=== PATIENT | female | born 1970 | race Caucasian/White ===

== ENCOUNTER → 2017-04-07 | Outpatient (CLI) | payer OTHER ==
--- NOTE | 2017-04-08 11:08 | ECHOF ---
Referral Reason:[id number] primary pulmonary htn MEASUREMENTS -------- HEIGHT: 160.0 cm WEIGHT: 43.5 kg BP: 110/60 RVIDd: 2.5 cm (< 3.3) IVSd: 0.9 cm (0.6 - 1.1) LVIDd: 3.9 cm (3.9 - 5.3) LVPWd: 0.8 cm (0.6 - 1.1) IVSs: 1.3 cm LVIDs: 2.5 cm LVPWs: 1.2 cm LA Diam: 2.7 cm (2.7 - 3.8) LAESV Index (A-L): 27.56 ml/m Ao Diam: 2.5 cm (2.0 - 3.7) AV Cusp: 2.0 cm (1.5 - 2.6) MV EXCURSION: 12.169 mm (> 18.000) MV EF SLOPE: 71 mm/s (70 - 150) EPSS: 0.0 cm MV E Tristin: 1.05 m/s MV DecT: 205 ms MV A Tristin: 0.72 m/s MV E/A Ratio: 1.45 AR PHT: 1095 ms RAP: 5.00 mmHg RVSP: 23.35 mmHg FINDINGS -------- Sinus rhythm. This was a technically good study. The left ventricular size is normal. Left ventricular wall thickness is normal. Overall left ventricular systolic function is normal with, an EF between 60 - 65 %. The right ventricle is normal in size. Normal LA size by volume 22+/-6 ml/m2. The right atrium is normal in size. There is mild aortic valve sclerosis. There is mild aortic regurgitation. There is trace to mild mitral regurgitation. Mild tricuspid regurgitation present. Right ventricular systolic pressure is normal at < 35 mmHg. Trace/mild (physiologic) pulmonic regurgitation. The aortic root size is normal. Normal inferior vena cava with normal inspiratory collapse consistent with estimated right atrial pressure of 5 mmHg. There is no pericardial effusion. CONCLUSIONS -------- 1. Sinus rhythm. 2. There is mild aortic regurgitation. 3. There is trace to mild mitral regurgitation. 4. Mild tricuspid regurgitation present. 5. Right ventricular systolic pressure is normal at < 35 mmHg. 6. Trace/mild (physiologic) pulmonic regurgitation. 7. The aortic root size is normal. 8. Normal inferior vena cava with normal inspiratory collapse consistent with estimated right atrial pressure of 5 mmHg. 9. There is no pericardial effusion. 10. This was a technically good study. 11. The left ventricular size is normal. 12. Left ventricular wall thickness is normal. 13. Overall left ventricular systolic function is normal with, an EF between 60 - 65 %. 14. The right ventricle is normal in size. 15. Normal LA size by volume 22+/-6 ml/m2. 16. The right atrium is normal in size. 17. There is mild aortic valve sclerosis. [employer] [id number]: Joan Field RDCS
== END | disposition home or self-care (01) ==
LOC: RADECHMAIN 12:58
PROVIDERS: ATTEND Internal Medicine Sleep Medicine
DX: I08.3 Combined rheumatic disorders of mitral, aortic and tricuspid valves (principal); I27.0 Primary pulmonary hypertension
CPT/HCPCS: 93306

== ENCOUNTER → 2017-05-12 | Outpatient (CLI) | payer OTHER ==
--- NOTE | 2017-05-12 14:23 | MR ---
EXAMINATION TYPE: MR shoulder RT wo con DATE OF EXAM: 05/12/2017 COMPARISON: Plain film correlation is unavailable. HISTORY: RTC, painful to raise over head TECHNIQUE: Multiplanar, multisequence imaging of the right shoulder is performed without contrast. FINDINGS: Rotator Cuff: Rotator cuff appears intact. No suspicious signal abnormality is evident. Acromioclavicular Joint: Minimal hypertrophy without inferior spurring. Glenohumeral Joint: Preserved Labrum: The labrum appears grossly intact given limitation of non-arthrogram study. Biceps Tendon: The long head of biceps is in normal location within bicipital groove. Bone marrow signal: There is signal abnormality within the metaphyseal humerus. Also consider an occu lt fracture of the greater tubercle of the humerus. Plain film correlation is recommended. There is i ncreased signal throughout the metadiaphysis of the humerus. A more focal area with well-circumscribe d margins is within the metaphysis. This area could be further evaluated with plain film to help guid e further workup. Other: No additional significant abnormality is appreciated. IMPRESSION: 1. Suspected occult fracture of the greater tubercle right humerus. 2. Abnormal edema within the medullary metadiaphysis right humerus. A focal circumscribed areas withi n the medullary portion is well. Plain film correlation is recommended of the right shoulder proximal humerus for correlation and additional guidance for workup of these findings. 3. Rotator cuff appears intact.
== END | disposition home or self-care (01) ==
LOC: RADMRIMAIN 10:48
PROVIDERS: ATTEND Orthopaedic Surgery
DX: R60.0 Localized edema (principal)

== ENCOUNTER → 2017-05-25 | Outpatient (CLI) | payer OTHER ==
[~2017-05-25] MED LIST: DENOSUMAB 60 MG/ML 1 ML SYRINGE SQ ONE
[2017-05-25 13:48] VITALS: BP 124/86; PULSE 82; RESP 16; TEMP 98.6
== END ==
LOC: PROCWHC3 13:16
PROVIDERS: ATTEND Family Medicine
DX: M81.0 Age-related osteoporosis without current pathological fracture (principal); N18.3 Chronic kidney disease, stage 3 (moderate)
CPT/HCPCS: 96372; J0897

== ENCOUNTER → 2017-10-28 | Outpatient (CLI) | payer OTHER ==
--- NOTE | 2017-10-28 17:59 | BD ---
EXAMINATION TYPE: MG DEXA axial skeleton. DATE OF EXAM: 10/28/2017 COMPARISON: 09.24.2015 CLINICAL HISTORY: 47 YR OLD FEMALE: ICD-10 CODE: M81.831A OSTEOPOROSIS W/FX...RT FOREARM LMP 1 YR AGO Height: 62.5 Weight: 91 FRAX RISK QUESTIONS: Alcohol (3 or more units per day): NO Family History (Parent hip fracture): NO Glucocorticoids (More than 3mos): NO (Ex: prednisone, prednisolone, methylprednisolone, dexamethasone, and hydrocortisone). History of Fracture in Adulthood: YES Secondary Osteoporosis: NO 1. Type 1 Diabetes: NO 2. Hyperthyroidism: NO 3. Menopause before 45: NO BUT AT 46 4. Malnutrition: INTESTINAL MALABSORPTION. 5. Chronic liver disease: NO Rheumatoid Arthritis: NO Current Tobacco Use: NO RISK FACTORS HISTORY OF: Spine Fracture: 4 CRUSHED VERT. THORACIC SPINE When: AT AGE 22 YRS OLD History of Wrist Fracture: RT WRIST AND HAND, RT HUMERUS 2015 AND 2017 Surgery to Spine/Hip(right/left)/Wrist (right/left): NO Family History of Osteoporosis: NONE KNOWN Active: NOT REALLY Diet low in dairy products/other sources of calcium: NO Postmenopausal woman: AGE 46 YRS OLD Lost more than 2 inches in height since high school: NO Hyperparathyroidism: NO Adrenal Insufficiency: NO MEDICATIONS: Prednisone or other steroids: ASTHMA INHALERS AND PREDNISONE AUG 2016 How Long: ON AND OFF WITH SYMPTOMS Osteoporosis Medications: PROLIA , PRIOR ON RECLAST...ON OSTEOPOROSIS MEDS FOR 2 YRS How Lon YR Additional Medications: BP MEDS, TPN BAG, WITH NUTRITION, CALCIUM, VIT D IN PAST,PATAS IUM AND SODIUM BICARB, PHOSPHATE, GATTEX SHOT DAILY Additional History: INTESTIONAL MALABSORBTION. EXAM MEASUREMENTS: Bone mineral densitometry was performed using the [employer] System. Bone mineral density as measured about the Lumbar spine is: ----- L1-L4(G/cm2): 0.853 T Score Values are as follows: ----- L1: -3.3 ----- L2: -2.8 ----- L3: -2.7 ----- L4: -2.5 ----- L1-L4: -2.7 Bone mineral density has: Increased 3.9% since study of: 09.24.2015 Bone mineral density about the R hip (g/cm2): 0.622 Bone mineral density about the L hip (g/cm2): 0.618 T Score values are as follows: -----R Neck: -2.8 -----L Neck: -2.9 -----R Total: -3.1 -----L Total: -3.1 Bone mineral density has: Decreased -7.6% since study of: 09.24.2015 FRAX%S: THERE IS A 10.3% CHANCE OF A MAJOR OSTEOPOROTIC FX AND A 4.4% FOR HIP FX.....PROBABILITY O F FX IN 10 YRS TIME IMPRESSION: Note that Z score values were utilized as the patient's age is less than 50 years old. Bone mineral density is below expected range for age (Z score < -2.0 in both the lumbar spine and hip s). NOTE: T-SCORE=SD OF THE YOUNG ADULT MEAN.
== END | disposition home or self-care (01) ==
LOC: RADBDWWP 09:17
PROVIDERS: ATTEND Family Medicine
DX: M80.831A Other osteoporosis with current pathological fracture, right forearm, initial encounter for fracture (principal)
CPT/HCPCS: 77080

== ENCOUNTER → 2017-11-01 | Outpatient (CLI) | payer OTHER ==
[2017-11-01 13:54] LABS: Basophils % (A) 1 %; Eosinophils # (A) 0.1 k/uL (0-0.7); Eosinophils % (A) 3 %; HCT 36.2 % (34.0-46.0); HGB 10.8 gm/dL (11.4-16.0); Hypochromasia Moderate; Lymphocytes # (A) 0.7 k/uL (1.0-4.8); Lymphocytes % (A) 14 %; MCH 31.4 pg (25.0-35.0); MCHC 29.9 g/dL (31.0-37.0); MCV 104.8 fL (80.0-100.0); Macrocytosis Slight; Mean Platelet Volume 6.5; Monocytes # (A) 0.4 k/uL (0-1.0); Monocytes % (A) 9 %; Neutrophils # (A) 3.6 k/uL (1.3-7.7); Neutrophils % (A) 73 %; Platelet Count 236 k/uL (150-450); RBC 3.45 m/uL (3.80-5.40); RDW 12.9 % (11.5-15.5)
[2017-11-01 14:02] LABS: Ionized Calcium 4.6 mg/dL (4.5-5.3)
[2017-11-01 14:08] LABS: ALT 35 U/L (9-52); AST 25 U/L (14-36); Albumin 4.1 g/dL (3.5-5.0); Alkaline Phosphatase 85 U/L (38-126); Bilirubin, Delta 0.3 mg/dL (0.0-0.2); Bilirubin,Unconjugated 0.2 mg/dL (0.0-1.1); Blood Urea Nitrogen 26 mg/dL (7-17); C Reactive Protein <5.0 mg/L (<10.0); Calcium 8.7 mg/dL (8.4-10.2); Carbon Dioxide 29 mmol/L (22-30); Chloride 104 mmol/L (98-107); Glucose 81 mg/dL (74-99); Magnesium 2.3 mg/dL (1.6-2.3); Phosphorus 3.1 mg/dL (2.5-4.5); Potassium 4.3 mmol/L (3.5-5.1); Sodium 144 mmol/L (137-145); Total Bilirubin 0.5 mg/dL (0.2-1.3); Total Protein 6.8 g/dL (6.3-8.2); Triglycerides 83 mg/dL (<150)
[2017-11-01 18:54] LABS: Iron Saturation 14.51 (12.00-45.00)
== END | disposition home or self-care (01) ==
LOC: LABWHC1 13:29
PROVIDERS: ATTEND Internal Medicine Gastroenterology
DX: Z48.298 Encounter for aftercare following other organ transplant (principal); Z94.82 Intestine transplant status; Z98.890 Other specified postprocedural states
CPT/HCPCS: 36415; 82040; 82248; 82310; 82330; 82374; 82435; 82565; 82728; 82947; 83540; 83550; 83735; 84075; 84100; 84132; 84134; 84155; 84295; 84450; 84460; 84478; 84520; 85025; 86140

== ENCOUNTER → 2017-11-22 | Outpatient (CLI) | payer OTHER | END | disposition home or self-care (01) | LOC: LABWHC1 09:44 | PROVIDERS: ATTEND Internal Medicine Gastroenterology | DX: E44.0 Moderate protein-calorie malnutrition (principal); E87.0 Hyperosmolality and hypernatremia; Z88.1 Allergy status to other antibiotic agents; Z88.2 Allergy status to sulfonamides; Z88.8 Allergy status to other drugs, medicaments and biological substances | CPT/HCPCS: 36415; 82746; 84446 ==

== ENCOUNTER → 2017-12-06 | Outpatient (CLI) | payer OTHER | END | disposition home or self-care (01) | LOC: LABWHC1 10:14 | PROVIDERS: ATTEND Internal Medicine Gastroenterology | DX: E87.1 Hypo-osmolality and hyponatremia (principal); E44.0 Moderate protein-calorie malnutrition | CPT/HCPCS: 36415; 84446 ==

== ENCOUNTER → 2018-03-03 | Outpatient (CLI) | payer OTHER ==
--- NOTE | 2018-03-03 16:02 | MR ---
EXAMINATION TYPE: MR shoulder RT wo con DATE OF EXAM: 03/03/2018 COMPARISON: NONE HISTORY: Pain in right shoulder TECHNIQUE: Multiplanar, multisequence imaging of the right shoulder is performed without contrast. FINDINGS: Rotator Cuff: Rotator cuff appears intact. No abnormal fluid collections are evident suggest perforat ion or tear is Acromioclavicular Joint: Mild hypertrophy is present with spurring. Glenohumeral Joint: Preserved. Labrum: The labrum appears grossly intact given limitation of non-arthrogram study. Biceps Tendon: The long head of biceps is in normal location within bicipital groove. Bone marrow signal: Previous linear densities suggesting fracture along are evident. There is however persistence of a medullary area of increased signal. 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 No increasing size is evident. Other: No additional significant abnormality is appreciated. IMPRESSION: 1. Previous suspected fracture not evident on current exam. 2. Medullary infarct medullary cyst appears stable.
== END | disposition home or self-care (01) ==
LOC: RADMRIMAIN 11:09
PROVIDERS: ATTEND Orthopaedic Surgery
DX: M85.611 Other cyst of bone, right shoulder (principal)

== ENCOUNTER 2018-03-27 14:37 | Inpatient (IN) | payer OTHER ==
[2018-03-27] MEDS ORDERED: ACETAMINOPHEN TAB 500 MG TAB PO STA (16:45)
[2018-03-27] MEDS ORDERED: diphenhydrAMINE 50 MG/ML 1 ML VIAL IVP STA (16:47)
[2018-03-27] MEDS ORDERED: cefTRIAXone IN SWFI 1,000 MG/10 ML SYRINGE IVP STA (16:48)
[2018-03-27] MEDS: SODIUM CHLORIDE 0.9% 1,000 ML IV SCH (17:04)
[2018-03-27] MEDS: SODIUM CHLORIDE 0.9% 500 ML IV SCH ×2 (17:05→17:28)
--- NOTE | 2018-03-27 17:16 | ED ---
Recheck HPI <Hector Bello - Last Filed: 03/27/18 19:40> - General Source: patient, RN notes reviewed, old records reviewed Mode of arrival: wheelchair Limitations: no limitations <SteveMerary - Last Filed: 03/27/18 19:43> - General Chief Complaint: Recheck/Abnormal Lab/Rx Stated Complaint: Infection in her pic line Time Seen by Provider: 03/27/18 16:29 - History of Present Illness Initial Comments: This patient's a 47-year-old female with a history of short-bowel syndrome with Choi line for which she receives TPN and fluids. Patient states that she does TPN 3-4 times a week to supplement her nutrition. Patient states that over the past few days she's been feeling fatigued, muscle stiffness and noticed that she's had fevers. Patient states that she's had no other major symptoms such as a cough or abdominal pain or urinary symptoms. Patient states last time she had an infection within her central line she had similar symptoms. She's had this central line for 2 years. Patient states that she has had some Motrin earlier today. (Merary Wilson) - Related Data Home Medications Medication Instructions Recorded Confirmed Gattex 2.3 mg SQ DAILY 10/29/15 03/27/18 amLODIPine [Norvasc] 10 mg PO DAILY 10/29/15 03/27/18 Acetaminophen Tab [Tylenol Tab] 500 mg PO Q4H PRN 08/29/16 03/27/18 Omeprazole 20 mg PO DAILY 08/29/16 03/27/18 Potassium Chloride ER [K-Dur 20] 20 meq PO DAILY 08/29/16 03/27/18 Ferrous Sulfate [Iron] 325 mg PO DAILY 05/25/17 03/27/18 Sodium Bicarbonate 650 mg PO BID 05/25/17 03/27/18 Tpn 1,650 ml IV Q14H 05/25/17 03/27/18 HYDROcodone/APAP 5-325MG [[place] 1 tab PO BID PRN 03/27/18 03/27/18 5-325] Allergies Allergy/AdvReac Type Severity Reaction Status Date / Time ceftriaxone [From Rocephin] Allergy Intermediate Itching Verified 03/27/18 16:47 acetate salt Allergy Unknown Verified 03/27/18 16:47 [From Hyperlyte CR] calcium [From Hyperlyte CR] Allergy Unknown Verified 03/27/18 16:47 chloride [From Hyperlyte CR] Allergy Unknown Verified 03/27/18 16:47 ciprofloxacin [From Cipro] Allergy Anaphylaxis Verified 03/27/18 16:47 ciprofloxacin HCl Allergy Anaphylaxis Verified 03/27/18 16:47 [From Cipro] fat emulsions Allergy Unknown Verified 03/27/18 16:47 [From Liposyn II] magnesium [From Hyperlyte CR] Allergy Unknown Verified 03/27/18 16:47 potassium [From Hyperlyte CR] Allergy Unknown Verified 03/27/18 16:47 sodium [From Hyperlyte CR] Allergy Unknown Verified 03/27/18 16:47 Sulfa (Sulfonamide Allergy Anaphylaxis Verified 03/27/18 16:47 Antibiotics) fexofenadine [From Sofia] AdvReac Migraine Verified 03/27/18 16:47 Review of Systems ROS Other: All systems not noted in ROS Statement are negative. <Hector Bello - Last Filed: 03/27/18 19:40> ROS Other: All systems not noted in ROS Statement are negative. <Merary Wilson - Last Filed: 03/27/18 19:43> ROS Statement: Those systems with pertinent positive or pertinent negative responses have been documented in the HPI. Past Medical History Past Medical History: Blood Disorder, GERD/Reflux, Hypertension, Respiratory Disorder Additional Past Medical History / Comment(s): Choi , Hernia, Volvulosis, short bowel syndrome, pneumothorax, hemothorax. ANEMIA History of Any Multi-Drug Resistant Organisms: None Reported Past Surgical History: Appendectomy, Bowel Resection, Cholecystectomy, Tubal Ligation Additional Past Surgical History / Comment(s): intestinal transplant and removal , chest tube placement. CHOI REPLACEMENT. Past Anesthesia/Blood Transfusion Reactions: No Reported Reaction Past Psychological History: No Psychological Hx Reported Smoking Status: Never smoker Past Alcohol Use History: None Reported Past Drug Use History: None Reported - Past Family History Mother Family Medical History: Hypertension Father Family Medical History: Congestive Heart Failure (CHF), Coronary Artery Disease (CAD), Diabetes Mellitus, Hypertension Additional Family Medical History / Comment(s): two years ago. <Merary Wilson - Last Filed: 03/27/18 19:43> General Exam <Hector Bello - Last Filed: 03/27/18 19:40> Limitations: no limitations General appearance: alert, in no apparent distress Head exam: Present: atraumatic, normocephalic, normal inspection Eye exam: Present: normal appearance, PERRL, EOMI. Absent: scleral icterus, conjunctival injection, periorbital swelling ENT exam: Present: normal exam Neck exam: Present: normal inspection. Absent: tenderness, meningismus, lymphadenopathy Respiratory exam: Present: normal lung sounds bilaterally. Absent: respiratory distress, wheezes, rales, rhonchi, stridor Cardiovascular Exam: Present: regular rate, normal rhythm, normal heart sounds, other (Well-appearing site from patient's central line. No erythema.). Absent : systolic murmur, diastolic murmur, rubs, gallop, clicks GI/Abdominal exam: Present: soft, normal bowel sounds. Absent: distended, tenderness, guarding, rebound, rigid Extremities exam: Present: normal inspection, full ROM, normal capillary refill. Absent: tenderness, pedal edema, joint swelling, calf tenderness Back exam: Present: normal inspection Neurological exam: Present: alert, oriented X3, CN II-XII intact Psychiatric exam: Present: normal affect, normal mood Skin exam: Present: warm, dry, intact, normal color. Absent: rash <Merary Wilson - Last Filed: 03/27/18 19:43> - General Exam Comments Initial Comments: 47-year-old female. Alert and oriented. No significant distress. Alicia appears cachectic. (Merary Wilson) Course <Hector Bello - Last Filed: 03/27/18 19:40> <Merary Wilson - Last Filed: 03/27/18 19:43> Vital Signs 03/27/18 03/27/18 03/27/18 15:37 17:29 18:27 Temperature 100.1 F H 98.0 F Pulse Rate 89 76 67 Respiratory 18 18 18 Rate Blood Pressure 106/54 102/51 95/50 O2 Sat by Pulse 99 100 100 Oximetry - Reevaluation(s) Reevaluation #1: 03/27/18 19:38 Alicia is somewhat fatigued after receiving the Benadryl today. She reports she had have that prior to getting her antibiotic. (Merary Wilson) Medical Decision Making - Lab Data Result diagrams: 03/27/18 17:00 03/27/18 17:00 <Hector Bello - Last Filed: 03/27/18 19:40> - Lab Data Result diagrams: 03/27/18 17:00 03/27/18 17:00 - Radiology Data Radiology results: report reviewed <Merary Wilson - Last Filed: 03/27/18 19:43> - Medical Decision Making Patient reevaluated by myself, Dr. Bello. Patient resting comfortably in bed. Source of fever unclear at this time. Patient will be admitted for ID evaluation. Central venous catheter may need to be removed. (Hector Bello) 47-year-old female presents emergency department today with tingling of fevers and body aches. Concern for infection of her Choi line. She reports that she had the similar symptoms 2 years ago when they report she had an infection within her central line. She receives TPN due to Malabsorption syndrome. She said multiple bowel resections. She reports no abdominal pain, cough congestion or other source of infection. Patient's lab work was reviewed. White blood cell count is within normal limits. Patient does have significant BUN/creatinine. This is in somewhat stable from her previous lab work. CO2 of 12. Given 1 L bolus and started on maintenance fluids. I did start the Patient on Rocephin. She may need to have her central line removed. Patient will have consult to infectious disease. Discussed case with CHRISTIANO Jain. (Merary Wilson) - Lab Data Lab Results 03/27/18 03/27/18 03/27/18 Range/Units 17:00 17:00 17:00 WBC 8.2 (3.8-10.6) k/uL RBC 3.47 L (3.80-5.40) m/uL Hgb 11.2 L (11.4-16.0) gm/dL Hct 35.5 (34.0-46.0) % MCV 102.3 H (80.0-100.0) fL MCH 32.3 (25.0-35.0) pg MCHC 31.6 (31.0-37.0) g/dL RDW 15.7 H (11.5-15.5) % Plt Count 226 (150-450) k/uL Neutrophils % 94 % Lymphocytes % 2 % Monocytes % 3 % Eosinophils % 1 % Basophils % 0 % Neutrophils # 7.7 (1.3-7.7) k/uL Lymphocytes # 0.2 L (1.0-4.8) k/uL Monocytes # 0.2 (0-1.0) k/uL Eosinophils # 0.1 (0-0.7) k/uL Basophils # 0.0 (0-0.2) k/uL Hypochromasia Moderate Macrocytosis Slight PT (9.0-12.0) sec INR (<1.2) APTT (22.0-30.0) sec Sodium 143 (137-145) mmol/L Potassium 3.6 (3.5-5.1) mmol/L Chloride 116 H (98-107) mmol/L Carbon Dioxide 12 L (22-30) mmol/L Anion Gap 15 mmol/L BUN 28 H (7-17) mg/dL Creatinine 2.20 H (0.52-1.04) mg/dL Est GFR (CKD-EPI)AfAm 30 (>60 ml/min/1.73 sqM) Est GFR (CKD-EPI)NonAf 26 (>60 ml/min/1.73 sqM) Glucose 79 (74-99) mg/dL Plasma Lactic Acid Malik 1.7 (0.7-2.0) mmol/L Calcium 8.9 (8.4-10.2) mg/dL Total Bilirubin 0.5 (0.2-1.3) mg/dL AST 51 H (14-36) U/L ALT 85 H (9-52) U/L Alkaline Phosphatase 160 H (38-126) U/L Total Protein 6.6 (6.3-8.2) g/dL Albumin 4.0 (3.5-5.0) g/dL Urine Color Urine Appearance (Clear) Urine pH (5.0-8.0) Ur Specific Kenneth (1.001-1.035) Urine Protein (Negative) Urine Glucose (UA) (Negative) Urine Ketones (Negative) Urine Blood (Negative) Urine Nitrite (Negative) Urine Bilirubin (Negative) Urine Urobilinogen (<2.0) mg/dL Ur Leukocyte Esterase (Negative) Urine RBC (0-5) /hpf Urine WBC (0-5) /hpf Ur Squamous Epith Cells (0-4) /hpf Urine Bacteria (None) /hpf Urine Mucus (None) /hpf 03/27/18 03/27/18 Range/Units 17:00 18:50 WBC (3.8-10.6) k/uL RBC (3.80-5.40) m/uL Hgb (11.4-16.0) gm/dL Hct (34.0-46.0) % MCV (80.0-100.0) fL MCH (25.0-35.0) pg MCHC (31.0-37.0) g/dL RDW (11.5-15.5) % Plt Count (150-450) k/uL Neutrophils % % Lymphocytes % % Monocytes % % Eosinophils % % Basophils % % Neutrophils # (1.3-7.7) k/uL Lymphocytes # (1.0-4.8) k/uL Monocytes # (0-1.0) k/uL Eosinophils # (0-0.7) k/uL Basophils # (0-0.2) k/uL Hypochromasia Macrocytosis PT 9.7 (9.0-12.0) sec INR 1.0 (<1.2) APTT 24.0 (22.0-30.0) sec Sodium (137-145) mmol/L Potassium (3.5-5.1) mmol/L Chloride (98-107) mmol/L Carbon Dioxide (22-30) mmol/L Anion Gap mmol/L BUN (7-17) mg/dL Creatinine (0.52-1.04) mg/dL Est GFR (CKD-EPI)AfAm (>60 ml/min/1.73 sqM) Est GFR (CKD-EPI)NonAf (>60 ml/min/1.73 sqM) Glucose (74-99) mg/dL Plasma Lactic Acid Malik (0.7-2.0) mmol/L Calcium (8.4-10.2) mg/dL Total Bilirubin (0.2-1.3) mg/dL AST (14-36) U/L ALT (9-52) U/L Alkaline Phosphatase (38-126) U/L Total Protein (6.3-8.2) g/dL Albumin (3.5-5.0) g/dL Urine Color Light Yellow Urine Appearance Cloudy H (Clear) Urine pH 5.5 (5.0-8.0) Ur Specific Kenneth 1.008 (1.001-1.035) Urine Protein 1+ H (Negative) Urine Glucose (UA) Negative (Negative) Urine Ketones Negative (Negative) Urine Blood Trace H (Negative) Urine Nitrite Negative (Negative) Urine Bilirubin Negative (Negative) Urine Urobilinogen <2.0 (<2.0) mg/dL Ur Leukocyte Esterase Negative (Negative) Urine RBC <1 (0-5) /hpf Urine WBC 3 (0-5) /hpf Ur Squamous Epith Cells <1 (0-4) /hpf Urine Bacteria Occasional H (None) /hpf Urine Mucus Rare H (None) /hpf 03/27/18 17:16 EKG performed at 1620 shows normal sinus rhythm. Possible anterior infarct. Age undetermined. Abnormal EKG noted. Ventricular rate of 71 bpm. OK interval is 146 ms. QRS duration 84 ms. QT QTc is 408/433 ms. (Merary Wilson ) - Radiology Data Chest x-ray reviewed and negative for any acute process. Clearing of previous pneumonia. (Merary Wilson) Disposition <Hector Bello - Last Filed: 03/27/18 19:40> Is patient prescribed a controlled substance at d/c from ED?: No When asked, does pt state using other controlled substances?: No If prescribed controlled substance>3 days was MAPS reviewed?: No If opioid is for acute pain is fill amount 7 days or less?: No If Rx opioid, was Start Talking consent form obtained?: No Time of Disposition: 19:43 <Merary Wilson - Last Filed: 03/27/18 19:43> Clinical Impression: Fever, unknown origin, Metabolic acidosis Disposition: ADMITTED IP TO THIS HOSP Condition: Stable Referrals: Danny Davis MD [Primary Care Provider] - 1-2 days
[2018-03-27 17:46] LABS: Basophils % (A) 0 %; Eosinophils # (A) 0.1 k/uL (0-0.7); Eosinophils % (A) 1 %; HCT 35.5 % (34.0-46.0); HGB 11.2 gm/dL (11.4-16.0); Hypochromasia Moderate; Lymphocytes # (A) 0.2 k/uL (1.0-4.8); Lymphocytes % (A) 2 %; MCH 32.3 pg (25.0-35.0); MCHC 31.6 g/dL (31.0-37.0); MCV 102.3 fL (80.0-100.0); Macrocytosis Slight; Mean Platelet Volume 6.6; Monocytes # (A) 0.2 k/uL (0-1.0); Monocytes % (A) 3 %; Neutrophils # (A) 7.7 k/uL (1.3-7.7); Neutrophils % (A) 94 %; Platelet Count 226 k/uL (150-450); RBC 3.47 m/uL (3.80-5.40); RDW 15.7 % (11.5-15.5); WBC 8.2 k/uL (3.8-10.6)
[2018-03-27 17:56] LABS: Calcium 8.9 mg/dL (8.4-10.2); Potassium 3.6 mmol/L (3.5-5.1); Prothrombin Time 9.7 sec (9.0-12.0); Total Bilirubin 0.5 mg/dL (0.2-1.3); Total Protein 6.6 g/dL (6.3-8.2)
--- NOTE | 2018-03-27 18:04 | XR ---
EXAMINATION TYPE: XR chest 2V DATE OF EXAM: 03/27/2018 COMPARISON: 09/02/2016 HISTORY: Weakness TECHNIQUE: Frontal and lateral views of the chest are obtained. FINDINGS: Heart is normal. Lungs are clear of consolidation. There is left side central venous kiesha ter with the tip over the superior vena cava. There is no heart failure. There is no pleural effusion . There is thoracic dextroscoliosis. IMPRESSION: No active cardiopulmonary disease. Normal heart. There is clearing of the right lower lo be pneumonia compared to old exam.
[2018-03-27 19:23] LABS: Appearance,Urine Cloudy (Clear); Bacteria,Urine Occasional /hpf; Bilirubin,Urine Negative (Negative); Blood,Urine Trace (Negative); Color,Urine Light Yellow; Glucose,Urine (UA) Negative (Negative); Ketones,Urine Negative (Negative); Leukocyte Esterase,Urine Negative (Negative); Mucus,Urine Rare /hpf; Nitrite,Urine Negative (Negative); PH, Urine 5.5 (5.0-8.0); Protein,Urine 1+ (Negative); RBC,Urine <1 /hpf (0-5); Specific Gravity,Urine 1.008 (1.001-1.035); Squamous Epithelial Cell,Urine <1 /hpf (0-4); Urobilinogen,Urine <2.0 mg/dL (<2.0); WBC,Urine 3 /hpf (0-5)
[2018-03-27] MEDS ORDERED: ONDANSETRON 4 MG/2 ML VIAL IVP PRN (19:43)
[2018-03-27] MEDS ORDERED: NALOXONE 0.4 MG/ML 1 ML VIAL IV PRN (19:43)
[2018-03-27 22:59] VITALS: BMI 16.2
[2018-03-28] MEDS: Acetaminophen-Codeine 300-30mg TAB PO PRN (01:54)
[2018-03-28] MEDS: SODIUM CHLORIDE 0.9% 1,000 ML IV SCH ×3 (03:54→14:56)
[2018-03-28] MEDS: oxyCODONE-APAP 5-325MG 1 EACH TAB PO PRN ×4 (04:38→17:43)
[2018-03-28] MEDS: PANTOPRAZOLE 40 MG/10 ML VIAL IV SCH (08:35)
[2018-03-28] MEDS ORDERED: VANCOMYCIN IV PER PHARMACY 1 EACH MISC MISCELLANE PRN (15:09)
--- NOTE | 2018-03-28 15:20 | HP ---
HISTORY AND PHYSICAL CHIEF COMPLAINTS: Feeling weak, stiff and fever, possible line infection. HISTORY OF PRESENT ILLNESS: This 47-year-old woman with a past medical history of short gut syndrome, history of GERD, hypertension, history of Choi catheter on the left chest, history of volvulus, being followed by Dr. Davis in the outpatient setting was not feeling well for the past 3 to 4 days. The patient is receiving TPN and IV fluids through the Choi. The patient is feeling fatigued, has some stiffness and as well as also some fevers. The patient came to the emergency room and was admitted for further evaluation and treatment. There is no history any headache, loss of consciousness, seizures. No history of any chest pain, palpitations, hematochezia or melena. PAST MEDICAL HISTORY: History of Choi catheter, short-gut syndrome, GERD, appendectomy, history of VATS procedure with hydropneumothorax. MEDICATIONS: 1. [place] 5 mg b.i.d. p.r.n. 2. Tylenol 500 mg q.4h p.r.n. 3. Norvasc 10 mg p.o. daily. 4. TPN 1650 mL IV 14 days. 5. Sodium bicarb 650 p.o. b.i.d. 6. K-Dur 20 mg p.o. daily. ALLERGIES: Rocephin, Hyperlyte, Cipro, Liposyn, antibiotics, Sofia. FAMILY HISTORY: History of hypertension in the family. SOCIAL HISTORY: No history of smoking. No history of alcohol intake. REVIEW OF SYSTEMS: ENT: No diminished hearing or vision. CARDIOVASCULAR: No angina. RESPIRATORY: As mentioned. GI: No nausea. : No dysuria. NERVOUS SYSTEM: No numbness or weakness. ALLERGY/IMMUNOLOGY: No asthma. MUSCULOSKELETAL: As mentioned earlier. HEMATOLOGY: No history of anemia. ENDOCRINE: No history of diabetes or hypothyroidism. CONSTITUTIONAL: As mentioned earlier. DERMATOLOGY: Negative. RHEUMATOLOGY: Negative. PSYCHIATRY: As mentioned earlier. PHYSICAL EXAMINATION: Alert, oriented x3. Pulse 75, blood pressure 100/60, respirations 16, temperature 99.2, pulse ox 99% on room air. HEENT: Conjunctivae normal. Oral mucosa moist. Neck is no jugular venous distention. No carotid bruit. No lymph node enlargement. CARDIOVASCULAR: S1, S2. No S3, no S4. RESPIRATORY: Breath sounds diminished in the bases. No rhonchi, no crackles. ABDOMEN: Soft. Mild diffuse distention present. Otherwise no mass palpable. Nontender. LEGS: No edema, no swelling. NERVOUS SYSTEM: Higher functions as mentioned earlier. Moves all four limbs. No focal motor deficits. LYMPHATICS: No lymphadenopathy in the neck, axillae, groin. SKIN: No ulcer, rash, bleeding. Exam of the left chest status post Choi catheter. No evidence of cellulitis, redness, tenderness. LABS: WBC 8, hemoglobin 11.2. Creatinine is 2.20. AST is 51, ALT is 85. ASSESSMENT: 1. Possible acute sepsis from line infection. 2. Anemia, macrocytic possibly nutritional. 3. Increased creatinine with possible acute renal failure. 4. Short-gut syndrome. 5. History of volvulus and surgery. 6. Hypertension. 7. Gastroesophageal reflux disease. 8. History of hydropneumothorax. 9. History of bowel resection. 10.History of intestinal transplant and removal. RECOMMENDATIONS AND DISCUSSION: In this 47-year-old woman with a past medical history of multiple medical problems was admitted with features of possible sepsis. I recommend broad-spectrum IV antibiotics, cultures and also a dose of Rocephin was given. Infectious Disease evaluation and consult Dr. Carrillo for possible removal of the infected Choi. Resume the home medications. Prognosis guarded because of multiple complex medical issues. Further recommendations to follow. DVT prophylaxis. Recommend close follow with Dr. Davis after discharge. MMODL / IJN: [id number] / MTDD
[2018-03-28] MEDS ORDERED: VANCOMYCIN 750 MG in SODIUM CHLORIDE 0.9% 250 ML IVPB ONE (15:30)
[2018-03-28] MEDS: diphenhydrAMINE 50 MG/ML 1 ML VIAL IVP PRN (16:10)
--- NOTE | 2018-03-28 18:34 | P.GSCN ---
History of Present Illness Consult date: 03/28/18 Reason for Consult: Sepsis History of present illness: The patient's a 47-year-old female well known to me. 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 She is been on TPN and supplements herself with IV fluids since that time. She's had episodes of line sepsis in the past. She's complaining of generalized pain, myalgia and fevers. Review of Systems All systems: negative Past Medical History Past Medical History: Blood Disorder, GERD/Reflux, Hypertension, Respiratory Disorder Additional Past Medical History / Comment(s): Adamson , Hernia, Volvulus, short gut syndrome, pneumothorax, hemothorax. anemia History of Any Multi-Drug Resistant Organisms: None Reported Past Surgical History: Appendectomy, Bowel Resection, Cholecystectomy, Tubal Ligation Additional Past Surgical History / Comment(s): intestinal transplant and removal , chest tube placement. ADAMSON REPLACEMENT. Past Anesthesia/Blood Transfusion Reactions: No Reported Reaction Past Psychological History: No Psychological Hx Reported Smoking Status: Never smoker Past Alcohol Use History: None Reported Past Drug Use History: None Reported - Past Family History Mother Family Medical History: Hypertension Father Family Medical History: Congestive Heart Failure (CHF), Coronary Artery Disease (CAD), Diabetes Mellitus, Hypertension Additional Family Medical History / Comment(s): two years ago. Medications and Allergies Home Medications Medication Instructions Recorded Confirmed Type Gattex 2.3 mg SQ DAILY 10/29/15 03/27/18 History amLODIPine [Norvasc] 10 mg PO DAILY 10/29/15 03/27/18 History Acetaminophen Tab [Tylenol Tab] 500 mg PO Q4H PRN 08/29/16 03/27/18 History Potassium Chloride ER [K-Dur 20] 20 meq PO DAILY 08/29/16 03/27/18 History Sodium Bicarbonate 650 mg PO BID 05/25/17 03/27/18 History Tpn 1,650 ml IV Q14H 05/25/17 03/27/18 History HYDROcodone/APAP 5-325MG [[place] 1 tab PO BID PRN 03/27/18 03/27/18 History 5-325] Allergies Allergy/AdvReac Type Severity Reaction Status Date / Time ceftriaxone [From Rocephin] Allergy Intermediate Itching Verified 03/27/18 16:47 acetate salt Allergy Unknown Verified 03/27/18 16:47 [From Hyperlyte CR] ciprofloxacin [From Cipro] Allergy Anaphylaxis Verified 03/27/18 16:47 ciprofloxacin HCl Allergy Anaphylaxis Verified 03/27/18 16:47 [From Cipro] fat emulsions Allergy Unknown Verified 03/27/18 16:47 [From Liposyn II] Sulfa (Sulfonamide Allergy Anaphylaxis Verified 03/27/18 16:47 Antibiotics) fexofenadine [From Sofia] AdvReac Migraine Verified 03/27/18 16:47 Surgical - Exam Osteopathic Statement: *. No significant issues noted on an osteopathic structural exam other than those noted in the History and Physical/Consult. Vital Signs Temp Pulse Resp BP Pulse Ox 100.1 F H 89 18 106/54 99 03/27/18 15:37 03/27/18 15:37 03/27/18 15:37 03/27/18 15:37 03/27/18 15:37 - General Appears ill compared to her usual. She was seen in the office about 2 months ago well developed, cachectic, chronically ill - ENT normal mucosa - Neck trachea midline, no lymphadectomy - Respiratory normal expansion, normal respiratory effort, clear to auscultation - Cardiovascular Rhythm: regular - Abdomen Abdomen: soft - Integumentary Adamson catheter is easily palpable in the left chest wall. There is no surrounding cellulitis Results - Labs 03/27/18 17:00 03/27/18 17:00 Abnormal Lab Results - Last 24 Hours (Table) 03/27/18 Range/Units 18:50 Urine Appearance Cloudy H (Clear) Urine Protein 1+ H (Negative) Urine Blood Trace H (Negative) Urine Bacteria Occasional H (None) /hpf Urine Mucus Rare H (None) /hpf Microbiology - Last 24 Hours (Table) 03/27/18 18:50 Urine Culture - Preliminary Urine,Voided Assessment and Plan (1) Sepsis Current Visit: Yes Status: Acute Code(s): A41.9 - SEPSIS, UNSPECIFIED ORGANISM SNOMED Code(s): 08178105 (2) Short bowel syndrome Current Visit: Yes Status: Acute Code(s): K91.2 - POSTSURGICAL MALABSORPTION , NOT ELSEWHERE CLASSIFIED SNOMED Code(s): 33164855 Plan: This is most consistent with the patient having line sepsis. She's had this in the past. We'll take her to the OR for removal of the Adamson today along with culture of the tip. The procedure, risk and complications were discussed.
[2018-03-28] MEDS ORDERED: SODIUM CHLORIDE 0.9% 1,000 ML IV ONE ×2 (19:01)
[2018-03-28] MEDS ORDERED: PROPOFOL 10 MG/ML 20 ML VIAL IV ONE (19:14)
[2018-03-28] MEDS ORDERED: MIDAZOLAM 2 MG/2 ML VIAL ONE (19:14)
[2018-03-28] MEDS ORDERED: fentaNYL (PF) 50 MCG/ML 2 ML AMP ONE (19:14)
[2018-03-28] MEDS ORDERED: BUPIVACAINE (PF) 0.5% 30 ML VIAL SQ ONE ×2 (19:24)
[2018-03-28] MEDS ORDERED: LIDOCAINE 1%-EPI 1:100,000 20 ML VIAL SQ ONE ×2 (19:25)
--- NOTE | 2018-03-28 19:40 | P.OP ---
Date of Procedure: 03/28/18 Preoperative Diagnosis: Line sepsis Postoperative Diagnosis: Line sepsis Procedure(s) Performed: Removal of Choi catheter Anesthesia: MAC Surgeon: Taya Carrillo Estimated Blood Loss (ml): 1 Pathology: other (Tip of the line for culture) Condition: stable Disposition: PACU Indications for Procedure: Patient presented with sepsis. She has a history of line sepsis in the past Description of Procedure: Patient's taken the operative suite where she is prepped and draped in the usual sterile manner under IV sedation. Local anesthetic was instilled in the skin and subcutaneous tissue. A small elliptical incision was made around the skin opening for the Choi catheter. The catheter is then dissected free for the subcutaneous tissues. The fibrous sheath which is proximal to the cuff is incised and grasped with a hemostat. The sheath is then fully transected. The catheter is removed and the tip was sent for culture. 4-0 Vicryl was used to close the fibrous sheath. The skin was then closed with 4-0 Vicryl in a subcuticular manner. Steri-Strips and dressings were applied. She tolerated the procedure without difficulty was taken recovery room in satisfactory condition.
[2018-03-28] MEDS ORDERED: NAPROXEN 250 MG TAB PO PRN (19:41)
[2018-03-28] MEDS ORDERED: ACETAMINOPHEN IV (For NPO) 1,000 MG/100 ML VIAL IVPB ONE (19:50)
[2018-03-28] MEDS ORDERED: LACTATED RINGERS 1,000 ML IV ONE (20:00)
[2018-03-28] MEDS: LACTATED RINGERS 1,000 ML IV SCH (20:54)
[2018-03-28] MEDS: AZTREONAM 2 GM in SODIUM CHLORIDE 0.9% 100 ML IVPB SCH (21:27)
[2018-03-28] MEDS: HEPARIN SODIUM,PORCINE 5,000 UNIT/ML 1 ML VIAL SQ SCH (21:34)
[2018-03-28] MEDS: SODIUM BICARBONATE TAB 650 MG TAB PO SCH (21:34)
--- NOTE | 2018-03-28 23:14 | CONS ---
CONSULTATION DATE OF SERVICE: 03/28/2018. REASON FOR CONSULTATION: Possible PICC line catheter infection. HISTORY OF PRESENT ILLNESS: The patient is a 47-year-old female with a past medical history significant for short bowel syndrome, for which the patient did have a Choi catheter to receive TPN and IV fluid. Patient did get TPN 2 to 4 times a week to supplement her nutrition. The patient said that over the last 3-4 days she has been complaining of generalized muscle stiffness and weakness, and that seemed to have been very typical of her previous line infection. The patient has been complaining of feeling freezing with some chills and hot. The patient denies having any URI symptoms; did have some headache, though. No chest pain or shortness of breath or cough. No abdominal pain. No diarrhea. No burning or frequency of urine. With these symptoms, the patient presented to the [facility] ER. On arrival in the ER the patient did have a fever of 100.1, subsequently spiking a fever of 101.3. The patient's white count was normal, though. Her UA has been negative and the chest x-ray was reported negative for any acute infiltrate. The patient did receive a dose of Rocephin in the ER and subsequently has been admitted to hospital. Infectious Disease was consulted for further recommendations regarding antibiotic therapy, as the patient does have ALLERGIES TO MULTIPLE ANTIBIOTICS. REVIEW OF SYSTEMS: CONSTITUTIONAL: Positive for weakness along with chills. EYES: No complaint. ENT: No complaint. RESPIRATORY: No complaint. CARDIOVASCULAR: No complaint. GENITOURINARY: No complaint. GASTROINTESTINAL: No complaint. MUSCULOSKELETAL: No complaint. INTEGUMENTARY: No complaint. PSYCHOLOGICAL: No complaint. ENDOCRINE: No complaint. NEUROLOGICAL: No complaint. PAST MEDICAL HISTORY: 1. Short gut syndrome. 2. Hypertension. 3. Gastroesophageal reflux disease. 4. Previous history of Choi catheter infection and bacteremia. PAST SURGICAL HISTORY: 1. Appendectomy. 2. Bowel resection. 3. Cholecystectomy. 4. Tubal ligation. 5. Chest tube placement. 6. Choi placement . SOCIAL HISTORY: Denies smoking, drinking or drug use. FAMILY HISTORY: Mother with history of hypertension. Father with history of congestive heart failure, diabetes mellitus. ALLERGIES: 1. CEFTRIAXONE WITH A RASH. TOLERATED A DOSE IN THE ER WITHOUT ANY PROBLEM. 2. CIPROFLOXACIN. 3. SULFA. CURRENT MEDICATION: 1. Tylenol. 2. . 3. Benadryl. 4. Heparin. 5. Lactated Ringer. 6. Narcan. 7. Naproxen. 8. Zofran. 9. Percocet. 10.Protonix. 11.K-Dur. PHYSICAL EXAMINATION: Her blood pressure is 127/63 with a pulse of 74, temperature 101.3. She is 92% on 2 L nasal cannula. General description is a middle-aged female lying in bed in no distress. No tachypnea or accessory muscle of respiration use. HEENT examination shows slight pallor. No scleral icterus. Oral mucosa membrane is moist. No pharyngeal erythema or thrush. NECK: Trachea is central. No thyromegaly. LUNGS: Unlabored breathing. Clear to auscultation anteriorly. No wheeze or crackle. HEART: S1, S2. Regular rate and rhythm. No murmur. ABDOMEN: Soft. No tenderness. No guarding or rigidity. EXTREMITIES: No edema of feet. SKIN EXAMINATION: No rash or mass palpable. Neurologically patient is awake, alert, oriented x3. Mood and affect normal. LABS: Hemoglobin is 11.2, white count 8.2, BUN of 28, creatinine 2.20. Electrolytes have been normal. Liver enzymes slightly elevated. Urine has been negative. Chest x-ray report negative. DIAGNOSTIC IMPRESSION AND PLAN: 1. Patient admitted to hospital with rigors and chills, generalized body aches in a patient who did mention that has been typical for her. Line sepsis in a patient currently with no other clinical focus of infection. Patient's UA has been negative. Abdomen was soft on clinical examination. Chest x-ray report negative and no evidence of any cellulitis. Choi catheter infection will be at the top of the list. 2. Patient who has multiple antibiotic allergies. That limits the number of antibiotics it will be safe to use. 3. Patient with borderline kidney function. Antibiotic needs to be monitored closely to prevent any nephrotoxicity associated with it. PLAN: 1. We will start the patient on Azactam 2 grams q.24 hours. 2. Vancomycin, Pharmacy to dose, target trough of 15 while watching her kidney function closely. 3. Await the blood cultures to be finalized. 4. We will follow up on the clinical condition and investigations and further adjust medication if needed. Thank you for this consultation. We will follow this patient along with you. MMODL / IJN: [id number] /
[2018-03-29] MEDS ORDERED: oxyCODONE-APAP 5-325MG 1 EACH TAB ONE (04:05)
[2018-03-29] MEDS: SODIUM CHLORIDE 0.9% 1,000 ML IV SCH ×2 (04:22→11:51)
[2018-03-29] MEDS: ACETAMINOPHEN TAB 325 MG TAB PO PRN ×2 (06:09→14:57)
[2018-03-29] MEDS ORDERED: VANCOMYCIN 750 MG in SODIUM CHLORIDE 0.9% 250 ML IVPB ONE (08:00)
[2018-03-29] MEDS ORDERED: [UNRECOGNIZED DRUG - OTHER] SQ SCH (09:00)
[2018-03-29] MEDS: HEPARIN SODIUM,PORCINE 5,000 UNIT/ML 1 ML VIAL SQ SCH ×2 (09:10→20:39)
[2018-03-29] MEDS: amLODIPine 10 MG TAB PO SCH (09:10)
[2018-03-29] MEDS: POTASSIUM CHLORIDE ER 20 MEQ TAB.ER PO SCH (09:10)
[2018-03-29] MEDS: PANTOPRAZOLE 40 MG/10 ML VIAL IV SCH (09:10)
[2018-03-29] MEDS: SODIUM BICARBONATE TAB 650 MG TAB PO SCH ×2 (09:11→20:39)
[2018-03-29] MEDS: diphenhydrAMINE 50 MG/ML 1 ML VIAL IVP PRN (09:30)
[2018-03-29 09:39] LABS: Basophils % (A) 0 %; Eosinophils # (A) 0.1 k/uL (0-0.7); Eosinophils % (A) 2 %; HCT 34.1 % (34.0-46.0); HGB 10.4 gm/dL (11.4-16.0); Hypochromasia Marked; Lymphocytes # (A) 0.2 k/uL (1.0-4.8); Lymphocytes % (A) 3 %; MCH 32.6 pg (25.0-35.0); MCHC 30.5 g/dL (31.0-37.0); MCV 106.8 fL (80.0-100.0); Macrocytosis Marked; Monocytes # (A) 0.3 k/uL (0-1.0); Monocytes % (A) 5 %; Neutrophils # (A) 4.7 k/uL (1.3-7.7); Neutrophils % (A) 89 %; Platelet Count 137 k/uL (150-450); Poikilocytosis Slight; RBC 3.19 m/uL (3.80-5.40); RDW 15.9 % (11.5-15.5); WBC 5.2 k/uL (3.8-10.6)
[2018-03-29 09:46] LABS: Calcium 7.8 mg/dL (8.4-10.2); Potassium 4.2 mmol/L (3.5-5.1)
[2018-03-29] MEDS ORDERED: DEXTROSE 5% IN WATER 1,000 ML IV SCH (10:45)
[2018-03-29] MEDS: AZTREONAM 2 GM in SODIUM CHLORIDE 0.9% 100 ML IVPB SCH ×2 (11:01→20:34)
[2018-03-29] MEDS: DEXTROSE 5% IN WATER 1,000 ML with SODIUM BICARB (1 MEQ/ML) 150 ML IV SCH (13:30)
--- NOTE | 2018-03-29 13:31 | P.NPCON ---
History of Present Illness - Reason for Consult acute renal failure, metabolic acidosis - History of Present Illness Reason for consultation: Acute kidney injury on chronic kidney disease History of present illness: Patient is a 47-year-old female seen in renal consultation for acute kidney injury on chronic kidney disease. Patient has chronic kidney disease stage III with baseline creatinine in the range of 1.5-2. Creatinine today is 2.25. Patient presented to the hospital with fever of 101F. Patient has history of short bowel syndrome and receives TPN 3-4 times per week. Her oral intake is fair. Her Adamson catheter was noted to be infected and was discontinued. She is currently receiving IV antibiotics per infectious disease recommendations. Patient's noted to be quite acidotic with a bicarbonate level of 8 this morning. She was started on D5 W at 100 mL an hour this morning. Her blood pressure was low in the systolic 90s for which she did receive 1 L of normal saline bolus. Most recent blood pressure was 122/61. She denies use of NSAIDs. Denies vomiting. She does have chronically loose bowel movements. She denies any obvious drainage from the Adamson catheter site. Vital signs are stable. General: The patient appeared well nourished and normally developed. HEENT: Head exam is unremarkable. Neck is without jugular venous distension. LUNGS: Lungs are clear to auscultation and percussion. Breath sounds decreased. HEART: Rate and Rhythm are regular. First and second heart sounds normal. No murmurs, rubs or gallops. ABDOMEN: Abdominal exam reveals normal bowel sounds. Non-tender and non- distended. No evidence of peritonitis. EXTREMITITES: No clubbing, cyanosis, or edema. Past Medical History Past Medical History: Blood Disorder, GERD/Reflux, Hypertension, Respiratory Disorder Additional Past Medical History / Comment(s): Adamson , Hernia, Volvulus, short gut syndrome, pneumothorax, hemothorax. anemia History of Any Multi-Drug Resistant Organisms: None Reported Past Surgical History: Appendectomy, Bowel Resection, Cholecystectomy, Tubal Ligation Additional Past Surgical History / Comment(s): intestinal transplant and removal , chest tube placement. ADAMSON REPLACEMENT. Past Anesthesia/Blood Transfusion Reactions: No Reported Reaction Past Psychological History: No Psychological Hx Reported Smoking Status: Never smoker Past Alcohol Use History: None Reported Past Drug Use History: None Reported - Past Family History Mother Family Medical History: Hypertension Father Family Medical History: Congestive Heart Failure (CHF), Coronary Artery Disease (CAD), Diabetes Mellitus, Hypertension Additional Family Medical History / Comment(s): two years ago. Medications and Allergies Home Medications Medication Instructions Recorded Confirmed Type Gattex 2.3 mg SQ DAILY 10/29/15 03/27/18 History amLODIPine [Norvasc] 10 mg PO DAILY 10/29/15 03/27/18 History Acetaminophen Tab [Tylenol Tab] 500 mg PO Q4H PRN 08/29/16 03/27/18 History Potassium Chloride ER [K-Dur 20] 20 meq PO DAILY 08/29/16 03/27/18 History Sodium Bicarbonate 650 mg PO BID 05/25/17 03/27/18 History Tpn 1,650 ml IV Q14H 05/25/17 03/27/18 History HYDROcodone/APAP 5-325MG [[place] 1 tab PO BID PRN 03/27/18 03/27/18 History 5-325] Allergies Allergy/AdvReac Type Severity Reaction Status Date / Time ceftriaxone [From Rocephin] Allergy Intermediate Itching Verified 03/27/18 16:47 acetate salt Allergy Unknown Verified 03/27/18 16:47 [From Hyperlyte CR] ciprofloxacin [From Cipro] Allergy Anaphylaxis Verified 03/27/18 16:47 ciprofloxacin HCl Allergy Anaphylaxis Verified 03/27/18 16:47 [From Cipro] fat emulsions Allergy Unknown Verified 03/27/18 16:47 [From Liposyn II] Sulfa (Sulfonamide Allergy Anaphylaxis Verified 03/27/18 16:47 Antibiotics) fexofenadine [From Sofia] AdvReac Migraine Verified 03/27/18 16:47 Physical Exam Vitals: Vital Signs Temp Pulse Resp BP Pulse Ox 03/29/18 07:55 100.0 F H 03/29/18 05:45 101.7 F H 94 16 122/61 100 03/28/18 22:30 98.2 F 91 16 92/55 100 03/28/18 22:00 86 102/58 99 03/28/18 21:30 92 108/57 99 03/28/18 21:15 100.1 F H 90 113/62 100 03/28/18 21:00 90 113/62 98 03/28/18 20:45 95 111/59 97 03/28/18 20:30 101.8 F H 97 16 116/63 100 03/28/18 20:12 93 16 120/62 99 03/28/18 19:57 89 16 129/63 100 03/28/18 19:42 101.3 F H 94 16 127/63 100 03/28/18 14:36 98.2 F 74 18 113/64 100 Intake and Output 03/28/18 03/29/18 03/29/18 22:59 06:59 14:59 Intake Total 125 Output Total 2 Balance 123 Intake: IV 125 Output: Estimated Blood Loss 2 Other: Voiding Method Toilet Toilet # Voids 1 3 Results - Lab Results Most recent lab results Calcium 7.8 mg/dL (8.4-10.2) L 03/29/18 08:29 03/29/18 08:29 03/29/18 08:29 Assessment and Plan Plan: Assessment: 1. Nonoliguric acute kidney injury secondary to ATN secondary to hypotension and infection. Creatinine 2.25 today. 2. Hypotension secondary to hypovolemia improved with IV fluids. 3. Fever with source being the Adamson catheter. Status post removal of the catheter this admission. 4. History of short bowel syndrome. Patient receives TPN 3-4 times a week. 5. Metabolic acidosis secondary to acute kidney injury and IV fluids. 6. Chronic kidney disease stage IIIB/4 secondary to nephrosclerosis with baseline creatinine in the range of 1.5-2. 7. Hypertension with chronic kidney disease. Controlled. Plan: Discontinue D5W. Start isotonic sodium bicarbonate drip to be run at 100 mL an hour. Encouraged oral intake. Avoid nephrotoxic agents and hypotensive episodes. Follow-up cultures. Monitor vancomycin levels. Dose to be adjusted for renal function. Repeat electrolytes in the morning. Discontinue NSAIDs. Thank you for the consultation. I will continue to follow the patient with you during her hospital stay.
[2018-03-29] MEDS: oxyCODONE-APAP 5-325MG 1 EACH TAB PO PRN (14:10)
--- NOTE | 2018-03-29 15:27 | PN ---
PROGRESS NOTE DATE OF SERVICE: 03/29/2018 This is a 47-year-old woman who was admitted with possible acute sepsis and line infection, had a Choi catheter removed. The patient has broad-spectrum IV antibiotics. Final cultures are pending at this time. The patient has some rash from vancomycin. Nephrology is following the patient closely. No chest pain. No palpitations. No fever. PHYSICAL EXAM: Alert and oriented x3. No chest palpitation or fever is present. On exam, alert and oriented x3. Pulse 94, blood pressure 100/61, respirations 16, temperature 101.7, pulse ox 100% on room air. HEENT: Conjunctivae normal, oral mucosa moist. Neck is no jugular venous distention. No lymph node enlargement. CARDIOVASCULAR SYSTEM: S1, S2, muffled. RESPIRATION: Breath sounds diminished at the bases, a few scattered rhonchi. No crackles. ABDOMEN: Soft, nontender. No mass palpable. LEGS: No edema, no swelling. NERVOUS SYSTEMS: No focal deficits. LABS: WBC is 12.8, hemoglobin is 10.4, otherwise chloride is 121, CO2 is 8, and creatinine is 2.25. ASSESSMENT: 1. Acute sepsis from line infection. 2. Status post PICC line catheter in left chest, removed. 3. Anemia macrocytic, possibly nutritional. 4. Increased creatinine with possible acute renal failure. 5. Metabolic acidosis. 6. Hyperchloremia. 7. Short-gut syndrome. 8. History of volvulus surgery. 9. Hypertension. 10.Gastroesophageal reflux disease. 11.History of hydropneumothorax. 12.History of bowel resection. 13.History of intestinal transplant and removal. RECOMMENDATIONS AND DISCUSSION: I recommend to continue the current medication, continue with symptomatic treatment. I would also recommend an ABG stat, broad-spectrum IV antibiotics, follow the cultures and will closely monitor with Infectious Disease and Nephrology. Overall prognosis guarded because of multiple medical issues as mentioned earlier. Further recommendations to follow. MMODL / IJN: [id number] /
[2018-03-29] MEDS ORDERED: ACETAMINOPHEN TAB 500 MG TAB PO STA (18:28)
[2018-03-29] MEDS: LACTATED RINGERS 1,000 ML IV SCH (20:56)
--- NOTE | 2018-03-29 23:18 | PN ---
PROGRESS NOTE DATE OF SERVICE: 03/29/2018 REASON FOR FOLLOWUP: Fever with concern for possible Choi catheter infection. INTERVAL HISTORY: The patient continues to have a fever despite removal of her Choi catheter; however, the patient reports she is feeling much better after removal of her Choi catheter. The patient denies having any chest pain, shortness of breath or cough. No significant abdominal pain or any diarrhea. PHYSICAL EXAMINATION: Blood pressure is 142/74 with a pulse of 107, temperature 101.9. She is 96% on room air. General description is a middle-aged female up in the room in no distress. RESPIRATORY SYSTEM: Unlabored breathing. Clear to auscultation anteriorly. HEART: S1, S2. Regular rate and rhythm. ABDOMEN: Soft. No tenderness. LABS: Hemoglobin is 10.4, white count 5.2 with a BUN of 21, creatinine 2.25. Blood culture is so far negative. DIAGNOSTIC IMPRESSION AND PLAN: Patient with a fever with generalized body aches; concern for possible Choi catheter infection that has been subsequently discontinued. However, the fever persists. Hence will have to look for other sources of the fever; question of viral. Influenza PCR will be checked. If that is negative, will check an ultrasound of the left upper extremity to make sure no evidence of any DVT. Continue the empiric vancomycin as well as the Azactam while watching her kidney function closely. Continue with supportive care. SARA / JAZLYN: [id number] /
[2018-03-30] MEDS: ACETAMINOPHEN TAB 325 MG TAB PO PRN (06:11)
[2018-03-30] MEDS: DEXTROSE 5% IN WATER 1,000 ML with SODIUM BICARB (1 MEQ/ML) 150 ML IV SCH ×3 (06:27→20:41)
[2018-03-30] MEDS: SODIUM BICARBONATE TAB 650 MG TAB PO SCH ×3 (08:00→20:41)
[2018-03-30] MEDS: PANTOPRAZOLE 40 MG/10 ML VIAL IV SCH (08:00)
[2018-03-30] MEDS: POTASSIUM CHLORIDE ER 20 MEQ TAB.ER PO SCH (08:00)
[2018-03-30] MEDS: amLODIPine 10 MG TAB PO SCH ×2 (08:00→08:32)
[2018-03-30] MEDS: AZTREONAM 2 GM in SODIUM CHLORIDE 0.9% 100 ML IVPB SCH ×2 (08:01→21:38)
[2018-03-30] MEDS: HEPARIN SODIUM,PORCINE 5,000 UNIT/ML 1 ML VIAL SQ SCH ×2 (08:01→20:41)
[2018-03-30] MEDS: [UNRECOGNIZED DRUG - OTHER] SQ SCH (08:17)
[2018-03-30 08:34] LABS: Basophils % (A) 0 %; Eosinophils # (A) 0.2 k/uL (0-0.7); Eosinophils % (A) 4 %; HGB 9.6 gm/dL (11.4-16.0); Hypochromasia Marked; Lymphocytes # (A) 0.3 k/uL (1.0-4.8); Lymphocytes % (A) 5 %; MCH 32.5 pg (25.0-35.0); MCHC 30.8 g/dL (31.0-37.0); MCV 105.4 fL (80.0-100.0); Macrocytosis Moderate; Monocytes # (A) 0.2 k/uL (0-1.0); Monocytes % (A) 5 %; Neutrophils # (A) 3.8 k/uL (1.3-7.7); Neutrophils % (A) 83 %; Platelet Count 115 k/uL (150-450); Poikilocytosis Slight; RBC 2.94 m/uL (3.80-5.40); RDW 15.8 % (11.5-15.5); WBC 4.6 k/uL (3.8-10.6)
[2018-03-30 08:59] LABS: Calcium 7.8 mg/dL (8.4-10.2); Magnesium 1.5 mg/dL (1.6-2.3)
[2018-03-30] MEDS ORDERED: POTASSIUM CHLORIDE ER 20 MEQ TAB.ER PO STA ×2 (10:28→11:10)
--- NOTE | 2018-03-30 10:43 | P.PN ---
Subjective Progress Note Date: 03/30/18 Principal diagnosis: Sepsis The patient initially presented with presumed line sepsis. The central line was removed. She was continuing to have fevers. She's feeling little better today. Objective - Vital Signs Vital signs: Vital Signs Temp 98.9 F 03/30/18 07:42 Pulse 84 03/30/18 05:51 Resp 18 03/30/18 05:51 BP 111/57 03/30/18 05:51 Pulse Ox 99 03/30/18 05:51 Intake & Output 03/29/18 03/30/18 03/30/18 18:59 06:59 18:59 Intake Total 2400 Balance 2400 Intake: Oral 2400 Other: Voiding Method Toilet # Voids 3 1 - Constitutional General appearance: Present: cooperative, no acute distress - Integumentary Integumentary Comment(s): Dressings intact clean and dry - Labs CBC & Chem 7: 03/30/18 08:21 03/30/18 08:21 Labs: Abnormal Lab Results - Last 24 Hours (Table) 03/30/18 03/30/18 Range/Units 08:21 08:21 RBC 2.94 L (3.80-5.40) m/uL Hgb 9.6 L (11.4-16.0) gm/dL Hct 31.0 L (34.0-46.0) % MCV 105.4 H (80.0-100.0) fL MCHC 30.8 L (31.0-37.0) g/dL RDW 15.8 H (11.5-15.5) % Plt Count 115 L (150-450) k/uL Lymphocytes # 0.3 L (1.0-4.8) k/uL Potassium 3.0 L* (3.5-5.1) mmol/L Chloride 121 H* (98-107) mmol/L Carbon Dioxide 8 L* (22-30) mmol/L BUN 19 H (7-17) mg/dL Creatinine 2.15 H (0.52-1.04) mg/dL Calcium 7.8 L (8.4-10.2) mg/dL Magnesium 1.5 L (1.6-2.3) mg/dL Microbiology - Last 24 Hours (Table) 03/28/18 19:31 Gram Stain - Final Catheter Site Wound Culture - Final 03/28/18 22:10 Blood Culture - Preliminary Blood No Growth after 24 hours 03/27/18 20:33 Blood Culture - Preliminary Blood No Growth after 48 hours 03/27/18 17:00 Blood Culture - Preliminary Blood No Growth after 48 hours Assessment and Plan (1) Sepsis Current Visit: Yes Status: Acute Code(s): A41.9 - SEPSIS, UNSPECIFIED ORGANISM SNOMED Code(s): 95352258 (2) Short bowel syndrome Current Visit: Yes Status: Acute Code(s): K91.2 - POSTSURGICAL MALABSORPTION , NOT ELSEWHERE CLASSIFIED SNOMED Code(s): 04286549 Plan: As the patient did discuss with Dr. Hoyos 1 a PICC line can be placed and the TPN can be resumed. I requested she get a copy of her TPN formulation to have it on hand sewed can be started. Progressing slowly.
[2018-03-30] MEDS ORDERED: MAGNESIUM SULFATE-D5W PMX 1 GM in DEXTROSE/WATER 1 100ML.BAG IVPB ONE (11:00)
--- NOTE | 2018-03-30 11:32 | P.PN ---
Subjective Patient is seen in follow-up for acute kidney injury on chronic kidney disease and electrolyte imbalance. She is maintained on bicarb drip at 100 mL an hour. Bicarb level is still 8. Creatinine is around 2.15. She has chronic kidney disease stage III with baseline creatinine near 2 secondary to nonrecovered ATN and chronic NSAID use. Patient presented with a fever and had her Choi catheter removed. Oral intake is good. No vomiting or diarrhea. Vital signs are stable. General: The patient appeared well nourished and normally developed. HEENT: Head exam is unremarkable. Neck is without jugular venous distension. LUNGS: Lungs are clear to auscultation and percussion. Breath sounds decreased. HEART: Rate and Rhythm are regular. First and second heart sounds normal. No murmurs, rubs or gallops. ABDOMEN: Abdominal exam reveals normal bowel sounds. Non-tender and non- distended. No evidence of peritonitis. EXTREMITITES: No clubbing, cyanosis, or edema. Objective - Vital Signs Vital signs: Vital Signs Temp 98.2 F 03/30/18 11:13 Pulse 84 03/30/18 05:51 Resp 18 03/30/18 05:51 BP 111/57 03/30/18 05:51 Pulse Ox 99 03/30/18 05:51 Intake & Output 03/29/18 03/30/18 03/30/18 18:59 06:59 18:59 Intake Total 2400 Balance 2400 Intake: Oral 2400 Other: Voiding Method Toilet # Voids 3 1 - Labs CBC & Chem 7: 03/30/18 08:21 03/30/18 08:21 Labs: Abnormal Lab Results - Last 24 Hours (Table) 03/30/18 03/30/18 Range/Units 08:21 08:21 RBC 2.94 L (3.80-5.40) m/uL Hgb 9.6 L (11.4-16.0) gm/dL Hct 31.0 L (34.0-46.0) % MCV 105.4 H (80.0-100.0) fL MCHC 30.8 L (31.0-37.0) g/dL RDW 15.8 H (11.5-15.5) % Plt Count 115 L (150-450) k/uL Lymphocytes # 0.3 L (1.0-4.8) k/uL Potassium 3.0 L* (3.5-5.1) mmol/L Chloride 121 H* (98-107) mmol/L Carbon Dioxide 8 L* (22-30) mmol/L BUN 19 H (7-17) mg/dL Creatinine 2.15 H (0.52-1.04) mg/dL Calcium 7.8 L (8.4-10.2) mg/dL Magnesium 1.5 L (1.6-2.3) mg/dL Microbiology - Last 24 Hours (Table) 03/28/18 19:31 Gram Stain - Final Catheter Site Wound Culture - Final 03/28/18 22:10 Blood Culture - Preliminary Blood No Growth after 24 hours 03/27/18 20:33 Blood Culture - Preliminary Blood No Growth after 48 hours 03/27/18 17:00 Blood Culture - Preliminary Blood No Growth after 48 hours Assessment and Plan Plan: Assessment: 1. Nonoliguric acute kidney injury secondary to ATN secondary to hypotension and infection. Creatinine 2.15 today. 2. Hypotension secondary to hypovolemia improved with IV fluids. 3. Fever with source being the Choi catheter. Status post removal of the catheter this admission. 4. History of short bowel syndrome. Patient receives TPN 3-4 times a week. 5. Metabolic acidosis secondary to acute kidney injury and IV fluids. 6. Chronic kidney disease stage IIIB/4 secondary to non-recovered ATN and chronic NSAID use with baseline creatinine in the range of 1.5-2. 7. Hypertension with chronic kidney disease. Controlled. 8. Hypokalemia from poor oral intake. 9. Hypomagnesemia from poor oral intake. Also history of short bowel syndrome with impaired absorption. Plan: Maintain isotonic sodium bicarbonate drip to be run at 100 mL an hour. Encouraged oral intake. Avoid nephrotoxic agents and hypotensive episodes. Follow-up cultures. Monitor vancomycin levels. Dose to be adjusted for renal function. Repeat electrolytes in the morning. Discontinued NSAIDs. Increase oral sodium bicarbonate to 1300 mg twice daily. Replace potassium. 80 mEq today. Replace magnesium. 2 g IV today. Check iron studies.
[2018-03-30] MEDS: MAGNESIUM SULFATE-D5W PMX 1 GM in DEXTROSE/WATER 1 100ML.BAG IVPB SCH ×2 (12:01→15:21)
[2018-03-30] MEDS: oxyCODONE-APAP 5-325MG 1 EACH TAB PO PRN (18:36)
[2018-03-30] MEDS: LACTATED RINGERS 1,000 ML IV SCH (20:44)
--- NOTE | 2018-03-30 21:55 | PN ---
PROGRESS NOTE DATE OF SERVICE: 03/30/2018. REASON FOR FOLLOWUP: Fever with concern for possible Choi catheter infection. INTERVAL HISTORY: The patient overall feels better and has improved. The last temperature she had was last evening of 100.8. The patient who overall is feeling better. Breathing comfortably. Denies having any chest pain or shortness of breath, cough. No abdominal pain or diarrhea. EXAMINATION: Blood pressure is 104/51, with a pulse of 79, temperature 99.4, she is 99%. General description is a middle aged female lying in bed in no distress. HEENT: Shows pallor. No scleral icterus. Oral mucosa membranes are dry. Lungs unlabored breathing. Clear to auscultation anteriorly. Heart S1, S2. Regular rate and rhythm. ABDOMEN: Soft, no tenderness. LABS: Hemoglobin 9.6, white count 4.6 with a BUN of 19 creatinine of 2.15. Blood cultures have been negative and the catheter has been negative. DIAGNOSTIC IMPRESSION AND PLAN: Patient with a fever with concern for possible Choi catheter infection that has been subsequently removed. Her fever has resolved. If the cultures remain to be negative, she will be able to get a PICC line tomorrow as she needs it for her TPN in the outpatient setting. Antibiotic will be continued for now. However, if all cultures negative, can be discontinued and watching the patient closely off antibiotic therapy. Continue supportive care. MMODL / IJN: [id number] /
[2018-03-31] MEDS ORDERED: diphenhydrAMINE 50 MG/ML 1 ML VIAL ONE (00:30)
[2018-03-31 00:42] LABS: Iron Saturation 34.7 (12.00-45.00)
[2018-03-31 08:14] LABS: Basophils % (A) 0 %; Eosinophils # (A) 0.1 k/uL (0-0.7); Eosinophils % (A) 3 %; HCT 26.7 % (34.0-46.0); HGB 8.4 gm/dL (11.4-16.0); Hypochromasia Marked; Lymphocytes # (A) 0.3 k/uL (1.0-4.8); Lymphocytes % (A) 7 %; MCH 32.3 pg (25.0-35.0); MCHC 31.3 g/dL (31.0-37.0); MCV 103.4 fL (80.0-100.0); Macrocytosis Moderate; Mean Platelet Volume 7.6; Monocytes # (A) 0.3 k/uL (0-1.0); Monocytes % (A) 7 %; Neutrophils # (A) 3.1 k/uL (1.3-7.7); Neutrophils % (A) 80 %; Platelet Count 106 k/uL (150-450); Poikilocytosis Slight; RBC 2.59 m/uL (3.80-5.40); RDW 15.7 % (11.5-15.5); WBC 3.9 k/uL (3.8-10.6)
[2018-03-31] MEDS: [UNRECOGNIZED DRUG - OTHER] SQ SCH (08:40)
[2018-03-31] MEDS: POTASSIUM CHLORIDE ER 20 MEQ TAB.ER PO SCH (08:40)
[2018-03-31] MEDS: SODIUM BICARBONATE TAB 650 MG TAB PO SCH ×3 (08:40→20:51)
[2018-03-31] MEDS: PANTOPRAZOLE 40 MG TABLET PO SCH (08:40)
[2018-03-31] MEDS: HEPARIN SODIUM,PORCINE 5,000 UNIT/ML 1 ML VIAL SQ SCH ×2 (08:40→20:50)
[2018-03-31 08:51] LABS: Magnesium 2.1 mg/dL (1.6-2.3); Potassium 3.7 mmol/L (3.5-5.1)
[2018-03-31] MEDS: amLODIPine 10 MG TAB PO SCH (08:55)
[2018-03-31 08:56] LABS: Vancomycin,Random 10.7 ug/mL
[2018-03-31] MEDS: ACETAMINOPHEN TAB 325 MG TAB PO PRN ×2 (09:10→16:22)
[2018-03-31] MEDS: AZTREONAM 2 GM in SODIUM CHLORIDE 0.9% 100 ML IVPB SCH (09:16)
[2018-03-31] MEDS ORDERED: VANCOMYCIN 750 MG in SODIUM CHLORIDE 0.9% 250 ML IVPB ONE (11:00)
[2018-03-31] MEDS: diphenhydrAMINE 50 MG/ML 1 ML VIAL IVP PRN (11:38)
[2018-03-31] MEDS: DEXTROSE 5% IN WATER 1,000 ML with SODIUM BICARB (1 MEQ/ML) 150 ML IV SCH (11:38)
--- NOTE | 2018-03-31 11:59 | P.PN ---
Subjective Progress Note Date: 03/30/18 Principal diagnosis: Sepsis from line infection; acute renal failure; metabolic acidosis 47-year-old female patient admitted with possible acute sepsis secondary to line infection; patient is status post removal of Choi catheter and remains on broad-spectrum IV antibiotics; final cultures are pending at this time; patient did develop some rash from vancomycin; nephrology is following for acute renal failure Objective - Vital Signs Vital signs: Vital Signs Temp 98.9 F 03/30/18 07:42 Pulse 84 03/30/18 05:51 Resp 18 03/30/18 05:51 BP 111/57 03/30/18 05:51 Pulse Ox 99 03/30/18 05:51 Intake & Output 03/29/18 03/30/18 03/30/18 18:59 06:59 18:59 Intake Total 2400 Balance 2400 Intake: Oral 2400 Other: Voiding Method Toilet # Voids 3 1 - Exam - Constitutional General appearance: Present: average body habitus, cooperative, no acute distress - EENT Eyes: Present: anicteric sclerae, EOMI, PERRLA, normal appearance ENT: Present: hearing grossly normal, normal oropharynx Ears: bilateral: normal - Neck Neck: Present: normal ROM. Absent: lymphadenopathy, rigidity, thyromegaly Carotids: negative: bruit present Thyroid: bilateral: normal size, negative: enlarged, nodule - Respiratory Respiratory: bilateral: CTA, negative: rales, rhonchi, wheezing - Cardiovascular Rhythm: regular Heart sounds: normal: S1, S2 Abnormal Heart Sounds: Absent: systolic murmur, diastolic murmur - Gastrointestinal General gastrointestinal: Present: normal bowel sounds, soft. Absent: distended , organomegaly, tenderness - Genitourinary Genitourinary Comment(s): deferred - Integumentary Integumentary: Present: normal turgor. Absent: jaundiced, rash, ulcer - Neurologic Neurologic: Present: CNII-XII intact. Absent: focal deficits - Musculoskeletal Musculoskeletal: Present: gait normal, strength equal bilaterally - Psychiatric Psychiatric: Present: A&O x's 3, appropriate affect, intact judgment & insight - Labs CBC & Chem 7: 03/31/18 07:38 03/31/18 07:38 Labs: Abnormal Lab Results - Last 24 Hours (Table) 03/30/18 03/30/18 Range/Units 08:21 08:21 RBC 2.94 L (3.80-5.40) m/uL Hgb 9.6 L (11.4-16.0) gm/dL Hct 31.0 L (34.0-46.0) % MCV 105.4 H (80.0-100.0) fL MCHC 30.8 L (31.0-37.0) g/dL RDW 15.8 H (11.5-15.5) % Plt Count 115 L (150-450) k/uL Lymphocytes # 0.3 L (1.0-4.8) k/uL Potassium 3.0 L* (3.5-5.1) mmol/L Chloride 121 H* (98-107) mmol/L Carbon Dioxide 8 L* (22-30) mmol/L BUN 19 H (7-17) mg/dL Creatinine 2.15 H (0.52-1.04) mg/dL Calcium 7.8 L (8.4-10.2) mg/dL Magnesium 1.5 L (1.6-2.3) mg/dL Microbiology - Last 24 Hours (Table) 03/28/18 19:31 Gram Stain - Final Catheter Site Wound Culture - Final 03/28/18 22:10 Blood Culture - Preliminary Blood No Growth after 24 hours 03/27/18 20:33 Blood Culture - Preliminary Blood No Growth after 48 hours 03/27/18 17:00 Blood Culture - Preliminary Blood No Growth after 48 hours Assessment and Plan Assessment: 1. Sepsis from line infection; - Choi catheter is removed due to suspicion of catheter being source of infection and fever - Patient is continued on current IV antibiotic treatment with IV vancomycin and Azactam - ID is following; patient continues to have episode of fever; ID is recommending to look for other source of fever with a question of viral infection; influenza PCR has been checked; recommendations are to check ultrasound of the upper extremity to make sure there is no evidence of DVT if influenza PCR is negative 2. Macrocytic anemia; possibly nutritional ; stable and baseline 3. Acute renal failure/ chronic kidney disease stage III - Patient has a baseline creatinine near 2 secondary to ATN and chronic NSAID use - Nephrology is following and recommending to continue bicarb drip at 100 mils an hour total bicarb level is normal - Creatinine is 2.15 today; nephrology recommending to continue same treatment plan 4. Metabolic acidosis/ hyperchloremia; secondary to acute on chronic renal failure - Nephrology is following and patient is maintained on bicarb drip at 100 mils an hour till bicarb level is normal 5. Short gut syndrome; patient is advised small frequent meals; patient receives TPN 3-4 times a week 6. Hypertension; fairly controlled on current medications 7. Gastroesophageal reflux disease; asymptomatic Time with Patient: Greater than 30
--- NOTE | 2018-03-31 13:58 | US ---
EXAMINATION TYPE: US venous doppler duplex UE DATE OF EXAM: 03/31/2018 COMPARISON: NONE CLINICAL HISTORY: DVT. Recent PICC line removed left side and pt states left arm pain at site of prev ious IV SIDE PERFORMED: Bilateral Right Arm: Negative for DVT Left Arm: Negative for DVT, +SVT within left basilic antecubital fossa at previous IV site Grayscale, color doppler, spectral doppler imaging performed of the deep veins of the bilateral upper extremities. There is normal flow, compressibility and vascular waveforms. IMPRESSION: Superficial thrombus is seen left basilic vein at area of prior IV with incompressible ve in with internal hyperechoic material at this level.
[2018-03-31] MEDS ORDERED: LIDOCAINE 2% (PF) 20 MG/ML 10 ML AMP SQ ONE (14:51)
[2018-03-31] MEDS ORDERED: IOPAMIDOL-370 50ML BTL INJ ONE (14:55)
--- NOTE | 2018-03-31 15:19 | IR ---
EXAMINATION TYPE: IR cvc insert >=5 years, IR venogram upper ext RT DATE OF EXAM: 03/31/2018 COMPARISON: NONE CLINICAL HISTORY: Post bowel resection Needs long-term intravenous access for total parenteral nutrit ion. PROCEDURE: After informed consent, the skin overlying the right brachial vein was localized with ultrasound and noted to be compressible and patent. An ultrasound image was obtained and submitted on the patient's chart. The overlying skin was prepped and draped and Lidocaine was used for local anesthesia. A sk in shanika was made with a scalpel. Access was gained to the vein under ultrasound guidance with a 21 g auge needle and a 0.018 inch wire was advanced. The wire could not be advanced centrally. General grullon d injection of radiographic contrast was performed under fluoroscopic observation the right upper ext remity. Additional findings catheter was tailored to appropriate length. Access site was dilated wit h Peel-Away sheath and catheter tailored to the appropriate length and advanced such that the distal tip is at the cavoatrial junction using a 0.018 inch angle Glidewire. Spot image was obtained verify ing placement. Catheter was fixed to the skin and a sterile dressing was placed following hemostasis . Catheter was aspirated and flushed with saline. Patient was discharged in stable condition withou t complication.Maximal barrier technique is utilized. Ultrasound image is documented on the chart. U ltrasound used with sterile technique. FINDINGS: The central portion of the brachial, axillary, subclavian veins, innominate vein on the rig ht are patent. Fluoro time and fluoroscopic images submitted to document procedure: 240 intraoperative images docume nt the procedure, 2.7 minutes fluoroscopy time. IMPRESSION: STATUS POST ULTRASOUND AND FLUOROSCOPIC GUIDED PICC LINE PLACEMENT, READY FOR USE. THIS PROCEDURE WAS PERFORMED BY THE UNDERSIGNED.
--- NOTE | 2018-03-31 17:26 | PN ---
PROGRESS NOTE DATE OF SERVICE: 03/31/2018 REASON FOR FOLLOWUP: Fever with concern for possible Choi catheter infection. INTERVAL HISTORY: The patient is currently afebrile. She has been breathing comfortably. She did have a Doppler which was suggestive of a superficial thrombosis within the left basilic, antecubital fossa previous IV site. The patient denies having any chest pain or shortness of breath or cough. No abdominal pain or any diarrhea. PHYSICAL EXAMINATION: Blood pressure is 102/67 with a pulse of 70, temperature 98.2. She is 100% on room air. General description is a middle-aged female lying in bed in no distress. RESPIRATORY SYSTEM: Unlabored breathing. Clear to auscultation anteriorly. HEART: S1, S2. Regular rate and rhythm. ABDOMEN: Soft. No tenderness. LABS: Hemoglobin 8.4, white count 3.9 with a BUN of 17, creatinine 2.0. DIAGNOSTIC IMPRESSION AND PLAN: Patient with a fever with concern for possible Choi catheter infection. So far culture has been negative. Will discontinue the vancomycin. Azactam can be discontinued as well on discharge, as we do not have any positive cultures. The patient will be monitored closely off antibiotic therapy. MMODL / IJN: [id number] /
[2018-03-31] MEDS: AZTREONAM 1 GM in SODIUM CHLORIDE 0.9% 50 ML IVPB SCH (20:49)
[2018-03-31] MEDS: LACTATED RINGERS 1,000 ML IV SCH (20:50)
[2018-04-01] MEDS: DEXTROSE 5% IN WATER 1,000 ML with SODIUM BICARB (1 MEQ/ML) 150 ML IV SCH ×3 (01:08→20:15)
[2018-04-01] MEDS: oxyCODONE-APAP 5-325MG 1 EACH TAB PO PRN ×2 (01:49→20:14)
[2018-04-01] MEDS: ACETAMINOPHEN TAB 325 MG TAB PO PRN (03:52)
[2018-04-01] MEDS: Acetaminophen-Codeine 300-30mg TAB PO PRN (06:24)
[2018-04-01 07:03] VITALS: RESP 16
[2018-04-01] MEDS: PANTOPRAZOLE 40 MG TABLET PO SCH (08:07)
[2018-04-01] MEDS: POTASSIUM CHLORIDE ER 20 MEQ TAB.ER PO SCH (08:08)
[2018-04-01] MEDS: HEPARIN SODIUM,PORCINE 5,000 UNIT/ML 1 ML VIAL SQ SCH ×3 (08:08→20:18)
[2018-04-01] MEDS: amLODIPine 10 MG TAB PO SCH (08:08)
[2018-04-01] MEDS: SODIUM BICARBONATE TAB 650 MG TAB PO SCH ×3 (08:09→20:14)
[2018-04-01] MEDS: [UNRECOGNIZED DRUG - OTHER] SQ SCH (08:10)
[2018-04-01] MEDS: AZTREONAM 1 GM in SODIUM CHLORIDE 0.9% 50 ML IVPB SCH ×2 (08:13→20:15)
[2018-04-01 08:36] LABS: Anisocytosis Slight; Basophils % (A) 0 %; Eosinophils # (A) 0.2 k/uL (0-0.7); Eosinophils % (A) 5 %; HCT 28.8 % (34.0-46.0); HGB 8.7 gm/dL (11.4-16.0); Hypochromasia Marked; Lymphocytes # (A) 0.4 k/uL (1.0-4.8); Lymphocytes % (A) 9 %; MCH 32.4 pg (25.0-35.0); MCHC 30.2 g/dL (31.0-37.0); MCV 107.3 fL (80.0-100.0); Macrocytosis Marked; Mean Platelet Volume 7.6; Monocytes # (A) 0.3 k/uL (0-1.0); Monocytes % (A) 6 %; Neutrophils # (A) 3.2 k/uL (1.3-7.7); Neutrophils % (A) 78 %; Platelet Count 126 k/uL (150-450); Poikilocytosis Slight; RBC 2.68 m/uL (3.80-5.40); RDW 16.1 % (11.5-15.5); WBC 4.1 k/uL (3.8-10.6)
[2018-04-01 09:07] LABS: Calcium 7.8 mg/dL (8.4-10.2); Magnesium 1.7 mg/dL (1.6-2.3); Potassium 4.1 mmol/L (3.5-5.1)
[2018-04-01 09:27] LABS: Poikilocytosis (M) Present; Polychromasia Present
[2018-04-01] MEDS: diphenhydrAMINE 50 MG/ML 1 ML VIAL IVP PRN ×2 (09:33→20:18)
--- NOTE | 2018-04-01 13:10 | P.PN ---
Subjective Progress Note Date: 03/31/18 Principal diagnosis: Sepsis from line infection; acute renal failure; metabolic acidosis 47-year-old female patient admitted with possible acute sepsis secondary to line infection; patient is status post removal of Choi catheter and remains on broad-spectrum IV antibiotics; final cultures are pending at this time; patient did develop some rash from vancomycin; nephrology is following for acute renal failure Objective - Vital Signs Vital signs: Vital Signs Temp 98.0 F 03/31/18 06:12 Pulse 62 03/31/18 06:12 Resp 18 03/31/18 06:12 BP 101/62 03/31/18 06:12 Pulse Ox 100 03/31/18 06:12 Intake & Output 03/30/18 03/31/18 03/31/18 18:59 06:59 18:59 Intake Total 1680 240 Balance 1680 240 Weight 40.37 kg Intake: Oral 1680 240 Other: Voiding Method Toilet Toilet # Voids 3 1 - Exam - Constitutional General appearance: Present: average body habitus, cooperative, no acute distress - EENT Eyes: Present: anicteric sclerae, EOMI, PERRLA, normal appearance ENT: Present: hearing grossly normal, normal oropharynx Ears: bilateral: normal - Neck Neck: Present: normal ROM. Absent: lymphadenopathy, rigidity, thyromegaly Carotids: negative: bruit present Thyroid: bilateral: normal size, negative: enlarged, nodule - Respiratory Respiratory: bilateral: CTA, negative: rales, rhonchi, wheezing - Cardiovascular Rhythm: regular Heart sounds: normal: S1, S2 Abnormal Heart Sounds: Absent: systolic murmur, diastolic murmur - Gastrointestinal General gastrointestinal: Present: normal bowel sounds, soft. Absent: distended , organomegaly, tenderness - Genitourinary Genitourinary Comment(s): deferred - Integumentary Integumentary: Present: normal turgor. Absent: jaundiced, rash, ulcer - Neurologic Neurologic: Present: CNII-XII intact. Absent: focal deficits - Musculoskeletal Musculoskeletal: Present: gait normal, strength equal bilaterally - Psychiatric Psychiatric: Present: A&O x's 3, appropriate affect, intact judgment & insight - Labs CBC & Chem 7: 04/01/18 07:40 04/01/18 07:40 Labs: Abnormal Lab Results - Last 24 Hours (Table) 03/30/18 03/31/18 03/31/18 Range/Units 08:21 07:38 07:38 RBC 2.59 L (3.80-5.40) m/uL Hgb 8.4 L (11.4-16.0) gm/dL Hct 26.7 L (34.0-46.0) % MCV 103.4 H (80.0-100.0) fL RDW 15.7 H (11.5-15.5) % Plt Count 106 L (150-450) k/uL Lymphocytes # 0.3 L (1.0-4.8) k/uL Chloride 122 H* (98-107) mmol/L Carbon Dioxide 11 L (22-30) mmol/L Creatinine 2.00 H (0.52-1.04) mg/dL Calcium 8.0 L (8.4-10.2) mg/dL TIBC 219 L (228-460) ug/dL Microbiology - Last 24 Hours (Table) 03/28/18 22:10 Blood Culture - Preliminary Blood No Growth after 48 hours 03/27/18 20:33 Blood Culture - Preliminary Blood No Growth after 72 hours 03/27/18 17:00 Blood Culture - Preliminary Blood No Growth after 72 hours Assessment and Plan Assessment: 1. Sepsis from line infection; - Choi catheter is removed due to suspicion of catheter being source of infection and fever - Patient is continued on current IV antibiotic treatment with IV vancomycin and Azactam - ID is following; patient continues to have episode of fever; ID is recommending to look for other source of fever with a question of viral infection; influenza PCR has been checked; recommendations are to check ultrasound of the upper extremity to make sure there is no evidence of DVT if influenza PCR is negative 2. Macrocytic anemia; possibly nutritional ; stable and baseline 3. Acute renal failure/ chronic kidney disease stage III - Patient has a baseline creatinine near 2 secondary to ATN and chronic NSAID use - Nephrology is following and recommending to continue bicarb drip at 100 mils an hour total bicarb level is normal - Creatinine is 2.15 today; nephrology recommending to continue same treatment plan 4. Metabolic acidosis/ hyperchloremia; secondary to acute on chronic renal failure - Nephrology is following and patient is maintained on bicarb drip at 100 mils an hour till bicarb level is normal 5. Short gut syndrome; patient is advised small frequent meals; patient receives TPN 3-4 times a week 6. Hypertension; fairly controlled on current medications 7. Gastroesophageal reflux disease; asymptomatic Time with Patient: Greater than 30
--- NOTE | 2018-04-01 13:15 | P.PN ---
Subjective Progress Note Date: 04/01/18 Principal diagnosis: Sepsis from line infection; acute renal failure; metabolic acidosis 47-year-old female patient admitted with possible acute sepsis secondary to line infection; patient is status post removal of Choi catheter and remains on broad-spectrum IV antibiotics; final cultures are pending at this time; patient did develop some rash from vancomycin; nephrology is following for acute renal failure 03/31/2018 Patient is seen and evaluated in the room at bedside; she is currently afebrile for over 24 hours; ID recommended possible venous ultrasound both upper extremities to rule out DVT for source of fever; patient is scheduled for PICC line placement today; Choi catheter was removed for concern of possible source of infection; patient remains on IV vancomycin and Azactam; further recommendations elevated from ID service. Objective - Vital Signs Vital signs: Vital Signs Temp 97.9 F 04/01/18 07:00 Pulse 73 04/01/18 07:00 Resp 16 04/01/18 07:00 BP 112/73 04/01/18 07:00 Pulse Ox 98 04/01/18 07:00 Intake & Output 03/31/18 04/01/18 04/01/18 18:59 06:59 18:59 Intake Total 240 Balance 240 Intake: Oral 240 Other: Voiding Method Toilet Toilet # Voids 3 4 - Exam - Constitutional General appearance: Present: average body habitus, cooperative, no acute distress - EENT Eyes: Present: anicteric sclerae, EOMI, PERRLA, normal appearance ENT: Present: hearing grossly normal, normal oropharynx Ears: bilateral: normal - Neck Neck: Present: normal ROM. Absent: lymphadenopathy, rigidity, thyromegaly Carotids: negative: bruit present Thyroid: bilateral: normal size, negative: enlarged, nodule - Respiratory Respiratory: bilateral: CTA, negative: rales, rhonchi, wheezing - Cardiovascular Rhythm: regular Heart sounds: normal: S1, S2 Abnormal Heart Sounds: Absent: systolic murmur, diastolic murmur - Gastrointestinal General gastrointestinal: Present: normal bowel sounds, soft. Absent: distended , organomegaly, tenderness - Genitourinary Genitourinary Comment(s): deferred - Integumentary Integumentary: Present: normal turgor. Absent: jaundiced, rash, ulcer - Neurologic Neurologic: Present: CNII-XII intact. Absent: focal deficits - Musculoskeletal Musculoskeletal: Present: gait normal, strength equal bilaterally - Psychiatric Psychiatric: Present: A&O x's 3, appropriate affect, intact judgment & insight - Labs CBC & Chem 7: 04/01/18 07:40 04/01/18 07:40 Labs: Abnormal Lab Results - Last 24 Hours (Table) 04/01/18 04/01/18 Range/Units 07:40 07:40 RBC 2.68 L (3.80-5.40) m/uL Hgb 8.7 L (11.4-16.0) gm/dL Hct 28.8 L (34.0-46.0) % MCV 107.3 H (80.0-100.0) fL MCHC 30.2 L (31.0-37.0) g/dL RDW 16.1 H (11.5-15.5) % Plt Count 126 L (150-450) k/uL Lymphocytes # 0.4 L (1.0-4.8) k/uL Chloride 118 H (98-107) mmol/L Carbon Dioxide 13 L (22-30) mmol/L Creatinine 1.84 H (0.52-1.04) mg/dL Calcium 7.8 L (8.4-10.2) mg/dL Microbiology - Last 24 Hours (Table) 03/28/18 22:10 Blood Culture - Preliminary Blood No Growth after 72 hours 03/27/18 20:33 Blood Culture - Preliminary Blood No Growth after 96 hours 03/27/18 17:00 Blood Culture - Preliminary Blood No Growth after 96 hours Assessment and Plan Assessment: 1. Sepsis from line infection; - Choi catheter is removed due to suspicion of catheter being source of infection and fever - Patient is continued on current IV antibiotic treatment with IV vancomycin and Azactam - ID is following; patient continues to have episode of fever; ID is recommending to look for other source of fever with a question of viral infection; influenza PCR has been checked; recommendations are to check ultrasound of the upper extremity to make sure there is no evidence of DVT if influenza PCR is negative 2. Macrocytic anemia; possibly nutritional ; stable and baseline 3. Acute renal failure/ chronic kidney disease stage III - Patient has a baseline creatinine near 2 secondary to ATN and chronic NSAID use - Nephrology is following and recommending to continue bicarb drip at 100 mils an hour total bicarb level is normal - Creatinine is 2.15 today; nephrology recommending to continue same treatment plan 4. Metabolic acidosis/ hyperchloremia; secondary to acute on chronic renal failure - Nephrology is following and patient is maintained on bicarb drip at 100 mils an hour till bicarb level is normal 5. Short gut syndrome; patient is advised small frequent meals; patient receives TPN 3-4 times a week 6. Hypertension; fairly controlled on current medications 7. Gastroesophageal reflux disease; asymptomatic Time with Patient: Greater than 30
--- NOTE | 2018-04-01 13:22 | P.PN ---
Subjective Progress Note Date: 04/01/18 Principal diagnosis: Sepsis from line infection; acute renal failure; metabolic acidosis Status post PICC line placement 47-year-old female patient admitted with possible acute sepsis secondary to line infection; patient is status post removal of Choi catheter and remains on broad-spectrum IV antibiotics; final cultures are pending at this time; patient did develop some rash from vancomycin; nephrology is following for acute renal failure 03/31/2018 Patient is seen and evaluated in the room at bedside; she is currently afebrile for over 24 hours; ID recommended possible venous ultrasound both upper extremities to rule out DVT for source of fever; patient is scheduled for PICC line placement today; patient needs access for receiving TPN and IV fluids; Choi catheter was removed for concern of possible source of infection; patient remains on IV vancomycin and Azactam; further recommendations elevated from ID service. 04/01/2018 Patient is seen in the room at bedside, resting comfortably in bed; she remains afebrile and voices no complaints; patient did have ultrasound Doppler of both upper extremities done which is suggestive of superficial thrombosis within the left basophilic antecubital fossa at previous IV site; ID has discontinued vancomycin; patient remains on Azactam which is recommended to be discontinued upon discharge; ID recommending to monitor patient closely off IV vancomycin Patient is status post PICC line placement since Choi catheter has been removed for TPN and IV fluids Objective - Vital Signs Vital signs: Vital Signs Temp 97.9 F 04/01/18 07:00 Pulse 73 04/01/18 07:00 Resp 16 04/01/18 07:00 BP 112/73 04/01/18 07:00 Pulse Ox 98 04/01/18 07:00 Intake & Output 03/31/18 04/01/18 04/01/18 18:59 06:59 18:59 Intake Total 240 Balance 240 Intake: Oral 240 Other: Voiding Method Toilet Toilet # Voids 3 4 - Exam - Constitutional General appearance: Present: average body habitus, cooperative, no acute distress - EENT Eyes: Present: anicteric sclerae, EOMI, PERRLA, normal appearance ENT: Present: hearing grossly normal, normal oropharynx Ears: bilateral: normal - Neck Neck: Present: normal ROM. Absent: lymphadenopathy, rigidity, thyromegaly Carotids: negative: bruit present Thyroid: bilateral: normal size, negative: enlarged, nodule - Respiratory Respiratory: bilateral: CTA, negative: rales, rhonchi, wheezing - Cardiovascular Rhythm: regular Heart sounds: normal: S1, S2 Abnormal Heart Sounds: Absent: systolic murmur, diastolic murmur - Gastrointestinal General gastrointestinal: Present: normal bowel sounds, soft. Absent: distended , organomegaly, tenderness - Genitourinary Genitourinary Comment(s): deferred - Integumentary Integumentary: Present: normal turgor. Absent: jaundiced, rash, ulcer - Neurologic Neurologic: Present: CNII-XII intact. Absent: focal deficits - Musculoskeletal Musculoskeletal: Present: gait normal, strength equal bilaterally - Psychiatric Psychiatric: Present: A&O x's 3, appropriate affect, intact judgment & insight - Labs CBC & Chem 7: 04/01/18 07:40 04/01/18 07:40 Labs: Abnormal Lab Results - Last 24 Hours (Table) 04/01/18 04/01/18 Range/Units 07:40 07:40 RBC 2.68 L (3.80-5.40) m/uL Hgb 8.7 L (11.4-16.0) gm/dL Hct 28.8 L (34.0-46.0) % MCV 107.3 H (80.0-100.0) fL MCHC 30.2 L (31.0-37.0) g/dL RDW 16.1 H (11.5-15.5) % Plt Count 126 L (150-450) k/uL Lymphocytes # 0.4 L (1.0-4.8) k/uL Chloride 118 H (98-107) mmol/L Carbon Dioxide 13 L (22-30) mmol/L Creatinine 1.84 H (0.52-1.04) mg/dL Calcium 7.8 L (8.4-10.2) mg/dL Microbiology - Last 24 Hours (Table) 03/28/18 22:10 Blood Culture - Preliminary Blood No Growth after 72 hours 03/27/18 20:33 Blood Culture - Preliminary Blood No Growth after 96 hours 03/27/18 17:00 Blood Culture - Preliminary Blood No Growth after 96 hours Assessment and Plan Assessment: 1. Sepsis from line infection; - Choi catheter is removed due to suspicion of catheter being source of infection and fever; patient uses Choi catheter for TPN and IV fluids - Patient is continued on current IV antibiotic treatment with IV vancomycin and Azactam - ID is following; patient continues to have episode of fever; ID is recommending to look for other source of fever with a question of viral infection; influenza PCR has been checked; recommendations are to check ultrasound of the upper extremity to make sure there is no evidence of DVT if influenza PCR is negative 2. Macrocytic anemia; possibly nutritional ; stable and baseline 3. Acute renal failure/ chronic kidney disease stage III - Patient has a baseline creatinine near 2 secondary to ATN and chronic NSAID use - Nephrology is following and recommending to continue bicarb drip at 100 mils an hour total bicarb level is normal - Creatinine is 2.15 today; nephrology recommending to continue same treatment plan 4. Metabolic acidosis/ hyperchloremia; secondary to acute on chronic renal failure - Nephrology is following and patient is maintained on bicarb drip at 100 mils an hour till bicarb level is normal 5. Short gut syndrome; patient is advised small frequent meals; patient receives TPN 3-4 times a week 6. Hypertension; fairly controlled on current medications 7. Gastroesophageal reflux disease; asymptomatic Time with Patient: Greater than 30
--- NOTE | 2018-04-01 15:42 | PN ---
PROGRESS NOTE DATE OF SERVICE: 04/01/2028. REASON FOR FOLLOWUP: Fever with concern for possible Choi catheter infection. INTERVAL HISTORY: The patient is afebrile for the last 3 days now. He has been breathing comfortably. Denies having any chest pain or shortness of breath, cough. No abdominal pain and no diarrhea. EXAMINATION: Blood pressure 112/73 with a pulse of 73, temperature 97.9. She is 98% on room air. General description is a middle aged female, lying in bed in no distress. Respiratory system: Unlabored breathing. Clear to auscultation anteriorly. Heart S1, S2. Regular rate and rhythm. ABDOMEN: Soft, no tenderness. LABS: Hemoglobin 8.7, white count 4.9, BUN of 13, creatinine 1.84. DIAGNOSTIC IMPRESSION AND PLAN: Patient with fever and concern for possible Choi catheter infection. All her cultures have been negative. Antibiotic can be safely discontinued. Monitor the patient closely off antibiotic therapy. All her questions were answered. MMODL / IJN: [id number] /
--- NOTE | 2018-04-01 17:06 | PN ---
PROGRESS NOTE Patient is seen for followup for acute kidney injury and severe metabolic acidosis. She is currently maintained on IV bicarb. CO2 is improved from 8 to 13 today. The patient has had fair and improved urine output. Blood pressure remains on the lower side. The patient also had a low-grade fever today. PHYSICAL EXAMINATION: Blood pressure was 105/66, heart rate is 72 per minute. She is afebrile. Examination of the heart: S1, S2. Examination lower extremity shows no evidence of edema. The patient is currently a going to the restroom. Therefore detailed exam is not done. LAB: Show sodium 139, potassium 4.1, chloride 118, CO2 is 13, BUN 30, serum creatinine 1.84, hemoglobin 8.7 g/dL. ASSESSMENT: 1. Acute kidney injury, prerenal, currently improving with IV hydration. 2. Severe metabolic acidosis associated with acute kidney injury and to some degree from GI fluid loss as well. Currently with no significant diarrhea. I will continue with the IV bicarb. 3. History of short bowel syndrome, maintained on TPN 3 to 4 times a week. 4. Chronic kidney disease stage IIIB. Previous creatinine 1.5-2, secondary to previous ATN and previous use of NSAIDs. 5. Hypokalemia and hypomagnesemia associated with short-bowel and decreased oral intake, currently being replaced. 6. Fever associated with the Choi catheter, status post removal of catheter. PLAN: Continue with the IV bicarb. Repeat labs in a.m. Patient is advised that she should stay in the hospital for at least 1 more day. MMODL / IJN: [id number] /
[2018-04-02] MEDS: LACTATED RINGERS 1,000 ML IV SCH (01:11)
[2018-04-02] MEDS: diphenhydrAMINE 50 MG/ML 1 ML VIAL IVP PRN ×2 (03:56→10:07)
[2018-04-02] MEDS: DEXTROSE 5% IN WATER 1,000 ML with SODIUM BICARB (1 MEQ/ML) 150 ML IV SCH ×2 (05:34→13:41)
[2018-04-02 06:19] VITALS: BP 128/80; PULSE 72; TEMP 98.2
[2018-04-02] MEDS: AZTREONAM 1 GM in SODIUM CHLORIDE 0.9% 50 ML IVPB SCH (07:45)
[2018-04-02] MEDS: SODIUM BICARBONATE TAB 650 MG TAB PO SCH (07:46)
[2018-04-02] MEDS: HEPARIN SODIUM,PORCINE 5,000 UNIT/ML 1 ML VIAL SQ SCH (07:46)
[2018-04-02] MEDS: amLODIPine 10 MG TAB PO SCH (07:46)
[2018-04-02] MEDS: POTASSIUM CHLORIDE ER 20 MEQ TAB.ER PO SCH (07:46)
[2018-04-02] MEDS: PANTOPRAZOLE 40 MG TABLET PO SCH (07:46)
[2018-04-02] MEDS: [UNRECOGNIZED DRUG - OTHER] SQ SCH (07:49)
[2018-04-02 09:08] LABS: Basophils % (A) 0 %; Eosinophils # (A) 0.3 k/uL (0-0.7); Eosinophils % (A) 8 %; HCT 30.7 % (34.0-46.0); HGB 9.5 gm/dL (11.4-16.0); Hypochromasia Marked; Lymphocytes # (A) 0.6 k/uL (1.0-4.8); Lymphocytes % (A) 16 %; MCH 32.3 pg (25.0-35.0); MCHC 30.8 g/dL (31.0-37.0); MCV 104.7 fL (80.0-100.0); Macrocytosis Moderate; Mean Platelet Volume 7.1; Monocytes # (A) 0.3 k/uL (0-1.0); Monocytes % (A) 8 %; Neutrophils # (A) 2.6 k/uL (1.3-7.7); Neutrophils % (A) 64 %; Platelet Count 133 k/uL (150-450); Poikilocytosis Slight; RBC 2.94 m/uL (3.80-5.40); RDW 15.8 % (11.5-15.5)
[2018-04-02 09:32] LABS: Calcium 8.2 mg/dL (8.4-10.2); Potassium 3.7 mmol/L (3.5-5.1)
--- NOTE | 2018-04-02 12:23 | P.DS ---
Providers Date of admission: 03/27/18 19:43 Attending physician: Chelsy Goins Consults: 03/27/18 19:41 Consult Physician Urgent Consulting Provider: Molly Hoyos Consult Reason/Comments: fever, eval for line sepsis Do you want consulting provider notified?: Yes 03/28/18 14:33 Consult Physician Routine Consulting Provider: Taya Carrillo Consult Reason/Comments: infected line?? Do you want consulting provider notified?: Yes 03/29/18 11:09 Consult Physician Routine Consulting Provider: Robles Infante Consult Reason/Comments: renal failure Do you want consulting provider notified?: Yes Primary care physician: [facility] Course: Sepsis from line infection; acute renal failure; metabolic acidosis Status post PICC line placement 47-year-old female patient admitted with possible acute sepsis secondary to line infection; patient is status post removal of Choi catheter and remains on broad-spectrum IV antibiotics; final cultures are pending at this time; patient did develop some rash from vancomycin; nephrology is following for acute renal failure 03/31/2018 Patient is seen and evaluated in the room at bedside; she is currently afebrile for over 24 hours; ID recommended possible venous ultrasound both upper extremities to rule out DVT for source of fever; patient is scheduled for PICC line placement today; patient needs access for receiving TPN and IV fluids; Choi catheter was removed for concern of possible source of infection; patient remains on IV vancomycin and Azactam; further recommendations elevated from ID service. 04/01/2018 Patient is seen in the room at bedside, resting comfortably in bed; she remains afebrile and voices no complaints; patient did have ultrasound Doppler of both upper extremities done which is suggestive of superficial thrombosis within the left basophilic antecubital fossa at previous IV site; ID has discontinued vancomycin; patient remains on Azactam which is recommended to be discontinued upon discharge; ID recommending to monitor patient closely off IV vancomycin Patient is status post PICC line placement since Choi catheter has been removed for TPN and IV fluids 04/02/2018 Patient is clinically doing well and cleared by nephrology and infectious disease infectious disease not recommending any more medications to continue antibiotics upon discharge. Patient blood pressure is on the low normal side because of which I'm cutting down the amlodipine from 2 mg to 5 mg PHYSICAL EXAMINATION: GENERAL: The patient is alert and oriented x3, not in any acute distress. Well developed, well nourished. HEENT: Pupils are round and equally reacting to light. EOMI. No scleral icterus. No conjunctival pallor. Normocephalic, atraumatic. No pharyngeal erythema. No thyromegaly. CARDIOVASCULAR: S1 and S2 present. No murmurs, rubs, or gallops. PULMONARY: Chest is clear to auscultation, no wheezing or crackles. ABDOMEN: Soft, nontender, nondistended, normoactive bowel sounds. No palpable organomegaly. MUSCULOSKELETAL: No joint swelling or deformity. EXTREMITIES: No cyanosis, clubbing, or pedal edema. NEUROLOGICAL: Gross neurological examination did not reveal any focal deficits. SKIN: No rashes. Assessment and Plan Assessment: 1. Sepsis from line infection; 2.Anemia chronic etiology unknown abolition as outpatient 3. Acute renal failure/ chronic kidney disease stage III - Creatinine is 1.7; 4. Metabolic acidosis secondary to hyperchloremia 5. Short gut syndrome; patient is advised small frequent meals; patient receives TPN 3-4 times a week 6. Hypertension; fairly controlled on current medications 7. Gastroesophageal reflux disease; asymptomatic Patient Condition at Discharge: Stable Plan - Discharge Summary Discharge Rx Participant: Yes New Discharge Prescriptions: New Sodium Bicarbonate Tab 1,300 mg PO TID #90 tab Continue Gattex 2.3 mg SQ DAILY Acetaminophen Tab [Tylenol] 500 mg PO Q4H PRN PRN Reason: Fever And/ Or Pain Potassium Chloride ER [K-Dur 20] 20 meq PO DAILY Tpn 1,650 ml IV Q14H HYDROcodone/APAP 5-325MG [[place] 5-325] 1 tab PO BID PRN PRN Reason: Pain Changed amLODIPine [Norvasc] 5 mg PO DAILY #0 Discontinued Sodium Bicarbonate 650 mg PO BID Discharge Medication List Gattex 2.3 mg SQ DAILY 10/29/15 [History] Acetaminophen Tab [Tylenol] 500 mg PO Q4H PRN 08/29/16 [History] Potassium Chloride ER [K-Dur 20] 20 meq PO DAILY 08/29/16 [History] Tpn 1,650 ml IV Q14H 05/25/17 [History] HYDROcodone/APAP 5-325MG [[place] 5-325] 1 tab PO BID PRN 03/27/18 [History] Sodium Bicarbonate Tab 1,300 mg PO TID #90 tab 04/02/18 [Rx] amLODIPine [Norvasc] 5 mg PO DAILY #0 04/02/18 [Rx] Follow up Appointment(s)/Referral(s): Danny Davis MD [Primary Care Provider] - 1-2 days (please call office to schedule appointment) [facility], [NON-STAFF] - Patient Instructions/Handouts: Fever in Adults (GEN) Activity/Diet/Wound Care/Special Instructions: If patient is d/c on Tuesday or Tuesday RN please call (pager) [phone] before 1:00pm to alert pharmacist that patient will be d/c and they can deliver TPN to patient. [facility] can be contacted at [phone], fax number . Remove steri strips next week. Discharge Disposition: HOME WITH HOME HEALTH SERVICES
--- NOTE | 2018-04-02 18:13 | PN ---
PROGRESS NOTE DATE OF SERVICE: 04/02/2018. REASON FOR FOLLOWUP: Fever and concern for possible Choi catheter infection. INTERVAL HISTORY: The patient is seen on rounds earlier this afternoon. The patient has been afebrile. She has been breathing comfortably. Generalized body aches and symptoms have resolved. No nausea, vomiting. No abdominal pain or any diarrhea. EXAMINATION: Blood pressure 128/80 with a pulse of 72, temperature 98.2. She is 99% on room air. General e description is a middle-aged female up in the room in no distress. Respiratory system: Unlabored breathing. Clear to auscultation anteriorly. Heart S1, S2. Regular rate and rhythm. Abdomen soft. No tenderness. LABS: Hemoglobin 9.5, white count 4.0, BUN of 9, creatinine 1.70. All her cultures have been negative. DIAGNOSTIC IMPRESSION AND PLAN: Patient with fever with initial concern for possible Choi catheter infection. However, all cultures have been negative. The Choi catheter has already been discontinued. No need for any systemic antibiotic on discharge. Continue supportive care. MMODL / IJN: [id number] /
--- NOTE | 2018-04-03 07:17 | PN ---
PROGRESS NOTE Patient is seen for followup for acute kidney injury and severe metabolic acidosis. She is currently maintained on IV bicarb. Her renal function has improved. The patient wants to go home. CO2 is improved to 16 from 8 on admission. The patient is maintained on TPN as outpatient twice a week. PHYSICAL EXAMINATION: On examination, blood pressure was 128/80, heart rate is 72 per minute. She is afebrile. EXAMINATION OF THE HEART: S1 and S2. EXAMINATION OF THE LUNGS: Bilateral breath sounds are heard. Abdomen is soft, nontender. Examination of the lower extremities shows no significant edema. [employer] exam is grossly intact. LABS: Labs show sodium 142, potassium 3.8, chloride 116, CO2 of 16, BUN 9, serum creatinine 1.7. ASSESSMENT: 1. Acute kidney injury secondary to severe hypovolemia, currently improving. Serum creatinine peaked at 2.2 mg/dL. 2. Chronic kidney disease with baseline creatinine about 1.8 to 1.5 mg/dL secondary to chronic hypovolemia and hypoperfusion and history of use of NSAIDs and previous acute tubular necrosis. 3. Fever associated with Choi catheter, status post removal of catheter. 4. Severe metabolic acidosis associated with GI fluid loss and acute kidney injury. PLAN: The patient can be discharged and follow up as outpatient. She will need labs to be done as outpatient. Will need to continue with TPN twice a week post discharge. MMODL / IJN: [id number] /
== END 2018-04-02 13:54 | disposition home health service (06) | DRG 314 ==
LOC: EC 14:37 → OBSVTOIN 19:43 → 4MS4W 19:43
PROVIDERS: ADMIT Hospitalist; ATTEND Hospitalist
PROC: 0JPT03Z Removal of Infusion Device from Trunk Subcutaneous Tissue and Fascia, Open Approach (ICD-10-PCS; 2018-03-28)
PROC: 02HV33Z Insertion of Infusion Device into Superior Vena Cava, Percutaneous Approach (ICD-10-PCS; principal; 2018-03-31 14:25)
PROC: B51MYZZ Fluoroscopy of Right Upper Extremity Veins using Other Contrast (ICD-10-PCS; 2018-03-31 14:25)
DX: T80.211A Bloodstream infection due to central venous catheter, initial encounter (principal); A41.9 Sepsis, unspecified organism; N17.0 Acute kidney failure with tubular necrosis; E87.2 Acidosis; K91.2 Postsurgical malabsorption, not elsewhere classified; Z94.82 Intestine transplant status; E87.8 Other disorders of electrolyte and fluid balance, not elsewhere classified; E83.42 Hypomagnesemia; N18.3 Chronic kidney disease, stage 3 (moderate); K21.9 Gastro-esophageal reflux disease without esophagitis; D53.9 Nutritional anemia, unspecified; I12.9 Hypertensive chronic kidney disease with stage 1 through stage 4 chronic kidney disease, or unspecified chronic kidney disease; E86.1 Hypovolemia; L27.0 Generalized skin eruption due to drugs and medicaments taken internally; T36.8X5A Adverse effect of other systemic antibiotics, initial encounter; E87.6 Hypokalemia; Z79.1 Long term (current) use of non-steroidal anti-inflammatories (NSAID); Z79.899 Other long term (current) drug therapy; Z90.49 Acquired absence of other specified parts of digestive tract; Z87.01 Personal history of pneumonia (recurrent); Z98.51 Tubal ligation status; Z88.1 Allergy status to other antibiotic agents; Z88.2 Allergy status to sulfonamides; Z88.8 Allergy status to other drugs, medicaments and biological substances; Z82.49 Family history of ischemic heart disease and other diseases of the circulatory system; Z83.3 Family history of diabetes mellitus; Y84.8 Other medical procedures as the cause of abnormal reaction of the patient, or of later complication, without mention of misadventure at the time of the procedure
CPT/HCPCS: 36415; 36569; 36600; 71046; 76937; 77001; 80048; 80053; 80202; 81001; 82728; 83540; 83550; 83605; 83735; 85025; 85610; 85730; 87040; 87070; 87075; 87086; 87205; 87502; 93005; 93970; 94760; 96361; 96374; 96375; 99285

== ENCOUNTER 2018-09-06 13:35 | Inpatient (IN) | payer OTHER ==
[2018-09-06] MEDS ORDERED: ACETAMINOPHEN TAB 500 MG TAB PO STA (15:59)
[2018-09-06] MEDS ORDERED: SODIUM CHLORIDE 0.9% 1,000 ML IV STA (15:59)
[2018-09-06] MEDS ORDERED: VANCOMYCIN 1,000 MG in SODIUM CHLORIDE 0.9% 250 ML IVPB STA (16:00)
--- NOTE | 2018-09-06 16:14 | ED ---
General Adult HPI - General Chief complaint: Fever Stated complaint: Has a port in, possibly infected Source: patient Mode of arrival: wheelchair Limitations: no limitations - History of Present Illness Initial comments: Dictation was produced using Departing dictation software. please excuse any grammatical, word or spelling errors. 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 History of Present Illness: Is a 48-year-old female. Patient does have a Adamson port for total parenteral nutrition. Patient has a Adamson port that has been placed here at this hospital. Patient has history of bacteremia in the past. Patient reports that she feels as though she has recurrent episode of bacteremia. Patient reports constitutional symptoms. She states that she recently traveled back to here from [place]. Patient denies any cough , nausea, vomiting, abdominal pain, abdominal symptoms, changes in bowel habits , urinary symptoms. Patient has a history of graft rejection for small bowel transplant. She is currently not on any immunosuppressive medication. The ROS documented in this emergency department record has been reviewed and confirmed by me. Those systems with pertinent positive or negative responses have been documented in the HPI. All other systems are other negative and/or noncontributory. - Related Data Home Medications Medication Instructions Recorded Confirmed Gattex 2.3 mg SQ DAILY 10/29/15 09/06/18 Potassium Chloride ER [K-Dur 20] 20 meq PO BID@0900,1400 08/29/16 09/06/18 Calcium Acetate [Phoslo] 667 mg PO BID@0900,1400 09/06/18 09/06/18 Ferrous Sulfate [Feosol] 325 mg PO BID@0900,1400 09/06/18 09/06/18 Sodium Bicarbonate Tab 1,300 mg PO BID@0900,1400 09/06/18 09/06/18 amLODIPine [Norvasc] 10 mg PO DAILY 09/06/18 09/06/18 traMADol HCL [Ultram] 50 mg PO Q8H PRN 09/06/18 09/06/18 Allergies Allergy/AdvReac Type Severity Reaction Status Date / Time ceftriaxone [From Rocephin] Allergy Intermediate Itching Verified 09/06/18 16:05 acetate salt Allergy Unknown Verified 09/06/18 16:05 [From Hyperlyte CR] ciprofloxacin [From Cipro] Allergy Anaphylaxis Verified 09/06/18 16:05 ciprofloxacin HCl Allergy Anaphylaxis Verified 09/06/18 16:05 [From Cipro] fat emulsions Allergy Unknown Verified 09/06/18 16:05 [From Liposyn II] Sulfa (Sulfonamide Allergy Anaphylaxis Verified 09/06/18 16:05 Antibiotics) fexofenadine [From Sofia] AdvReac Migraine Verified 09/06/18 16:05 Review of Systems ROS Statement: Those systems with pertinent positive or pertinent negative responses have been documented in the HPI. ROS Other: All systems not noted in ROS Statement are negative. Past Medical History Past Medical History: Blood Disorder, GERD/Reflux, Hypertension, Respiratory Disorder Additional Past Medical History / Comment(s): Adamson , Hernia, Volvulosis, short bowel syndrome, pneumothorax, hemothorax. ANEMIA History of Any Multi-Drug Resistant Organisms: None Reported Past Surgical History: Appendectomy, Bowel Resection, Cholecystectomy, Tubal Ligation Additional Past Surgical History / Comment(s): intestinal transplant and removal , chest tube placement. ADAMSON REPLACEMENT. Past Anesthesia/Blood Transfusion Reactions: No Reported Reaction Past Psychological History: No Psychological Hx Reported Smoking Status: Never smoker Past Alcohol Use History: None Reported Past Drug Use History: None Reported - Past Family History Mother Family Medical History: Hypertension Father Family Medical History: Congestive Heart Failure (CHF), Coronary Artery Disease (CAD), Diabetes Mellitus, Hypertension Additional Family Medical History / Comment(s): two years ago. General Exam - General Exam Comments Initial Comments: PHYSICAL EXAM: General Impression: Alert and oriented x3, not in acute distress, cachectic appearing, HEENT: Normocephalic atraumatic, extra-ocular movements intact, pupils equal and reactive to light bilaterally, mucous membranes moist. Cardiovascular: Heart regular rate and rhythm, S1&S2 audible, no murmurs, rubs or gallops Chest: Lungs clear to auscultation bilaterally, no rhonchi, no wheeze, no rales , no fluctuance or signs of infection about the Adamson catheter site or the tubing. Abdomen: Bowel sounds present, abdomen soft, non-tender, non-distended, no organomegaly Musculoskeletal: Pulses present and equal in all extremities, no peripheral edema Motor: Power 5/5 bilaterally, no focal deficits noted Neurological: CN II-XII grossly intact, no focal motor or sensory deficits noted Skin: Intact with no visualized rashes Psych: Normal affect and mood Limitations: no limitations Course Vital Signs 09/06/18 14:45 Temperature 102.7 F H Pulse Rate 112 H Respiratory 16 Rate Blood Pressure 97/60 O2 Sat by Pulse 98 Oximetry Medical Decision Making - Medical Decision Making ED course: 48-year-old female who receives regular scheduled TPN presents with constitutional symptoms. She has a history of bacteremia. Vital signs upon arrival shows temperature 102.7, heart rate 112, blood pressure 97/60. Physical examination is benign.Laboratory evaluation obtained. Mild leukocytosis of 13.8, hemoglobin 9.2, no thrombocytopenia. Metabolic panel shows creatinine 3.92. Patient has history of chronic kidney disease. Urinalysis obtained showing minimal white blood cells however rare urine bacteria. Patient denies any urinary symptoms. Chest x-ray obtained showing COPD. No findings to suggest pulmonary infection. Patient is high risk for bacteremia given intravenous catheter. Patient given vancomycin. Pending blood cultures urine cultures. Patient be admitted with consultation to infectious disease. Patient's vital signs are stable at this time. Consult to dietitian for TPN administration. - Lab Data Result diagrams: 09/06/18 16:43 09/06/18 16:43 Lab Results 09/06/18 09/06/18 09/06/18 Range/Units 16:43 16:43 16:43 WBC 13.8 H (3.8-10.6) k/uL RBC 3.00 L (3.80-5.40) m/uL Hgb 9.2 L (11.4-16.0) gm/dL Hct 29.2 L (34.0-46.0) % MCV 97.2 (80.0-100.0) fL MCH 30.5 (25.0-35.0) pg MCHC 31.4 (31.0-37.0) g/dL RDW 13.9 (11.5-15.5) % Plt Count 206 (150-450) k/uL Neutrophils % 92 % Lymphocytes % 3 % Monocytes % 3 % Eosinophils % 1 % Basophils % 0 % Neutrophils # 12.6 H (1.3-7.7) k/uL Lymphocytes # 0.4 L (1.0-4.8) k/uL Monocytes # 0.4 (0-1.0) k/uL Eosinophils # 0.1 (0-0.7) k/uL Basophils # 0.0 (0-0.2) k/uL Hypochromasia Moderate Sodium 135 L (137-145) mmol/L Potassium 4.4 (3.5-5.1) mmol/L Chloride 107 (98-107) mmol/L Carbon Dioxide 17 L (22-30) mmol/L Anion Gap 11 mmol/L BUN 44 H (7-17) mg/dL Creatinine 3.92 H (0.52-1.04) mg/dL Est GFR (CKD-EPI)AfAm 15 (>60 ml/min/1.73 sqM) Est GFR (CKD-EPI)NonAf 13 (>60 ml/min/1.73 sqM) Glucose 90 (74-99) mg/dL Plasma Lactic Acid Malik 1.1 (0.7-2.0) mmol/L Calcium 8.5 (8.4-10.2) mg/dL Total Bilirubin 0.5 (0.2-1.3) mg/dL AST 14 (14-36) U/L ALT 28 (9-52) U/L Alkaline Phosphatase 176 H (38-126) U/L Total Protein 6.0 L (6.3-8.2) g/dL Albumin 2.9 L (3.5-5.0) g/dL Urine Color Urine Appearance (Clear) Urine pH (5.0-8.0) Ur Specific [place] (1.001-1.035) Urine Protein (Negative) Urine Glucose (UA) (Negative) Urine Ketones (Negative) Urine Blood (Negative) Urine Nitrite (Negative) Urine Bilirubin (Negative) Urine Urobilinogen (<2.0) mg/dL Ur Leukocyte Esterase (Negative) Urine RBC (0-5) /hpf Urine WBC (0-5) /hpf Ur Squamous Epith Cells (0-4) /hpf Urine Bacteria (None) /hpf Urine Mucus (None) /hpf 09/06/18 Range/Units 16:43 WBC (3.8-10.6) k/uL RBC (3.80-5.40) m/uL Hgb (11.4-16.0) gm/dL Hct (34.0-46.0) % MCV (80.0-100.0) fL MCH (25.0-35.0) pg MCHC (31.0-37.0) g/dL RDW (11.5-15.5) % Plt Count (150-450) k/uL Neutrophils % % Lymphocytes % % Monocytes % % Eosinophils % % Basophils % % Neutrophils # (1.3-7.7) k/uL Lymphocytes # (1.0-4.8) k/uL Monocytes # (0-1.0) k/uL Eosinophils # (0-0.7) k/uL Basophils # (0-0.2) k/uL Hypochromasia Sodium (137-145) mmol/L Potassium (3.5-5.1) mmol/L Chloride (98-107) mmol/L Carbon Dioxide (22-30) mmol/L Anion Gap mmol/L BUN (7-17) mg/dL Creatinine (0.52-1.04) mg/dL Est GFR (CKD-EPI)AfAm (>60 ml/min/1.73 sqM) Est GFR (CKD-EPI)NonAf (>60 ml/min/1.73 sqM) Glucose (74-99) mg/dL Plasma Lactic Acid Malik (0.7-2.0) mmol/L Calcium (8.4-10.2) mg/dL Total Bilirubin (0.2-1.3) mg/dL AST (14-36) U/L ALT (9-52) U/L Alkaline Phosphatase (38-126) U/L Total Protein (6.3-8.2) g/dL Albumin (3.5-5.0) g/dL Urine Color Yellow Urine Appearance Cloudy H (Clear) Urine pH 5.5 (5.0-8.0) Ur Specific [place] 1.010 (1.001-1.035) Urine Protein 1+ H (Negative) Urine Glucose (UA) Negative (Negative) Urine Ketones Negative (Negative) Urine Blood Negative (Negative) Urine Nitrite Negative (Negative) Urine Bilirubin Negative (Negative) Urine Urobilinogen <2.0 (<2.0) mg/dL Ur Leukocyte Esterase Small H (Negative) Urine RBC 1 (0-5) /hpf Urine WBC 11 H (0-5) /hpf Ur Squamous Epith Cells 2 (0-4) /hpf Urine Bacteria Rare H (None) /hpf Urine Mucus Rare H (None) /hpf Disposition Clinical Impression: Sepsis Disposition: ADMITTED IP TO THIS HOSP Condition: Fair Referrals: Danny Davis MD [Primary Care Provider] - 1-2 days Decision Time: 18:37
[2018-09-06] MEDS ORDERED: diphenhydrAMINE 50 MG/ML 1 ML VIAL IVP STA (16:34)
--- NOTE | 2018-09-06 17:25 | XR ---
EXAMINATION TYPE: XR chest 2V DATE OF EXAM: 09/06/2018 COMPARISON: 03/27/2018 HISTORY: Fever TECHNIQUE: Frontal and lateral views of the chest are obtained. FINDINGS: There is pulmonary hyperinflation and flattening of the diaphragm. There is mild thoracic dextroscoliosis. There is right central venous catheter with tip in the superior vena cava. No pneumo thorax. There is slight blunting of right costophrenic angle. There is osteopenia. There is no pulmon christine consolidation. IMPRESSION: COPD. Pleural diaphragmatic mild scarring at the lateral right lung base. No significant change compared to old exam.
[2018-09-06 17:27] LABS: Basophils % (A) 0 %; Eosinophils # (A) 0.1 k/uL (0-0.7); Eosinophils % (A) 1 %; HCT 29.2 % (34.0-46.0); HGB 9.2 gm/dL (11.4-16.0); Hypochromasia Moderate; Lymphocytes # (A) 0.4 k/uL (1.0-4.8); Lymphocytes % (A) 3 %; MCH 30.5 pg (25.0-35.0); MCHC 31.4 g/dL (31.0-37.0); MCV 97.2 fL (80.0-100.0); Mean Platelet Volume 7.2; Monocytes # (A) 0.4 k/uL (0-1.0); Monocytes % (A) 3 %; Neutrophils # (A) 12.6 k/uL (1.3-7.7); Neutrophils % (A) 92 %; Platelet Count 206 k/uL (150-450); RDW 13.9 % (11.5-15.5); WBC 13.8 k/uL (3.8-10.6)
[2018-09-06 17:29] LABS: Appearance,Urine Cloudy (Clear); Bacteria,Urine Rare /hpf; Bilirubin,Urine Negative (Negative); Blood,Urine Negative (Negative); Color,Urine Yellow; Glucose,Urine (UA) Negative (Negative); Ketones,Urine Negative (Negative); Leukocyte Esterase,Urine Small (Negative); Mucus,Urine Rare /hpf; Nitrite,Urine Negative (Negative); PH, Urine 5.5 (5.0-8.0); Protein,Urine 1+ (Negative); RBC,Urine 1 /hpf (0-5); Squamous Epithelial Cell,Urine 2 /hpf (0-4); Urobilinogen,Urine <2.0 mg/dL (<2.0); WBC,Urine 11 /hpf (0-5)
[2018-09-06 17:43] LABS: Albumin 2.9 g/dL (3.5-5.0); Calcium 8.5 mg/dL (8.4-10.2); Potassium 4.4 mmol/L (3.5-5.1); Total Bilirubin 0.5 mg/dL (0.2-1.3)
[2018-09-06] MEDS ORDERED: NALOXONE 0.4 MG/ML 1 ML VIAL IV PRN (18:37)
[2018-09-06] MEDS ORDERED: SODIUM CHLORIDE 0.9% 1,000 ML IV ONE (19:11)
[2018-09-06] MEDS ORDERED: SODIUM CHLORIDE 0.9% 500 ML 500 ML IV ONE (20:31)
[2018-09-06] MEDS ORDERED: VANCOMYCIN IV PER PHARMACY 1 EACH MISC MISCELLANE ONE (21:00)
[2018-09-06 22:58] LABS: Glucose,Whole Blood 75 mg/dL (75-99)
[2018-09-06] MEDS: SODIUM CHLORIDE 0.9% 1,000 ML IV SCH (23:00)
[2018-09-07] MEDS: ACETAMINOPHEN TAB 325 MG TAB PO PRN (05:28)
[2018-09-07 05:36] LABS: Basophils % (A) 0 %; Eosinophils # (A) 0.1 k/uL (0-0.7); Eosinophils % (A) 2 %; Hypochromasia Marked; Lymphocytes # (A) 0.1 k/uL (1.0-4.8); Lymphocytes % (A) 2 %; MCH 29.6 pg (25.0-35.0); MCHC 29.9 g/dL (31.0-37.0); MCV 98.7 fL (80.0-100.0); Mean Platelet Volume 8.1; Monocytes # (A) 0.2 k/uL (0-1.0); Monocytes % (A) 3 %; Neutrophils # (A) 6.8 k/uL (1.3-7.7); Neutrophils % (A) 92 %; Platelet Count 129 k/uL (150-450); RBC 2.43 m/uL (3.80-5.40); RDW 13.9 % (11.5-15.5); WBC 7.4 k/uL (3.8-10.6)
[2018-09-07 05:38] LABS: HGB 7.2 gm/dL (11.4-16.0)
[2018-09-07 05:56] LABS: Calcium 7.4 mg/dL (8.4-10.2); Magnesium 1.9 mg/dL (1.6-2.3); Phosphorus 3.3 mg/dL (2.5-4.5); Potassium 5.1 mmol/L (3.5-5.1)
[2018-09-07 06:01] LABS: Vancomycin,Random 16.2 ug/mL
[2018-09-07 06:58] LABS: Glucose,Whole Blood 83 mg/dL (75-99)
--- NOTE | 2018-09-07 07:22 | XR ---
EXAMINATION TYPE: XR chest 1V DATE OF EXAM: 09/07/2018 COMPARISON: 09/06/2018 HISTORY: Chest pain TECHNIQUE: Single frontal view of the chest is obtained. FINDINGS: Patchy left lower lobe infiltrate noted. The remainder of the lungs are clear. Central venous line un changed in position. The cardiac silhouette size is within normal limits. The osseous structures are intact. IMPRESSION: 1. Stable left lower lobe infiltrate.
[2018-09-07] MEDS ORDERED: PANTOPRAZOLE 40 MG TABLET PO SCH (07:30)
[2018-09-07] MEDS ORDERED: HEPARIN SODIUM,PORCINE 5,000 UNIT/ML 1 ML VIAL SQ SCH (08:00)
[2018-09-07] MEDS ORDERED: AZTREONAM 2 GM in SODIUM CHLORIDE 0.9% 100 ML IVPB SCH (08:00)
[2018-09-07] MEDS ORDERED: VANCOMYCIN IV PER PHARMACY 1 EACH MISC MISCELLANE PRN (08:20)
[2018-09-07] MEDS ORDERED: ACETAMINOPHEN IV (For NPO) 1,000 MG in EMPTY BAG 1 BAG IVPB PRN (08:40)
[2018-09-07] MEDS ORDERED: NALOXONE 0.4 MG/ML 1 ML VIAL IV PRN (08:40)
[2018-09-07] MEDS ORDERED: VANCOMYCIN 750 MG in SODIUM CHLORIDE 0.9% 250 ML IVPB ONE (09:00)
[2018-09-07] MEDS ORDERED: ENOXAPARIN 30 MG/0.3 ML SYRINGE SQ SCH (09:00)
[2018-09-07] MEDS: LACTATED RINGERS 1,000 ML IV SCH ×3 (09:09→20:47)
[2018-09-07] MEDS: SODIUM CHLORIDE 0.9% 1,000 ML IV SCH (09:09)
[2018-09-07 09:51] LABS: Amorphous Sediment,Urine Few /hpf; Appearance,Urine Turbid (Clear); Bacteria,Urine Rare /hpf; Bilirubin,Urine Negative (Negative); Blood,Urine Negative (Negative); Color,Urine Light Yellow; Glucose,Urine (UA) Negative (Negative); Ketones,Urine Negative (Negative); Leukocyte Esterase,Urine Large (Negative); Mucus,Urine Rare /hpf; Nitrite,Urine Negative (Negative); PH, Urine 5.5 (5.0-8.0); Protein,Urine Trace (Negative); Specific Gravity,Urine 1.009 (1.001-1.035); Squamous Epithelial Cell,Urine 8 /hpf (0-4); Urobilinogen,Urine <2.0 mg/dL (<2.0)
--- NOTE | 2018-09-07 10:41 | CONS ---
CONSULTATION REASON FOR CONSULTATION: Fever/sepsis/hypotension. This is a 48-year-old female who presented to the emergency room. She was seen there by Dr. Miguel. The patient apparently a number of years ago had a sigmoidectomy I believe back in 2007 for a volvulus. The patient apparently subsequent to that had a bowel graft, but that was rejected. She now suffers from short gut syndrome. More recently, she comes in complaining of fever and chills. Just not feeling well. She has had a previous Choi catheter infection. This occurred over the summer time. The patient on this admission was found to have some gram-negative rods in the blood. Her chest x-ray shows a possible infiltrate in the left lower lobe. She is receiving no supplemental oxygen and a 0.9 IV at 100 mL/ hour. Her blood pressure is low. I was told by the ER physician that her blood pressure typically runs low, but in fact , she apparently does have a history of hypertension for which she takes amlodipine. PAST MEDICAL HISTORY: Includes among other things a sigmoidectomy, a rejected bowel graft, short-bowel syndrome, infected Choi catheter, a previous hemothorax/pneumothorax and history of essential hypertension. Her bowel graft was done at [facility]. Her major complaints include fever and just not feeling well. HOME MEDICATIONS: Include Gattex, potassium chloride, calcium acetate, ferrous sulfate, sodium bicarbonate tablets, amlodipine, and tramadol. Allergies include CEFTRIAXONE, CIPRO, LIPOSIN, SULFA ANTIBIOTICS and NADIRA. Medical history includes gastroesophageal reflux disease, hypertension, PICC line catheter infection, sigmoid volvulus, short-bowel syndrome, pneumothorax, hemothorax, anemia, previous bowel resections for sigmoid volvulus, cholecystectomy, and tubal ligation. Since the bowel transplant fail, it was removed. She has also had a chest tube placement because of pneumothorax/hemothorax. SOCIAL HISTORY: Negative tobacco use. She apparently never smoked. Does not use drugs or drink alcohol. FAMILY HISTORY: Apparently positive for CAD, diabetes, heart failure and hypertension. OCCUPATIONAL HISTORY: Noncontributory. CURRENT REVIEW OF SYSTEMS: CONSTITUTIONAL: Weakness and fatigue. NEUROLOGIC: Negative. HEENT: Negative. CARDIOVASCULAR: Negative. PULMONARY: Negative. GI: Diarrhea. : Negative. RHEUMATOLOGIC: Negative. HEMATOLOGIC: Negative. ENDOCRINOLOGIC: Negative. DERMATOLOGIC: Negative. PHYSICAL EXAMINATION: Current vital signs show a temperature at 103, heart rate 110, respiratory rate 14 to 22 breaths per minute, blood pressure 106/59 with mean 74. Room air saturation 99%. Appears in no acute distress. HEENT examination is grossly unremarkable. Mucous membranes are dry. NECK: Supple. Full range of motion. No adenopathy or thyromegaly. Neck veins are flat. Cardiovascular examination reveals tachycardia. It is regular. Heart rate about 110-115 beats per minute. S1, S2 normal. Lungs reveal clear breath sounds. No wheezes, rhonchi, or crackles. Abdomen soft. Bowel sounds are hyperactive. Extremities are intact. No cyanosis, clubbing, or edema. Skin without rash. Neurologic examination is unremarkable. She does move all 4 extremities. Microbiologic studies apparently showed gram-negative rods in the blood. It has not been identified as yet. Chest x-ray shows some atelectasis or infiltrate which is relatively faint at the left lung base. White count 7.4, hemoglobin 7.2, hematocrit 24.0, platelet count 129 ,000. Sodium, potassium normal. Chloride is 118, CO2 is 15, anion gap 5, BUN and creatinine were 39, 3.38, down from 44 and 3.92. She has got a hyperchloremic non-anion gap metabolic acidosis in part related to saline administration, but also renal failure. Calcium 7.4. Her albumin is 2.9. Urine is cloudy with 1+ protein, small positive leukocyte esterase, WBCs are 11 and some rare bacteria. She got 1 dose of vancomycin in the Emergency Room. She was placed on Azactam by Infectious Disease. Medications are reviewed. ASSESSMENT: 1. Sepsis syndrome/septic shock, possibly related to either pneumonia, urinary tract infection or infected Choi catheter. 2. History of previous sigmoidectomy because of sigmoid volvulus. 3. Previous bowel graft with rejection and subsequent removal. 4. Short-gut syndrome. 5. Status post infected Choi catheter with subsequent removal and replacement. 6. Previous history of hemothorax, pneumothorax with chest tube placement. 7. History of essential hypertension. 8. Lifelong nonsmoker. PLAN: The patient will get IV fluids. She is placed on DVT and GI prophylaxis in the form of Lovenox and Protonix. Continue with antibiotics as per ID. Additional recommendations and suggestions are forthcoming. Will check the hemoglobin and hematocrit later today and also repeat calcium. Prognosis is guarded. MMODL / IJN: [id number] / MTDD
[2018-09-07] MEDS: PANTOPRAZOLE 40 MG/10 ML VIAL IV SCH (12:10)
[2018-09-07 15:39] LABS: HGB 7.1 gm/dL (11.4-16.0); Hypochromasia Marked; MCH 29.7 pg (25.0-35.0); MCHC 28.3 g/dL (31.0-37.0); Macrocytosis Moderate; Mean Platelet Volume 7.3; Platelet Count 132 k/uL (150-450); RBC 2.37 m/uL (3.80-5.40); RDW 13.8 % (11.5-15.5); WBC 9.2 k/uL (3.8-10.6)
[2018-09-07 15:41] LABS: MCV 105.1 fL (80.0-100.0)
[2018-09-07 15:49] LABS: Ionized Calcium 4.9 mg/dL (4.5-5.3)
[2018-09-07] MEDS ORDERED: traMADol 50 MG TAB PO PRN (16:07)
--- NOTE | 2018-09-07 17:03 | P.HPIM ---
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 And the patient's sepsis is believed secondary to Adamson catheter infection. Adamson will be remote and the patient has gram-negative bacteremia for which patient was started on is a 3 on I am. Patient had history of sigmoidectomy and a bowel graft in the past which was later rejected and patient has a short gut syndrome because of which patient has issues with diarrhea patient is to still having diarrhea quite a bit had around 150 mL of the blood diarrhea since today morning because of which we are not able to keep up with the fluid resuscitation patient is presently on IV normal saline at 80 mL/h which will be increased to 150 mL per hour and the patient is still hypotensive and the patient is being bolused by lactated Ringer's patient is hyperchloremic because of which I may change in the maintenance IV fluid to lactated Ringer's patient does not have any elevated lactic acid patient's lactic acid will be repeated tomorrow if patient remains the hypotensive with low urine output patient may need to be started on pressor support at that time. Patient will be started on symptomatically treatment for diarrhea patient's C. difficile was negative. Review of Systems REVIEW OF SYSTEMS: CONSTITUTIONAL: As mentioned in HPI HEENT: No recent visual problems or hearing problems. Denied any sore throat. CARDIOVASCULAR: No chest pain, orthopnea, PND, no palpitations, no syncope. PULMONARY: No shortness of breath, no cough, no hemoptysis. GASTROINTESTINAL: no nausea, no vomiting, no abdominal pain. NEUROLOGICAL: No headaches, no weakness, no numbness. HEMATOLOGICAL: Denies any bleeding or petechiae. GENITOURINARY: Denies any burning micturition, frequency, or urgency. MUSCULOSKELETAL/RHEUMATOLOGICAL: Denies any joint pain, swelling, or any muscle pain. ENDOCRINE: Denies any polyuria or polydipsia. The rest of the 14-point review of systems is negative. Past Medical History Past Medical History: Blood Disorder, Hypertension, Renal Disease Additional Past Medical History / Comment(s): HX OF PAST LINE SEPSIS/Adamson , Hernia, HX OF SIGMOID VOLVULOUS W/ GRAFT REJECTION/SHORT GUT SYNDROME-HAS HAD LINE SEPSIS IN PAST W/ REMOVAL. HAS PORT FOR TPN, pneumothorax, hemothorax. ANEMIA History of Any Multi-Drug Resistant Organisms: None Reported Past Surgical History: Appendectomy, Bowel Resection, Cholecystectomy, Tubal Ligation Additional Past Surgical History / Comment(s): intestinal transplant and removal , chest tube placement. ADAMSON REPLACEMENT. Past Anesthesia/Blood Transfusion Reactions: No Reported Reaction Past Psychological History: No Psychological Hx Reported Additional Psychological History / Comment(s): [facility] Smoking Status: Never smoker Past Alcohol Use History: None Reported Past Drug Use History: None Reported - Past Family History Mother Family Medical History: Hypertension Father Family Medical History: Congestive Heart Failure (CHF), Coronary Artery Disease (CAD), Diabetes Mellitus, Hypertension Additional Family Medical History / Comment(s): . Medications and Allergies Home Medications Medication Instructions Recorded Confirmed Type Gattex 2.3 mg SQ DAILY 10/29/15 09/06/18 History Potassium Chloride ER [K-Dur 20] 20 meq PO BID@0900,1400 08/29/16 09/06/18 History Calcium Acetate [Phoslo] 667 mg PO BID@0900,1400 09/06/18 09/06/18 History Ferrous Sulfate [Feosol] 325 mg PO BID@0900,1400 09/06/18 09/06/18 History Sodium Bicarbonate Tab 1,300 mg PO BID@0900,1400 09/06/18 09/06/18 History amLODIPine [Norvasc] 10 mg PO DAILY 09/06/18 09/06/18 History traMADol HCL [Ultram] 50 mg PO Q8H PRN 09/06/18 09/06/18 History Allergies Allergy/AdvReac Type Severity Reaction Status Date / Time ceftriaxone [From Rocephin] Allergy Intermediate Itching Verified 09/06/18 16:05 acetate salt Allergy Unknown Verified 09/06/18 16:05 [From Hyperlyte CR] ciprofloxacin [From Cipro] Allergy Anaphylaxis Verified 09/06/18 16:05 ciprofloxacin HCl Allergy Anaphylaxis Verified 09/06/18 16:05 [From Cipro] fat emulsions Allergy Unknown Verified 09/06/18 16:05 [From Liposyn II] Sulfa (Sulfonamide Allergy Anaphylaxis Verified 09/06/18 16:05 Antibiotics) fexofenadine [From Sofia] AdvReac Migraine Verified 09/06/18 16:05 Physical Exam Vitals: Vital Signs Temp Pulse Resp BP Pulse Ox 09/07/18 15:00 65 20 80/46 100 09/07/18 14:30 70 20 85/54 98 09/07/18 14:00 73 20 99/68 100 09/07/18 13:30 73 20 91/62 100 09/07/18 13:00 90 20 92/62 98 09/07/18 12:30 79 91/53 98 09/07/18 12:00 98.6 F 78 20 92/52 97 09/07/18 11:30 91 17 90/51 98 09/07/18 11:00 98 19 96/53 97 09/07/18 10:30 105 H 100/53 96 09/07/18 10:00 100.2 F H 112 H 20 106/52 96 09/07/18 09:30 103 H 22 111/69 98 09/07/18 09:00 110 H 14 106/59 99 09/07/18 08:30 111 H 22 104/55 97 09/07/18 08:00 103 F H 109 H 21 109/54 97 09/07/18 07:30 117 H 19 115/63 97 09/07/18 07:00 126 H 16 124/87 96 09/07/18 06:30 112 H 20 133/65 97 09/07/18 06:00 94 10 L 118/72 99 09/07/18 05:30 96 19 92/48 99 09/07/18 05:00 84 12 76/39 95 09/07/18 04:30 79 19 88/37 97 09/07/18 04:00 98.6 F 80 19 84/45 96 09/07/18 03:30 77 18 88/50 97 09/07/18 03:00 75 15 81/56 97 09/07/18 02:30 68 16 87/53 99 09/07/18 02:00 76 13 82/48 97 09/07/18 01:30 83 13 09/07/18 01:00 73 13 82/45 98 09/07/18 00:30 95 F L 68 16 82/49 98 09/07/18 00:05 100 09/07/18 00:00 58 L 15 87/63 100 09/06/18 23:30 94.8 F L 65 14 82/53 99 09/06/18 23:00 62 12 82/56 100 09/06/18 22:30 81/47 100 09/06/18 22:29 81/47 100 09/06/18 22:00 97.4 F L 72 18 90/52 100 09/06/18 21:46 97.2 F L 72 20 93/47 98 09/06/18 21:30 88/50 100 09/06/18 21:00 86/57 100 09/06/18 20:58 79 18 86/51 99 09/06/18 20:30 86/52 100 09/06/18 20:00 62 16 86/52 98 09/06/18 19:30 88/52 100 09/06/18 19:13 60 18 90/53 100 09/06/18 19:00 77/43 100 09/06/18 18:30 18 83/46 98 09/06/18 18:00 17 84/46 98 09/06/18 17:31 18 87/50 98 09/06/18 17:25 100.3 F H Intake and Output 09/07/18 09/07/18 09/07/18 06:59 14:59 22:59 Intake Total 560 2760 1200 Output Total 650 1260 275 Balance -90 1500 925 Intake: IV 560 2760 1200 LR bolus 2000 1000 Sodium Chloride 0.9% 1, 560 760 200 000 ml @ 80 mls/hr IV . [id number] [facility] Rx#:[id number] Output: Urine 350 260 25 Stool 500 250 Urine/Stool Mix 300 500 Other: # Voids 0 0 # Bowel Movements 1 Weight 38 kg 38 kg PHYSICAL EXAMINATION: GENERAL: The patient is alert and oriented x3, not in any acute distress. Thin built female HEENT: Pupils are round and equally reacting to light. EOMI. No scleral icterus. No conjunctival pallor. Normocephalic, atraumatic. No pharyngeal erythema. No thyromegaly. CARDIOVASCULAR: S1 and S2 present. No murmurs, rubs, or gallops. PULMONARY: Chest is clear to auscultation, no wheezing or crackles. ABDOMEN: Soft, nontender, nondistended, normoactive bowel sounds. No palpable organomegaly. As have multiple ventral hernias MUSCULOSKELETAL: No joint swelling or deformity. EXTREMITIES: No cyanosis, clubbing, or pedal edema. NEUROLOGICAL: Gross neurological examination did not reveal any focal deficits. SKIN: No rashes. Results CBC & Chem 7: 09/07/18 15:21 09/07/18 04:55 Labs: Abnormal Lab Results - Last 24 Hours (Table) 09/06/18 09/06/18 09/06/18 Range/Units 16:43 16:43 16:43 WBC 13.8 H (3.8-10.6) k/uL RBC 3.00 L (3.80-5.40) m/uL Hgb 9.2 L (11.4-16.0) gm/dL Hct 29.2 L (34.0-46.0) % MCV (80.0-100.0) fL MCHC (31.0-37.0) g/dL Plt Count (150-450) k/uL Neutrophils # 12.6 H (1.3-7.7) k/uL Lymphocytes # 0.4 L (1.0-4.8) k/uL Sodium 135 L (137-145) mmol/L Chloride (98-107) mmol/L Carbon Dioxide 17 L (22-30) mmol/L BUN 44 H (7-17) mg/dL Creatinine 3.92 H (0.52-1.04) mg/dL Calcium (8.4-10.2) mg/dL Alkaline Phosphatase 176 H (38-126) U/L Total Protein 6.0 L (6.3-8.2) g/dL Albumin 2.9 L (3.5-5.0) g/dL Triglycerides (<150) mg/dL Urine Appearance Cloudy H (Clear) Urine Protein 1+ H (Negative) Ur Leukocyte Esterase Small H (Negative) Urine WBC 11 H (0-5) /hpf Urine WBC Clumps (None) /hpf Ur Squamous Epith Cells (0-4) /hpf Amorphous Sediment (None) /hpf Urine Bacteria Rare H (None) /hpf Urine Mucus Rare H (None) /hpf 09/07/18 09/07/18 09/07/18 Range/Units 04:55 04:55 09:20 WBC (3.8-10.6) k/uL RBC 2.43 L (3.80-5.40) m/uL Hgb 7.2 L D (11.4-16.0) gm/dL Hct 24.0 L (34.0-46.0) % MCV (80.0-100.0) fL MCHC 29.9 L (31.0-37.0) g/dL Plt Count 129 L (150-450) k/uL Neutrophils # (1.3-7.7) k/uL Lymphocytes # 0.1 L (1.0-4.8) k/uL Sodium (137-145) mmol/L Chloride 118 H (98-107) mmol/L Carbon Dioxide 15 L (22-30) mmol/L BUN 39 H (7-17) mg/dL Creatinine 3.38 H (0.52-1.04) mg/dL Calcium 7.4 L (8.4-10.2) mg/dL Alkaline Phosphatase (38-126) U/L Total Protein (6.3-8.2) g/dL Albumin (3.5-5.0) g/dL Triglycerides (<150) mg/dL Urine Appearance Turbid H (Clear) Urine Protein Trace H (Negative) Ur Leukocyte Esterase Large H (Negative) Urine WBC 10 H (0-5) /hpf Urine WBC Clumps Occasional H (None) /hpf Ur Squamous Epith Cells 8 H (0-4) /hpf Amorphous Sediment Few H (None) /hpf Urine Bacteria Rare H (None) /hpf Urine Mucus Rare H (None) /hpf 09/07/18 09/07/18 Range/Units 15:21 15:21 WBC (3.8-10.6) k/uL RBC 2.37 L (3.80-5.40) m/uL Hgb 7.1 L (11.4-16.0) gm/dL Hct 25.0 L (34.0-46.0) % MCV 105.1 H D (80.0-100.0) fL MCHC 28.3 L (31.0-37.0) g/dL Plt Count 132 L (150-450) k/uL Neutrophils # (1.3-7.7) k/uL Lymphocytes # (1.0-4.8) k/uL Sodium (137-145) mmol/L Chloride (98-107) mmol/L Carbon Dioxide (22-30) mmol/L BUN (7-17) mg/dL Creatinine (0.52-1.04) mg/dL Calcium (8.4-10.2) mg/dL Alkaline Phosphatase (38-126) U/L Total Protein (6.3-8.2) g/dL Albumin (3.5-5.0) g/dL Triglycerides 153 H (<150) mg/dL Urine Appearance (Clear) Urine Protein (Negative) Ur Leukocyte Esterase (Negative) Urine WBC (0-5) /hpf Urine WBC Clumps (None) /hpf Ur Squamous Epith Cells (0-4) /hpf Amorphous Sediment (None) /hpf Urine Bacteria (None) /hpf Urine Mucus (None) /hpf Microbiology - Last 24 Hours (Table) 09/07/18 09:20 Urine Culture - Preliminary Urine,Voided 09/06/18 16:43 Blood Culture Gram Stain - Preliminary Blood Blood Culture - Preliminary Gram Neg Bacilli 09/06/18 16:43 Blood Culture - Final Blood 09/06/18 16:43 Urine Culture - Preliminary Urine,Voided Thrombosis Risk Factor Assmnt - Choose All That Apply Any of the Below Risk Factors Present?: Yes Each Factor Represents 1 point: Age 41-60 years, Sepsis (< 1month) Other Risk Factors: Yes Each Risk Factor Represents 2 Points: Central venous access Thrombosis Risk Factor Assessment Total Risk Factor Score: 4 Thrombosis Risk Factor Assessment Level: Moderate Risk Assessment and Plan Plan: Severe sepsis: Secondary to infected Adamson catheter Most probably urine is bit abnormal but my suspicion is low that patient has UTI get the catheter will be removed tomorrow. Patient will be continued on IV fluids as mentioned above continue with aztreonam -Hypotension secondary to sepsis and diarrhea IV fluid management as mentioned above. Patient may need to be started on pressor support if she continues to be hypotensive and -Acute renal failure on chronic kidney disease stage III baseline creatinine is around 1 and had acute renal failure is secondary to sepsis prerenal azotemia severe intravascular well in the patient diarrhea. There may be a competent of acute tubular necrosis as well -Shot gut syndrome symptomatically treatment ruled out C. diff patient still has diarrhea -Hypertension: Hypotensive presently amlodipine will be held DVT prophylaxis with subcutaneous heparin -Chronic anemia probably iron deficiency as well as anemia of chronic disease will obtain ferritin levels -Patient will need pharmacologic GI and DVT prophylaxis
[2018-09-07] MEDS: AZTREONAM 1 GM in SODIUM CHLORIDE 0.9% 50 ML IVPB SCH (18:05)
--- NOTE | 2018-09-07 18:16 | P.GSCN ---
History of Present Illness Consult date: 09/07/18 Reason for Consult: Line sepsis History of present illness: The patient is well known to me and is on chronic TPN via Adamson catheter. She 's developed sepsis again with positive blood cultures Review of Systems All systems: negative Past Medical History Past Medical History: Blood Disorder, Hypertension, Renal Disease Additional Past Medical History / Comment(s): HX OF PAST LINE SEPSIS/Adamson , Hernia, HX OF SIGMOID VOLVULOUS W/ GRAFT REJECTION/SHORT GUT SYNDROME-HAS HAD LINE SEPSIS IN PAST W/ REMOVAL. HAS PORT FOR TPN, pneumothorax, hemothorax. ANEMIA History of Any Multi-Drug Resistant Organisms: None Reported Past Surgical History: Appendectomy, Bowel Resection, Cholecystectomy, Tubal Ligation Additional Past Surgical History / Comment(s): intestinal transplant and removal , chest tube placement. ADAMSON REPLACEMENT. Past Anesthesia/Blood Transfusion Reactions: No Reported Reaction Past Psychological History: No Psychological Hx Reported Additional Psychological History / Comment(s): [facility] Smoking Status: Never smoker Past Alcohol Use History: None Reported Past Drug Use History: None Reported - Past Family History Mother Family Medical History: Hypertension Father Family Medical History: Congestive Heart Failure (CHF), Coronary Artery Disease (CAD), Diabetes Mellitus, Hypertension Additional Family Medical History / Comment(s): . Medications and Allergies Home Medications Medication Instructions Recorded Confirmed Type Gattex 2.3 mg SQ DAILY 10/29/15 09/06/18 History Potassium Chloride ER [K-Dur 20] 20 meq PO BID@0900,1400 08/29/16 09/06/18 History Calcium Acetate [Phoslo] 667 mg PO BID@0900,1400 09/06/18 09/06/18 History Ferrous Sulfate [Feosol] 325 mg PO BID@0900,1400 09/06/18 09/06/18 History Sodium Bicarbonate Tab 1,300 mg PO BID@0900,1400 09/06/18 09/06/18 History amLODIPine [Norvasc] 10 mg PO DAILY 09/06/18 09/06/18 History traMADol HCL [Ultram] 50 mg PO Q8H PRN 09/06/18 09/06/18 History Allergies Allergy/AdvReac Type Severity Reaction Status Date / Time ceftriaxone [From Rocephin] Allergy Intermediate Itching Verified 09/06/18 16:05 acetate salt Allergy Unknown Verified 09/06/18 16:05 [From Hyperlyte CR] ciprofloxacin [From Cipro] Allergy Anaphylaxis Verified 09/06/18 16:05 ciprofloxacin HCl Allergy Anaphylaxis Verified 09/06/18 16:05 [From Cipro] fat emulsions Allergy Unknown Verified 09/06/18 16:05 [From Liposyn II] Sulfa (Sulfonamide Allergy Anaphylaxis Verified 09/06/18 16:05 Antibiotics) fexofenadine [From Sofia] AdvReac Migraine Verified 09/06/18 16:05 Surgical - Exam Osteopathic Statement: *. No significant issues noted on an osteopathic structural exam other than those noted in the History and Physical/Consult. Vital Signs Temp Pulse Resp BP Pulse Ox 102.7 F H 112 H 16 97/60 98 09/06/18 14:45 09/06/18 14:45 09/06/18 14:45 09/06/18 14:45 09/06/18 14:45 - General well developed, well nourished, no distress - Eyes normal ocular movement - Integumentary Adamson catheters on the right anterior chest wall with no obvious cellulitis Results - Labs 09/07/18 15:21 09/07/18 04:55 Abnormal Lab Results - Last 24 Hours (Table) 09/07/18 09/07/18 09/07/18 Range/Units 04:55 04:55 09:20 RBC 2.43 L (3.80-5.40) m/uL Hgb 7.2 L D (11.4-16.0) gm/dL Hct 24.0 L (34.0-46.0) % MCV (80.0-100.0) fL MCHC 29.9 L (31.0-37.0) g/dL Plt Count 129 L (150-450) k/uL Lymphocytes # 0.1 L (1.0-4.8) k/uL Chloride 118 H (98-107) mmol/L Carbon Dioxide 15 L (22-30) mmol/L BUN 39 H (7-17) mg/dL Creatinine 3.38 H (0.52-1.04) mg/dL Calcium 7.4 L (8.4-10.2) mg/dL Triglycerides (<150) mg/dL Urine Appearance Turbid H (Clear) Urine Protein Trace H (Negative) Ur Leukocyte Esterase Large H (Negative) Urine WBC 10 H (0-5) /hpf Urine WBC Clumps Occasional H (None) /hpf Ur Squamous Epith Cells 8 H (0-4) /hpf Amorphous Sediment Few H (None) /hpf Urine Bacteria Rare H (None) /hpf Urine Mucus Rare H (None) /hpf 09/07/18 09/07/18 Range/Units 15:21 15:21 RBC 2.37 L (3.80-5.40) m/uL Hgb 7.1 L (11.4-16.0) gm/dL Hct 25.0 L (34.0-46.0) % MCV 105.1 H D (80.0-100.0) fL MCHC 28.3 L (31.0-37.0) g/dL Plt Count 132 L (150-450) k/uL Lymphocytes # (1.0-4.8) k/uL Chloride (98-107) mmol/L Carbon Dioxide (22-30) mmol/L BUN (7-17) mg/dL Creatinine (0.52-1.04) mg/dL Calcium (8.4-10.2) mg/dL Triglycerides 153 H (<150) mg/dL Urine Appearance (Clear) Urine Protein (Negative) Ur Leukocyte Esterase (Negative) Urine WBC (0-5) /hpf Urine WBC Clumps (None) /hpf Ur Squamous Epith Cells (0-4) /hpf Amorphous Sediment (None) /hpf Urine Bacteria (None) /hpf Urine Mucus (None) /hpf Microbiology - Last 24 Hours (Table) 09/07/18 09:20 Urine Culture - Preliminary Urine,Voided 09/06/18 16:43 Blood Culture Gram Stain - Preliminary Blood Blood Culture - Preliminary Gram Neg Bacilli 09/06/18 16:43 Blood Culture - Final Blood 09/06/18 16:43 Urine Culture - Preliminary Urine,Voided Diabetes panel 09/07/18 09/07/18 Range/Units 04:55 15:21 Sodium 138 (137-145) mmol/L Potassium 5.1 (3.5-5.1) mmol/L Chloride 118 H (98-107) mmol/L Carbon Dioxide 15 L (22-30) mmol/L BUN 39 H (7-17) mg/dL Creatinine 3.38 H (0.52-1.04) mg/dL Glucose 74 (74-99) mg/dL Calcium 7.4 L (8.4-10.2) mg/dL Triglycerides 153 H (<150) mg/dL Calcium panel 09/07/18 09/07/18 Range/Units 04:55 15:21 Calcium 7.4 L (8.4-10.2) mg/dL Ionized Calcium Nolberto 4.9 (4.5-5.3) mg/dL Phosphorus 3.3 (2.5-4.5) mg/dL Pituitary panel 09/07/18 Range/Units 04:55 Sodium 138 (137-145) mmol/L Potassium 5.1 (3.5-5.1) mmol/L Chloride 118 H (98-107) mmol/L Carbon Dioxide 15 L (22-30) mmol/L BUN 39 H (7-17) mg/dL Creatinine 3.38 H (0.52-1.04) mg/dL Glucose 74 (74-99) mg/dL Calcium 7.4 L (8.4-10.2) mg/dL Adrenal panel 09/07/18 Range/Units 04:55 Sodium 138 (137-145) mmol/L Potassium 5.1 (3.5-5.1) mmol/L Chloride 118 H (98-107) mmol/L Carbon Dioxide 15 L (22-30) mmol/L BUN 39 H (7-17) mg/dL Creatinine 3.38 H (0.52-1.04) mg/dL Glucose 74 (74-99) mg/dL Calcium 7.4 L (8.4-10.2) mg/dL Assessment and Plan (1) Sepsis Current Visit: Yes Status: Acute Code(s): A41.9 - SEPSIS, UNSPECIFIED ORGANISM SNOMED Code(s): 28161764 (2) Short bowel syndrome Current Visit: No Status: Acute Code(s): K91.2 - POSTSURGICAL MALABSORPTION , NOT ELSEWHERE CLASSIFIED SNOMED Code(s): 74581544 Plan: The Adamson will be removed at bedside and the tip sent for culture. Procedure risks and complications were discussed with her.
--- NOTE | 2018-09-07 18:18 | P.PCN ---
Date of Procedure: 09/07/18 Preoperative Diagnosis: Line sepsis Postoperative Diagnosis: Line sepsis Procedure(s) Performed: Removal of Choi catheter Anesthesia: local Surgeon: Taya Carrillo Estimated Blood Loss (ml): 0 Pathology: other (Tip of line for culture) Condition: stable Description of Procedure: The patient's right chest was prepped and draped in the usual sterile manner. Local anesthetic is instilled into the cuff overlying the Choi catheter. A small linear incision was made. Dissection was carried down to the pseudocapsule and the pseudocapsule was entered. The catheter was removed intact. The tip was sent for culture. The capsule around the cuff was dissected free and the catheter was removed from the chest wall. The skin was closed with interrupted 3-0 silk and a sterile dressing was applied
[2018-09-07] MEDS: DIPHENOX-ATROP 2.5-0.025 MG 1 EACH TAB PO SCH ×2 (19:53→20:46)
[2018-09-07] MEDS: HEPARIN SODIUM,PORCINE 5,000 UNIT/ML 1 ML VIAL SQ SCH (20:45)
[2018-09-08] MEDS: AZTREONAM 1 GM in SODIUM CHLORIDE 0.9% 50 ML IVPB SCH ×3 (00:06→15:58)
[2018-09-08 05:20] LABS: Basophils % (A) 0 %; Eosinophils # (A) 0.2 k/uL (0-0.7); Eosinophils % (A) 2 %; HCT 28.2 % (34.0-46.0); HGB 8.4 gm/dL (11.4-16.0); Hypochromasia Marked; Lymphocytes # (A) 0.4 k/uL (1.0-4.8); Lymphocytes % (A) 4 %; MCH 30.2 pg (25.0-35.0); MCHC 29.7 g/dL (31.0-37.0); MCV 101.6 fL (80.0-100.0); Macrocytosis Slight; Mean Platelet Volume 7.5; Monocytes # (A) 0.3 k/uL (0-1.0); Monocytes % (A) 3 %; Neutrophils # (A) 9.5 k/uL (1.3-7.7); Neutrophils % (A) 89 %; Platelet Count 162 k/uL (150-450); RBC 2.77 m/uL (3.80-5.40); WBC 10.7 k/uL (3.8-10.6)
[2018-09-08 05:34] LABS: Magnesium 1.7 mg/dL (1.6-2.3); Phosphorus 3.9 mg/dL (2.5-4.5); Potassium 4.5 mmol/L (3.5-5.1)
[2018-09-08 05:39] LABS: Vancomycin,Random 10.7 ug/mL
--- NOTE | 2018-09-08 06:42 | CONS ---
CONSULTATION DATE OF SERVICE: 09/07/2018 REASON FOR CONSULTATION: Sepsis. HISTORY OF PRESENT ILLNESS: The patient is a 48-year-old female with past medical history significant for short gut syndrome who uses a TPN at home through a Choi catheter that the patient has inserted . The patient did have a history of multiple PICC line as well as Choi catheter infections. The patient apparently states she recently traveled back to here from [place] and apparently the TPN that she got from [place] whenever she would infuse that she would feel very sick with it with rigors and chills. The patient has been feeling nauseated and had an episode of vomiting with associated fever of 101 to 103 degrees Fahrenheit. With these symptoms the patient did present to the [facility] ER. The patient has been evaluated by the ER physician. On arrival to the ER, the patient did have fever of 102 to 103 degrees Fahrenheit. The patient did have tachycardia, heart rate 126, and hypotension requiring multiple fluid boluses. She did receive one dose of vancomycin because of multiple antibiotic allergies. Blood cultures were obtained that returned with gram-negative bacilli with prompted this infectious disease consultation. She has been started on Azactam pending cultures. REVIEW OF SYSTEMS: CONSTITUTIONAL: Positive for weakness with rigors and chills. EYES: No complaint. ENT: No complaint. RESPIRATORY: No complaint. CARDIOVASCULAR: No complaint. GENITOURINARY: No complaint. GASTROINTESTINAL: As per HPI. MUSCULOSKELETAL: No complaint. INTEGUMENTARY: No complaint. PSYCHOLOGICAL: No complaint. ENDOCRINE: No complaint. NEUROLOGICAL: No complaint. PAST MEDICAL HISTORY: Her past medical history is significant for short-gut syndrome, multiple line sepsis, hypertension, renal . PAST SURGICAL HISTORY: Appendectomy, bowel surgery, cholecystectomy, tubal ligation, and multiple Choi catheter placement and removal. SOCIAL HISTORY: No history of smoking, drinking or drug use. FAMILY HISTORY: Mother with history of hypertension. Father with history of congestive heart failure, coronary artery disease, and diabetes. ALLERGIES: Allergies to CEFTRIAXONE, CIPROFLOXACIN and SULFA. MEDICATIONS: Medications include the patient is currently on Tylenol, [place], Azactam 1 gram q.8. She is on Lomotil, heparin, vancomycin pharmacy to dose, Protonix, Ultram. PHYSICAL EXAMINATION: On examination, blood pressure is 92/52 with pulse 64, temperature 98, T-max 103. She is 97% on room air. General description is a middle aged female lying in bed in no distress. No tachypnea or accessory muscle of respiration use. HEENT examination shows pallor, no scleral icterus. Oral mucous membrane is dry. No pharyngeal erythema or thrush. NECK: Trachea is central. No thyromegaly. LUNGS: Unlabored breathing, clear to auscultation anteriorly. No wheeze or crackle. HEART: S1, S2. Tachycardic. No added sounds. ABDOMEN: Soft, mildly distended. No guarding or rigidity. No organomegaly. EXTREMITIES: No edema of the feet. SKIN EXAMINATION: No rash or mass palpable. NEUROLOGICAL: Patient is awake, alert, oriented x3 Mood and affect normal. LABS: UA with large leukocyte esterases, 10 WBCs. BUN of 39, creatinine 3.38. Hemoglobin is 7.1, white count 9.2. Admission white count 13.8. DIAGNOSTIC IMPRESSION AND PLAN: 1. Patient in the hospital with sepsis in this patient who does have gram negative bacteremia source likely the Choi catheter in this patient who did have history of short-gut syndrome and previous history of multiple infections with both gram positive and gram negative. Currently no other clinical focus of infection. 2. Patient noted to have multiple antibiotic allergies that limit the number of antibiotics that could be safely used. 3. Patient with renal insufficiency and high risk of nephrotoxicity. PLAN: 1. Discontinue the vancomycin as no gram-positive has been seen. 2. Surgery was consulted for Choi catheter removal, has been done. 3. The patient was started on Azactam 1 gram q.12, closely kidney function. 4. Blood culture will be repeated to evidence of bacteremia before placing another catheter. 5. We will follow up on clinical condition and culture to further adjust medication if needed. Thank you for this consultation. Will follow this patient along with you. MMODL / IJN: [id number] /
[2018-09-08] MEDS ORDERED: Magnesium Replacement Protocol 1 EACH MISC MISCELLANE PRN (08:23)
--- NOTE | 2018-09-08 08:53 | P.PN ---
Subjective Progress Note Date: 09/08/18 Principal diagnosis: Sepsis syndrome/septic shock, bacteremia with gram-negative bacilli This is a 48-year-old female patient that was admitted to the hospital on 09/06 with fever, hypotension, not feeling well, chest x-ray showed a possible infiltrate in the left lower lobe. Patient was started on broad-spectrum antibiotics in the form of Azactam, and was admitted to the intensive care. 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 And has a short gut syndrome. Has frequent liquid stools, C. diff was negative. Blood cultures were positive for gram-negative rods, final culture is pending. She did receive a total of 5 L of IV fluids, her maintenance IV fluid is lactated Ringer's at a rate of 125. Today was some the patient in follow-up, she remains in the intensive care, she is awake and alert, her fever pattern has improved, last episode of fever was at 10:00 yesterday on 09/07/2018 with a temp of 100.2F, she has been afebrile overnight. Blood pressure is 89/52, with a mean of 64, patient has a indwelling catheter in, she is nonoliguric, she is producing clear yellow urine, 3280 ML per hour. Patient continues to have frequent liquid stools, however she states this is her usual bowel pattern. Today's labs have been reviewed, WBC is 10.7, hemoglobin is 8.4, sodium is 137, potassium is 4.5, chloride is 120, CO2 was 13, creatinine is 3.08 , and BUN is 32. Infectious disease is following. His chest x-ray was reviewed with Dr. Diaz, shows persistence of left lower lobe infiltrate, with blunting of the left costophrenic angle, and infiltrate development in the right base. Clinically patient is doing better, feeling better, denies any acute distress, room air pulse ox is 97%, she denies any pulmonary complaints, no difficulty breathing, no chest congestion, lung sounds are positive for some crackles over left lower base. Objective - Vital Signs Vital signs: Vital Signs Temp 98.2 F 09/08/18 04:00 Pulse 79 09/08/18 07:00 Resp 11 L 09/08/18 07:00 BP 89/52 09/08/18 07:00 Pulse Ox 97 09/08/18 07:00 Intake & Output 09/07/18 09/08/18 09/08/18 18:59 06:59 18:59 Intake Total 4210 4295 Output Total 1595 2090 Balance 2615 2205 Weight 38 kg 44.7 kg Intake: IV 4210 4055 LR bolus 3000 500 Lactated Ringers 1,000 ml 2250 @ 125 mls/hr IV .Q8H [facility] Rx#:[id number] Sodium Chloride 0.9% 1, 1210 1305 000 ml @ 80 mls/hr IV . [id number] [facility] Rx#:[id number] Oral 240 Output: Urine 345 640 Stool 750 1450 Urine/Stool Mix 500 Other: # Voids 0 # Bowel Movements 1 - Exam GENERAL EXAM: Alert, pleasant, 48-year-old white female comfortable in no apparent distress. HEAD: Normocephalic/atraumatic. EYES: Normal reaction of pupils, equal size. Conjunctiva pink, sclera white. NOSE: Clear with pink turbinates. THROAT: No erythema or exudates. NECK: No masses, no JVD, no thyroid enlargement, no adenopathy. CHEST: No chest wall deformity. Symmetrical expansion. LUNGS: Equal air entry with a few crackles over left lower base, no wheeze, rhonchi or dullness. CVS: Regular rate and rhythm, normal S1 and S2, no gallops, no murmurs, no rubs ABDOMEN: Soft, nontender. No hepatosplenomegaly, normal bowel sounds, no guarding or rigidity. EXTREMITIES: No clubbing, no edema, no cyanosis, 2+ pulses and upper and lower extremities. MUSCULOSKELETAL: Muscle strength and tone normal. SPINE: No scoliosis or deformity SKIN: No rashes CENTRAL NERVOUS SYSTEM: Alert and oriented -3. No focal deficits, tone is normal in all 4 extremities. PSYCHIATRIC: Alert and oriented -3. Appropriate affect. Intact judgment and insight. - Labs CBC & Chem 7: 09/08/18 04:40 09/08/18 04:40 Labs: Abnormal Lab Results - Last 24 Hours (Table) 09/07/18 09/07/18 09/07/18 Range/Units 09:20 15:21 15:21 WBC (3.8-10.6) k/uL RBC 2.37 L (3.80-5.40) m/uL Hgb 7.1 L (11.4-16.0) gm/dL Hct 25.0 L (34.0-46.0) % MCV 105.1 H D (80.0-100.0) fL MCHC 28.3 L (31.0-37.0) g/dL Plt Count 132 L (150-450) k/uL Neutrophils # (1.3-7.7) k/uL Lymphocytes # (1.0-4.8) k/uL Chloride (98-107) mmol/L Carbon Dioxide (22-30) mmol/L BUN (7-17) mg/dL Creatinine (0.52-1.04) mg/dL Glucose (74-99) mg/dL Calcium (8.4-10.2) mg/dL Triglycerides 153 H (<150) mg/dL Urine Appearance Turbid H (Clear) Urine Protein Trace H (Negative) Ur Leukocyte Esterase Large H (Negative) Urine WBC 10 H (0-5) /hpf Urine WBC Clumps Occasional H (None) /hpf Ur Squamous Epith Cells 8 H (0-4) /hpf Amorphous Sediment Few H (None) /hpf Urine Bacteria Rare H (None) /hpf Urine Mucus Rare H (None) /hpf 09/08/18 09/08/18 Range/Units 04:40 04:40 WBC 10.7 H (3.8-10.6) k/uL RBC 2.77 L (3.80-5.40) m/uL Hgb 8.4 L (11.4-16.0) gm/dL Hct 28.2 L (34.0-46.0) % MCV 101.6 H (80.0-100.0) fL MCHC 29.7 L (31.0-37.0) g/dL Plt Count (150-450) k/uL Neutrophils # 9.5 H (1.3-7.7) k/uL Lymphocytes # 0.4 L (1.0-4.8) k/uL Chloride 120 H (98-107) mmol/L Carbon Dioxide 13 L (22-30) mmol/L BUN 32 H (7-17) mg/dL Creatinine 3.08 H (0.52-1.04) mg/dL Glucose 72 L (74-99) mg/dL Calcium 8.0 L (8.4-10.2) mg/dL Triglycerides (<150) mg/dL Urine Appearance (Clear) Urine Protein (Negative) Ur Leukocyte Esterase (Negative) Urine WBC (0-5) /hpf Urine WBC Clumps (None) /hpf Ur Squamous Epith Cells (0-4) /hpf Amorphous Sediment (None) /hpf Urine Bacteria (None) /hpf Urine Mucus (None) /hpf Microbiology - Last 24 Hours (Table) 09/06/18 16:43 Blood Culture Gram Stain - Preliminary Blood Blood Culture - Preliminary Gram Neg Bacilli 09/06/18 16:43 Urine Culture - Final Urine,Voided 09/07/18 18:00 Catheter Tip Culture - Preliminary Catheter Tip 09/07/18 09:20 Urine Culture - Preliminary Urine,Voided 09/06/18 16:43 Blood Culture - Final Blood Assessment and Plan Plan: Assessment: #1. Sepsis, septic shock, possibly related to pneumonia, urinary tract infection or infected Choi catheter #2. Bacteremia with gram-negative rods, abscess #3. Acute kidney injury #4. 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 Short gut syndrome #7. Status post infected Choi catheter with subsequent removal and replacement #8. Venous history of hemothorax, pneumothorax with chest tube placement #9. History of essential hypertension #10. Lifelong nonsmoker Plan: Continue current antibiotic coverage, ID service is following, will await the final blood cultures. Fever pattern is improved, hemodynamics are stable, she was adequately fluid resuscitated, she is nonoliguric. C. diff was negative, she denies any pulmonary complaints, she is on room air. A 6 rate has been reviewed with Dr. Diaz, shows left lower lobe infiltrate, and a small left pleural effusion, right base infiltrate development. Continue with current IV fluids, GI and DVT prophylaxis, we'll the patient in the ICU today, I performed a history & physical examination of the patient and discussed their management with my nurse practitioner, Esmer Gresham. I reviewed the nurse practitioner's note and agree with the documented findings and plan of care. Lung sounds are a few faint crackles at the left lower base. The findings and the impression was discussed with the patient. I attest to the documentation by the nurse practitioner. Time with Patient: Greater than 30
[2018-09-08] MEDS: SODIUM BICARBONATE TAB 650 MG TAB PO SCH ×2 (09:21→15:00)
[2018-09-08] MEDS: HEPARIN SODIUM,PORCINE 5,000 UNIT/ML 1 ML VIAL SQ SCH ×2 (09:21→20:54)
[2018-09-08] MEDS: DIPHENOX-ATROP 2.5-0.025 MG 1 EACH TAB PO SCH ×4 (09:21→20:59)
[2018-09-08] MEDS: PANTOPRAZOLE 40 MG/10 ML VIAL IV SCH (09:21)
[2018-09-08] MEDS: MAGNESIUM SULFATE-D5W PMX 1 GM in DEXTROSE/WATER 1 100ML.BAG IVPB SCH ×3 (09:22→10:46)
--- NOTE | 2018-09-08 09:45 | XR ---
EXAMINATION TYPE: XR chest 1V DATE OF EXAM: 09/08/2018 COMPARISON: 09/07/2018 INDICATION: Shortness of breath with exertion TECHNIQUE: Single frontal view of the chest is obtained. FINDINGS: The heart size is normal. The pulmonary vasculature is normal. Retrocardiac infiltrate is present. There is silhouetting the left diaphragm. IMPRESSION: 1. Clinical correlation recommended for left lower lobe pneumonia. Atelectasis could be considered. F ollow-up is recommended.
[2018-09-08] MEDS: LACTATED RINGERS 1,000 ML IV SCH ×3 (10:11→20:55)
[2018-09-08] MEDS: ACETAMINOPHEN TAB 325 MG TAB PO PRN (11:23)
[2018-09-08] MEDS ORDERED: MVI, ADULT NO.4 WITH VIT K 10 ML, TRACE (CONC-1ML/DOSE) 1 ML in AMINO ACID 4.25%-D10W+L... IV ONE ×3 (12:00)
[2018-09-08] MEDS ORDERED: diphenhydrAMINE 25 MG CAP PO PRN (13:10)
--- NOTE | 2018-09-08 15:44 | P.PN ---
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 Patient is found to have Enterobacter cloacae in the blood repeat blood cultures are being obtained today. Patient is not requiring any pressor support patient is a month 50 mL of lactated Ringer's. Patient is agreeable for peripheral parental nutrition at this time. Patient had a bowel transplant because of which the patient required parenteral nutrition for which I believe patient ended up having a Choi. Constitutional: Denied any fatigue denied any fever. Cardio vascular: denied any chest pain, palpitations Gastrointestinal denied any nausea vomiting Pulmonary: Denied any shortness of breath cough Neurologic denied any new focal deficits All inpatient medications were reviewed and appropriate changes in these medications as dictated in the interval history and assessment and plan. Objective - Vital Signs Vital signs: Vital Signs Temp 97.4 F L 09/08/18 12:00 Pulse 74 09/08/18 15:00 Resp 12 09/08/18 15:00 BP 96/66 09/08/18 15:00 Pulse Ox 100 09/08/18 15:00 Intake & Output 09/07/18 09/08/18 09/08/18 18:59 06:59 18:59 Intake Total 4210 4295 2180 Output Total 1595 2090 4265 Balance 2615 2205 -2085 Weight 38 kg 44.7 kg 44.7 kg Intake: IV 4210 4055 1000 LR bolus 3000 500 Lactated Ringers 1,000 ml 2250 1000 @ 125 mls/hr IV .Q8H [facility] Rx#:[id number] Sodium Chloride 0.9% 1, 1210 1305 000 ml @ 80 mls/hr IV . [id number] [facility] Rx#:[id number] Intake, IV Titration 100 Amount Mvi, Adult No.4 with Vit 100 K 10 ml Trace (Conc-1Ml/ Dose) 1 ml In Amino Acid 4.25%-D10w+Lytes*E* 1,000 ml @ 50 mls/hr IV . [id number] [facility] Rx#:[id number] Oral 240 1080 Output: Urine 345 640 365 Stool 750 1450 3900 Urine/Stool Mix 500 Other: Voiding Method Indwelling Catheter # Voids 0 # Bowel Movements 1 500 - Exam PHYSICAL EXAMINATION: GENERAL: The patient is alert and oriented x3, not in any acute distress. Thin built female HEENT: Pupils are round and equally reacting to light. EOMI. No scleral icterus. No conjunctival pallor. Normocephalic, atraumatic. No pharyngeal erythema. No thyromegaly. CARDIOVASCULAR: S1 and S2 present. No murmurs, rubs, or gallops. PULMONARY: Chest is clear to auscultation, no wheezing or crackles. ABDOMEN: Soft, nontender, nondistended, normoactive bowel sounds. No palpable organomegaly. As have multiple ventral hernias MUSCULOSKELETAL: No joint swelling or deformity. EXTREMITIES: No cyanosis, clubbing, or pedal edema. NEUROLOGICAL: Gross neurological examination did not reveal any focal deficits. SKIN: No rashes. - Labs CBC & Chem 7: 09/08/18 04:40 09/08/18 04:40 Labs: Abnormal Lab Results - Last 24 Hours (Table) 09/07/18 09/07/18 09/08/18 Range/Units 15:21 15:21 04:40 WBC (3.8-10.6) k/uL RBC 2.37 L (3.80-5.40) m/uL Hgb 7.1 L (11.4-16.0) gm/dL Hct 25.0 L (34.0-46.0) % MCV 105.1 H D (80.0-100.0) fL MCHC 28.3 L (31.0-37.0) g/dL Plt Count 132 L (150-450) k/uL Neutrophils # (1.3-7.7) k/uL Lymphocytes # (1.0-4.8) k/uL Chloride (98-107) mmol/L Carbon Dioxide (22-30) mmol/L BUN (7-17) mg/dL Creatinine (0.52-1.04) mg/dL Glucose (74-99) mg/dL Calcium (8.4-10.2) mg/dL Ferritin 308.8 H (10.0-291.0) ng/mL Triglycerides 153 H (<150) mg/dL 09/08/18 09/08/18 Range/Units 04:40 04:40 WBC 10.7 H (3.8-10.6) k/uL RBC 2.77 L (3.80-5.40) m/uL Hgb 8.4 L (11.4-16.0) gm/dL Hct 28.2 L (34.0-46.0) % MCV 101.6 H (80.0-100.0) fL MCHC 29.7 L (31.0-37.0) g/dL Plt Count (150-450) k/uL Neutrophils # 9.5 H (1.3-7.7) k/uL Lymphocytes # 0.4 L (1.0-4.8) k/uL Chloride 120 H (98-107) mmol/L Carbon Dioxide 13 L (22-30) mmol/L BUN 32 H (7-17) mg/dL Creatinine 3.08 H (0.52-1.04) mg/dL Glucose 72 L (74-99) mg/dL Calcium 8.0 L (8.4-10.2) mg/dL Ferritin (10.0-291.0) ng/mL Triglycerides (<150) mg/dL Microbiology - Last 24 Hours (Table) 09/07/18 09:20 Urine Culture - Final Urine,Voided 09/06/18 16:43 Blood Culture Gram Stain - Final Blood Blood Culture - Final Enterobacter cloacae 09/06/18 16:43 Urine Culture - Final Urine,Voided 09/07/18 18:00 Catheter Tip Culture - Preliminary Catheter Tip Assessment and Plan Plan: Severe sepsis: Secondary to infected Choi catheter was removed patient has an bacteremia with Enterobacter continue with aztreonam, sensitive to this antibiotic -Hypotension secondary to sepsis and diarrhea IV fluid management as mentioned above. It is not requiring any pressor support at this time -Acute renal failure on chronic kidney disease stage III baseline creatinine is around 1 and had acute renal failure is secondary to sepsis prerenal azotemia severe intravascular well in the patient diarrhea. There may be a competent of acute tubular necrosis as well and patient has some improvement in serum creatinine -Shot gut syndrome symptomatically treatment ruled out C. diff patient still has diarrhea -Hypertension: Hypotensive presently amlodipine will be held DVT prophylaxis with subcutaneous heparin -Chronic anemia probably anemia of chronic disease for further levels are essentially within normal limits patient may have B12 or folate deficiency but this shocked at syndrome -Patient will need pharmacologic GI and DVT prophylaxis
[2018-09-08] MEDS: FAT EMULSION 20% 250 ML in EMPTY BAG 1 BAG IV SCH (16:23)
[2018-09-08 17:58] LABS: Glucose,Whole Blood 128 mg/dL (75-99)
[2018-09-08] MEDS ORDERED: diphenhydrAMINE 50 MG/ML 1 ML VIAL IVP STA (18:36)
--- NOTE | 2018-09-08 22:42 | PN ---
PROGRESS NOTE DATE OF SERVICE: 09/08/2018. REASON FOR FOLLOWUP: Enterobacter sepsis secondary to Choi catheter infection. INTERVAL HISTORY: The patient is currently afebrile. She is breathing comfortably. Denies having any chest pain, shortness of breath, cough. No abdominal pain and no diarrhea. PHYSICAL EXAMINATION: Blood pressure is 101/55 with a pulse of 80, temperature 97.8, she is 98% on room air. GENERAL DESCRIPTION: A middle-aged female, lying in bed in no distress. HEENT: Slight pallor. No scleral icterus. LUNGS: Unlabored breathing. Clear to auscultation anteriorly. HEART: S1, S2. Regular rate and rhythm. ABDOMEN: Soft, no tenderness. EXTREMITIES: No edema of the feet. LABS: Hemoglobin 8.4, white count 10.7 with a BUN of 32, creatinine 3.08. DIAGNOSTIC IMPRESSION AND PLAN: Patient with Enterobacter and bacteremia, source is Choi catheter which has been discontinued. She did have a peripheral IV. Blood culture has been repeated. If the repeat blood culture is negative, on Tuesday she can get a PICC line for outpatient antibiotics as well as continuation of her TPN. Outpatient antibiotic will be Invanz 500 mg to 1 g depending on kidney function at the time of discharge. Ultrasound has been requested as well. Continue supportive care. MMODL / IJN: [id number] /
[2018-09-08 23:40] LABS: Glucose,Whole Blood 100 mg/dL (75-99)
[2018-09-09] MEDS: AZTREONAM 1 GM in SODIUM CHLORIDE 0.9% 50 ML IVPB SCH ×3 (00:08→15:49)
[2018-09-09] MEDS: ACETAMINOPHEN TAB 325 MG TAB PO PRN ×2 (00:35→21:43)
[2018-09-09 05:00] LABS: Basophils % (A) 0 %; Eosinophils # (A) 0.2 k/uL (0-0.7); Eosinophils % (A) 3 %; HCT 24.2 % (34.0-46.0); HGB 7.1 gm/dL (11.4-16.0); Hypochromasia Marked; Lymphocytes # (A) 0.5 k/uL (1.0-4.8); Lymphocytes % (A) 8 %; MCH 30.5 pg (25.0-35.0); MCHC 29.1 g/dL (31.0-37.0); MCV 104.6 fL (80.0-100.0); Macrocytosis Moderate; Mean Platelet Volume 7.6; Monocytes # (A) 0.2 k/uL (0-1.0); Monocytes % (A) 4 %; Neutrophils # (A) 4.8 k/uL (1.3-7.7); Neutrophils % (A) 79 %; Platelet Count 192 k/uL (150-450); RBC 2.32 m/uL (3.80-5.40); RDW 14.6 % (11.5-15.5)
[2018-09-09 05:42] LABS: Calcium 7.8 mg/dL (8.4-10.2); Magnesium 2.1 mg/dL (1.6-2.3); Phosphorus 4.7 mg/dL (2.5-4.5); Potassium 4.7 mmol/L (3.5-5.1)
[2018-09-09 05:54] LABS: Glucose,Whole Blood 122 mg/dL (75-99)
[2018-09-09 06:06] LABS: Anisocytosis (M) Present; Poikilocytosis (M) Present
[2018-09-09 06:07] LABS: Crenated RBC Present; Ovalocytes Present
[2018-09-09 06:09] LABS: Toxic Granulation Present; Toxic Vacuolation Present
[2018-09-09] MEDS: LACTATED RINGERS 1,000 ML IV SCH (07:41)
[2018-09-09] MEDS: HEPARIN SODIUM,PORCINE 5,000 UNIT/ML 1 ML VIAL SQ SCH ×2 (08:27→21:25)
[2018-09-09] MEDS: 1: MVI, ADULT NO.4 WITH VIT K 10 ML, TRACE (CONC-1ML/DOSE) 1 ML in AMINO ACID 4.25%-D10W IV SCH ×6 (08:29→14:18)
[2018-09-09] MEDS: PANTOPRAZOLE 40 MG/10 ML VIAL IV SCH (08:30)
[2018-09-09] MEDS: DIPHENOX-ATROP 2.5-0.025 MG 1 EACH TAB PO SCH ×4 (08:37→21:24)
[2018-09-09] MEDS: SODIUM BICARBONATE TAB 650 MG TAB PO SCH ×2 (08:38→14:18)
--- NOTE | 2018-09-09 09:32 | XR ---
EXAMINATION TYPE: XR chest 1V DATE OF EXAM: 09/09/2018 COMPARISON: 09/08/2018 INDICATION: Shortness of breath with exertion TECHNIQUE: Single frontal view of the chest is obtained. FINDINGS: The heart size is normal. The pulmonary vasculature is normal. Mild bibasilar infiltrates are present. There is blunting left costophrenic angle. Small pleural effu muriel may be present. Findings appear stable over the interval. Note is made of scoliosis within the lower thoracic spine. IMPRESSION: 1. Mild bibasilar infiltrates with a suggestion of small left pleural effusion. Findings are stable f rom previous day.
[2018-09-09] MEDS: DEXTROSE 5% IN WATER 1,000 ML IV SCH (10:22)
--- NOTE | 2018-09-09 10:28 | PN ---
PROGRESS NOTE DATE OF SERVICE: 09/09/2018 This is a 48-year-old female who I initially saw in consultation a couple days back. The patient came into the emergency room with an episode of sepsis. She was thought to have a Choi catheter infection. Her blood cultures did come back positive for Enterobacter cloacae on September 06. She is currently not receiving any supplemental oxygen. She is on lactated Ringer's at 125 mL an hour to be converted to D5W at 50 mL an hour. She is getting peripheral parental nutrition at 90 mL an hour. Her history includes that of previous sigmoidectomy because of sigmoid volvulus, previous bowel graft with rejection and subsequent removal, short-gut syndrome with profound diarrhea and dehydration, previous episode of infected Choi catheter with subsequent removal, history of hemothorax/pneumothorax with chest tube placement, essential hypertension. The patient is otherwise stable. Again, not receiving any supplemental oxygen. Her hemodynamics have been stable since she has been here. She is currently on Azactam for her Enterobacter cloaca bacteremia. PHYSICAL EXAMINATION: Current vital signs reviewed. Temperature 97.9, heart rate 87, respiratory rate 15, blood pressure 101/56, mean 71, saturation 98% on room air. Appears in no acute distress. HEENT examination is grossly unremarkable. Mucous membranes are moist. Neck is supple. Full range of motion. No adenopathy. Cardiovascular examination reveals regular rhythm and rate. S1, S2 normal. Lungs reveal clear breath sounds. No wheezes or rhonchi. Abdomen is soft bowel sounds are noted. Extremities are intact. No cyanosis, clubbing, or edema. Skin without rash. LAB DATA: Reviewed. White count 6, hemoglobin 7.1, hematocrit 24.2, platelet count 192,000, sodium and potassium normal. Chloride 125, CO2 10, anion gap is 6, BUN and creatinine were 29 and 3.13. The rest of the labs are reviewed. Microbiology is positive for Enterobacter cloacae on September 06. A chest x-ray was done today. It shows some bibasilar atelectasis. Medications are reviewed. ASSESSMENT: 1. Sepsis syndrome/septic shock, likely related to infected Choi catheter from Enterobacter cloaca. 2. Status post removal of Choi catheter and culture of its tip. 3. History of previous sigmoidectomy because of sigmoid volvulus. 4. Previous bowel graft with rejection and subsequent removal. 5. Short-gut syndrome. 6. Status post hemothorax/pneumothorax with chest tube placement. 7. Essential hypertension. 8. Lifelong nonsmoker. 9. Chronic kidney disease. 10.Hyperchloremic non-anion gap metabolic acidosis. PLAN: The patient will be transferred out to the general medical floor. We will see only as needed. The patient is doing much better. The patient is currently on Azactam for the Enterobacter cloaca. Infectious Disease is following along. If not already done, the patient should have a Nephrology consultation. Will continue to see. Additional recommendations and suggestions are forthcoming. MMODL / IJN: [id number] /
[2018-09-09] MEDS ORDERED: diphenhydrAMINE 50 MG/ML 1 ML VIAL IVP PRN (11:13)
--- NOTE | 2018-09-09 12:01 | US ---
EXAMINATION TYPE: US kidneys/renal and bladder DATE OF EXAM: 09/09/2018 COMPARISON: Chest CT's CLINICAL HISTORY: elevated Creatinine. EXAM MEASUREMENTS: Right Kidney: 9.7 x 3.9 x 4.2 cm Left Kidney: 10.4 x 4.6 x 4.8 cm Patient states history of renal stones. Exam performed portable in ICU. Right Kidney: multiple echogenic foci with shadowing Left Kidney: multiple echogenic foci with shadowing, mild to moderate hydro noted. Bladder: not seen , patient has catheter IMPRESSION: There is moderate left hydronephrosis. 2. Scattered bilateral echogenic foci could be renal stones. An obstructing left renal or ureteral st one is not identified on this exam.
[2018-09-09 12:14] LABS: Glucose,Whole Blood 131 mg/dL (75-99)
[2018-09-09] MEDS: HYDROCORTISONE 2.5% RECTAL CREAM 30 GM TUBE RECTAL SCH ×2 (13:09→21:30)
[2018-09-09] MEDS: WITCH HAZEL 1 EACH MED..PAD TOPICAL SCH (15:49)
[2018-09-09] MEDS: FAT EMULSION 20% 250 ML in EMPTY BAG 1 BAG IV SCH (16:53)
[2018-09-09] MEDS: HYDROcodone/APAP 5-325MG 1 EACH TAB PO PRN (17:39)
[2018-09-09 17:41] LABS: Glucose,Whole Blood 118 mg/dL (75-99)
[2018-09-09] MEDS ORDERED: 1: MVI, ADULT NO.4 WITH VIT K 10 ML, TRACE (CONC-1ML/DOSE) 1 ML, PARENTERAL ELECTROLYTES IV SCH ×4 (19:00)
--- NOTE | 2018-09-09 20:07 | PN ---
PROGRESS NOTE DATE OF SERVICE: 09/09/2018 This 48-year-old woman with history of bowel transplantation, was admitted with sepsis from infected Choi catheter. The patient also has ALLERGY TO LIPID content of the TPN. The patient is receiving Benadryl p.r.n. for that. The patient also has evidence of severe sepsis, subsequently Choi catheter has been removed. A PICC line has been ordered at this time. Creatinine is also elevated at 3.13, hemoglobin is noted. Enterobacter cloacae was grown from the blood culture and as well as catheter tip. PAST MEDICAL HISTORY: Reviewed. REVIEW OF SYSTEMS: CARDIOVASCULAR: No angina. RESPIRATORY: As mentioned. GI: As mentioned. : As mentioned earlier. NERVOUS SYSTEM: No numbness or weakness. CURRENT MEDICATIONS: Reviewed and include: 1. Tylenol 650 q.6h p.r.n. 2. [place] 5 mg p.r.n. 3. TPN. 4. Aztreonam 1 g IV q.8h. 5. Benadryl p.r.n. 6. Lomotil. 7. TPN. 8. Heparin 5 subcu b.i.d. 9. Magnesium protocols. 10.Protonix. 11.Sodium bicarb. 12.Ultram p.r.n. PHYSICAL EXAM: Patient is alert, oriented x3. Pulse 84. Blood pressure 108/60, respirations 16, temperature 98.4, pulse ox 100 percent on room air. HEENT: Conjunctivae normal. Oral mucosa moist. Neck is no jugular venous distention. No carotid bruit. No lymph node enlargement. CARDIOVASCULAR: S1, S2 RESPIRATORY: Breath sounds diminished in the bases. A few scattered rhonchi and crackles. ABDOMEN: Soft, nontender. No mass palpable. LEGS: No edema, no swelling. NERVOUS SYSTEM: Higher functions as mentioned earlier. Moves all four limbs. No focal motor deficits. LYMPHATICS: No lymphadenopathy in the neck, axillae, groin. SKIN: No ulcer, rash or bleeding. On the right chest area, minimal tenderness present. LABS: At this time WBC 6, hemoglobin 7.9, MCV 104.6, and creatinine 3.13. ASSESSMENT: 1. Enterobacter cloaca sepsis secondary from infected Choi catheter. 2. Renal failure, possibly acute on chronic with chronic kidney disease stage III baseline. 3. Anemia microcytic possibly nutritional. 4. On TPN. 5. History of hypertension. 6. History of previous line sepsis. 7. History of intestinal transplant. 8. Hypotension. 9. History of short-gut syndrome. 10.History of hypertension. 11.Chronic anemia. 12.Moderate left hydronephrosis. RECOMMENDATIONS AND DISCUSSION: In this 48-year-old woman who presented with multiple complex medical history, will monitor the patient closely. Continue the current management and symptomatic treatment. Continue with broad-spectrum IV antibiotics. Otherwise, continue with IV Benadryl on a p.r.n. basis. Monitor fluid and electrolyte balance closely. The patient underwent abdominal bladder ultrasound today that showed moderate left hydronephrosis and bilateral echogenic foci was also noted thought to be renal stones at this time. The most recent chest x-ray showed mild bibasilar infiltrate. I would also obtain a BNP to complete the workup. Once again, the prognosis guarded. Further recommendations to follow. Please note that chest x-ray personally reviewed. MMGEMINIL / IJN: [id number] /
[2018-09-09 20:51] LABS: Glucose,Whole Blood 105 mg/dL (75-99)
[2018-09-10] MEDS: AZTREONAM 1 GM in SODIUM CHLORIDE 0.9% 50 ML IVPB SCH ×4 (00:28→23:48)
[2018-09-10] MEDS: WITCH HAZEL 1 EACH MED..PAD TOPICAL SCH ×6 (00:42→23:48)
[2018-09-10] MEDS: HYDROcodone/APAP 5-325MG 1 EACH TAB PO PRN ×3 (05:16→20:44)
[2018-09-10] MEDS: DEXTROSE 5% IN WATER 1,000 ML IV SCH (05:28)
[2018-09-10 06:46] LABS: Glucose,Whole Blood 74 mg/dL (75-99)
[2018-09-10 07:32] LABS: Glucose,Whole Blood 78 mg/dL (75-99)
[2018-09-10] MEDS: DIPHENOX-ATROP 2.5-0.025 MG 1 EACH TAB PO SCH ×4 (08:19→20:36)
[2018-09-10] MEDS: SODIUM BICARBONATE TAB 650 MG TAB PO SCH ×2 (08:19→13:37)
[2018-09-10] MEDS: PANTOPRAZOLE 40 MG/10 ML VIAL IV SCH (08:19)
[2018-09-10] MEDS: HYDROCORTISONE 2.5% RECTAL CREAM 30 GM TUBE RECTAL SCH ×2 (08:20→20:37)
[2018-09-10] MEDS: HEPARIN SODIUM,PORCINE 5,000 UNIT/ML 1 ML VIAL SQ SCH ×2 (08:20→20:36)
[2018-09-10 08:33] LABS: Basophils % (A) 0 %; Eosinophils # (A) 0.2 k/uL (0-0.7); Eosinophils % (A) 3 %; HCT 26.5 % (34.0-46.0); HGB 7.7 gm/dL (11.4-16.0); Hypochromasia Marked; Lymphocytes # (A) 0.5 k/uL (1.0-4.8); Lymphocytes % (A) 10 %; MCH 30.2 pg (25.0-35.0); MCHC 29.1 g/dL (31.0-37.0); MCV 103.6 fL (80.0-100.0); Macrocytosis Slight; Mean Platelet Volume 7.2; Monocytes # (A) 0.2 k/uL (0-1.0); Monocytes % (A) 5 %; Neutrophils % (A) 79 %; Platelet Count 198 k/uL (150-450); RBC 2.55 m/uL (3.80-5.40); RDW 14.6 % (11.5-15.5); WBC 5.1 k/uL (3.8-10.6)
[2018-09-10 08:35] LABS: Calcium 7.7 mg/dL (8.4-10.2); Phosphorus 5.6 mg/dL (2.5-4.5); Potassium 4.8 mmol/L (3.5-5.1)
[2018-09-10] MEDS ORDERED: SODIUM BICARB 8.4% 50 ML SYR (1 MEQ/ML) IV STA (10:23)
--- NOTE | 2018-09-10 10:46 | XR ---
EXAMINATION TYPE: XR chest 1V portable DATE OF EXAM: 09/10/2018 COMPARISON: 09/09/2018 HISTORY: Chest pain TECHNIQUE: Single frontal view of the chest is obtained. FINDINGS: Left basilar atelectasis bilateral pleural effusions. Infiltrates not excluded. The cardiac silhouette size is within normal limits. The osseous structures are intact. IMPRESSION: 1. Left basilar atelectasis bilateral pleural effusions. Infiltrates not excluded.
[2018-09-10] MEDS ORDERED: IPRATROPIUM-ALBUTEROL 3 ML NEB INHALATION PRN (10:58)
[2018-09-10] MEDS: DEXTROSE 5% IN WATER 1,000 ML with SODIUM BICARB (1 MEQ/ML) 150 ML IV SCH (11:08)
--- NOTE | 2018-09-10 11:26 | P.NPCON ---
History of Present Illness - Reason for Consult acute renal failure, chronic renal failure - History of Present Illness Reason for consultation: Acute kidney injury on chronic kidney disease next History of present illness: Patient is a 48-year-old female seen in consultation for acute kidney injury on chronic kidney disease. Patient has chronic kidney disease stage IV with baseline creatinine near 2 secondary to nonrecovered ATN and nonsteroidal use. In July 2018 her creatinine was 2.7 and in August 2018 and was 2.4. It was elevated at 3.9 to this admission and didn't come down to 3.08 on September 08. It is little worse at 3.29 today. Patient presented to the hospital with generalized weakness. Patient has history of short gut syndrome and receives TPN 4 times a week. Patient was noted to have blood cultures positive for Enterobacter. Subsequently she had the Mediport removed and the catheter tip was also positive for Enterobacter. She is currently maintained on IV antibiotics. She awaits placement of a PICC line. Patient has been receiving TPN via peripheral line was discontinued yesterday as patient felt swollen. She does tolerate some oral intake as well. Admits to good urine output. No hematuria or dysuria. No vomiting or diarrhea at this time. She is noted to be extremely acidotic with a bicarbonate level of 9. No fever or chills. Vital signs are stable. General: The patient appeared well nourished and normally developed. HEENT: Head exam is unremarkable. Neck is without jugular venous distension. LUNGS: Lungs are clear to auscultation and percussion. Breath sounds decreased. HEART: Rate and Rhythm are regular. First and second heart sounds normal. No murmurs, rubs or gallops. ABDOMEN: Abdominal exam reveals normal bowel sounds. Non-tender and non- distended. No evidence of peritonitis. EXTREMITITES: No clubbing, cyanosis, or edema. Past Medical History Past Medical History: Blood Disorder, Hypertension, Renal Disease Additional Past Medical History / Comment(s): HX OF PAST LINE SEPSIS/Adamson , Hernia, HX OF SIGMOID VOLVULOUS W/ GRAFT REJECTION/SHORT GUT SYNDROME-HAS HAD LINE SEPSIS IN PAST W/ REMOVAL. HAS PORT FOR TPN, pneumothorax, hemothorax. ANEMIA History of Any Multi-Drug Resistant Organisms: None Reported Past Surgical History: Appendectomy, Bowel Resection, Cholecystectomy, Tubal Ligation Additional Past Surgical History / Comment(s): intestinal transplant and removal , chest tube placement. ADAMSON REPLACEMENT. 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 Medications and Allergies Home Medications Medication Instructions Recorded Confirmed Type Gattex 2.3 mg SQ DAILY 10/29/15 09/06/18 History Potassium Chloride ER [K-Dur 20] 20 meq PO BID@0900,1400 08/29/16 09/06/18 History Calcium Acetate [Phoslo] 667 mg PO BID@0900,1400 09/06/18 09/06/18 History Ferrous Sulfate [Feosol] 325 mg PO BID@0900,1400 09/06/18 09/06/18 History Sodium Bicarbonate Tab 1,300 mg PO BID@0900,1400 09/06/18 09/06/18 History amLODIPine [Norvasc] 10 mg PO DAILY 09/06/18 09/06/18 History traMADol HCL [Ultram] 50 mg PO Q8H PRN 09/06/18 09/06/18 History Allergies Allergy/AdvReac Type Severity Reaction Status Date / Time ceftriaxone [From Rocephin] Allergy Intermediate Itching Verified 09/06/18 16:05 acetate salt Allergy Unknown Verified 09/06/18 16:05 [From Hyperlyte CR] ciprofloxacin [From Cipro] Allergy Anaphylaxis Verified 09/06/18 16:05 ciprofloxacin HCl Allergy Anaphylaxis Verified 09/06/18 16:05 [From Cipro] fat emulsions Allergy Unknown Verified 09/06/18 16:05 [From Liposyn II] Sulfa (Sulfonamide Allergy Anaphylaxis Verified 09/06/18 16:05 Antibiotics) fexofenadine [From Sofia] AdvReac Migraine Verified 09/06/18 16:05 Physical Exam Vitals: Vital Signs Temp Pulse Pulse Resp BP Pulse Ox 09/10/18 06:00 98.1 F 85 20 100/63 97 09/09/18 22:45 98.7 F 82 18 100/57 98 09/09/18 15:00 98.5 F 84 16 105/68 100 Intake and Output 09/09/18 09/10/18 09/10/18 22:59 06:59 14:59 Intake Total 200 100 Balance 200 100 Intake: Oral 200 100 Other: Voiding Method Toilet # Voids 1 1 # Bowel Movements 0 0 Results - Lab Results Most recent lab results Calcium 7.7 mg/dL (8.4-10.2) L 09/10/18 07:55 Phosphorus 5.6 mg/dL (2.5-4.5) H 09/10/18 07:55 Magnesium 2.0 mg/dL (1.6-2.3) 09/10/18 07:55 09/10/18 07:55 09/10/18 07:55 Assessment and Plan Plan: Assessment: 1. Acute kidney injury secondary to ATN secondary to hypotension/sepsis. Creatinine was 3.921 admission and did come down to 3.0 at this admission. It is 3.27 today. 2. Chronic any disease stage IV with baseline creatinine near 2 secondary to nonrecovered ATN and chronic nonsteroidal use. Creatinine in August 2018 was 2.4. 3. Enterobacter bacteremia status post removal of Mediport. Maintain on IV antibiotics per infectious disease. 4. Metabolic acidosis secondary to acute kidney injury. 5. Hyperphosphatemia secondary to acute kidney injury. 6. History of short gut syndrome. Patient is maintained on TPN 4 times a week as an outpatient. Plan: Start isotonic sodium bicarbonate drip to be run at 50 mL an hour. Hold TPN today. Check chest x-ray. Avoid nephrotoxins. Maintain oral bicarb. Repeat electrolytes in the morning. Add PhosLo with meals. Thank you for the consultation. I will continue to follow the patient with you during her hospital stay.
[2018-09-10] MEDS: IPRATROPIUM-ALBUTEROL 3 ML NEB INHALATION SCH ×2 (11:31→20:58)
[2018-09-10 11:54] LABS: Glucose,Whole Blood 72 mg/dL (75-99)
--- NOTE | 2018-09-10 13:43 | P.PN ---
Progress Note - Text Progress Note Date: 09/10/18 The dressing was changed. No evidence of cellulitis at the site where the Choi catheter was removed. Culture of the catheter tip did show the same bacteria as was in her blood stream. Assessment sepsis with SIRS due to an infection Plan: Surgically stable. Suture removal in 7-10 days
[2018-09-10] MEDS: CALCIUM ACETATE 667 MG CAP PO SCH (17:08)
[2018-09-10 17:18] LABS: Glucose,Whole Blood 77 mg/dL (75-99)
--- NOTE | 2018-09-10 21:21 | PN ---
PROGRESS NOTE DATE OF SERVICE: 09/10/2008 This 48-year-old woman who was in with history of line sepsis since and with Enterobacter cloacae had Choi catheter removed. The patient also had renal failure. The patient also fluid overload and the patient complaining of shortness of breath. Most recent chest x-ray shows some atelectasis on the right lower lobe. The patient is also on IV antibiotics because of the sepsis, most recent cultures are negative so far. The most recent chest x-ray personally reviewed by me. PAST MEDICAL HISTORY: Reviewed. REVIEW OF SYSTEMS: CARDIOVASCULAR: No angina or palpitations. RESPIRATORY: As mentioned earlier. GI: As mentioned earlier. no dysuria. CURRENT MEDICATIONS ARE: Reviewed and include: 1. Tylenol 650 q.6h p.r.n. 2. Tylenol p.r.n. 3. Gilbert 5 mg q.4h p.r.n. 4. DuoNeb q.i.d. and p.r.n. 5. Aztreonam 1 g q.i.d. 6. PhosLo. 7. TPN which is stopped. 8. Benadryl. 9. Lomotil. 10.Proctosol. 11.Ultram. 12.P.r.n. medications. PHYSICAL EXAM: Patient is alert, oriented times three. Pulse is 79. Blood pressure 90/59, respirations 16, temperature 98 degrees. Pulse ox 100 percent on room air. HEENT: Conjunctivae normal. Oral mucosa moist. NECK: No jugular venous distention. No carotid bruit. No lymph node enlargement. CARDIOVASCULAR SYSTEM: S1, S2. RESPIRATORY: Breath sounds diminished in the bases. A few rhonchi and crackles in the bases especially in the left more than the right. ABDOMEN: Soft, nontender. No mass palpable. Legs are no edema. No swelling. NERVOUS SYSTEM: No focal deficits. LAB STUDIES: WBC 5.8, hemoglobin 7.7, and CO2 is 9. The patient is found to be severely acidotic. Bicarb , creatinine 3.29 and phosphorus 5.6. Other labs are noted. ASSESSMENT: 1. Enterobacter cloacae sepsis secondary to infected Choi catheter present on admission. 2. Renal failure. Possible acute on chronic with chronic kidney stage 3 baseline. 3. Anemia microcytic possibly nutritional. 4. Possible left lower lobe atelectasis versus pneumonia on antibiotics. 5. TPN held currently. 6. Hypertension. 7. History of previous line sepsis. 8. History intestinal transplant. 9. Hypotension. 10.History of Short-gut syndrome. 11.History of hypertension. 12.History of chronic anemia. 13.Moderate left hydronephrosis. RECOMMENDATIONS AND DISCUSSION: Recommend to continue current medications. Continue with monitoring and symptomatic treatment. Continue with the broad-spectrum IV antibiotics. Follow the cultures. Once the cultures are negative, I would recommend a PICC line insertion and antibiotics and continue to monitor. Otherwise, prognosis guarded because of multiple complex medical issues. Incentive spirometry. I would also recommend to optimize the bronchodilator treatment. Currently patient is on DuoNeb will be initiated and monitor fluid and electrolytes balance closely. Incentive spirometry. Guarded prognosis. Further recommendations to follow. See orders. We will follow the patient with multiple consultants. SARA / JAZLYN: [id number] / MTDD
[2018-09-10 23:52] LABS: Glucose,Whole Blood 80 mg/dL (75-99)
[2018-09-11 06:14] LABS: Glucose,Whole Blood 74 mg/dL (75-99)
[2018-09-11] MEDS: WITCH HAZEL 1 EACH MED..PAD TOPICAL SCH ×5 (06:25→23:48)
[2018-09-11] MEDS: AZTREONAM 1 GM in SODIUM CHLORIDE 0.9% 50 ML IVPB SCH ×2 (07:51→16:43)
[2018-09-11] MEDS: CALCIUM ACETATE 667 MG CAP PO SCH (07:51)
[2018-09-11] MEDS: DIPHENOX-ATROP 2.5-0.025 MG 1 EACH TAB PO SCH ×4 (07:52→19:57)
[2018-09-11] MEDS: PANTOPRAZOLE 40 MG/10 ML VIAL IV SCH (07:52)
[2018-09-11] MEDS: HEPARIN SODIUM,PORCINE 5,000 UNIT/ML 1 ML VIAL SQ SCH ×2 (07:52→19:58)
[2018-09-11] MEDS: DEXTROSE 5% IN WATER 1,000 ML with SODIUM BICARB (1 MEQ/ML) 150 ML IV SCH (08:31)
[2018-09-11] MEDS: SODIUM BICARBONATE TAB 650 MG TAB PO SCH ×2 (08:31→13:50)
[2018-09-11] MEDS: HYDROCORTISONE 2.5% RECTAL CREAM 30 GM TUBE RECTAL SCH ×2 (08:31→19:59)
[2018-09-11 08:54] LABS: HCT 23.8 % (34.0-46.0); HGB 7.1 gm/dL (11.4-16.0); Hypochromasia Marked; MCH 30.3 pg (25.0-35.0); MCHC 29.7 g/dL (31.0-37.0); MCV 101.9 fL (80.0-100.0); Macrocytosis Slight; Platelet Count 239 k/uL (150-450); RBC 2.34 m/uL (3.80-5.40); RDW 14.4 % (11.5-15.5); WBC 3.9 k/uL (3.8-10.6)
[2018-09-11 09:08] LABS: Calcium 7.3 mg/dL (8.4-10.2); Magnesium 1.8 mg/dL (1.6-2.3); Phosphorus 6.1 mg/dL (2.5-4.5); Potassium 4.5 mmol/L (3.5-5.1)
[2018-09-11] MEDS: IPRATROPIUM-ALBUTEROL 3 ML NEB INHALATION SCH ×3 (09:32→21:22)
[2018-09-11 09:51] LABS: Band Neutrophils % 1 %; Eosinophils # (M) 0.16 k/uL (0-0.7); Lymphocytes # (M) 0.27 k/uL (1.0-4.8); Metamyelocytes # (M) 0.04 k/uL (0); Metamyelocytes % 1 %; Monocytes # (M) 0.35 k/uL (0-1.0); Myelocytes # (M) 0.04 k/uL (0); Myelocytes % 1 %; Neutrophils % (M) 78 %; Nucleated Red Blood Cells 0 /100 WBC (0-0); Total Cells Counted 200
[2018-09-11 09:53] LABS: Anisocytosis (M) Present; Poikilocytosis (M) Present
--- NOTE | 2018-09-11 10:51 | P.PN ---
Subjective Patient is seen in follow-up for acute kidney injury on chronic any disease. Patient is chronic kidney disease stage IV with baseline creatinine near 2 secondary to nonrecovered ATN and chronic nonsteroidal use. Recently her creatinine has been in the range of 2.42.7. It was elevated at 3.9 this admission and is 3.16 today. She is currently maintained on bicarb drip. She was noted to have Enterobacter bacteremia and Mediport was removed. She is maintained on IV antibiotics. TPN is currently held. Denies chest pain or shortness of breath. Vital signs are stable. General: The patient appeared well nourished and normally developed. HEENT: Head exam is unremarkable. Neck is without jugular venous distension. LUNGS: Lungs are clear to auscultation and percussion. Breath sounds decreased. HEART: Rate and Rhythm are regular. First and second heart sounds normal. No murmurs, rubs or gallops. ABDOMEN: Abdominal exam reveals normal bowel sounds. Non-tender and non- distended. No evidence of peritonitis. EXTREMITITES: No clubbing, cyanosis, or edema. Objective - Vital Signs Vital signs: Vital Signs Temp 98.1 F 09/11/18 05:44 Pulse 81 09/11/18 05:44 Resp 16 09/11/18 05:44 BP 111/67 09/11/18 05:44 Pulse Ox 98 09/11/18 05:44 Intake & Output 09/10/18 09/11/18 09/11/18 18:59 06:59 18:59 Intake Total 240 Output Total 100 Balance -100 240 Intake: Oral 240 Output: Stool 100 Other: # Voids 2 1 # Bowel Movements 0 - Labs CBC & Chem 7: 09/11/18 08:08 09/11/18 08:08 Labs: Abnormal Lab Results - Last 24 Hours (Table) 09/10/18 09/11/18 09/11/18 Range/Units 11:49 05:53 08:08 RBC 2.34 L (3.80-5.40) m/uL Hgb 7.1 L (11.4-16.0) gm/dL Hct 23.8 L (34.0-46.0) % MCV 101.9 H (80.0-100.0) fL MCHC 29.7 L (31.0-37.0) g/dL Lymphocytes # (Manual) 0.27 L (1.0-4.8) k/uL Metamyelocytes # (Man) 0.04 H (0) k/uL Myelocytes # (Manual) 0.04 H (0) k/uL Chloride (98-107) mmol/L Carbon Dioxide (22-30) mmol/L BUN (7-17) mg/dL Creatinine (0.52-1.04) mg/dL POC Glucose (mg/dL) 72 L 74 L (75-99) mg/dL Calcium (8.4-10.2) mg/dL Phosphorus (2.5-4.5) mg/dL 09/11/18 Range/Units 08:08 RBC (3.80-5.40) m/uL Hgb (11.4-16.0) gm/dL Hct (34.0-46.0) % MCV (80.0-100.0) fL MCHC (31.0-37.0) g/dL Lymphocytes # (Manual) (1.0-4.8) k/uL Metamyelocytes # (Man) (0) k/uL Myelocytes # (Manual) (0) k/uL Chloride 123 H (98-107) mmol/L Carbon Dioxide 13 L (22-30) mmol/L BUN 30 H (7-17) mg/dL Creatinine 3.16 H (0.52-1.04) mg/dL POC Glucose (mg/dL) (75-99) mg/dL Calcium 7.3 L (8.4-10.2) mg/dL Phosphorus 6.1 H (2.5-4.5) mg/dL Microbiology - Last 24 Hours (Table) 09/07/18 18:00 Catheter Tip Culture - Final Catheter Tip Enterobacter cloacae 09/06/18 16:43 Blood Culture Gram Stain - Final Blood Blood Culture - Final Enterobacter cloacae 09/08/18 12:15 Blood Culture - Preliminary Blood No Growth after 48 hours Assessment and Plan Plan: Assessment: 1. Acute kidney injury secondary to ATN secondary to hypotension/sepsis. Creatinine was 3.91 admission and did come down to 3.08 at this admission. It is 3.16 today. 2. Chronic any disease stage IV with baseline creatinine near 2 secondary to nonrecovered ATN and chronic nonsteroidal use. Creatinine in August 2018 was 2.4. 3. Enterobacter bacteremia status post removal of Mediport. Maintained on IV antibiotics per infectious disease. 4. Metabolic acidosis secondary to acute kidney injury. 5. Hyperphosphatemia secondary to acute kidney injury. Patient is unable to tolerate PhosLo. 6. History of short gut syndrome. Patient is maintained on TPN 4 times a week as an outpatient. 7. Anemia of chronic kidney disease. Avoid IV iron in the setting of bacteremia. Plan: Continue isotonic sodium bicarbonate drip to be run at 50 mL an hour. TPN can be resumed when she has a PICC line placed. Avoid nephrotoxins. Maintain oral bicarb. Repeat electrolytes in the morning. Discontinue PhosLo. Add Renvela. Add Aranesp.
[2018-09-11] MEDS ORDERED: DARBEPOETIN ALFA 40 MCG/0.4 ML SYRINGE SQ SCH (11:00)
[2018-09-11 11:49] VITALS: BMI 18.2
[2018-09-11] MEDS: SEVELAMER 800 MG TAB PO SCH ×2 (12:15→17:07)
[2018-09-11 12:17] LABS: Glucose,Whole Blood 74 mg/dL (75-99)
[2018-09-11] MEDS: HYDROcodone/APAP 5-325MG 1 EACH TAB PO PRN ×2 (12:36→19:58)
[2018-09-11 17:29] LABS: Glucose,Whole Blood 77 mg/dL (75-99)
--- NOTE | 2018-09-11 18:43 | PN ---
PROGRESS NOTE DATE OF SERVICE: 09/11/2018 This 48-year-old woman was admitted with Enterococcus cloacae sepsis also being closely monitored. The patient is slated to have a PICC line insertion for TPN administration. The cultures are negative for [address] Infante is following the patient for worsening renal failure: Creatinine is 3.16 at this time. No chest pain. No palpitations. No fever. EXAM: Alert and oriented times three. Pulse is 79. Blood pressure 130/60. Respirations 16, temperature 98.4. Pulse ox 100 percent on room air. HEENT: Conjunctivae normal. NECK: No jugular venous distention. CARDIOVASCULAR: S1, S2 muffled. RESPIRATORY: Breath sounds diminished in the bases. A few scattered rhonchi and crackles. ABDOMEN is soft, nontender. LEGS: No edema. No swelling. CENTRAL NERVOUS SYSTEM: No focal deficits. LAB STUDIES: WBC 2.9, hemoglobin 7.1 and sodium 145, potassium 4.5. ASSESSMENT: 1. Acute Enterobacter cloacae sepsis secondary to infected Choi catheter present on admission. 2. Acute renal failure possibly acute on chronic with chronic kidney stage 3 baseline. 3. Anemia microcytic possibly nutritional. 4. Possible left lower lobe atelectasis versus pneumonia on antibiotics. 5. TPN held currently. 6. Hypertension. 7. History of previous line sepsis. 8. History of intestinal transplant. 9. Hypotension. 10.History of short-gut syndrome. 11.History of hypertension. 12.History of chronic anemia. 13.Moderate left hydronephrosis. RECOMMENDATIONS AND DISCUSSION: Recommend to continue current medications, management and symptomatic treatment. Continue with antibiotics. The cultures are negative. The repeat cultures are negative so far. I would wait at least 1 -2 days before inserting the PICC line. Otherwise, we will continue the antibiotics and continue the rest of medications. Continue the . Further recommendations to follow. MMODL / IJN: [id number] / KENROY
--- NOTE | 2018-09-12 00:04 | PN ---
PROGRESS NOTE DATE OF SERVICE: 09/11/2018. REASON FOR FOLLOW UP: Enterobacter bacteremia secondary to Choi catheter infection. INTERVAL HISTORY: The patient is currently afebrile. She is breathing comfortably. Denies having any chest pain. No shortness of breath or cough. No abdominal pain. No diarrhea. PHYSICAL EXAMINATION: Blood pressure is 113/63 with a pulse of 79, temperature 98.5, she is 100% on room air. GENERAL DESCRIPTION: A middle-aged female up in the chair in no distress. RESPIRATORY SYSTEM: Unlabored breathing. Clear to auscultation anteriorly. HEART: S1, S2. Regular rate and rhythm. ABDOMEN: Soft. No tenderness. LABS: Hemoglobin 7.1, white count 3.9 with a BUN of 30, creatinine 3.16. DIAGNOSTIC IMPRESSION AND PLAN: Patient with Enterobacter bacteremia secondary to Choi catheter. The Choi catheter has been discontinued. Cultures are positive. Blood cultures repeat 09/07 have been negative so far. Patient is currently on Azactam because of her multiple antibiotic coverage. That will be transitioned to Invanz 1 g daily once stable for discharge from a Nephrology standpoint. She is cleared to get a PICC line hopefully on Tuesday. Continue supportive care. MMODL / IJN: [id number] /
[2018-09-12 00:11] LABS: Glucose,Whole Blood 70 mg/dL (75-99)
[2018-09-12] MEDS: AZTREONAM 1 GM in SODIUM CHLORIDE 0.9% 50 ML IVPB SCH ×3 (00:22→15:49)
[2018-09-12] MEDS: HYDROcodone/APAP 5-325MG 1 EACH TAB PO PRN ×2 (02:26→16:53)
[2018-09-12] MEDS: WITCH HAZEL 1 EACH MED..PAD TOPICAL SCH ×4 (05:01→21:04)
[2018-09-12 06:33] LABS: Glucose,Whole Blood 78 mg/dL (75-99)
[2018-09-12] MEDS: IPRATROPIUM-ALBUTEROL 3 ML NEB INHALATION SCH ×3 (07:56→19:47)
[2018-09-12] MEDS: DIPHENOX-ATROP 2.5-0.025 MG 1 EACH TAB PO SCH ×4 (07:58→21:05)
[2018-09-12] MEDS: SEVELAMER 800 MG TAB PO SCH ×3 (07:58→16:53)
[2018-09-12] MEDS: PANTOPRAZOLE 40 MG/10 ML VIAL IV SCH (07:58)
[2018-09-12] MEDS: SODIUM BICARBONATE TAB 650 MG TAB PO SCH ×3 (07:58→22:16)
[2018-09-12] MEDS: HEPARIN SODIUM,PORCINE 5,000 UNIT/ML 1 ML VIAL SQ SCH ×2 (07:59→21:05)
[2018-09-12] MEDS: HYDROCORTISONE 2.5% RECTAL CREAM 30 GM TUBE RECTAL SCH ×2 (07:59→21:05)
[2018-09-12] MEDS: DEXTROSE 5% IN WATER 1,000 ML with SODIUM BICARB (1 MEQ/ML) 150 ML IV SCH (07:59)
[2018-09-12] MEDS ORDERED: FUROSEMIDE 10 MG/ML 4 ML VIAL IV STA (09:34)
--- NOTE | 2018-09-12 09:34 | P.PN ---
Subjective Patient is seen in follow-up for acute kidney injury on chronic any disease. Patient is chronic kidney disease stage IV with baseline creatinine near 2 secondary to nonrecovered ATN and chronic nonsteroidal use. Recently her creatinine has been in the range of 2.4-2.7. It was elevated at 3.9 this admission and was 3.16 as of yesterday. She is currently maintained on bicarb drip. She was noted to have Enterobacter bacteremia and Mediport was removed. She is maintained on IV antibiotics. TPN is currently held. Denies chest pain or shortness of breath. Admits to swelling in lower extremity. Vital signs are stable. General: The patient appeared well nourished and normally developed. HEENT: Head exam is unremarkable. Neck is without jugular venous distension. LUNGS: Lungs are clear to auscultation and percussion. Breath sounds decreased. HEART: Rate and Rhythm are regular. First and second heart sounds normal. No murmurs, rubs or gallops. ABDOMEN: Abdominal exam reveals normal bowel sounds. Non-tender and non- distended. No evidence of peritonitis. EXTREMITITES: 1+ edema. Objective - Vital Signs Vital signs: Vital Signs Temp 97.7 F 09/12/18 07:00 Pulse 84 09/12/18 08:05 Resp 18 09/12/18 07:00 BP 102/72 09/12/18 07:00 Pulse Ox 100 09/12/18 07:00 Intake & Output 09/11/18 09/12/18 09/12/18 18:59 06:59 18:59 Intake Total 480 Balance 480 Weight 45.2 kg Intake: Oral 480 Other: Voiding Method Toilet # Voids 2 4 - Labs CBC & Chem 7: 09/11/18 08:08 09/11/18 08:08 Labs: Abnormal Lab Results - Last 24 Hours (Table) 09/11/18 09/11/18 09/12/18 Range/Units 08:08 12:12 00:09 Lymphocytes # (Manual) 0.27 L (1.0-4.8) k/uL Metamyelocytes # (Man) 0.04 H (0) k/uL Myelocytes # (Manual) 0.04 H (0) k/uL POC Glucose (mg/dL) 74 L 70 L (75-99) mg/dL Microbiology - Last 24 Hours (Table) 09/08/18 12:15 Blood Culture - Preliminary Blood No Growth after 72 hours 09/07/18 18:00 Catheter Tip Culture - Final Catheter Tip Enterobacter cloacae Assessment and Plan Plan: Assessment: 1. Acute kidney injury secondary to ATN secondary to hypotension/sepsis. Creatinine was 3.91 admission and did come down to 3.08 at this admission. It was 3.16 as of yesterday. 2. Chronic any disease stage IV with baseline creatinine near 2 secondary to nonrecovered ATN and chronic nonsteroidal use. Creatinine in August 2018 was 2.4. 3. Enterobacter bacteremia status post removal of Mediport. Maintained on IV antibiotics per infectious disease. 4. Metabolic acidosis secondary to acute kidney injury. 5. Hyperphosphatemia secondary to acute kidney injury. Patient is unable to tolerate PhosLo. Now maintained on Renvela. 6. History of short gut syndrome. Patient is maintained on TPN 4 times a week as an outpatient. 7. Anemia of chronic kidney disease. Avoid IV iron in the setting of bacteremia. Maintained on Aranesp. 8. Volume overload. Plan: Hep-Lock IV fluids. Lasix 40 mg IV once today. TPN can be resumed when she has a PICC line placed. Avoid nephrotoxins. Maintain oral bicarb.
[2018-09-12 12:31] LABS: Basophils % (A) 0 %; Eosinophils # (A) 0.2 k/uL (0-0.7); Eosinophils % (A) 3 %; HCT 28.6 % (34.0-46.0); HGB 8.3 gm/dL (11.4-16.0); Hypochromasia Marked; Lymphocytes # (A) 0.6 k/uL (1.0-4.8); Lymphocytes % (A) 12 %; MCH 29.9 pg (25.0-35.0); MCHC 29.1 g/dL (31.0-37.0); MCV 102.8 fL (80.0-100.0); Macrocytosis Slight; Monocytes # (A) 0.3 k/uL (0-1.0); Monocytes % (A) 6 %; Neutrophils # (A) 3.6 k/uL (1.3-7.7); Neutrophils % (A) 75 %; Platelet Count 300 k/uL (150-450); RBC 2.79 m/uL (3.80-5.40); RDW 14.7 % (11.5-15.5); WBC 4.8 k/uL (3.8-10.6)
[2018-09-12 12:34] LABS: Glucose,Whole Blood 63 mg/dL (75-99)
[2018-09-12 12:38] LABS: Magnesium 1.6 mg/dL (1.6-2.3); Phosphorus 5.8 mg/dL (2.5-4.5); Potassium 4.4 mmol/L (3.5-5.1)
[2018-09-12 12:56] LABS: Glucose,Whole Blood 66 mg/dL (75-99)
[2018-09-12 13:18] LABS: Glucose,Whole Blood 67 mg/dL (75-99)
[2018-09-12 13:49] LABS: Glucose,Whole Blood 73 mg/dL (75-99)
[2018-09-12 17:25] LABS: Glucose,Whole Blood 88 mg/dL (75-99)
[2018-09-13] MEDS: AZTREONAM 1 GM in SODIUM CHLORIDE 0.9% 50 ML IVPB SCH ×2 (00:10→08:02)
[2018-09-13] MEDS: WITCH HAZEL 1 EACH MED..PAD TOPICAL SCH ×4 (00:10→15:47)
[2018-09-13 00:19] LABS: Glucose,Whole Blood 73 mg/dL (75-99)
[2018-09-13] MEDS: HYDROcodone/APAP 5-325MG 1 EACH TAB PO PRN ×2 (03:53→14:38)
--- NOTE | 2018-09-13 05:35 | PN ---
PROGRESS NOTE DATE OF SERVICE: 09/12/2018 REASON FOR FOLLOWUP: Enterobacter bacteremia secondary to Choi catheter infection. INTERVAL HISTORY: The patient is currently afebrile. She is breathing comfortably. Denies having any chest pain, shortness of breath or cough. No abdominal pain. No diarrhea. PHYSICAL EXAMINATION: On examination, blood pressure 118/72 with a pulse of 84, temperature 97.2. She is 100% on room air. General description is a middle-aged female up in the bed in no distress. RESPIRATORY SYSTEM: Unlabored breathing, clear to auscultation anteriorly. HEART: S1, S2. Regular rate and rhythm. ABDOMEN: Soft, no tenderness. LABS: Hemoglobin 8.3, white count 4.8. BUN of 24, creatinine 2.92. Blood culture repeat has been negative. DIAGNOSTIC IMPRESSION AND PLAN: Patient with Enterobacter bacteremia secondary to the Choi catheter, has been discontinued. Plan is to switch over to Invanz 500 mg daily for another 10 to 12 days to finish a course of therapy. PICC line scheduled for tomorrow. Continue supportive care. MMODL / IJN: [id number] /
[2018-09-13 06:22] LABS: Glucose,Whole Blood 75 mg/dL (75-99)
[2018-09-13 07:20] VITALS: RESP 16
--- NOTE | 2018-09-13 07:29 | PN ---
PROGRESS NOTE DATE OF SERVICE: 09/12/2018 This 48-year-old woman who was admitted with multiple medical problems, also had sepsis. Patient had Enterococci cloacae grown from the cultures. Most recent cultures are negative at this time. The catheter tip was positive. The most recent blood culture was negative for 96 hours. PICC line has been planned at this time for a permanent TPN. No chest pain. No palpitations. No fever. EXAM: Alert and oriented times three. Pulse 79, blood pressure 106/83, respiration 18 , temperature 97.7, pulse ox 94% on room air. HEENT: Conjunctivae normal. NECK: No jugular venous distention. CARDIOVASCULAR: S1, S2. RESPIRATION: Breath sounds diminished in the bases. No rhonchi. No crackles. ABDOMEN is soft, nontender. LEGS are no edema. No swelling. CENTRAL NERVOUS SYSTEM: No focal deficits. LABORATORY DATA: WBC 4.2, hemoglobin is 8.3, and other labs are noted. ASSESSMENT: 1. Acute Enterobacter cloacae sepsis secondary to infected Choi catheter present on admission. 2. Acute renal failure possibly acute on chronic with chronic kidney stage 3 baseline. 3. Anemia microcytic possibly nutritional. 4. Possible left lower lobe atelectasis versus pneumonia on antibiotics. 5. TPN held currently. 6. Hypertension. 7. History of previous line sepsis. 8. History of int transplant. 9. Hypotension. 10.History of short-gut syndrome. 11.Hypertension. 12.History of chronic anemia. 13.Moderate left hydronephrosis. RECOMMENDATIONS AND DISCUSSION: Recommend to continue current medications, management. Continue to monitor. Symptomatic treatment. Monitor creatinine closely. PICC line. Resume the TPN at a lower dose because of the concerns of fluid overload. Prognosis guarded because of multiple complex medical issues. Further recommendations to follow. MMODL / IJN: [id number] / MTDAlexander
[2018-09-13] MEDS: HEPARIN SODIUM,PORCINE 5,000 UNIT/ML 1 ML VIAL SQ SCH ×2 (08:03→08:07)
[2018-09-13] MEDS: PANTOPRAZOLE 40 MG/10 ML VIAL IV SCH (08:03)
[2018-09-13] MEDS: HYDROCORTISONE 2.5% RECTAL CREAM 30 GM TUBE RECTAL SCH (08:04)
[2018-09-13] MEDS: SEVELAMER 800 MG TAB PO SCH ×2 (08:04→14:20)
[2018-09-13] MEDS: SODIUM BICARBONATE TAB 650 MG TAB PO SCH ×2 (08:04→15:46)
[2018-09-13] MEDS: IPRATROPIUM-ALBUTEROL 3 ML NEB INHALATION SCH ×2 (08:44→13:18)
[2018-09-13] MEDS: DIPHENOX-ATROP 2.5-0.025 MG 1 EACH TAB PO SCH ×2 (09:12→14:20)
[2018-09-13] MEDS ORDERED: ERTAPENEM 0.5 GM in SODIUM CHLORIDE 0.9% 50 ML IVPB SCH (10:45)
[2018-09-13 11:11] LABS: Ionized Calcium 5.3 mg/dL (4.5-5.3)
[2018-09-13 11:31] LABS: Albumin 2.7 g/dL (3.5-5.0); Calcium 8.2 mg/dL (8.4-10.2); Magnesium 1.4 mg/dL (1.6-2.3); Potassium 4.5 mmol/L (3.5-5.1)
[2018-09-13 12:40] LABS: Glucose,Whole Blood 68 mg/dL (75-99)
[2018-09-13] MEDS ORDERED: SODIUM BICARB 8.4% 50 ML SYR (1 MEQ/ML) IV STA (12:47)
[2018-09-13 13:00] LABS: Glucose,Whole Blood 58 mg/dL (75-99)
--- NOTE | 2018-09-13 13:10 | P.PN ---
Subjective Patient is seen in follow-up for acute kidney injury on chronic any disease. Patient is chronic kidney disease stage IV with baseline creatinine near 2 secondary to nonrecovered ATN and chronic nonsteroidal use. Recently her creatinine has been in the range of 2.4-2.7. It was elevated at 3.9 this admission and is 2.92 today. She is currently off all IV fluids. She was noted to have Enterobacter bacteremia and Mediport was removed. She is maintained on IV antibiotics. TPN is currently held. Denies chest pain or shortness of breath. Edema in the lower extremity is better. Scheduled for PICC line placement today. Vital signs are stable. General: The patient appeared well nourished and normally developed. HEENT: Head exam is unremarkable. Neck is without jugular venous distension. LUNGS: Lungs are clear to auscultation and percussion. Breath sounds decreased. HEART: Rate and Rhythm are regular. First and second heart sounds normal. No murmurs, rubs or gallops. ABDOMEN: Abdominal exam reveals normal bowel sounds. Non-tender and non- distended. No evidence of peritonitis. EXTREMITITES: 1+ edema. Objective - Vital Signs Vital signs: Vital Signs Temp 98.1 F 09/13/18 07:00 Pulse 84 09/13/18 08:52 Resp 16 09/13/18 07:00 BP 104/58 09/13/18 07:00 Pulse Ox 94 L 09/13/18 07:00 Intake & Output 09/12/18 09/13/18 09/13/18 18:59 06:59 18:59 Intake Total 240 290 Output Total 100 Balance 240 190 Weight 45.2 kg Intake: IV 50 Aztreonam 1 gm In Sodium 50 Chloride 0.9% 50 ml @ 100 mls/hr IVPB Q8HR [facility] Rx# :[id number] Oral 240 240 Output: Stool 100 Other: Voiding Method Toilet # Voids 3 2 - Labs CBC & Chem 7: 09/12/18 12:10 09/13/18 10:20 Labs: Abnormal Lab Results - Last 24 Hours (Table) 09/12/18 09/12/18 09/13/18 Range/Units 12:58 13:42 00:10 Chloride (98-107) mmol/L Carbon Dioxide (22-30) mmol/L BUN (7-17) mg/dL Creatinine (0.52-1.04) mg/dL POC Glucose (mg/dL) 67 L 73 L 73 L (75-99) mg/dL Calcium (8.4-10.2) mg/dL Magnesium (1.6-2.3) mg/dL Albumin (3.5-5.0) g/dL 09/13/18 09/13/18 09/13/18 Range/Units 10:20 12:16 12:40 Chloride 121 H (98-107) mmol/L Carbon Dioxide 7 L* (22-30) mmol/L BUN 20 H (7-17) mg/dL Creatinine 2.92 H (0.52-1.04) mg/dL POC Glucose (mg/dL) 68 L 58 L (75-99) mg/dL Calcium 8.2 L (8.4-10.2) mg/dL Magnesium 1.4 L (1.6-2.3) mg/dL Albumin 2.7 L (3.5-5.0) g/dL Microbiology - Last 24 Hours (Table) 09/08/18 12:15 Blood Culture - Preliminary Blood No Growth after 96 hours Assessment and Plan Plan: Assessment: 1. Acute kidney injury secondary to ATN secondary to hypotension/sepsis. Creatinine was 3.91 admission and is down to 2.92 today. 2. Chronic any disease stage IV with baseline creatinine near 2 secondary to nonrecovered ATN and chronic nonsteroidal use. Creatinine in August 2018 was 2.4. 3. Enterobacter bacteremia status post removal of Mediport. Maintained on IV antibiotics per infectious disease. 4. Metabolic acidosis secondary to acute kidney injury. 5. Hyperphosphatemia secondary to acute kidney injury. Patient is unable to tolerate PhosLo. Now maintained on Renvela. 6. History of short gut syndrome. Patient is maintained on TPN 4 times a week as an outpatient. 7. Anemia of chronic kidney disease. Avoid IV iron in the setting of bacteremia. Maintained on Aranesp. 8. Volume overload. Better. Status post IV Lasix Lasix September 12. Plan: TPN can be resumed when she has a PICC line placed. Avoid nephrotoxins. Maintain oral bicarb - increase dose to 3 times daily. 4 amps of bicarb IV push now. Replace magnesium. 3 g IV today. Potential discharge today. Repeat BMP in 2-3 days postdischarge. Follow up outpatient in the next 1-2 weeks.
[2018-09-13] MEDS ORDERED: LIDOCAINE 1% INJ 10MG/ML (20 ML MDV) SQ ONE (13:13)
[2018-09-13] MEDS: MAGNESIUM SULFATE-D5W PMX 1 GM in DEXTROSE/WATER 1 100ML.BAG IVPB SCH ×3 (14:19→15:47)
[2018-09-13] MEDS ORDERED: DEXTROSE 4 GM CHEWABLE ONE (14:33)
[2018-09-13 14:49] LABS: Glucose,Whole Blood 65 mg/dL (75-99)
[2018-09-13 15:08] LABS: Glucose,Whole Blood 79 mg/dL (75-99)
--- NOTE | 2018-09-13 15:57 | PN ---
PROGRESS NOTE DATE OF SERVICE: 09/13/2018 REASON FOR FOLLOWUP: Enterobacter bacteremia secondary to Choi catheter infection. INTERVAL HISTORY: The patient is currently afebrile. She is breathing comfortably. Patient denies having any chest pain, shortness of breath or cough. No abdominal pain. No diarrhea. PHYSICAL EXAMINATION: Blood pressure 104/58 with a pulse of 79, temperature 98.1. She is 94% on room air. General description is a middle-aged female up in the chair in no distress. RESPIRATORY SYSTEM: Unlabored breathing. Clear to auscultation anteriorly. HEART: S1, S2. Regular rate and rhythm. ABDOMEN: Soft. No tenderness. LABS: Creatinine is 2.92. Blood culture repeat 09/08/2018 has been negative. DIAGNOSTIC IMPRESSION AND PLAN: Patient with Enterobacter bacteremia secondary to Choi catheter infection. Patient's follow-up blood culture has been negative. Choi catheter has already been removed. The patient will get a PICC line today. Antibiotic has been switched to Invanz 0.5 gram daily, as the patient needs to go to the infusion clinic to finish antibiotic therapy with close outpatient followup. Continue with supportive care. MMODL / IJN: [id number] /
[2018-09-13 16:17] VITALS: BP 126/74; PULSE 73; TEMP 97.7
[2018-09-13 17:39] LABS: Glucose,Whole Blood 73 mg/dL (75-99)
--- NOTE | 2018-09-13 22:06 | DS ---
DISCHARGE SUMMARY DATE OF SERVICE: 09/13/2018 FINAL DIAGNOSES: 1. Acute Enterobacter cloacae sepsis secondary to infected Choi catheter, present on admission. 2. Acute renal failure, possibly secondary to acute on chronic renal failure with chronic kidney disease, stage III baseline. 3. Anemia, microcytic, possibly nutritional. 4. Possible left lower lobe atelectasis versus pneumonia, on antibiotics. 5. Total parenteral nutrition held currently. 6. Hypertension. 7. History of previous line sepsis. 8. History of intestinal transplant. 9. Hypertension. 10.History of short-gut syndrome. 11.History of chronic anemia. 12.Moderate left hydronephrosis. The patient also had some evidence of fluid overload, so it was recommended to limit the fluid to 75 mL/hour for 16 hours. I would also recommend frequent home care evaluation at least during the first 2 weeks after discharge to make sure the patient is not developing any fluid overload. Otherwise, repeat labs will be in order. The patient will be followed with recommendations as mentioned earlier. DISCHARGE DISPOSITION: The patient will be discharged in stable condition with guarded prognosis. Total time taken 35 minutes. HISTORY OF PRESENT ILLNESS: This 48-year-old woman who presented with multiple medical problems was admitted with acute Enterobacter cloacae from Choi line sepsis. Patient was given antibiotics. The Choi was removed. The patient was seen by Dr. Infante as well as Surgery and Infectious Disease. The patient's care was coordinated. The patient improved significantly. On exam, vital signs are stable. CARDIOVASCULAR SYSTEM: S1, S2 muffled. ABDOMEN: Soft. NERVOUS SYSTEM: No focal deficit. DISCHARGE ADVICE AND MEDICATIONS: 1. Diet is cardiac. 2. Activity limited until followup. 3. Follow up with Dr. Davis in 2-3 days. 4. Follow up with Dr. Infante as advised. 5. PhosLo 667 p.o. b.i.d. 6. Iron 325 mg p.o. b.i.d. 7. Gattex 2.3 mg subcutaneously daily. 8. K-Dur 20 mEq p.o. b.i.d. 9. Sodium bicarb 1300 mg p.o. b.i.d. 10.Ultram 50 mg q.8 p.r.n. 11.Tylenol 650 q.6 p.r.n. 12.Lomotil 1 tablet q.i.d. 13.Proctosol 1 application b.i.d. 14.Tucks medicated pads. Once again, the patient will be discharged in stable condition with guarded prognosis. Total time taken 35 minutes. SARA / JAZLYN: [id number] /
== END 2018-09-13 18:30 | disposition home health service (06) | DRG 314 ==
LOC: EC 13:35 → 4MS4W 18:40 → 2SICU 22:15 → 4MS4W 09-09 10:44
PROVIDERS: ADMIT Internal Medicine; ATTEND Internal Medicine
PROC: 0WP803Z Removal of Infusion Device from Chest Wall, Open Approach (ICD-10-PCS; principal; 2018-09-07)
DX: T80.211A Bloodstream infection due to central venous catheter, initial encounter (principal); A41.59 Other Gram-negative sepsis; N17.0 Acute kidney failure with tubular necrosis; R65.21 Severe sepsis with septic shock; J18.9 Pneumonia, unspecified organism; E87.2 Acidosis; K91.2 Postsurgical malabsorption, not elsewhere classified; N13.30 Unspecified hydronephrosis; N18.4 Chronic kidney disease, stage 4 (severe); D50.9 Iron deficiency anemia, unspecified; D63.1 Anemia in chronic kidney disease; E83.39 Other disorders of phosphorus metabolism; E86.0 Dehydration; E87.70 Fluid overload, unspecified; E87.8 Other disorders of electrolyte and fluid balance, not elsewhere classified; I12.9 Hypertensive chronic kidney disease with stage 1 through stage 4 chronic kidney disease, or unspecified chronic kidney disease; J44.9 Chronic obstructive pulmonary disease, unspecified; K21.9 Gastro-esophageal reflux disease without esophagitis; Y84.8 Other medical procedures as the cause of abnormal reaction of the patient, or of later complication, without mention of misadventure at the time of the procedure; Z79.899 Other long term (current) drug therapy; Z82.49 Family history of ischemic heart disease and other diseases of the circulatory system; Z83.3 Family history of diabetes mellitus; Z88.1 Allergy status to other antibiotic agents; Z90.49 Acquired absence of other specified parts of digestive tract; T39.395A Adverse effect of other nonsteroidal anti-inflammatory drugs [NSAID], initial encounter; Z88.2 Allergy status to sulfonamides; Z88.8 Allergy status to other drugs, medicaments and biological substances
CPT/HCPCS: 36415; 36573; 71045; 71046; 76770; 80048; 80053; 80202; 81001; 82040; 82330; 82728; 83605; 83735; 83880; 84100; 84478; 85025; 85027; 87040; 87070; 87077; 87086; 87150; 87186; 87324; 94640; 96360; 96365; 96366; 96375; 99284

== ENCOUNTER → 2018-10-06 | Outpatient (CLI) | payer OTHER ==
[2018-10-06 18:51] LABS: Vitamin D 25 Hydroxy 24.5 ng/mL (30.0-100.0)
[2018-10-06 18:58] LABS: Amylase 123 U/L (23-121); C Reactive Protein <0.4 mg/dL (0.0-0.8); Lipase 58 U/L (14-63)
[2018-10-06 18:59] LABS: Folate, Serum 12.1 ng/mL
[2018-10-10 07:48] LABS: Zinc, Serum 122 ug/dL (60-130)
[2018-10-12 21:59] LABS: Selenium 103 mcg/L (63-160)
== END | disposition home or self-care (01) ==
LOC: LABWHC1 10:55
PROVIDERS: ATTEND Internal Medicine Gastroenterology
DX: K91.2 Postsurgical malabsorption, not elsewhere classified (principal)
CPT/HCPCS: 36415; 82040; 82150; 82306; 82495; 82525; 82607; 82746; 83690; 84255; 84630; 86140

== ENCOUNTER → 2018-10-20 | Outpatient (CLI) | payer OTHER ==
[2018-10-23 13:21] LABS: Vitamin C 6 mg/L (2-19)
[2018-10-25 07:50] LABS: Vitamin A 82 ug/dL (38-106)
[2018-10-25 07:51] LABS: Vitamin E (Alpha Tocopherol) 765 ug/dL (500-1800)
== END | disposition home or self-care (01) ==
LOC: LABWHC1 07:25
PROVIDERS: ATTEND Internal Medicine Gastroenterology
DX: K91.2 Postsurgical malabsorption, not elsewhere classified (principal)
CPT/HCPCS: 36415; 82180; 83785; 84446; 84590

== ENCOUNTER → 2018-12-12 | Outpatient (CLI) | payer OTHER ==
[2018-12-12 14:32] LABS: HCT 33.4 % (34.0-46.0); HGB 10.4 gm/dL (11.4-16.0); Hypochromasia Slight; MCH 29.4 pg (25.0-35.0); MCV 95.1 fL (80.0-100.0); Mean Platelet Volume 6.7; Platelet Count 271 k/uL (150-450); RBC 3.52 m/uL (3.80-5.40); RDW 14.5 % (11.5-15.5)
[2018-12-12 15:57] LABS: Amorphous Sediment,Urine Rare /hpf; Appearance,Urine Clear (Clear); Bilirubin,Urine Negative (Negative); Blood,Urine Negative (Negative); Color,Urine Light Yellow; Glucose,Urine (UA) Negative (Negative); Ketones,Urine Negative (Negative); Leukocyte Esterase,Urine Small (Negative); Nitrite,Urine Negative (Negative); PH, Urine 8.5 (5.0-8.0); Protein,Urine 1+ (Negative); RBC,Urine 5 /hpf (0-5); Specific Gravity,Urine 1.013 (1.001-1.035); Squamous Epithelial Cell,Urine 5 /hpf (0-4); Urobilinogen,Urine <2.0 mg/dL (<2.0); WBC,Urine 22 /hpf (0-5)
[2018-12-12 19:41] LABS: Iron Saturation 19.81 (12.00-45.00)
[2018-12-12 19:43] LABS: Albumin 4.1 g/dL (3.80-4.90); Albumin/Globulin Ratio 1.78 (1.60-3.17); Anion Gap 12.9 mmol/L (4.00-12.00); Calcium 9.6 mg/dL (8.7-10.3); Carbon Dioxide 38.1 mmol/L (21.6-31.8); Globulin 2.3 g/dL (1.6-3.3); Magnesium 2.4 mg/dL (1.5-2.4); Phosphorus 2.8 mg/dL (2.4-5.1); Potassium 4.3 mmol/L (3.5-5.5); Total Bilirubin 0.4 mg/dL (0.3-1.2); Total Protein 6.4 g/dL (6.2-8.2); Uric Acid 5.3 mg/dL (2.9-7.7); Vitamin D 25 Hydroxy 61.9 ng/mL (30.0-100.0)
[2018-12-12 20:02] LABS: Parathyroid Hormone Intact 176.2 pg/mL (14.0-72.0)
== END | disposition home or self-care (01) ==
LOC: LABWHC1 12:49
PROVIDERS: ATTEND Internal Medicine
DX: E55.9 Vitamin D deficiency, unspecified (principal); M10.9 Gout, unspecified; D63.1 Anemia in chronic kidney disease; N18.3 Chronic kidney disease, stage 3 (moderate); Z51.81 Encounter for therapeutic drug level monitoring
CPT/HCPCS: 36415; 80053; 81001; 82306; 82728; 83540; 83550; 83735; 83970; 84100; 84550; 85027

== ENCOUNTER → 2019-04-19 | Outpatient (CLI) | payer OTHER ==
[2019-04-19 08:48] LABS: Anisocytosis Slight; HCT 31.1 % (34.0-46.0); HGB 9.7 gm/dL (11.4-16.0); Hypochromasia Moderate; MCH 29.9 pg (25.0-35.0); MCHC 31.2 g/dL (31.0-37.0); MCV 95.8 fL (80.0-100.0); Macrocytosis Slight; Mean Platelet Volume 6.6; Platelet Count 234 k/uL (150-450); Poikilocytosis Slight; RBC 3.24 m/uL (3.80-5.40); RDW 17.6 % (11.5-15.5); WBC 5.8 k/uL (3.8-10.6)
[2019-04-19 08:59] LABS: Appearance,Urine Clear (Clear); Bilirubin,Urine Negative (Negative); Blood,Urine Trace (Negative); Color,Urine Light Yellow; Glucose,Urine (UA) Negative (Negative); Ketones,Urine Negative (Negative); Leukocyte Esterase,Urine Small (Negative); Mucus,Urine Rare /hpf; Nitrite,Urine Negative (Negative); PH, Urine 5.5 (5.0-8.0); Protein,Urine Trace (Negative); RBC,Urine 2 /hpf (0-5); Specific Gravity,Urine 1.008 (1.001-1.035); Squamous Epithelial Cell,Urine <1 /hpf (0-4); Urobilinogen,Urine <2.0 mg/dL (<2.0); WBC,Urine 6 /hpf (0-5)
[2019-04-19 15:46] LABS: Iron Saturation 19.8 (12.00-45.00)
[2019-04-19 15:58] LABS: African American GFR (CKD) 18.3 (60.0-200.0); Albumin 4.1 g/dL (3.80-4.90); Albumin/Globulin Ratio 1.86 (1.60-3.17); Anion Gap 12.7 mmol/L (4.00-12.00); BUN/Creat Ratio 15.76 Ratio (12.00-20.00); Calcium 8.5 mg/dL (8.7-10.3); Carbon Dioxide 18.3 mmol/L (21.6-31.8); Globulin 2.2 g/dL (1.6-3.3); Phosphorus 3.3 mg/dL (2.4-5.1); Total Bilirubin 0.4 mg/dL (0.3-1.2); Total Protein 6.3 g/dL (6.2-8.2)
== END | disposition home or self-care (01) ==
LOC: LABWHC1 07:59
PROVIDERS: ATTEND Internal Medicine
DX: E83.39 Other disorders of phosphorus metabolism (principal); M10.9 Gout, unspecified; N18.3 Chronic kidney disease, stage 3 (moderate); D63.1 Anemia in chronic kidney disease
CPT/HCPCS: 36415; 80053; 81001; 82306; 82728; 83540; 83550; 83735; 83970; 84100; 85027

== ENCOUNTER → 2019-06-20 | Outpatient (CLI) | payer OTHER ==
[2019-06-20 17:06] LABS: Basophils % (A) 1 %; Eosinophils # (A) 0.1 k/uL (0-0.7); Eosinophils % (A) 2 %; HCT 36.7 % (34.0-46.0); HGB 10.6 gm/dL (11.4-16.0); Hypochromasia Moderate; Lymphocytes # (A) 0.8 k/uL (1.0-4.8); Lymphocytes % (A) 21 %; MCH 28.7 pg (25.0-35.0); MCV 98.9 fL (80.0-100.0); Monocytes # (A) 0.3 k/uL (0-1.0); Monocytes % (A) 7 %; Neutrophils # (A) 2.6 k/uL (1.3-7.7); Neutrophils % (A) 68 %; Platelet Count 199 k/uL (150-450); RBC 3.71 m/uL (3.80-5.40); RDW 14.2 % (11.5-15.5); WBC 3.8 k/uL (3.8-10.6)
[2019-06-21 00:49] LABS: Iron Saturation 18.06 (12.00-45.00)
[2019-06-21 00:57] LABS: Ferritin 67.3 ng/mL (10.0-291.0)
== END | disposition home or self-care (01) ==
LOC: LABWHC1 15:58
PROVIDERS: ATTEND Nurse Practitioner Adult Health
DX: N18.3 Chronic kidney disease, stage 3 (moderate) (principal)
CPT/HCPCS: 36415; 82728; 83540; 83550; 85025

== ENCOUNTER → 2019-08-01 | Outpatient (CLI) | payer OTHER ==
[2019-08-01 16:06] LABS: Albumin 4.1 g/dL (3.80-4.90); C Reactive Protein 0.7 mg/dL (0.0-0.8)
[2019-08-01 16:20] LABS: Folate, Serum 14.5 ng/mL
[2019-08-02 13:40] LABS: Zinc, Serum 71 ug/dL (60-130)
[2019-08-03 06:33] LABS: Vitamin A 64 ug/dL (38-106); Vitamin E (Alpha Tocopherol) 936 ug/dL (500-1800)
[2019-08-08 12:07] LABS: Selenium 94 mcg/L (63-160)
== END | disposition home or self-care (01) ==
LOC: LABWHC1 08:03
PROVIDERS: ATTEND Internal Medicine Gastroenterology
DX: Z09 Encounter for follow-up examination after completed treatment for conditions other than malignant neoplasm (principal); T86.8 Complications of other transplanted organs and tissues
CPT/HCPCS: 36415; 82040; 82180; 82306; 82495; 82525; 82607; 82746; 83785; 84255; 84446; 84590; 84630; 86140

== ENCOUNTER → 2019-08-21 | Outpatient (CLI) | payer OTHER ==
--- NOTE | 2019-08-21 10:07 | XR ---
EXAMINATION TYPE: XR chest 2V DATE OF EXAM: 08/21/2019 COMPARISON: 09/09/2018 TECHNIQUE: PA and lateral views submitted. HISTORY: Choi catheter placement FINDINGS: The lungs are clear and there is no pneumothorax. Right-sided central line seen with the tip overly ing the SVC and no sizable pneumothorax. Hyperinflation noted with scoliosis. Blunting of the right c ostophrenic angle. Degenerative change of the spine. Mild endplate chronic appearing deformity in the midthoracic region. IMPRESSION: 1. Central line with the tip overlying the SVC and no sizable pneumothorax. 2. Right-sided pleural thickening or small effusions stable
[2019-08-21 17:08] LABS: Hepatitis A Antibody IgM Non-Reactive (Non-Reactive); Hepatitis C IgG Antibody Non-Reactive (Non-Reactive)
[2019-08-21 17:09] LABS: Hepatitis B Core IgM Non-Reactive (Non-Reactive); Hepatitis B Surface Antigen Non-Reactive (Non-Reactive)
== END | disposition home or self-care (01) ==
LOC: LABWHC1 09:24
PROVIDERS: ATTEND Nurse Practitioner Adult Health
DX: N18.5 Chronic kidney disease, stage 5 (principal)
CPT/HCPCS: 36415; 71046; 80074

== ENCOUNTER → 2020-07-15 | Outpatient (CLI) | payer MEDICARE, OTHER ==
[2020-07-16 03:06] LABS: Folate, Serum 21.5 ng/mL
[2020-07-17 12:47] LABS: Zinc, Serum 166 ug/dL (60-130)
[2020-07-19 23:19] LABS: Selenium 106 mcg/L (63-160)
[2020-07-21 07:37] LABS: Vitamin A 123 ug/dL (38-106); Vitamin E (Alpha Tocopherol) 1029 ug/dL (500-1800)
== END | disposition home or self-care (01) ==
LOC: LABWHC1 13:53
PROVIDERS: ATTEND Internal Medicine Gastroenterology
DX: K90.89 Other intestinal malabsorption (principal); E86.0 Dehydration
CPT/HCPCS: 36415; 82180; 82306; 82495; 82525; 82607; 82746; 84255; 84446; 84590; 84630

== ENCOUNTER → 2020-07-25 | Outpatient (CLI) | payer MEDICARE, OTHER | END | disposition home or self-care (01) | LOC: LABWHC1 11:24 | PROVIDERS: ATTEND Internal Medicine Gastroenterology | DX: E86.0 Dehydration (principal); K90.89 Other intestinal malabsorption; Z88.2 Allergy status to sulfonamides; Z88.1 Allergy status to other antibiotic agents; Z88.8 Allergy status to other drugs, medicaments and biological substances; Z88.9 Allergy status to unspecified drugs, medicaments and biological substances | CPT/HCPCS: 36415 ==

== ENCOUNTER → 2020-11-05 | Outpatient (CLI) | payer MEDICARE, OTHER ==
[2020-11-05 20:45] LABS: C Reactive Protein <0.4 mg/dL (0.0-0.8); Folate, Serum >24.0 ng/mL
[2020-11-06 15:46] LABS: Zinc, Serum 76 ug/dL (60-130)
== END | disposition home or self-care (01) ==
LOC: LABWHC1 09:26
PROVIDERS: ATTEND Internal Medicine Gastroenterology
DX: E44.0 Moderate protein-calorie malnutrition (principal); E86.0 Dehydration; Z88.1 Allergy status to other antibiotic agents; Z88.8 Allergy status to other drugs, medicaments and biological substances
CPT/HCPCS: 36415; 82040; 82306; 82379; 82525; 82607; 82746; 84255; 84446; 84590; 84630; 86140

== ENCOUNTER 2021-03-04 09:09 | Emergency (ER) | payer MEDICARE, OTHER ==
[2021-03-04 09:15] VITALS: BP 123/80; PULSE 70; RESP 16; TEMP 97.9
--- NOTE | 2021-03-04 10:07 | ED ---
General Adult HPI - General Chief complaint: Recheck/Abnormal Lab/Rx Stated complaint: port came out Time Seen by Provider: 03/04/21 09:19 Source: patient, RN notes reviewed Mode of arrival: ambulatory Limitations: no limitations - History of Present Illness Initial comments: 50-year-old female presents emergency Department chief complaint of choi ca theter fell out. Patient states that she went to change the dressing today and went to clean it read shows falling out. Patient states that she has no chest pain or shortness breath no complaints states that she has had catheter for over 10 years states his last one was for over urine a half. She receives TPN secondary to prior bowel resection. Patient offers no other complaints. - Related Data Home Medications Medication Instructions Recorded Confirmed Gattex 0.23 ml SQ Q48H 10/29/15 11/05/20 Sodium Bicarbonate Tab 1,300 mg PO TID 09/06/18 11/05/20 calcitrioL [Calcitriol] 0.25 mcg PO SUWE 11/09/18 11/05/20 Potassium Chloride [Klor-Con 20 20 meq PO BID 03/27/19 11/05/20 Packets] Previous Rx's Medication Instructions Recorded Acetaminophen Tab [Tylenol] 650 mg PO Q6HR PRN tab 12/02/18 Psyllium Husk 100% [Metamucil 6 gm PO BID packet 12/02/18 Packet] Allergies Allergy/AdvReac Type Severity Reaction Status Date / Time ceftriaxone [From Rocephin] Allergy Intermediate Itching Verified 03/04/21 09:11 acetate salt Allergy Unknown Verified 03/04/21 09:11 [From Hyperlyte CR] ciprofloxacin [From Cipro] Allergy Anaphylaxis Verified 03/04/21 09:11 ciprofloxacin HCl Allergy Anaphylaxis Verified 03/04/21 09:11 [From Cipro] fat emulsions Allergy Unknown Verified 03/04/21 09:11 [From Liposyn II] Sulfa (Sulfonamide Allergy Anaphylaxis Verified 03/04/21 09:11 Antibiotics) fexofenadine [From Sofia] AdvReac Migraine Verified 03/04/21 09:11 vancomycin AdvReac Rash/Hives Verified 03/04/21 09:11 Review of Systems ROS Statement: Those systems with pertinent positive or pertinent negative responses have been documented in the HPI. ROS Other: All systems not noted in ROS Statement are negative. 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 HAS PORT FOR TPN, pneumothorax, hemothorax. ANEMIA History of Any Multi-Drug Resistant Organisms: None Reported Past Surgical History: Appendectomy, Bowel Resection, Cholecystectomy, Tubal Ligation Additional Past Surgical History / Comment(s): intestinal transplant and removal, chest tube placement. CHOI REPLACEMENT. back sx Past Anesthesia/Blood Transfusion Reactions: No Reported Reaction Past Psychological History: No Psychological Hx Reported Smoking Status: Never smoker Past Alcohol Use History: None Reported Past Drug Use History: None Reported - Past Family History Mother Family Medical History: Hypertension Father Family Medical History: Congestive Heart Failure (CHF), Coronary Artery Disease (CAD), Diabetes Mellitus, Hypertension Additional Family Medical History / Comment(s): . General Exam Limitations: no limitations General appearance: alert, in no apparent distress Head exam: Present: atraumatic, normocephalic, normal inspection Neck exam: Present: normal inspection, full ROM. Absent: tenderness, meningismus, lymphadenopathy Respiratory exam: Present: normal lung sounds bilaterally, other (Site of port no significant bleeding or erythema nontender). Absent: respiratory distress, wheezes, rales, rhonchi, stridor Cardiovascular Exam: Present: regular rate, normal rhythm, normal heart sounds. Absent: systolic murmur, diastolic murmur, rubs, gallop, clicks Course Vital Signs 03/04/21 09:11 Temperature 97.9 F Pulse Rate 70 Respiratory 16 Rate Blood Pressure 123/80 O2 Sat by Pulse 100 Oximetry Medical Decision Making - Medical Decision Making Patient did have catheter in the room there is no evidence of catheter fracture, tear or disruption of the catheter itself appears to be intact patient is asymptomatic patient will have PICC line placed today. Disposition Clinical Impression: Choi catheter dysfunction, S/P PICC central line placement Disposition: HOME SELF-CARE Condition: Stable Instructions (If sedation given, give patient instructions): Peripherally Inserted Central Catheters and Midline Catheters in... (DC) Additional Instructions: Please return to the Emergency Department if symptoms worsen or any other concerns. Is patient prescribed a controlled substance at d/c from ED?: No Referrals: Danny Davis MD [Primary Care Provider] - 1-2 days Time of Disposition: 10:06
[2021-03-04] MEDS ORDERED: LIDOCAINE 1% INJ 10MG/ML (20 ML MDV) ONE (10:09)
--- NOTE | 2021-03-04 10:10 | XR ---
EXAMINATION TYPE: XR chest 1V DATE OF EXAM: 03/04/2021 COMPARISON: 08/21/2019 HISTORY: TECHNIQUE: Single frontal view of the chest is obtained. FINDINGS: There is no focal air space opacity, pleural effusion, or pneumothorax seen. The cardiac silhouette size is within normal limits. Kyphoplasty versus vertebroplasty changes are noted in a mid thoracic vertebral body. IMPRESSION: No acute process.
[2021-03-04] MEDS ORDERED: LIDOCAINE 1% INJ 10MG/ML (20 ML MDV) SQ ONE (11:09)
[2021-03-04] MEDS ORDERED: IOPAMIDOL-250 50ML BTL IV ONE (11:11)
--- NOTE | 2021-03-04 12:48 | IR ---
EXAMINATION TYPE: IR venogram upper ext RT, IR cvc insert >=5 years DATE OF EXAM: 03/04/2021 COMPARISON: NONE CLINICAL HISTORY: Prior bowel surgery. Needs long-term intravenous access for parenteral nutrition. PROCEDURE: Hand hygiene obtained with soap and water and alcohol-based hand rub. After informed consent, the skin overlying the right brachial vein was localized with ultrasound and noted to be compressible and patent. An ultrasound image was obtained and submitted on the patient's chart. The overlying skin was prepped and draped and Lidocaine was used for local anesthesia. A sk in shanika was made with a scalpel. Access was gained to the vein under ultrasound guidance with a 21 g auge needle and a 0.018 inch wire was advanced but could not be advanced centrally, 3 [place] catheter was advanced over the wire and gentle hand-injection of contrast material was performed. Based on th e findings the wire was then advanced centrally. Access site was dilated with Peel-Away sheath and c atheter tailored to the appropriate length and advanced with difficulty advancing centrally, there ma y be web formation within the right subclavian vein, contrast injection verified patency of the subcl bereket vein and wire and catheter were advanced such that the distal tip of the catheter is at the cav oatrial junction. Spot image was obtained verifying placement. Catheter was fixed to the skin and a sterile dressing was placed following hemostasis. Catheter was aspirated and flushed with saline. Patient was discharged in stable condition without complication.Maximal barrier technique is utilized . Ultrasound image is documented on the chart. Ultrasound used with sterile technique. 5.7 minutes fluoroscopy time, 507 intraoperative images document the procedure Findings on limited right upper extremity venogram show a patent right subclavian vein IMPRESSION: STATUS POST ULTRASOUND AND FLUOROSCOPIC GUIDED PICC LINE PLACEMENT, READY FOR USE. THIS PROCEDURE WAS PERFORMED BY THE UNDERSIGNED.
== END 2021-03-04 10:16 | disposition home or self-care (01) ==
LOC: CATHCVL 09:09 → SUPCPDRO 09:09 → CATHCVL 10:16
DX: T82.514A Breakdown (mechanical) of infusion catheter, initial encounter (principal); I10 Essential (primary) hypertension; Z90.89 Acquired absence of other organs; Z90.49 Acquired absence of other specified parts of digestive tract; Z98.51 Tubal ligation status
CPT/HCPCS: 36573; 71045; 99284

== ENCOUNTER → 2021-06-29 | Outpatient (CLI) | payer MEDICARE, OTHER ==
[2021-06-29 22:46] LABS: Folate, Serum >20.00 ng/mL (4.40-31.00)
[2021-07-01 06:21] LABS: Vitamin E (Alpha Tocopherol) 926 ug/dL (500-1800)
[2021-07-01 08:49] LABS: Zinc, Serum 55 ug/dL (60-130)
[2021-07-02 07:13] LABS: Vitamin A 167 ug/dL (38-106)
[2021-07-02 21:48] LABS: Selenium 175 mcg/L (63-160)
== END | disposition home or self-care (01) ==
LOC: LABWHC1 11:39
PROVIDERS: ATTEND Internal Medicine Gastroenterology
DX: K91.2 Postsurgical malabsorption, not elsewhere classified (principal); M81.0 Age-related osteoporosis without current pathological fracture; M47.14 Other spondylosis with myelopathy, thoracic region; E44.0 Moderate protein-calorie malnutrition; E86.0 Dehydration; N18.9 Chronic kidney disease, unspecified; Z95.2 Presence of prosthetic heart valve; Z79.899 Other long term (current) drug therapy
CPT/HCPCS: 36415; 82180; 82306; 82525; 82607; 82746; 83785; 84255; 84446; 84590; 84630

== ENCOUNTER → 2021-07-13 | Outpatient (CLI) | payer MEDICARE, OTHER | END | disposition home or self-care (01) | LOC: LABWHC1 11:02 | PROVIDERS: ATTEND Internal Medicine Gastroenterology | DX: M81.0 Age-related osteoporosis without current pathological fracture (principal); N18.9 Chronic kidney disease, unspecified; K86.89 Other specified diseases of pancreas; K91.2 Postsurgical malabsorption, not elsewhere classified | CPT/HCPCS: 36415; 82495 ==

== ENCOUNTER → 2021-11-26 | Outpatient (CLI) | payer MEDICARE, OTHER | END | disposition home or self-care (01) | LOC: LABWHC1 13:20 | PROVIDERS: ATTEND Internal Medicine Gastroenterology | DX: E44.0 Moderate protein-calorie malnutrition (principal); E86.0 Dehydration | CPT/HCPCS: 36415; 82379 ==

== ENCOUNTER → 2022-01-06 | Outpatient (CLI) | payer MEDICARE, OTHER ==
[2022-01-07 14:30] LABS: Zinc, Serum 93 ug/dL (60-130)
[2022-01-08 06:14] LABS: Vitamin E (Alpha Tocopherol) 1218 ug/dL (500-1800)
== END | disposition home or self-care (01) ==
LOC: LABWHC1 09:21
PROVIDERS: ATTEND Internal Medicine Gastroenterology
DX: E44.0 Moderate protein-calorie malnutrition (principal); E86.0 Dehydration
CPT/HCPCS: 36415; 82180; 82306; 82379; 82525; 82607; 82746; 84255; 84446; 84590; 84630

== ENCOUNTER → 2022-02-23 | Outpatient (CLI) | payer MEDICARE, OTHER | END | disposition home or self-care (01) | LOC: LABWHC1 11:51 | PROVIDERS: ATTEND Internal Medicine Gastroenterology | DX: E44.0 Moderate protein-calorie malnutrition (principal); E86.0 Dehydration | CPT/HCPCS: 36415; 84590 ==

== ENCOUNTER → 2022-07-13 | Outpatient (CLI) | payer MEDICARE, OTHER ==
[2022-07-14 12:26] LABS: Zinc, Serum 75 ug/dL (60-130)
== END | disposition home or self-care (01) ==
LOC: LABWHC1 08:30
PROVIDERS: ATTEND Internal Medicine Gastroenterology
DX: E44.0 Moderate protein-calorie malnutrition (principal); E86.0 Dehydration
CPT/HCPCS: 36415; 82180; 82306; 82379; 82525; 82607; 82746; 83735; 84255; 84446; 84590; 84630

== ENCOUNTER → 2022-08-23 | Outpatient (CLI) | payer MEDICARE, OTHER | END | disposition home or self-care (01) | LOC: LABWHC1 09:47 | PROVIDERS: ATTEND Internal Medicine Gastroenterology | DX: E86.0 Dehydration (principal); K90.89 Other intestinal malabsorption | CPT/HCPCS: 36415 ==

== ENCOUNTER 2022-09-22 17:27 | Emergency (ER) | payer MEDICARE, OTHER ==
[2022-09-22 17:56] VITALS: BP 153/85; PULSE 90; RESP 16; TEMP 99.3
--- NOTE | 2022-09-22 19:11 | US ---
EXAMINATION TYPE: US upper ext pseudo RT DATE OF EXAM: 09/22/2022 COMPARISON: NONE CLINICAL HISTORY: swelling. Right arm swelling after pt had a fistula put in on 09/20/22. Pt states she had a fistula on the right side, but it clotted. Exam limited due to the bandages that could not be removed. Technique: Ultrasound grayscale and color Doppler imaging and area of patient's arm. FINDINGS: All vessels appear to have patency and no clots visualized. Edema noted in lower arm. Pat ient had bandages in area of fistula placement superior to right elbow. Area scanned included directl y above bandage and below. No evidence of pseudoaneurysm. IMPRESSION: 1. Patent appearing vessels visualized. No evidence for pseudoaneurysm. 2. Subcutaneous edema which could represent postprocedural changes.
--- NOTE | 2022-09-22 20:30 | ED ---
Extremity Problem HPI - General Chief complaint: Extremity Problem,Nontraumatic Stated complaint: post op - rt arm edema Time Seen by Provider: 09/22/22 19:25 Source: patient Mode of arrival: ambulatory - History of Present Illness Initial comments: This patient is a 52-year-old woman who presents evaluation of right arm swelling. The patient did have a dialysis graft placed days ago at [facility] by the vascular surgeon there. The patient denies experiencing fever or chills. She has not had any drainage from the surgical incisions. No chest pain, dyspnea, palpitations, hemoptysis. He has not experienced loss of sensation or function of the arm. MD Complaint: extremity pain, extremity swelling -: days(s) Location: right, upper extremity History of Same: No Quality: aching, dull Consistency: constant Improves with: nothing Worsens with: nothing Associated Symptoms: denies other symptoms - Related Data Home Medications Medication Instructions Recorded Confirmed Gattex 0.23 ml SQ Q48H 10/29/15 11/05/20 Sodium Bicarbonate Tab 1,300 mg PO TID 09/06/18 11/05/20 calcitrioL [Calcitriol] 0.25 mcg PO SUWE 11/09/18 11/05/20 Potassium Chloride [Klor-Con 20 20 meq PO BID 03/27/19 11/05/20 Packets] Previous Rx's Medication Instructions Recorded Acetaminophen Tab [Tylenol] 650 mg PO Q6HR PRN tab 12/02/18 Psyllium Husk 100% [Metamucil 6 gm PO BID packet 12/02/18 Packet] Allergies Allergy/AdvReac Type Severity Reaction Status Date / Time ceftriaxone [From Rocephin] Allergy Intermediate Itching Verified 09/22/22 17:56 acetate salt Allergy Unknown Verified 09/22/22 17:56 [From Hyperlyte CR] ciprofloxacin [From Cipro] Allergy Anaphylaxis Verified 09/22/22 17:56 ciprofloxacin HCl Allergy Anaphylaxis Verified 09/22/22 17:56 [From Cipro] fat emulsions Allergy Unknown Verified 09/22/22 17:56 [From Liposyn II] Sulfa (Sulfonamide Allergy Anaphylaxis Verified 09/22/22 17:56 Antibiotics) fexofenadine [From Sofia] AdvReac Migraine Verified 09/22/22 17:56 vancomycin AdvReac Rash/Hives Verified 01/11/23 17:56 Review of Systems ROS Statement: Those systems with pertinent positive or pertinent negative responses have been documented in the HPI. ROS Other: All systems not noted in ROS Statement are negative. 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 HAS PORT FOR TPN, pneumothorax, hemothorax. ANEMIA History of Any Multi-Drug Resistant Organisms: None Reported Past Surgical History: Appendectomy, Bowel Resection, Cholecystectomy, Tubal Ligation Additional Past Surgical History / Comment(s): intestinal transplant and removal, chest tube placement. ADAMSON REPLACEMENT. back sx Past Anesthesia/Blood Transfusion Reactions: No Reported Reaction Past Psychological History: No Psychological Hx Reported Smoking Status: Never smoker Past Alcohol Use History: None Reported Past Drug Use History: None Reported - Past Family History Mother Family Medical History: Hypertension Father Family Medical History: Congestive Heart Failure (CHF), Coronary Artery Disease (CAD), Diabetes Mellitus, Hypertension Additional Family Medical History / Comment(s): . General Exam General appearance: alert, in no apparent distress Head exam: Present: atraumatic, normocephalic Eye exam: Present: normal appearance. Absent: scleral icterus, conjunctival injection Neck exam: Present: normal inspection, full ROM Respiratory exam: Present: normal lung sounds bilaterally. Absent: respiratory distress, wheezes, rales, rhonchi, stridor Cardiovascular Exam: Present: regular rate, normal rhythm, normal heart sounds. Absent: systolic murmur, diastolic murmur, rubs, gallop GI/Abdominal exam: Present: soft. Absent: distended, tenderness, guarding, rebound, rigid, mass Extremities exam: Present: tenderness Right Shoulder Exam: Present: normal inspection Upper Arm exam: Present: full ROM, tenderness, swelling, ecchymosis. Absent: abrasion, laceration, deformity, crepidus, dislocation, erythema Elbow exam: Present: normal inspection, full ROM, tenderness, swelling. Absent: abrasion, laceration, ecchymosis, deformity, crepitus, dislocation Forearm Wrist exam: Present: full ROM, swelling, ecchymosis. Absent: tenderness, laceration Hand Wrist exam: Present: normal inspection, full ROM, swelling, ecchymosis. Absent: tenderness Neuro motor exam: Present: wrist extension intact, thumb opposition intact, thumb IP flexion intact, thumb adduction intact, fingers 2-5 abduction intact Vascular: Present: normal capillary refill. Absent: vascular compromise, Pallo, pulse deficit radial art, pulse deficit ulnar art, pulse deficit brachial art Course Vital Signs 09/22/22 17:53 Temperature 99.3 F Pulse Rate 90 Respiratory 16 Rate Blood Pressure 153/85 O2 Sat by Pulse 98 Oximetry Medical Decision Making - Medical Decision Making This patient is 52-year-old recent dialysis graft placement. She does have ecchymosis, swelling, mild tenderness diffusely. There is no palpable cord. There is no Homans sign. She does have neurovascular function and normal pulses. Given the recent surgery, did perform duplex Doppler exam which does not reveal evidence of DVT to the extremity. Patient instructed to elevate and rest the arm. She will follow with her vascular surgeon. We discussed appropriate return parameters as well. Was pt. sent in by a medical professional or institution? @ -No Did you speak to anyone other than the patient for history? @ -[No Did you review nursing and triage notes? @ -[agree Were old charts reviewed? @ -No Differential Diagnosis? @ -[Differential for right arm pain and swelling includes but not limited to acute bony trauma, acute vascular injury, DVT, postoperative infection, cellulitis, neurologic injury amongst other etiologies EKG interpreted by me (3pts min.)? @ -[none] X-rays interpreted by me (1pt min.)? @ -[none] CT interpreted by me (1pt min.)? @ -[none] U/S interpreted by me (1pt. min.)? @ -[none] What testing was considered but not performed? (CT, X-rays, U/S, labs)? Why? @ None What meds were considered but not given? Why? @ -[none] Did you discuss the management of the patient with other professionals? @ -[None Did you reconcile home meds? @ -[none] Was smoking cessation discussed for >3mins.? @ -[none] Was critical care preformed (if so, how long)? @ -[none] Were there social determinants of health that impacted care today? How? (Homelessness, low income, unemployed, alcoholism, drug addiction, transportation, low edu. Level, literacy, decrease access to med. care, long term, rehab)? @ -[No Was there de-escalation of care discussed even if they declined? (Discuss DNR or withdrawal of care, Hospice)? @ -[No What co-morbidities impacted this encounter? (DM, HTN, Smoking, COPD, CAD, Cancer, CVA, Hep., AIDS, mental health diagnosis, sleep apnea, morbid obesity)? @ -[Chronic renal failure Was patient admitted / discharged? @ -[Discharged Undiagnosed new problem with uncertain prognosis? @ -[none] Drug Therapy requiring intensive monitoring for toxicity (Heparin, Nitro, Insulin, Cardizem)? @ -[none] Were any procedures done? @ -[none] Diagnosis/symptom? @ -1. Acute postoperative arm edema Acute, or Chronic, or Acute on Chronic? @ -[Acute Uncomplicated (without systemic symptoms) or Complicated (systemic symptoms)? @ -[Uncomplicated Side effects of treatment? @ -[none] Exacerbation, Progression, or Severe Exacerbation] @ -[no] Poses a threat to life or bodily function? @ -[no] Disposition Clinical Impression: Arm swelling Disposition: HOME SELF-CARE Condition: Good Instructions (If sedation given, give patient instructions): Arm Pain (ED) Is patient prescribed a controlled substance at d/c from ED?: No Referrals: Danny Davis MD [Primary Care Provider] - 1-2 days
== END 2022-09-22 20:43 | disposition home or self-care (01) ==
LOC: EC 17:27
DX: M79.89 Other specified soft tissue disorders (principal); I10 Essential (primary) hypertension; Z88.1 Allergy status to other antibiotic agents; Z88.2 Allergy status to sulfonamides; Z88.8 Allergy status to other drugs, medicaments and biological substances
CPT/HCPCS: 93975; 99283

== ENCOUNTER → 2022-12-31 | Outpatient (CLI) | payer MEDICARE, OTHER | END | disposition home or self-care (01) | LOC: LABWHC1 10:40 | PROVIDERS: ATTEND Family Medicine | DX: M83.9 Adult osteomalacia, unspecified (principal); R79.89 Other specified abnormal findings of blood chemistry | CPT/HCPCS: 36415; 82306 ==

== ENCOUNTER → 2023-04-04 | Outpatient (CLI) | payer MEDICARE, OTHER | END | disposition home or self-care (01) | LOC: LABWHC1 10:14 | PROVIDERS: ATTEND Internal Medicine Gastroenterology | DX: Z53.9 Procedure and treatment not carried out, unspecified reason (principal) | CPT/HCPCS: 36415; 82180; 82306; 82525; 84075 ==

== ENCOUNTER 2023-04-08 14:53 | Inpatient (IN) | payer MEDICARE, OTHER ==
[2023-04-08 19:41] LABS: Anisocytosis Slight; Basophils % (A) 1 %; Eosinophils # (A) 0.2 k/uL (0-0.7); Eosinophils % (A) 4 %; HCT 34.3 % (34.0-46.0); HGB 10.9 gm/dL (11.4-16.0); Hypochromasia Marked; Lymphocytes # (A) 0.8 k/uL (1.0-4.8); Lymphocytes % (A) 15 %; MCH 33.9 pg (25.0-35.0); MCHC 31.9 g/dL (31.0-37.0); MCV 106.2 fL (80.0-100.0); Macrocytosis Marked; Mean Platelet Volume 7.9; Monocytes # (A) 0.5 k/uL (0-1.0); Monocytes % (A) 10 %; Neutrophils # (A) 3.3 k/uL (1.3-7.7); Neutrophils % (A) 67 %; RBC 3.23 m/uL (3.80-5.40); RDW 16.5 % (11.5-15.5)
[2023-04-08 19:45] LABS: ALT 15 U/L (4-34); AST 31 U/L (14-36); African American GFR (CKD) 10 (>60 ml/min/1.73 sqM); Albumin 3.1 g/dL (3.5-5.0); Alkaline Phosphatase 496 U/L (38-126); Anion Gap 18 mmol/L; Blood Urea Nitrogen 23 mg/dL (7-17); Calcium 8.7 mg/dL (8.4-10.2); Carbon Dioxide 21 mmol/L (22-30); Chloride 100 mmol/L (98-107); Glucose 68 mg/dL (74-99); Non-African American GFR(CKD) 9 (>60 ml/min/1.73 sqM); Potassium 4.5 mmol/L (3.5-5.1); Sodium 139 mmol/L (137-145); Total Bilirubin 0.4 mg/dL (0.2-1.3); Total Protein 5.9 g/dL (6.3-8.2)
[2023-04-08 20:02] LABS: Platelet Count 92 k/uL (150-450)
--- NOTE | 2023-04-08 20:16 | ED ---
General Adult HPI - General Chief complaint: Recheck/Abnormal Lab/Rx Stated complaint: infected port Time Seen by Provider: 04/08/23 17:55 Source: patient Mode of arrival: ambulatory Limitations: no limitations - History of Present Illness Initial comments: 52-year-old female with a past medical history significant for short bowel syndrome and Choi catheter for TPN presents to the ED with a chief complaint of catheter problem. Patient states for the past few days has been experiencing myalgias, chills, subjective fever and is concerned that her catheter is infected as she notes history of multiple infections of his catheter and feels her symptoms are consistent with prior history. States that her nurse looked at the catheter and stated that the area surrounding the catheter did look infected. Called her PCP who called the surgeon who performed this who advised that she present to their office for further evaluation however mistakenly came to the ER. No other complaints. - Related Data Home Medications Medication Instructions Recorded Confirmed Sodium Bicarbonate Tab 1,300 mg PO TID 09/06/18 04/08/23 Copper Supplement 1 tab PO DAILY 04/08/23 04/08/23 Diphenox-Atrop 2.5-0.025 mg 1 tab PO BID 04/08/23 04/08/23 [Lomotil] Ergocalciferol (Vitamin D2) 1,250 mcg PO DAILY 04/08/23 04/08/23 [Drisdol (50,000 Iu)] Loperamide [Imodium] 2 mg PO BID PRN 04/08/23 04/08/23 Ondansetron Odt [Zofran Odt] 4 mg PO Q8HR PRN 04/08/23 04/08/23 Imtms-Guc-Bmer 278-164-250 mg 1 packet PO TID 04/08/23 04/08/23 [Neutra-Phos Packet] Potassium Chloride ER [K-Dur 20] 20 meq PO BID 04/08/23 04/08/23 Vit B Complx C/Folic Acid/Zinc 1 tab PO DAILY 04/08/23 04/08/23 [Renaplex Tablet] fentaNYL 25MCG/HR PATCH [Duragesic 25 mcg TRANSDERM Q72H 04/08/23 04/08/23 25MCG/HR] ursodioL [Ursodiol] 300 mg PO BID 04/08/23 04/08/23 Previous Rx's Medication Instructions Recorded Acetaminophen Tab [Tylenol] 650 mg PO Q6HR PRN tab 12/02/18 Allergies Allergy/AdvReac Type Severity Reaction Status Date / Time ceftriaxone [From Rocephin] Allergy Intermediate Itching Verified 04/08/23 19:44 acetate salt Allergy Unknown Verified 04/08/23 19:44 [From Hyperlyte CR] ciprofloxacin [From Cipro] Allergy Anaphylaxis Verified 04/08/23 19:44 ciprofloxacin HCl Allergy Anaphylaxis Verified 04/08/23 19:44 [From Cipro] fat emulsions Allergy Unknown Verified 04/08/23 19:44 [From Liposyn II] Sulfa (Sulfonamide Allergy Anaphylaxis Verified 04/08/23 19:44 Antibiotics) fexofenadine [From Sofia] AdvReac Migraine Verified 04/08/23 19:44 vancomycin AdvReac Rash/Hives Verified 04/08/23 19:44 Review of Systems ROS Statement: Those systems with pertinent positive or pertinent negative responses have been documented in the HPI. ROS Other: All systems not noted in ROS Statement are negative. 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 HAS PORT FOR TPN, pneumothorax, hemothorax. ANEMIA History of Any Multi-Drug Resistant Organisms: None Reported Past Surgical History: Appendectomy, Bowel Resection, Cholecystectomy, Tubal Ligation Additional Past Surgical History / Comment(s): intestinal transplant and removal, chest tube placement. CHOI REPLACEMENT. back sx Past Anesthesia/Blood Transfusion Reactions: No Reported Reaction Past Psychological History: No Psychological Hx Reported Smoking Status: Never smoker Past Alcohol Use History: None Reported Past Drug Use History: None Reported - Past Family History Mother Family Medical History: Hypertension Father Family Medical History: Congestive Heart Failure (CHF), Coronary Artery Disease (CAD), Diabetes Mellitus, Hypertension Additional Family Medical History / Comment(s): . General Exam Limitations: no limitations General appearance: alert, in no apparent distress ENT exam: Present: mucous membranes moist Respiratory exam: Present: normal lung sounds bilaterally Cardiovascular Exam: Present: regular rate, normal rhythm GI/Abdominal exam: Present: soft Neurological exam: Present: alert, oriented X3 Skin exam: Present: other (Area around the catheter site does appear erythematous with some warmth, no significant edema or tenderness to palpation.) Course Vital Signs 04/08/23 15:23 Temperature 98.7 F Pulse Rate 67 Respiratory 20 Rate Blood Pressure 110/68 O2 Sat by Pulse 99 Oximetry Medical Decision Making - Medical Decision Making Was pt. sent in by a medical professional or institution (, [facility], [employer] MANAGEMENT CONSULTANT, urgent care, hospital, or snf...) When possible be specific @ -No Did you speak to anyone other than the patient for history (EMS, parent, family, police, friend...)? What history was obtained from this source @ -No Did you review nursing and triage notes (agree or disagree)? Why? @ -I reviewed and agree with nursing and triage notes Were old charts reviewed (outside hosp., previous admission, EMS record, old EKG, old radiological studies, urgent care reports/EKG's, snf records)? Report findings @ -Charts reviewed showing history of short bowel syndrome and Choi catheter placement Differential Diagnosis (chest pain, altered mental status, abdominal pain women, abdominal pain men, vaginal bleeding, weakness, fever, dyspnea, syncope, headache, dizziness, GI bleed, back pain, seizure, CVA, palpatations, mental health, musculoskeletal)? @ -Sepsis, cellulitis. This is not meant to be an all-inclusive list. EKG interpreted by me (3pts min.). @ -None X-rays interpreted by me (1pt min.). @ -None done CT interpreted by me (1pt min.). @ -None done U/S interpreted by me (1pt. min.). @ -None done What testing was considered but not performed or refused? (CT, X-rays, U/S, labs)? Why? @ -None What meds were considered but not given or refused? Why? @ -None Did you discuss the management of the patient with other professionals (professionals i.e. ANTON Denson, [employer] MANAGEMENT CONSULTANT, lab, RT, psych nurse, social work manager, solar water heater installer, teacher, accounting officer, director case management)? Give summary @ -Spoke to Dr. Alex who advised admission and antibiotics. He will see the patient tomorrow. Spoke to Dr. Mcginnis who accepted admission Was smoking cessation discussed for >3mins.? @ -No Was critical care preformed (if so, how long)? @ -No Were there social determinants of health that impacted care today? How? (Homelessness, low income, unemployed, alcoholism, drug addiction, transportation, low edu. Level, literacy, decrease access to med. care, longterm, r ehab)? @ -No Was there de-escalation of care discussed even if they declined (Discuss DNR or withdrawal of care, Hospice)? DNR status @ -No What co-morbidities impacted this encounter? (DM, HTN, Smoking, COPD, CAD, Cancer, CVA, ARF, Chemo, Hep., AIDS, mental health diagnosis, sleep apnea, morbid obesity)? @ -Short-bowel syndrome Was patient admitted / discharged? Hospital course, mention meds given and route, prescriptions, significant lab abnormalities, going to OR and other perti nent info. @ -Admission. CBC at this time shows no elevation in white count. Blood cultures obtained including one at the catheter site. Patient started on Zosyn. Discussed plan of care with patient who verbalizes agreement. Undiagnosed new problem with uncertain prognosis? @ -No Drug Therapy requiring intensive monitoring for toxicity (Heparin, Nitro, Insulin, Cardizem)? @ -No Were any procedures done? @ -No Diagnosis/symptom? @ -Central catheter infection Acute, or Chronic, or Acute on Chronic? @ -Acute Uncomplicated (without systemic symptoms) or Complicated (systemic symptoms)? @ -Uncomplicated Side effects of treatment? @ -No Exacerbation, Progression, or Severe Exacerbation? @ -No Poses a threat to life or bodily function? How? (Chest pain, [place], [place], pneumonia, PE, COPD, DKA, ARF, appy, cholecystitis, CVA, Diverticulitis, Homicidal, Suic idal, threat to staff... and all critical care pts) @ -No - Lab Data Result diagrams: 04/08/23 18:27 04/08/23 18:27 Lab Results 04/08/23 04/08/23 04/08/23 Range/Units 18:27 18:27 18: WBC 5.0 (3.8-10.6) k/uL RBC 3.23 L (3.80-5.40) m/uL Hgb 10.9 L (11.4-16.0) gm/dL Hct 34.3 (34.0-46.0) % MCV 106.2 H (80.0-100.0) fL MCH 33.9 (25.0-35.0) pg MCHC 31.9 (31.0-37.0) g/dL RDW 16.5 H (11.5-15.5) % Plt Count 92 L D (150-450) k/uL MPV 7.9 Neutrophils % 67 % Lymphocytes % 15 % Monocytes % 10 % Eosinophils % 4 % Basophils % 1 % Neutrophils # 3.3 (1.3-7.7) k/uL Lymphocytes # 0.8 L (1.0-4.8) k/uL Monocytes # 0.5 (0-1.0) k/uL Eosinophils # 0.2 (0-0.7) k/uL Basophils # 0.0 (0-0.2) k/uL Hypochromasia Marked Anisocytosis Slight Macrocytosis Marked A Sodium 139 (137-145) mmol/L Potassium 4.5 (3.5-5.1) mmol/L Chloride 100 (98-107) mmol/L Carbon Dioxide 21 L (22-30) mmol/L Anion Gap 18 mmol/L BUN 23 H (7-17) mg/dL Creatinine 5.18 H (0.52-1.04) mg/dL Est GFR (CKD-EPI)AfAm 10 (>60 ml/min/1.73 sqM) Est GFR (CKD-EPI)NonAf 9 (>60 ml/min/1.73 sqM) Glucose 68 L (74-99) mg/dL Plasma Lactic Acid Malik 1.9 (0.7-2.0) mmol/L Calcium 8.7 (8.4-10.2) mg/dL Total Bilirubin 0.4 (0.2-1.3) mg/dL AST 31 (14-36) U/L ALT 15 (4-34) U/L Alkaline Phosphatase 496 H (38-126) U/L Total Protein 5.9 L (6.3-8.2) g/dL Albumin 3.1 L (3.5-5.0) g/dL Disposition Clinical Impression: Infection associated with central venous catheter Disposition: ADMITTED IP TO THIS HOSP Condition: Good Referrals: Danny Davis MD [Primary Care Provider] - 1-2 days Time of Disposition: 20:05
[2023-04-08] MEDS ORDERED: ONDANSETRON 4 MG/2 ML VIAL IVP PRN (20:22)
[2023-04-08] MEDS ORDERED: NALOXONE 0.4 MG/ML 1 ML VIAL IV PRN (20:22)
[2023-04-08] MEDS ORDERED: SODIUM CHLORIDE 0.9% 1,000 ML IV SCH (20:30)
[2023-04-08] MEDS ORDERED: AMPICILLIN-SULBACTAM 3 GM in SODIUM CHLORIDE 0.9% 100 ML IVPB SCH (21:00)
[2023-04-08] MEDS ORDERED: diphenhydrAMINE 50 MG/ML 1 ML VIAL IVP STA (21:23)
[2023-04-08 22:27] LABS: Glucose,Whole Blood 55 mg/dL (70-110)
[2023-04-08 23:04] LABS: Glucose,Whole Blood 54 mg/dL (70-110)
[2023-04-08] MEDS ORDERED: DEXTROSE 50% SYRINGE 50 ML IVP STA (23:05)
[2023-04-08 23:53] LABS: Glucose,Whole Blood 166 mg/dL (70-110)
[2023-04-09] MEDS: ACETAMINOPHEN TAB 325 MG TAB PO PRN (01:21)
[2023-04-09 01:40] LABS: Glucose,Whole Blood 67 mg/dL (70-110)
[2023-04-09 02:02] LABS: Glucose,Whole Blood 63 mg/dL (70-110)
[2023-04-09] MEDS ORDERED: LOPERAMIDE 2 MG CAP PO PRN (02:07)
[2023-04-09] MEDS: DEXTROSE 5%-0.45% NACL 1,000 ML IV SCH ×3 (02:15→23:41)
[2023-04-09 02:25] LABS: Glucose,Whole Blood 76 mg/dL (70-110)
--- NOTE | 2023-04-09 02:37 | P.HPIM ---
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 with ESRD on HD through right permacath she was sent in here by her surgeon to review her TPN line, as she has been reporting not feeling well, she describes it as typical when she gets line infection and needs replacement . she reports generalized body aches and chills. for the past few days whenever she tries to use the TPN line. so she stopped using it for 2 days now. she went to her surgeon who recommended to go to the hospital to rule out infectious process. again she denies any drainage , fever, or pain. but noticed some erythema and the generalized symptoms that she typically gets during infections in the past. short bowel syndrome post sigmoid volvulous , followed by graft rejection. denies tobacco smoking, illicit drugs or alcohol review of systems Pertinent positives as noted in HPI. All other systems were reviewed and are negative on exam Constitutional: No acute distress, conversant, pleasant Eyes: Anicteric sclerae, moist conjunctiva, Pupils equal round reactive to light ENMT: NC/AT Oropharynx clear, no erythema, or exudates Neck: Supple, no masses, or JVD No carotid bruits No thyromegaly Lungs: Clear to auscultation Clear to percussion Normal respiratory effort, no accessory muscle use Cardiovascular: Heart regular in rate and rhythm, No murmurs, gallops, or rubs No peripheral edema Abdominal: Soft Nontender, no guarding, rebound or rigidity Abdomen moving with respiration Normoactive bowel sounds No hepatomegaly, No splenomegaly No palpable mass abdominal wall hernia noted Skin: right permacath, and right TPN line with surrounding erythema at entrance site, no drainage. Extremities: No digital cyanosis No clubbing Pedal pulses intact and symmetrical Radial pulses intact and symmetrical No calf tenderness Psychiatric: Alert and oriented to person, place and time Appropriate affect fair judgement Neuro Muscles Strength 5/5 in all 4 extremities Sensation to light touch grossly present throughout Cranial nerves II-XII grossly intact Lymphatics: no palpable cervical or supraclavicular lymph nodes Past Medical History Past Medical History: Blood Disorder, Hypertension, Renal Disease Additional Past Medical History / Comment(s): HX OF PAST LINE SEPSIS/Adamson , Hernia, HX OF SIGMOID VOLVULOUS W/ GRAFT REJECTION/SHORT GUT SYNDROME-HAS HAD LINE SEPSIS IN PAST W/ REMOVAL. HAS PORT FOR TPN, pneumothorax, hemothorax. ANEMIA History of Any Multi-Drug Resistant Organisms: None Reported Past Surgical History: Appendectomy, Bowel Resection, Cholecystectomy, Tubal Ligation Additional Past Surgical History / Comment(s): intestinal transplant and r emoval, chest tube placement. ADAMSON REPLACEMENT. back sx Past Anesthesia/Blood Transfusion Reactions: No Reported Reaction Past Psychological History: No Psychological Hx Reported Smoking Status: Never smoker Past Alcohol Use History: None Reported Past Drug Use History: None Reported - Past Family History Mother Family Medical History: Hypertension Father Family Medical History: Congestive Heart Failure (CHF), Coronary Artery Disease (CAD), Diabetes Mellitus, Hypertension Additional Family Medical History / Comment(s): . Medications and Allergies Home Medications Medication Instructions Recorded Confirmed Type Sodium Bicarbonate Tab 1,300 mg PO TID 09/06/18 04/08/23 History Acetaminophen Tab [Tylenol] 650 mg PO Q6HR PRN tab 12/02/18 04/08/23 Rx Copper Supplement 1 tab PO DAILY 04/08/23 04/08/23 History Diphenox-Atrop 2.5-0.025 mg 1 tab PO BID 04/08/23 04/08/23 History [Lomotil] Ergocalciferol (Vitamin D2) 1,250 mcg PO DAILY 04/08/23 04/08/23 History [Drisdol (50,000 Iu)] Loperamide [Imodium] 2 mg PO BID PRN 04/08/23 04/08/23 History Ondansetron Odt [Zofran Odt] 4 mg PO Q8HR PRN 04/08/23 04/08/23 History Jqhfm-[id number] 278-164-250 mg 1 packet PO TID 04/08/23 04/08/23 History [Neutra-Phos Packet] Potassium Chloride ER [K-Dur 20] 20 meq PO BID 04/08/23 04/08/23 History Vit B Complx C/Folic Acid/Zinc 1 tab PO DAILY 04/08/23 04/08/23 History [Renaplex Tablet] fentaNYL 25MCG/HR PATCH [Duragesic 25 mcg TRANSDERM Q72H 04/08/23 04/08/23 History 25MCG/HR] ursodioL [Ursodiol] 300 mg PO BID 04/08/23 04/08/23 History Allergies Allergy/AdvReac Type Severity Reaction Status Date / Time ceftriaxone [From Rocephin] Allergy Intermediate Itching Verified 04/08/23 19:44 acetate salt Allergy Unknown Verified 04/08/23 19:44 [From Hyperlyte CR] ciprofloxacin [From Cipro] Allergy Anaphylaxis Verified 04/08/23 19:44 ciprofloxacin HCl Allergy Anaphylaxis Verified 04/08/23 19:44 [From Cipro] fat emulsions Allergy Unknown Verified 04/08/23 19:44 [From Liposyn II] Sulfa (Sulfonamide Allergy Anaphylaxis Verified 04/08/23 19:44 Antibiotics) fexofenadine [From Sofia] AdvReac Migraine Verified 04/08/23 19:44 vancomycin AdvReac Rash/Hives Verified 04/08/23 19:44 Physical Exam Vitals: Vital Signs Temp Pulse Resp BP Pulse Ox 04/08/23 23:02 60 16 125/81 100 04/08/23 21:19 65 18 122/80 100 04/08/23 15:23 98.7 F 67 20 110/68 99 Intake and Output 04/08/23 04/08/23 04/09/23 14:59 22:59 06:59 Other: Weight 35.38 kg Results CBC & Chem 7: 04/08/23 18:27 04/08/23 18:27 Labs: Abnormal Lab Results - Last 24 Hours (Table) 04/08/23 04/08/23 04/08/23 Range/Units 18:27 18:27 22:25 RBC 3.23 L (3.80-5.40) m/uL Hgb 10.9 L (11.4-16.0) gm/dL MCV 106.2 H (80.0-100.0) fL RDW 16.5 H (11.5-15.5) % Plt Count 92 L D (150-450) k/uL Lymphocytes # 0.8 L (1.0-4.8) k/uL Macrocytosis Marked A Carbon Dioxide 21 L (22-30) mmol/L BUN 23 H (7-17) mg/dL Creatinine 5.18 H (0.52-1.04) mg/dL Glucose 68 L (74-99) mg/dL POC Glucose (mg/dL) 55 L (70-110) mg/dL Alkaline Phosphatase 496 H (38-126) U/L Total Protein 5.9 L (6.3-8.2) g/dL Albumin 3.1 L (3.5-5.0) g/dL 04/08/23 04/08/23 Range/Units 23:01 23:52 RBC (3.80-5.40) m/uL Hgb (11.4-16.0) gm/dL MCV (80.0-100.0) fL RDW (11.5-15.5) % Plt Count (150-450) k/uL Lymphocytes # (1.0-4.8) k/uL Macrocytosis Carbon Dioxide (22-30) mmol/L BUN (7-17) mg/dL Creatinine (0.52-1.04) mg/dL Glucose (74-99) mg/dL POC Glucose (mg/dL) 54 L 166 H (70-110) mg/dL Alkaline Phosphatase (38-126) U/L Total Protein (6.3-8.2) g/dL Albumin (3.5-5.0) g/dL Assessment and Plan Assessment: 52 year old female with hypertension , 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 for 15 years, coming in to rule out line infection , I discussed the case with ED doc and I accepted the admission to rule out line infection with anticipated length of stay < 2 midnights 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, rule out line infection hypoglycemia ESRD on HD through right permacath chronic pain plan cultures obtained started empirially on unasyn sugery consult IVF hydration D5% 0.45 @ 100 cc per hour pain control with home fentanyl patch daily blood work showing WBC 5.0 , afebrile chronic anemia stable hgb 10.9 ESRD, on HD through right permacath nephrology consult for dialysis BUN 23, cr 5.1 Na 139, K 4.5 no code DVT PPX on heparin sc tid
[2023-04-09 04:13] LABS: Glucose,Whole Blood 90 mg/dL (70-110)
[2023-04-09 05:39] LABS: Glucose,Whole Blood 78 mg/dL (70-110)
[2023-04-09 07:04] LABS: Glucose,Whole Blood 82 mg/dL (70-110)
[2023-04-09] MEDS: DIPHENOX-ATROP 2.5-0.025 MG 1 EACH TAB PO SCH ×2 (07:49→20:44)
[2023-04-09] MEDS: FOLIC ACID-VIT B COMPLEX-VIT C 1 CAP PO SCH (07:49)
[2023-04-09] MEDS: HEPARIN SODIUM,PORCINE/PF 5,000 UNIT/0.5 ML SYRINGE SQ SCH ×3 (07:49→23:42)
[2023-04-09] MEDS: POTASSIUM CHLORIDE ER 20 MEQ TAB.ER PO SCH ×2 (07:50→20:44)
[2023-04-09] MEDS: POTAS-SOD-PHOS 278-164-250 MG 1 EACH PACKET PO SCH ×3 (07:50→21:09)
[2023-04-09] MEDS: SODIUM BICARBONATE TAB 650 MG TAB PO SCH ×3 (07:51→20:44)
[2023-04-09] MEDS: ursodioL 300 MG CAP PO SCH ×2 (07:51→20:44)
[2023-04-09] MEDS ORDERED: LIDOCAINE 1% INJ 10MG/ML (20 ML MDV) SQ ONE (09:00)
[2023-04-09] MEDS ORDERED: [UNRECOGNIZED DRUG - OTHER] PO SCH (09:00)
[2023-04-09 09:06] LABS: Glucose,Whole Blood 66 mg/dL (70-110)
[2023-04-09 11:05] LABS: Glucose,Whole Blood 77 mg/dL (70-110)
[2023-04-09 11:10] VITALS: BMI 14.2
--- NOTE | 2023-04-09 11:40 | P.GSCN ---
History of Present Illness Consult date: 04/09/23 Reason for Consult: Suspicion of Groshong catheter infection, short bowel syndrome, dependent on TPN, end-stage renal disease on hemodialysis History of present illness: Patient is a 52-year-old lady quite familiar to Dr. Liam Carrillo. 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 She lost nearly all of her small bowel, been left with a short bowel syndrome. 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 She's been left dependent on TPN. She now has end-stage renal disease and is in the midst of having a fistula matured. In the meantime she is receiving hemodialysis treatments via right internal jugular permacath. She has a right subclavian Groshong catheter for TPN. Over the past 3 days she's been noticing some aching leg cramps with her TPN administrations in the evening. The day before presentation in the hospital she developed shaking chills and diaphoresis with her infusion cueing her into potential line infection. She has had similar issues in the past. Typically her Groshong catheters last a year, this one was mated to 2 years. She was admitted to [facility] through the emergency department 04/08/2023 to the medical service, was started on antibiotics, cultures were ordered. I am asked to see about getting her Groshong catheter removed. She's not maintained on any manner of oral anticoagulants. She does have a history of diabetes mellitus. Patient's had a hemodynamically stable and afebrile appearance today. Presentation with a silk and was within normal limits, hemoglobin low at 10.9, platelet count low at 92. Conference of metabolic panel shows creatinine of 5.18, CO2 slightly low at 21, otherwise normal with the exception of a low albumin at 3.1, elevated alkaline phosphatase at 496. Remainder of liver function studies within normal limits, venous lactate normal range. Review of Systems All systems: negative Past Medical History Past Medical History: Blood Disorder, Hypertension, Renal Disease Additional Past Medical History / Comment(s): HX OF PAST LINE SEPSIS/Adamson , Hernia, HX OF SIGMOID VOLVULOUS W/ GRAFT REJECTION/SHORT GUT SYNDROME-HAS HAD LINE SEPSIS IN PAST W/ REMOVAL. HAS PORT FOR TPN, pneumothorax, hemothorax. ANEMIA History of Any Multi-Drug Resistant Organisms: None Reported Past Surgical History: Appendectomy, Bowel Resection, Cholecystectomy, Tubal Ligation Additional Past Surgical History / Comment(s): intestinal transplant and removal, chest tube placement. ADAMSON REPLACEMENT. back sx Past Anesthesia/Blood Transfusion Reactions: No Reported Reaction Past Psychological History: No Psychological Hx Reported Smoking Status: Never smoker Past Alcohol Use History: None Reported Past Drug Use History: None Reported - Past Family History Mother Family Medical History: Hypertension Father Family Medical History: Congestive Heart Failure (CHF), Coronary Artery Disease (CAD), Diabetes Mellitus, Hypertension Additional Family Medical History / Comment(s): . Medications and Allergies Home Medications Medication Instructions Recorded Confirmed Type Sodium Bicarbonate Tab 1,300 mg PO TID 09/06/18 04/08/23 History Acetaminophen Tab [Tylenol] 650 mg PO Q6HR PRN tab 12/02/18 04/08/23 Rx Copper Supplement 1 tab PO DAILY 04/08/23 04/08/23 History Diphenox-Atrop 2.5-0.025 mg 1 tab PO BID 04/08/23 04/08/23 History [Lomotil] Ergocalciferol (Vitamin D2) 1,250 mcg PO DAILY 04/08/23 04/08/23 History [Drisdol (50,000 Iu)] Loperamide [Imodium] 2 mg PO BID PRN 04/08/23 04/08/23 History Ondansetron Odt [Zofran Odt] 4 mg PO Q8HR PRN 04/08/23 04/08/23 History Jpmyc-[id number]-Hhar 278-164-250 mg 1 packet PO TID 04/08/23 04/08/23 History [Neutra-Phos Packet] Potassium Chloride ER [K-Dur 20] 20 meq PO BID 04/08/23 04/08/23 History Vit B Complx C/Folic Acid/Zinc 1 tab PO DAILY 04/08/23 04/08/23 History [Renaplex Tablet] fentaNYL 25MCG/HR PATCH [Duragesic 25 mcg TRANSDERM Q72H 04/08/23 04/08/23 History 25MCG/HR] ursodioL [Ursodiol] 300 mg PO BID 04/08/23 04/08/23 History Allergies Allergy/AdvReac Type Severity Reaction Status Date / Time ceftriaxone [From Rocephin] Allergy Intermediate Itching Verified 04/08/23 19:44 acetate salt Allergy Unknown Verified 04/08/23 19:44 [From Hyperlyte CR] ciprofloxacin [From Cipro] Allergy Anaphylaxis Verified 04/08/23 19:44 ciprofloxacin HCl Allergy Anaphylaxis Verified 04/08/23 19:44 [From Cipro] fat emulsions Allergy Rash/Hives Verified 04/09/23 11:11 [From Liposyn II] Sulfa (Sulfonamide Allergy Anaphylaxis Verified 04/08/23 19:44 Antibiotics) fexofenadine [From Sofia] AdvReac Migraine Verified 04/08/23 19:44 vancomycin AdvReac Rash/Hives Verified 04/08/23 19:44 Surgical - Exam Osteopathic Statement: *. No significant issues noted on an osteopathic structural exam other than those noted in the History and Physical/Consult. Vital Signs Temp Pulse Resp BP Pulse Ox 98.7 F 67 20 110/68 99 04/08/23 15:23 04/08/23 15:23 04/08/23 15:23 04/08/23 15:23 04/08/23 15:23 - General Patient is somewhat frail, appears comfortable, no acute distress. - Eyes PERRL, normal ocular movement - ENT normal pinna, normal nares, normal mucosa, no hearing loss - Neck trachea midline - Respiratory normal expansion, normal respiratory effort, clear to auscultation - Cardiovascular Rhythm: regular - Abdomen Abdomen: soft, non tender, no guarding, no rigid, no rebound - Integumentary Patient has a right internal jugular permacath in place with no gross abnormalities, her right subclavian Groshong catheter show some erythema and induration along the subcutaneous tract and is mildly tender suspicious for infection. No drainage. - Neurologic normal coordination, normal sensation - Psychiatric oriented to time, oriented to person, oriented to place, speech is normal, memory intact Results - Labs 04/08/23 18:27 04/08/23 18:27 Abnormal Lab Results - Last 24 Hours (Table) 04/08/23 04/08/23 04/08/23 Range/Units 18:27 18:27 22:25 RBC 3.23 L (3.80-5.40) m/uL Hgb 10.9 L (11.4-16.0) gm/dL MCV 106.2 H (80.0-100.0) fL RDW 16.5 H (11.5-15.5) % Plt Count 92 L D (150-450) k/uL Lymphocytes # 0.8 L (1.0-4.8) k/uL Macrocytosis Marked A Carbon Dioxide 21 L (22-30) mmol/L BUN 23 H (7-17) mg/dL Creatinine 5.18 H (0.52-1.04) mg/dL Glucose 68 L (74-99) mg/dL POC Glucose (mg/dL) 55 L (70-110) mg/dL Alkaline Phosphatase 496 H (38-126) U/L Total Protein 5.9 L (6.3-8.2) g/dL Albumin 3.1 L (3.5-5.0) g/dL 04/08/23 04/08/23 04/09/23 Range/Units 23:01 23:52 01:37 RBC (3.80-5.40) m/uL Hgb (11.4-16.0) gm/dL MCV (80.0-100.0) fL RDW (11.5-15.5) % Plt Count (150-450) k/uL Lymphocytes # (1.0-4.8) k/uL Macrocytosis Carbon Dioxide (22-30) mmol/L BUN (7-17) mg/dL Creatinine (0.52-1.04) mg/dL Glucose (74-99) mg/dL POC Glucose (mg/dL) 54 L 166 H 67 L (70-110) mg/dL Alkaline Phosphatase (38-126) U/L Total Protein (6.3-8.2) g/dL Albumin (3.5-5.0) g/dL 04/09/23 04/09/23 Range/Units 02:00 09:04 RBC (3.80-5.40) m/uL Hgb (11.4-16.0) gm/dL MCV (80.0-100.0) fL RDW (11.5-15.5) % Plt Count (150-450) k/uL Lymphocytes # (1.0-4.8) k/uL Macrocytosis Carbon Dioxide (22-30) mmol/L BUN (7-17) mg/dL Creatinine (0.52-1.04) mg/dL Glucose (74-99) mg/dL POC Glucose (mg/dL) 63 L 66 L (70-110) mg/dL Alkaline Phosphatase (38-126) U/L Total Protein (6.3-8.2) g/dL Albumin (3.5-5.0) g/dL Diabetes panel 04/08/23 Range/Units 18:27 Sodium 139 (137-145) mmol/L Potassium 4.5 (3.5-5.1) mmol/L Chloride 100 (98-107) mmol/L Carbon Dioxide 21 L (22-30) mmol/L BUN 23 H (7-17) mg/dL Creatinine 5.18 H (0.52-1.04) mg/dL Glucose 68 L (74-99) mg/dL Calcium 8.7 (8.4-10.2) mg/dL AST 31 (14-36) U/L ALT 15 (4-34) U/L Alkaline Phosphatase 496 H (38-126) U/L Total Protein 5.9 L (6.3-8.2) g/dL Albumin 3.1 L (3.5-5.0) g/dL Calcium panel 04/08/23 Range/Units 18:27 Calcium 8.7 (8.4-10.2) mg/dL Albumin 3.1 L (3.5-5.0) g/dL Pituitary panel 04/08/23 Range/Units 18:27 Sodium 139 (137-145) mmol/L Potassium 4.5 (3.5-5.1) mmol/L Chloride 100 (98-107) mmol/L Carbon Dioxide 21 L (22-30) mmol/L BUN 23 H (7-17) mg/dL Creatinine 5.18 H (0.52-1.04) mg/dL Glucose 68 L (74-99) mg/dL Calcium 8.7 (8.4-10.2) mg/dL Adrenal panel 04/08/23 Range/Units 18:27 Sodium 139 (137-145) mmol/L Potassium 4.5 (3.5-5.1) mmol/L Chloride 100 (98-107) mmol/L Carbon Dioxide 21 L (22-30) mmol/L BUN 23 H (7-17) mg/dL Creatinine 5.18 H (0.52-1.04) mg/dL Glucose 68 L (74-99) mg/dL Calcium 8.7 (8.4-10.2) mg/dL Total Bilirubin 0.4 (0.2-1.3) mg/dL AST 31 (14-36) U/L ALT 15 (4-34) U/L Alkaline Phosphatase 496 H (38-126) U/L Total Protein 5.9 L (6.3-8.2) g/dL Albumin 3.1 L (3.5-5.0) g/dL Assessment and Plan Assessment: 52-year-old lady with a short bowel syndrome, TPN dependent. Clinical history and physical exam suggestive of infection of Groshong catheter site. No hard signs for sepsis. Symptoms with infusion consistent with bacteremia. End-stage renal disease with right internal jugular permacath. Has not been used since onset of these symptoms. Plan: Groshong catheter was removed at bedside under local anesthesia. Tip was submitted for culture. Blood cultures are pending results. She's been started empirically on ampicillin. Patient was counseled to the effect that in the setting of line infection usually all invasive lines have to be removed from a line holiday to allow antibiotics to take care of any residual infection and once everything settled than we think about getting a lines were placed. We will see what her cultures yield, will see how she does with hemodialysis. If there is question of infection of her permacath that we'll likely need to be removed as well but would be a task for vascular surgery. She does seem to have severe issues with peripheral venous sclerosis and problems with access in general. Time with Patient: Greater than 30
--- NOTE | 2023-04-09 11:43 | P.OP ---
Date of Procedure: 04/09/23 Preoperative Diagnosis: Suspected infection of Groshong catheter, peripheral venous sclerosis, TPN dependent, short bowel syndrome post small bowel resection and rejection of small bowel transplant Postoperative Diagnosis: Same as above Procedure(s) Performed: Removal of right subclavian Groshong catheter Anesthesia: local Surgeon: Dipesh Alex Estimated Blood Loss (ml): 5 Pathology: other (Catheter tip submitted for culture) Condition: stable Disposition: no change Indications for Procedure: Patient's a 52-year-old lady presented to [facility] emergency department 04/08/2023 with suspicion of infection of Groshong catheter. She's been having symptoms consistent with bacteremia with her evening infusions. The site is consistent with infection. She wishes to have it removed gave informed consent for the same after discussion of risks, benefit alternatives treatment. Operative Findings: Groshong catheter removed at bedside Description of Procedure: Patient was placed in the semi-upright position, prepped and draped in sterile fashion. The retractor the catheter and skin were anesthetized with 1% lidocaine with epinephrine solution. The fibrous cuff was dissected free of the underlying soft tissue and deep dermis bluntly, there was some scant seropurulent drainage. The catheter was removed, the tip submitted for culture and direct pressure held over the removal and venipuncture site at the right subclavian for 10 minutes to good effect. Compression dressing was placed. Patient tolerated the procedure well. Has to remain in the semiupright seated position for an additional 30 minutes for hemostasis.
[2023-04-09 12:56] LABS: Glucose,Whole Blood 73 mg/dL (70-110)
[2023-04-09 15:52] LABS: Glucose,Whole Blood 86 mg/dL (70-110)
--- NOTE | 2023-04-09 16:30 | P.PN ---
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 with ESRD on HD through right permacath presenting with possible line infection in his replacement. She was sent by her surgeon. Vital signs within normal. Laboratory workup stable. Cultures negative. Surgery removal, no complaints. Still has permacath in place. Nephrology consulted. Subjective: Patient seen and examined at bedside. No acute events overnight. Pertinent positives and negatives as discussed above, a complete review of systems was performed and all other systems are negative. Vitals Signs Reviewed. General: nontoxic, no distress, appears at stated age, thin-appearing Derm: warm, dry, right permacath and right TPN line Head: atraumatic, normocephalic, symmetric Eyes: EOMI, no lid lag, anicteric sclera Mouth: no lip lesion, mucus membranes moist Cardiovascular: S1S2 reg, no murmur Lungs: CTA bilateral, no rhonchi, no rales , no accessory muscle use Abdominal: soft, nontender to palpation, no guarding, no appreciable organomegaly Ext: no gross muscle atrophy, no edema, no contractures Neuro: CN II-XI grossly intact, no focal neuro deficits Psych: Alert, oriented, appropriate affect Data Reviewed Today: Pertinent Labs: Blood sugars range between 76-166, blood cultures negative so far Imaging: No new imaging Assessment and Plan: Suspected central line infection Short-bowel syndrome on TPN Hypoglycemia, resolved ESRD on hemodialysis through right permacath Chronic pain syndrome Chronic anemia, stable -Empirically started on IV Unasyn, blood cultures pending -Surgery note and operative note reviewed, TPN line removed -On D5 half-normal 100 mL an hour -Nephrology consulted DVT ppx: Heparin subcu Code status: No code Anticipated discharge place: Pending clinical course Anticipated discharge time: Pending clinical course Objective - Vital Signs Vital signs: Vital Signs Temp 98.5 F 04/09/23 14:00 Pulse 70 04/09/23 14:00 Resp 17 04/09/23 14:00 BP 174/92 04/09/23 14:00 Pulse Ox 99 04/09/23 14:00 FiO2 Intake & Output 04/08/23 04/09/23 04/09/23 18:59 06:59 18:59 Intake Total 240 Balance 240 Weight 35.38 kg 35.38 kg 35.38 kg Intake: Oral 240 Other: Voiding Method Toilet Toilet # Voids 1 - Labs CBC & Chem 7: 04/08/23 18:27 04/08/23 18:27 Labs: Abnormal Lab Results - Last 24 Hours (Table) 04/08/23 04/08/23 04/08/23 Range/Units 18:27 18:27 22:25 RBC 3.23 L (3.80-5.40) m/uL Hgb 10.9 L (11.4-16.0) gm/dL MCV 106.2 H (80.0-100.0) fL RDW 16.5 H (11.5-15.5) % Plt Count 92 L D (150-450) k/uL Lymphocytes # 0.8 L (1.0-4.8) k/uL Macrocytosis Marked A Carbon Dioxide 21 L (22-30) mmol/L BUN 23 H (7-17) mg/dL Creatinine 5.18 H (0.52-1.04) mg/dL Glucose 68 L (74-99) mg/dL POC Glucose (mg/dL) 55 L (70-110) mg/dL Alkaline Phosphatase 496 H (38-126) U/L Total Protein 5.9 L (6.3-8.2) g/dL Albumin 3.1 L (3.5-5.0) g/dL 04/08/23 04/08/23 04/09/23 Range/Units 23:01 23:52 01:37 RBC (3.80-5.40) m/uL Hgb (11.4-16.0) gm/dL MCV (80.0-100.0) fL RDW (11.5-15.5) % Plt Count (150-450) k/uL Lymphocytes # (1.0-4.8) k/uL Macrocytosis Carbon Dioxide (22-30) mmol/L BUN (7-17) mg/dL Creatinine (0.52-1.04) mg/dL Glucose (74-99) mg/dL POC Glucose (mg/dL) 54 L 166 H 67 L (70-110) mg/dL Alkaline Phosphatase (38-126) U/L Total Protein (6.3-8.2) g/dL Albumin (3.5-5.0) g/dL 04/09/23 04/09/23 Range/Units 02:00 09:04 RBC (3.80-5.40) m/uL Hgb (11.4-16.0) gm/dL MCV (80.0-100.0) fL RDW (11.5-15.5) % Plt Count (150-450) k/uL Lymphocytes # (1.0-4.8) k/uL Macrocytosis Carbon Dioxide (22-30) mmol/L BUN (7-17) mg/dL Creatinine (0.52-1.04) mg/dL Glucose (74-99) mg/dL POC Glucose (mg/dL) 63 L 66 L (70-110) mg/dL Alkaline Phosphatase (38-126) U/L Total Protein (6.3-8.2) g/dL Albumin (3.5-5.0) g/dL Microbiology - Last 24 Hours (Table) 04/08/23 18:27 Blood Culture Gram Stain - Preliminary Blood
[2023-04-09 17:22] LABS: Glucose,Whole Blood 68 mg/dL (70-110)
--- NOTE | 2023-04-09 17:50 | P.NPCON ---
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 She also has right upper arm fistula with dysfunction. She reports generalized body aches and chills. Lying was removed and sent out for culture. She underwent dialysis today. Review of Systems Constitutional: Reports as per HPI Past Medical History Past Medical History: Blood Disorder, Hypertension, Renal Disease Additional Past Medical History / Comment(s): HX OF PAST LINE SEPSIS/Adamson , Hernia, HX OF SIGMOID VOLVULOUS W/ GRAFT REJECTION/SHORT GUT SYNDROME-HAS HAD LINE SEPSIS IN PAST W/ REMOVAL. HAS PORT FOR TPN, pneumothorax, hemothorax. ANEMIA History of Any Multi-Drug Resistant Organisms: None Reported Past Surgical History: Appendectomy, Bowel Resection, Cholecystectomy, Tubal Ligation Additional Past Surgical History / Comment(s): intestinal transplant and removal, chest tube placement. ADAMSON REPLACEMENT. back sx Past Anesthesia/Blood Transfusion Reactions: No Reported Reaction Past Psychological History: No Psychological Hx Reported Smoking Status: Never smoker Past Alcohol Use History: None Reported Past Drug Use History: None Reported - Past Family History Mother Family Medical History: Hypertension Father Family Medical History: Congestive Heart Failure (CHF), Coronary Artery Disease (CAD), Diabetes Mellitus, Hypertension Additional Family Medical History / Comment(s): . Medications and Allergies Home Medications Medication Instructions Recorded Confirmed Type Sodium Bicarbonate Tab 1,300 mg PO TID 09/06/18 04/08/23 History Acetaminophen Tab [Tylenol] 650 mg PO Q6HR PRN tab 12/02/18 04/08/23 Rx Copper Supplement 1 tab PO DAILY 04/08/23 04/08/23 History Diphenox-Atrop 2.5-0.025 mg 1 tab PO BID 04/08/23 04/08/23 History [Lomotil] Ergocalciferol (Vitamin D2) 1,250 mcg PO DAILY 04/08/23 04/08/23 History [Drisdol (50,000 Iu)] Loperamide [Imodium] 2 mg PO BID PRN 04/08/23 04/08/23 History Ondansetron Odt [Zofran Odt] 4 mg PO Q8HR PRN 04/08/23 04/08/23 History [id number] 278-164-250 mg 1 packet PO TID 04/08/23 04/08/23 History [Neutra-Phos Packet] Potassium Chloride ER [K-Dur 20] 20 meq PO BID 04/08/23 04/08/23 History Vit B Complx C/Folic Acid/Zinc 1 tab PO DAILY 04/08/23 04/08/23 History [Renaplex Tablet] fentaNYL 25MCG/HR PATCH [Duragesic 25 mcg TRANSDERM Q72H 04/08/23 04/08/23 Hist ory 25MCG/HR] ursodioL [Ursodiol] 300 mg PO BID 04/08/23 04/08/23 History Allergies Allergy/AdvReac Type Severity Reaction Status Date / Time ceftriaxone [From Rocephin] Allergy Intermediate Itching Verified 04/08/23 19:44 acetate salt Allergy Unknown Verified 04/08/23 19:44 [From Hyperlyte CR] ciprofloxacin [From Cipro] Allergy Anaphylaxis Verified 04/08/23 19:44 ciprofloxacin HCl Allergy Anaphylaxis Verified 04/08/23 19:44 [From Cipro] fat emulsions Allergy Rash/Hives Verified 04/09/23 11:11 [From Liposyn II] Sulfa (Sulfonamide Allergy Anaphylaxis Verified 04/08/23 19:44 Antibiotics) fexofenadine [From Sofia] AdvReac Migraine Verified 04/08/23 19:44 vancomycin AdvReac Rash/Hives Verified 04/08/23 19:44 Physical Exam Vitals: Vital Signs Temp Pulse Pulse Resp BP BP Pulse Ox 04/09/23 14:00 98.5 F 70 17 174/92 99 04/09/23 06:50 97.9 F 54 L 17 119/64 98 04/09/23 02:00 97.7 F 64 18 150/79 100 04/08/23 23:02 60 16 125/81 100 04/08/23 21:19 65 18 122/80 100 Intake and Output 04/09/23 04/09/23 04/09/23 06:59 14:59 22:59 Intake Total 240 1200 Balance 240 1200 Intake: Intake, IV Titration 1200 Amount Dextrose 5%-0.45% NaCl 1, 1200 000 ml @ 100 mls/hr IV . Q10H [facility] Rx#:[id number] Oral 240 Other: Voiding Method Toilet Toilet # Voids 1 1 Weight 35.38 kg 35.38 kg No acute distress S1-S2 heard Right jugular permacath No edema Results - Lab Results Most recent lab results Calcium 8.7 mg/dL (8.4-10.2) 04/08/23 18:27 04/08/23 18:27 04/08/23 18:27 Assessment and Plan Assessment: #1 suspected Adamson line infection. #2 ESRD, TTS #3 anemia with ESRD #4 hypertension with ESRD #5 metabolic bone disease #6 short bowel syndrome and TPN Plan: 1 hemodialysis today, next treatment on Tuesday #2 follow-up on cultures #3 ESRD medications
[2023-04-09 20:10] LABS: Glucose,Whole Blood 119 mg/dL (70-110)
[2023-04-09] MEDS: PIPERACILLIN-TAZOBACTAM 3.375 GM in SODIUM CHLORIDE 0.9% 100 ML IVPB SCH (20:45)
[2023-04-09] MEDS: HYDROmorphone 0.5 MG/0.5 ML SYRINGE IVP PRN (20:50)
[2023-04-09 22:22] LABS: Glucose,Whole Blood 84 mg/dL (70-110)
[2023-04-09 23:56] LABS: Hepatitis B Surface AB- Quant <3.5 mIU/mL; Hepatitis B Surface Antibody Nonreactive
[2023-04-09] MEDS ORDERED: diphenhydrAMINE 25 MG CAP PO STA (23:57)
[2023-04-09 23:58] LABS: Glucose,Whole Blood 81 mg/dL (70-110)
[2023-04-10 00:50] LABS: Hepatitis B Surface Antigen Nonreactive
[2023-04-10 02:14] LABS: Glucose,Whole Blood 99 mg/dL (70-110)
[2023-04-10 03:56] LABS: Glucose,Whole Blood 99 mg/dL (70-110)
[2023-04-10 05:40] LABS: Glucose,Whole Blood 94 mg/dL (70-110)
[2023-04-10 08:17] LABS: Glucose,Whole Blood 82 mg/dL (70-110)
[2023-04-10] MEDS: HEPARIN SODIUM,PORCINE/PF 5,000 UNIT/0.5 ML SYRINGE SQ SCH ×3 (09:47→22:37)
[2023-04-10] MEDS: SODIUM BICARBONATE TAB 650 MG TAB PO SCH ×3 (09:47→20:51)
[2023-04-10] MEDS: POTAS-SOD-PHOS 278-164-250 MG 1 EACH PACKET PO SCH ×3 (09:48→20:52)
[2023-04-10] MEDS: ursodioL 300 MG CAP PO SCH ×2 (09:48→20:51)
[2023-04-10] MEDS: POTASSIUM CHLORIDE ER 20 MEQ TAB.ER PO SCH ×2 (09:48→20:51)
[2023-04-10] MEDS: DIPHENOX-ATROP 2.5-0.025 MG 1 EACH TAB PO SCH ×2 (09:49→20:51)
[2023-04-10] MEDS: FOLIC ACID-VIT B COMPLEX-VIT C 1 CAP PO SCH (09:49)
[2023-04-10] MEDS: PIPERACILLIN-TAZOBACTAM 3.375 GM in SODIUM CHLORIDE 0.9% 100 ML IVPB SCH ×2 (09:50→20:51)
[2023-04-10 10:11] LABS: Glucose,Whole Blood 86 mg/dL (70-110)
[2023-04-10] MEDS: diphenhydrAMINE 50 MG/ML 1 ML VIAL IVP PRN ×2 (11:59→20:58)
[2023-04-10] MEDS: DEXTROSE 5%-0.45% NACL 1,000 ML IV SCH (12:03)
[2023-04-10 12:18] LABS: Glucose,Whole Blood 70 mg/dL (70-110)
[2023-04-10 12:57] LABS: Basophils # (A) 0.02 X 10*3/uL (0.00-0.10); Basophils % (A) 0.3 %; Eosinophils # (A) 0.29 X 10*3/uL (0.04-0.35); Eosinophils % (A) 4.6 %; HCT 39.3 % (37.2-46.3); HGB 11.7 d/dL (12.0-15.0); Lymphocytes % (A) 4.7 %; MCHC 29.8 d/dL (32.0-37.0); MCV 107.4 FL (80.0-97.0); Mean Platelet Volume 11.5 FL (9.5-12.2); Monocytes # (A) 0.51 X 10*3/uL (0.20-1.00); NRBC Per 100 WBC 0 X 10*3/uL (0.00-0.01); Neutrophils % (A) 81.8 %; Platelet Count 85 X 10*3/uL (140-440); RBC 3.66 X 10*6/uL (4.10-5.20); RDW 16.7 % (11.5-14.5); WBC 6.36 X 10*3/uL (4.50-10.00)
--- NOTE | 2023-04-10 12:59 | P.PN ---
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 with ESRD on HD through right permacath presenting with possible line infection in his replacement. She was sent by her surgeon. Vital signs within normal. Laboratory workup stable. Cultures negative. Surgery removed TPN line. Still has permacath in place. Nephrology consulted. His positive blood cultures, on IV Zosyn. ID consulted. Subjective: Patient seen and examined at bedside. No acute events overnight. Pertinent positives and negatives as discussed above, a complete review of systems was performed and all other systems are negative. Vitals Signs Reviewed. General: nontoxic, no distress, appears at stated age, thin-appearing Derm: warm, dry, right permacath line in place Head: atraumatic, normocephalic, symmetric Eyes: EOMI, no lid lag, anicteric sclera Mouth: no lip lesion, mucus membranes moist Cardiovascular: S1S2 reg, no murmur Lungs: CTA bilateral, no rhonchi, no rales , no accessory muscle use Abdominal: soft, nontender to palpation, no guarding, no appreciable organomegaly Ext: no gross muscle atrophy, no edema, no contractures Neuro: CN II-XI grossly intact, no focal neuro deficits Psych: Alert, oriented, appropriate affect Data Reviewed Today: Pertinent Labs: Blood culture is positive for gram-negative bacilli, Klebsiella, blood sugars range between 86-99 Imaging: No new imaging Assessment and Plan: Gram-negative bacteremia Central line infection Short-bowel syndrome on TPN Hypoglycemia, resolved ESRD on hemodialysis through right permacath Chronic pain syndrome Chronic anemia, stable -Blood cultures positive 1/2 bottles, on zosyn -ID consulted -patient has a hx of AV fistula graft infection, unclear source of bacteremia at the moment -WBC tagged scan ordered -Surgery followin, TPN line removed -On D5 half-normal 100 mL an hour -Nephrology following DVT ppx: Heparin subcu Code status: No code Anticipated discharge place: Pending clinical course Anticipated discharge time: Pending clinical course Objective - Vital Signs Vital signs: Vital Signs Temp 98.9 F 04/10/23 12:35 Pulse 69 04/10/23 12:35 Resp 16 04/10/23 12:35 BP 120/66 04/10/23 12:35 Pulse Ox 100 04/10/23 12:35 FiO2 Intake & Output 04/09/23 04/10/23 04/10/23 18:59 06:59 18:59 Intake Total 1919 1899 Balance 1919 1899 Weight 35.38 kg Intake: Intake, IV Titration 1200 1300 Amount Dextrose 5%-0.45% NaCl 1, 1200 1200 000 ml @ 100 mls/hr IV . Q10H [facility] Rx#:[id number] Piperacillin-Tazobactam 3 100 .375 gm In Sodium Chloride 0.9% 100 ml @ 25 mls/hr IVPB Q12HR [facility] Rx #:[id number] Oral 720 600 Other: Voiding Method Toilet Toilet Toilet # Voids 1 5 - Labs CBC & Chem 7: 04/10/23 07:11 04/08/23 18:27 Labs: Abnormal Lab Results - Last 24 Hours (Table) 04/09/23 04/09/23 04/10/23 Range/Units 17:20 20:09 07:11 RBC 3.66 L (4.10-5.20) X 10*6/uL Hgb 11.7 L (12.0-15.0) d/dL MCV 107.4 H (80.0-97.0) FL MCHC 29.8 L (32.0-37.0) d/dL RDW 16.7 H (11.5-14.5) % Plt Count 85 L (140-440) X 10*3/uL Lymphocytes # 0.30 L (0.90-5.00) X 10*3/uL POC Glucose (mg/dL) 68 L 119 H (70-110) mg/dL Microbiology - Last 24 Hours (Table) 04/08/23 18:27 Blood Culture - Preliminary Blood 04/08/23 18:27 Blood Culture Gram Stain - Preliminary Blood
[2023-04-10 13:10] LABS: BUN/Creat Ratio 1.95 Ratio (12.00-20.00); Blood Urea Nitrogen 7.4 mg/dL (9.0-27.0); Calcium 8.9 mg/dL (8.7-10.3); Carbon Dioxide 24.2 mmol/L (21.6-31.8); Chloride 102 mmol/L (96-109); Glucose 84 mg/dL (70-110); Potassium 3.8 mmol/L (3.5-5.5); Sodium 142 mmol/L (135-145)
--- NOTE | 2023-04-10 13:39 | P.PN ---
Subjective Progress Note Date: 04/10/23 Follow-up for ESRD. Family at bedside. Denies any nausea vomiting diarrhea. Objective - Vital Signs Vital signs: Vital Signs Temp 98.9 F 04/10/23 12:35 Pulse 69 04/10/23 12:35 Resp 16 04/10/23 12:35 BP 120/66 04/10/23 12:35 Pulse Ox 100 04/10/23 12:35 FiO2 Intake & Output 04/09/23 04/10/23 04/10/23 18:59 06:59 18:59 Intake Total 1919 1899 Balance 1919 1899 Weight 35.38 kg Intake: Intake, IV Titration 1200 1300 Amount Dextrose 5%-0.45% NaCl 1, 1200 1200 000 ml @ 100 mls/hr IV . Q10H [facility] Rx#:[id number] Piperacillin-Tazobactam 3 100 .375 gm In Sodium Chloride 0.9% 100 ml @ 25 mls/hr IVPB Q12HR [facility] Rx #:[id number] Oral 720 600 Other: Voiding Method Toilet Toilet Toilet # Voids 1 5 - Exam No acute distress S1-S2 heard Lungs clear No edema Right jugular permacath Right upper arm aVF - Labs CBC & Chem 7: 04/10/23 07:11 04/10/23 07:11 Labs: Abnormal Lab Results - Last 24 Hours (Table) 04/09/23 04/09/23 04/10/23 Range/Units 17:20 20:09 07:11 RBC 3.66 L (4.10-5.20) X 10*6/uL Hgb 11.7 L (12.0-15.0) d/dL MCV 107.4 H (80.0-97.0) FL MCHC 29.8 L (32.0-37.0) d/dL RDW 16.7 H (11.5-14.5) % Plt Count 85 L (140-440) X 10*3/uL Lymphocytes # 0.30 L (0.90-5.00) X 10*3/uL Anion Gap (4.00-12.00) mmol/L BUN (9.0-27.0) mg/dL Creatinine (0.6-1.5) mg/dL Est GFR (CKD-EPI) (>=60) BUN/Creatinine Ratio (12.00-20.00) Ratio POC Glucose (mg/dL) 68 L 119 H (70-110) mg/dL 04/10/23 Range/Units 07:11 RBC (4.10-5.20) X 10*6/uL Hgb (12.0-15.0) d/dL MCV (80.0-97.0) FL MCHC (32.0-37.0) d/dL RDW (11.5-14.5) % Plt Count (140-440) X 10*3/uL Lymphocytes # (0.90-5.00) X 10*3/uL Anion Gap 15.80 H (4.00-12.00) mmol/L BUN 7.4 L (9.0-27.0) mg/dL Creatinine 3.8 H (0.6-1.5) mg/dL Est GFR (CKD-EPI) 14 L (>=60) BUN/Creatinine Ratio 1.95 L (12.00-20.00) Ratio POC Glucose (mg/dL) (70-110) mg/dL Microbiology - Last 24 Hours (Table) 04/08/23 18:27 Blood Culture - Preliminary Blood 04/08/23 18:27 Blood Culture Gram Stain - Preliminary Blood Assessment and Plan Assessment: #1 suspected Choi line infection. -Cultures gram-negative #2 ESRD, TTS #3 anemia with ESRD #4 hypertension with ESRD #5 metabolic bone disease #6 short bowel syndrome and TPN Plan: 1 hemodialysis yesterday, next treatment on Tuesday #2 follow-up on cultures #3 ESRD medications
[2023-04-10] MEDS: HYDROmorphone 0.5 MG/0.5 ML SYRINGE IVP PRN ×2 (14:19→20:52)
[2023-04-10 14:23] LABS: Glucose,Whole Blood 73 mg/dL (70-110)
[2023-04-10 16:13] LABS: Glucose,Whole Blood 57 mg/dL (70-110)
[2023-04-10 17:18] LABS: Glucose,Whole Blood 59 mg/dL (70-110)
[2023-04-10] MEDS: DEXTROSE 10% IN WATER 1,000 ML with SODIUM CHLORIDE 4MEQ/ML VIAL 77 MEQ IV SCH (18:21)
[2023-04-10 18:24] LABS: Glucose,Whole Blood 63 mg/dL (70-110)
[2023-04-10 20:23] LABS: Glucose,Whole Blood 125 mg/dL (70-110)
[2023-04-10 21:58] LABS: Glucose,Whole Blood 81 mg/dL (70-110)
--- NOTE | 2023-04-10 22:30 | P.CONS ---
History of Present Illness - Reason for Consult Consult date: 04/10/23 - History of Present Illness Patient is a 52-year-old female with past medical history significant for hypertension end-stage renal disease on hemodialysis through the right IJ permacatheter patient also have a history of short gut syndrome with multiple catheters for TPN and history of line sepsis patient currently did have a Groshong catheter was placed about 2 years ago patient presented to the hospital 2 days ago when not feeling well patient mention every time she was using the TPN she would have generalized body aches and chills so she stopped using TPN for 2 days and the patient subsequent advised to go to the hospital to rule out infectious patient on presentation to the hospital was afebrile and no fever has been recorded subsequently patient was not tachycardic hypotensive or hypoxic patient did have a normal white count did have elevated BUN/creatinine level exams are normal patient has been evaluated by hospitalist service as well as general surgery patient was taken to the OR yesterday morning and did have removal of right subclavian Groshong catheter catheter tip has been sent for cu lture patient did have a blood culture drawn which is coming back with a gram- negative bacilli patient did have multiple antibiotic allergies antibiotic was switched over to Zosyn infectious disease was consulted for further management of antibiotic therapy patient is currently complaining of feeling weak and did have some itching denies any headache or URI symptoms no chest pain shortness of breath occasional cough patient did have a fistula to the right upper arm and patient mention she did have a history recurrent infection at that site and recently completed course of antibiotic however currently there is no swelling redness or any drainage from that site, patient still have a right IJ permacath for dialysis Past Medical History Past Medical History: Blood Disorder, Hypertension, Renal Disease Additional Past Medical History / Comment(s): HX OF PAST LINE SEPSIS/Adamson , Hernia, HX OF SIGMOID VOLVULOUS W/ GRAFT REJECTION/SHORT GUT SYNDROME-HAS HAD LINE SEPSIS IN PAST W/ REMOVAL. HAS PORT FOR TPN, pneumothorax, hemothorax. ANEMIA History of Any Multi-Drug Resistant Organisms: None Reported Past Surgical History: Appendectomy, Bowel Resection, Cholecystectomy, Tubal Ligation Additional Past Surgical History / Comment(s): intestinal transplant and removal, chest tube placement. ADAMSON REPLACEMENT. back sx Past Anesthesia/Blood Transfusion Reactions: No Reported Reaction Past Psychological History: No Psychological Hx Reported Smoking Status: Never smoker Past Alcohol Use History: None Reported Past Drug Use History: None Reported - Past Family History Mother Family Medical History: Hypertension Father Family Medical History: Congestive Heart Failure (CHF), Coronary Artery Disease (CAD), Diabetes Mellitus, Hypertension Additional Family Medical History / Comment(s): . Medications and Allergies Home Medications Medication Instructions Recorded Confirmed Type Sodium Bicarbonate Tab 1,300 mg PO TID 09/06/18 04/08/23 History Acetaminophen Tab [Tylenol] 650 mg PO Q6HR PRN tab 12/02/18 04/08/23 Rx Copper Supplement 1 tab PO DAILY 04/08/23 04/08/23 History Diphenox-Atrop 2.5-0.025 mg 1 tab PO BID 04/08/23 04/08/23 History [Lomotil] Ergocalciferol (Vitamin D2) 1,250 mcg PO DAILY 04/08/23 04/08/23 History [Drisdol (50,000 Iu)] Loperamide [Imodium] 2 mg PO BID PRN 04/08/23 04/08/23 History Ondansetron Odt [Zofran Odt] 4 mg PO Q8HR PRN 04/08/23 04/08/23 History Rkeek-Nwn-Gtkp 278-164-250 mg 1 packet PO TID 04/08/23 04/08/23 History [Neutra-Phos Packet] Potassium Chloride ER [K-Dur 20] 20 meq PO BID 04/08/23 04/08/23 History Vit B Complx C/Folic Acid/Zinc 1 tab PO DAILY 04/08/23 04/08/23 History [Renaplex Tablet] fentaNYL 25MCG/HR PATCH [Duragesic 25 mcg TRANSDERM Q72H 04/08/23 04/08/23 History 25MCG/HR] ursodioL [Ursodiol] 300 mg PO BID 04/08/23 04/08/23 History Allergies Allergy/AdvReac Type Severity Reaction Status Date / Time ceftriaxone [From Rocephin] Allergy Intermediate Itching Verified 04/08/23 19:44 acetate salt Allergy Unknown Verified 04/08/23 19:44 [From Hyperlyte CR] ciprofloxacin [From Cipro] Allergy Anaphylaxis Verified 04/08/23 19:44 ciprofloxacin HCl Allergy Anaphylaxis Verified 04/08/23 19:44 [From Cipro] fat emulsions Allergy Rash/Hives Verified 04/09/23 11:11 [From Liposyn II] Sulfa (Sulfonamide Allergy Anaphylaxis Verified 04/08/23 19:44 Antibiotics) fexofenadine [From Sofia] AdvReac Migraine Verified 04/08/23 19:44 vancomycin AdvReac Rash/Hives Verified 04/08/23 19:44 Physical Exam Vitals: Vital Signs Temp Pulse Resp BP Pulse Ox 04/10/23 08:14 98.6 F 72 16 137/79 98 04/10/23 01:24 97.6 F 62 18 162/90 99 04/09/23 20:36 97.6 F 78 18 128/69 99 04/09/23 20:05 18 04/09/23 14:00 98.5 F 70 17 174/92 99 Intake and Output 04/09/23 04/10/23 04/10/23 22:59 06:59 14:59 Intake Total 1680 1900 Balance 1680 1900 Intake: Intake, IV Titration 1200 1300 Amount Dextrose 5%-0.45% NaCl 1, 1200 1200 000 ml @ 100 mls/hr IV . Q10H [facility] Rx#:[id number] Piperacillin-Tazobactam 3 100 .375 gm In Sodium Chloride 0.9% 100 ml @ 25 mls/hr IVPB Q12HR [facility] Rx #:[id number] Oral 480 600 Other: Voiding Method Toilet Toilet # Voids 1 5 Results CBC & Chem 7: 04/10/23 07:11 04/10/23 07:11 Labs: Abnormal Lab Results - Last 24 Hours (Table) 04/09/23 04/09/23 Range/Units 17:20 20:09 POC Glucose (mg/dL) 68 L 119 H (70-110) mg/dL Microbiology - Last 24 Hours (Table) 04/08/23 18:27 Blood Culture - Preliminary Blood 04/08/23 18:27 Blood Culture Gram Stain - Preliminary Blood Assessment and Plan Plan: 1patient with a gram-negative bacteremia with a source possible Groshong catheter with the patient was using for TPN and the patient did have symptoms every time she was using the TPN possibly related to Groshong catheter which has been removed catheter tip has been sent however the patient also have a right IJ permacatheter and if bacteremic secondary seeding or infection of the pulm ca theter not entirely excluded patient did have a right upper arm AV fistula with no evidence of any cellulitis at that site 2patient with multiple antibiotic allergies that would limit the number of a ntibiotics safe to use 3-blood cultures will be repeated document clearance of bacteremia and blood culture should be obtained from the right IJ permacatheter hemodialysis 4continue with the Zosyn while waiting for the sensitivities to be finalized We will follow on clinical condition and cultures to further adjust medication if needed Thank you for this consultation we will follow the patient along with you Dictation was produced using [employer] dictation software. please excuse any grammatical, word or spelling errors. Time with Patient: Greater than 30
[2023-04-10] MEDS: ACETAMINOPHEN TAB 325 MG TAB PO PRN (22:40)
[2023-04-11 00:02] LABS: Glucose,Whole Blood 101 mg/dL (70-110)
[2023-04-11 02:05] LABS: Glucose,Whole Blood 112 mg/dL (70-110)
[2023-04-11] MEDS: diphenhydrAMINE 50 MG/ML 1 ML VIAL IVP PRN ×3 (02:32→21:13)
[2023-04-11] MEDS: DEXTROSE 10% IN WATER 1,000 ML with SODIUM CHLORIDE 4MEQ/ML VIAL 77 MEQ IV SCH ×2 (04:03→17:01)
[2023-04-11 04:04] LABS: Glucose,Whole Blood 104 mg/dL (70-110)
[2023-04-11 05:46] LABS: Glucose,Whole Blood 136 mg/dL (70-110)
[2023-04-11 08:02] LABS: Glucose,Whole Blood 70 mg/dL (70-110)
[2023-04-11] MEDS: ursodioL 300 MG CAP PO SCH ×2 (08:31→21:11)
[2023-04-11] MEDS: FOLIC ACID-VIT B COMPLEX-VIT C 1 CAP PO SCH (08:32)
[2023-04-11] MEDS: POTAS-SOD-PHOS 278-164-250 MG 1 EACH PACKET PO SCH ×3 (08:32→21:11)
[2023-04-11] MEDS: SODIUM BICARBONATE TAB 650 MG TAB PO SCH ×3 (08:32→21:11)
[2023-04-11] MEDS: POTASSIUM CHLORIDE ER 20 MEQ TAB.ER PO SCH ×2 (08:32→21:11)
[2023-04-11] MEDS: DIPHENOX-ATROP 2.5-0.025 MG 1 EACH TAB PO SCH ×2 (08:33→21:11)
[2023-04-11] MEDS: PIPERACILLIN-TAZOBACTAM 3.375 GM in SODIUM CHLORIDE 0.9% 100 ML IVPB SCH ×2 (08:34→21:12)
[2023-04-11] MEDS: HEPARIN SODIUM,PORCINE/PF 5,000 UNIT/0.5 ML SYRINGE SQ SCH ×3 (08:34→23:02)
[2023-04-11 08:45] LABS: Basophils # (A) 0.01 X 10*3/uL (0.00-0.10); Basophils % (A) 0.2 %; Eosinophils # (A) 0.32 X 10*3/uL (0.04-0.35); Eosinophils % (A) 7.8 %; HCT 36.5 % (37.2-46.3); Lymphocytes # (A) 0.34 X 10*3/uL (0.90-5.00); Lymphocytes % (A) 8.3 %; MCH 32.1 pg (27.0-32.0); MCHC 30.1 d/dL (32.0-37.0); MCV 106.4 FL (80.0-97.0); Mean Platelet Volume 10.1 FL (9.5-12.2); Monocytes # (A) 0.39 X 10*3/uL (0.20-1.00); Monocytes % (A) 9.5 %; NRBC Per 100 WBC 0 X 10*3/uL (0.00-0.01); Neutrophils # (A) 3.03 X 10*3/uL (1.80-7.70); Platelet Count 85 X 10*3/uL (140-440); RBC 3.43 X 10*6/uL (4.10-5.20); RDW 16.1 % (11.5-14.5)
[2023-04-11 10:02] LABS: Glucose,Whole Blood 69 mg/dL (70-110)
[2023-04-11 12:14] LABS: Glucose,Whole Blood 86 mg/dL (70-110)
[2023-04-11] MEDS: HYDROmorphone 0.5 MG/0.5 ML SYRINGE IVP PRN ×2 (13:42→21:14)
[2023-04-11 14:06] LABS: BUN/Creat Ratio 1.65 Ratio (12.00-20.00); Blood Urea Nitrogen 8.4 mg/dL (9.0-27.0); Glucose 166 mg/dL (70-110)
[2023-04-11 14:07] LABS: Calcium 8.6 mg/dL (8.7-10.3); Carbon Dioxide 18.6 mmol/L (21.6-31.8); Chloride 103 mmol/L (96-109); Potassium 3.3 mmol/L (3.5-5.5); Sodium 141 mmol/L (135-145)
[2023-04-11 14:23] LABS: Glucose,Whole Blood 98 mg/dL (70-110)
--- NOTE | 2023-04-11 14:43 | P.PN ---
Subjective Patient is seen for follow-up for end-stage renal disease. Maintained on hemodialysis on a Tuesday schedule. Currently she has a right IJ permacath. Right Port-A-Cath for outpatient TPN was discontinued on 04/09/2023. Catheter tip culture is growing gram-negative bacilli and blood cultures on admission on 04/08/2003 are growing Klebsiella pneumonia Patient has right arm AV fistula which has not been successfully used yet. No significant complaints today. Objective - Vital Signs Vital signs: Vital Signs Temp 98.6 F 04/11/23 12:10 Pulse 69 04/11/23 12:10 Resp 16 04/11/23 12:10 BP 115/75 04/11/23 12:10 Pulse Ox 99 04/11/23 12:10 FiO2 Intake & Output 04/10/23 04/11/23 04/11/23 18:59 06:59 18:59 Intake Total 1300 1900 Balance 1300 1900 Weight 35.38 kg Intake: Intake, IV Titration 1300 1300 Amount Dextrose 10% in Water 1, 1200 000 ml @ 100 mls/hr IV . [id number] [facility] with Sodium Chloride 4Meq/ml Vial 77 meq Rx#:[id number] Dextrose 5%-0.45% NaCl 1, 1200 000 ml @ 100 mls/hr IV . Q10H [facility] Rx#:[id number] Piperacillin-Tazobactam 3 100 100 .375 gm In Sodium Chloride 0.9% 100 ml @ 25 mls/hr IVPB Q12HR [facility] Rx #:[id number] Oral 600 Other: Voiding Method Toilet # Voids 0 # Bowel Movements 8 4 - Exam Awake, comfortable, no acute distress Examination of the heart S1 and S2 Right IJ permacath currently dressed Examination the lungs bilateral breath sounds are heard Abdomen is soft nontender Examination lower extremity shows no edema [employer] exam grossly intact - Labs CBC & Chem 7: 04/11/23 06:21 04/11/23 06:21 Labs: Abnormal Lab Results - Last 24 Hours (Table) 04/10/23 04/10/23 04/10/23 Range/Units 16:12 17:16 18:23 WBC (4.50-10.00) X 10*3/uL RBC (4.10-5.20) X 10*6/uL Hgb (12.0-15.0) d/dL Hct (37.2-46.3) % MCV (80.0-97.0) FL MCH (27.0-32.0) pg MCHC (32.0-37.0) d/dL RDW (11.5-14.5) % Plt Count (140-440) X 10*3/uL Lymphocytes # (0.90-5.00) X 10*3/uL Potassium (3.5-5.5) mmol/L Carbon Dioxide (21.6-31.8) mmol/L Anion Gap (4.00-12.00) mmol/L BUN (9.0-27.0) mg/dL Creatinine (0.6-1.5) mg/dL Est GFR (CKD-EPI) (>=60) BUN/Creatinine Ratio (12.00-20.00) Ratio Glucose (70-110) mg/dL POC Glucose (mg/dL) 57 L 59 L 63 L (70-110) mg/dL Calcium (8.7-10.3) mg/dL 04/10/23 04/11/23 04/11/23 Range/Units 20:22 02:01 05:45 WBC (4.50-10.00) X 10*3/uL RBC (4.10-5.20) X 10*6/uL Hgb (12.0-15.0) d/dL Hct (37.2-46.3) % MCV (80.0-97.0) FL MCH (27.0-32.0) pg MCHC (32.0-37.0) d/dL RDW (11.5-14.5) % Plt Count (140-440) X 10*3/uL Lymphocytes # (0.90-5.00) X 10*3/uL Potassium (3.5-5.5) mmol/L Carbon Dioxide (21.6-31.8) mmol/L Anion Gap (4.00-12.00) mmol/L BUN (9.0-27.0) mg/dL Creatinine (0.6-1.5) mg/dL Est GFR (CKD-EPI) (>=60) BUN/Creatinine Ratio (12.00-20.00) Ratio Glucose (70-110) mg/dL POC Glucose (mg/dL) 125 H 112 H 136 H (70-110) mg/dL Calcium (8.7-10.3) mg/dL 04/11/23 04/11/23 04/11/23 Range/Units 06:21 06:21 10:01 WBC 4.10 L (4.50-10.00) X 10*3/uL RBC 3.43 L (4.10-5.20) X 10*6/uL Hgb 11.0 L (12.0-15.0) d/dL Hct 36.5 L (37.2-46.3) % MCV 106.4 H (80.0-97.0) FL MCH 32.1 H (27.0-32.0) pg MCHC 30.1 L (32.0-37.0) d/dL RDW 16.1 H (11.5-14.5) % Plt Count 85 L (140-440) X 10*3/uL Lymphocytes # 0.34 L (0.90-5.00) X 10*3/uL Potassium 3.3 L (3.5-5.5) mmol/L Carbon Dioxide 18.6 L (21.6-31.8) mmol/L Anion Gap 19.40 H (4.00-12.00) mmol/L BUN 8.4 L (9.0-27.0) mg/dL Creatinine 5.1 H (0.6-1.5) mg/dL Est GFR (CKD-EPI) 10 L (>=60) BUN/Creatinine Ratio 1.65 L (12.00-20.00) Ratio Glucose 166 H (70-110) mg/dL POC Glucose (mg/dL) 69 L (70-110) mg/dL Calcium 8.6 L (8.7-10.3) mg/dL Microbiology - Last 24 Hours (Table) 04/08/23 18:27 Blood Culture Gram Stain - Final Blood Blood Culture - Final Klebsiella pneumoniae 04/09/23 11:30 Catheter Tip Culture - Preliminary Catheter Tip Gram Neg Bacilli 04/08/23 18:27 Blood Culture - Preliminary Blood Assessment and Plan Assessment: 1. Gram-negative bacteremia with blood culture growing Klebsiella pneumonia. Source is most likely the Choi catheter which is now discontinued. Repeat blood cultures are pending. Catheter tip is also growing gram-negative bacilli. Patient continues to have right IJ permacath. 2. End-stage renal disease maintained on Tuesday schedule currently dialyzing via right IJ permacath. AV fistula in the right upper arm has not been successfully used yet. 3. CK D mineral bone disorder 4. Short bowel syndrome and maintained on TPN as outpatient. 5. Anemia of chronic disease Plan: Hemodialysis in a.m. Continue to repeat blood cultures Continue antibiotics as per ID
--- NOTE | 2023-04-11 15:01 | P.PN ---
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 with ESRD on HD through right permacath presenting with possible line infection in his replacement. She was sent by her surgeon. Vital signs within normal. Laboratory workup stable. Cultures negative. Surgery removed TPN line. Still has permacath in place. Nephrology consulted. His positive blood cultures, on IV Zosyn. ID consulted. Subjective: Patient seen and examined at bedside. No acute events overnight. Pertinent positives and negatives as discussed above, a complete review of sys tems was performed and all other systems are negative. Vitals Signs Reviewed. General: nontoxic, no distress, appears at stated age, thin-appearing Derm: warm, dry, right permacath line in place Head: atraumatic, normocephalic, symmetric Eyes: EOMI, no lid lag, anicteric sclera Mouth: no lip lesion, mucus membranes moist Cardiovascular: S1S2 reg, no murmur Lungs: CTA bilateral, no rhonchi, no rales , no accessory muscle use Abdominal: soft, nontender to palpation, no guarding, no appreciable organomegaly Ext: no gross muscle atrophy, no edema, no contractures Neuro: CN II-XI grossly intact, no focal neuro deficits Psych: Alert, oriented, appropriate affect Data Reviewed Today: Pertinent Labs: WBC 4.1, hemoglobin 11, platelet 85, potassium 3.3, creatinine 10, blood sugars range between 69-136 Imaging: No new imaging Assessment and Plan: Klebsiella pneumonia bacteremia Central line infection Short-bowel syndrome on TPN Hypoglycemia ESRD on hemodialysis through right permacath Hypokalemia Chronic pain syndrome Chronic anemia, stable -On IV Zosyn -ID following, continue IV antibiotics -Repeat cultures pending -patient has a hx of AV fistula graft infection, possible source of bacteremia -WBC tagged scan ordered -Surgery following, TPN line removed -On D5 half-normal 100 mL an hour -On oral potassium -repeat CBC and BMP tomorrow -Nephrology following DVT ppx: Heparin subcu Code status: No code Anticipated discharge place: Pending clinical course Anticipated discharge time: Pending clinical course Objective - Vital Signs Vital signs: Vital Signs Temp 98.6 F 04/11/23 12:10 Pulse 69 04/11/23 12:10 Resp 16 04/11/23 12:10 BP 115/75 07/31/23 12:10 Pulse Ox 99 04/11/23 12:10 FiO2 Intake & Output 04/10/23 04/11/23 04/11/23 18:59 06:59 18:59 Intake Total 1300 1900 Balance 1300 1900 Weight 35.38 kg Intake: Intake, IV Titration 1300 1300 Amount Dextrose 10% in Water 1, 1200 000 ml @ 100 mls/hr IV . [id number] CORRY with Sodium Chloride 4Meq/ml Vial 77 meq Rx#:[id number] Dextrose 5%-0.45% NaCl 1, 1200 000 ml @ 100 mls/hr IV . Q10H CORRY Rx#:[id number] Piperacillin-Tazobactam 3 100 100 .375 gm In Sodium Chloride 0.9% 100 ml @ 25 mls/hr IVPB Q12HR CORRY Rx #:[id number] Oral 600 Other: Voiding Method Toilet # Voids 0 # Bowel Movements 8 4 - Labs CBC & Chem 7: 04/11/23 06:21 04/11/23 06:21 Labs: Abnormal Lab Results - Last 24 Hours (Table) 04/10/23 04/10/23 04/10/23 Range/Units 16:12 17:16 18:23 WBC (4.50-10.00) X 10*3/uL RBC (4.10-5.20) X 10*6/uL Hgb (12.0-15.0) d/dL Hct (37.2-46.3) % MCV (80.0-97.0) FL MCH (27.0-32.0) pg MCHC (32.0-37.0) d/dL RDW (11.5-14.5) % Plt Count (140-440) X 10*3/uL Lymphocytes # (0.90-5.00) X 10*3/uL Potassium (3.5-5.5) mmol/L Carbon Dioxide (21.6-31.8) mmol/L Anion Gap (4.00-12.00) mmol/L BUN (9.0-27.0) mg/dL Creatinine (0.6-1.5) mg/dL Est GFR (CKD-EPI) (>=60) BUN/Creatinine Ratio (12.00-20.00) Ratio Glucose (70-110) mg/dL POC Glucose (mg/dL) 57 L 59 L 63 L (70-110) mg/dL Calcium (8.7-10.3) mg/dL 04/10/23 04/11/23 04/11/23 Range/Units 20:22 02:01 05:45 WBC (4.50-10.00) X 10*3/uL RBC (4.10-5.20) X 10*6/uL Hgb (12.0-15.0) d/dL Hct (37.2-46.3) % MCV (80.0-97.0) FL MCH (27.0-32.0) pg MCHC (32.0-37.0) d/dL RDW (11.5-14.5) % Plt Count (140-440) X 10*3/uL Lymphocytes # (0.90-5.00) X 10*3/uL Potassium (3.5-5.5) mmol/L Carbon Dioxide (21.6-31.8) mmol/L Anion Gap (4.00-12.00) mmol/L BUN (9.0-27.0) mg/dL Creatinine (0.6-1.5) mg/dL Est GFR (CKD-EPI) (>=60) BUN/Creatinine Ratio (12.00-20.00) Ratio Glucose (70-110) mg/dL POC Glucose (mg/dL) 125 H 112 H 136 H (70-110) mg/dL Calcium (8.7-10.3) mg/dL 04/11/23 04/11/23 04/11/23 Range/Units 06:21 06:21 10:01 WBC 4.10 L (4.50-10.00) X 10*3/uL RBC 3.43 L (4.10-5.20) X 10*6/uL Hgb 11.0 L (12.0-15.0) d/dL Hct 36.5 L (37.2-46.3) % MCV 106.4 H (80.0-97.0) FL MCH 32.1 H (27.0-32.0) pg MCHC 30.1 L (32.0-37.0) d/dL RDW 16.1 H (11.5-14.5) % Plt Count 85 L (140-440) X 10*3/uL Lymphocytes # 0.34 L (0.90-5.00) X 10*3/uL Potassium 3.3 L (3.5-5.5) mmol/L Carbon Dioxide 18.6 L (21.6-31.8) mmol/L Anion Gap 19.40 H (4.00-12.00) mmol/L BUN 8.4 L (9.0-27.0) mg/dL Creatinine 5.1 H (0.6-1.5) mg/dL Est GFR (CKD-EPI) 10 L (>=60) BUN/Creatinine Ratio 1.65 L (12.00-20.00) Ratio Glucose 166 H (70-110) mg/dL POC Glucose (mg/dL) 69 L (70-110) mg/dL Calcium 8.6 L (8.7-10.3) mg/dL Microbiology - Last 24 Hours (Table) 04/08/23 18:27 Blood Culture Gram Stain - Final Blood Blood Culture - Final Klebsiella pneumoniae 04/09/23 11:30 Catheter Tip Culture - Preliminary Catheter Tip Gram Neg Bacilli 04/08/23 18:27 Blood Culture - Preliminary Blood
--- NOTE | 2023-04-11 16:24 | NM ---
EXAMINATION TYPE: NM WBC whole body DATE OF EXAM: 04/11/2023 COMPARISON: NONE CLINICAL INDICATION: Female, 52 years old with history of bacteremia; TECHNIQUE: Following administration of 14.6 mCi Tc99m Ceretec. Images obtained 3 hours post injecti on. FINDINGS: Normal physiological tracer activity is noted in the liver and spleen and in the bone marrow of the a xial and appendicular skeleton. No abnormal uptake within the right upper chest suggests infected [id number]. Injection site artif act noted. IMPRESSION: No abnormal uptake within the right upper chest suggests infected [id number]. Normal white blood cell scan. No evidence for abnormal tracer activity.
[2023-04-11 16:29] LABS: Glucose,Whole Blood 94 mg/dL (70-110)
[2023-04-11 18:56] LABS: Glucose,Whole Blood 69 mg/dL (70-110)
[2023-04-11 20:05] LABS: Glucose,Whole Blood 79 mg/dL (70-110)
[2023-04-11 22:00] LABS: Glucose,Whole Blood 73 mg/dL (70-110)
[2023-04-12 00:07] LABS: Glucose,Whole Blood 68 mg/dL (70-110)
[2023-04-12] MEDS: HYDROmorphone 0.5 MG/0.5 ML SYRINGE IVP PRN ×3 (02:25→17:10)
[2023-04-12 02:26] LABS: Glucose,Whole Blood 99 mg/dL (70-110)
[2023-04-12] MEDS: DEXTROSE 10% IN WATER 1,000 ML with SODIUM CHLORIDE 4MEQ/ML VIAL 77 MEQ IV SCH ×3 (02:52→17:58)
[2023-04-12 04:04] LABS: Glucose,Whole Blood 76 mg/dL (70-110)
[2023-04-12 05:57] LABS: Glucose,Whole Blood 97 mg/dL (70-110)
[2023-04-12 08:08] LABS: Glucose,Whole Blood 78 mg/dL (70-110)
[2023-04-12 09:01] LABS: Basophils # (A) 0.03 X 10*3/uL (0.00-0.10); Basophils % (A) 0.5 %; Eosinophils # (A) 0.57 X 10*3/uL (0.04-0.35); Eosinophils % (A) 9.2 %; HCT 33.8 % (37.2-46.3); HGB 10.2 d/dL (12.0-15.0); Lymphocytes # (A) 0.77 X 10*3/uL (0.90-5.00); Lymphocytes % (A) 12.4 %; MCH 32.6 pg (27.0-32.0); MCHC 30.2 d/dL (32.0-37.0); Mean Platelet Volume 10.3 FL (9.5-12.2); Monocytes # (A) 0.76 X 10*3/uL (0.20-1.00); Monocytes % (A) 12.2 %; NRBC Per 100 WBC 0 X 10*3/uL (0.00-0.01); Neutrophils # (A) 4.05 X 10*3/uL (1.80-7.70); Neutrophils % (A) 65.1 %; Platelet Count 110 X 10*3/uL (140-440); RBC 3.13 X 10*6/uL (4.10-5.20); RDW 15.9 % (11.5-14.5); WBC 6.22 X 10*3/uL (4.50-10.00)
[2023-04-12 09:17] LABS: BUN/Creat Ratio 1.25 Ratio (12.00-20.00); Blood Urea Nitrogen 8.1 mg/dL (9.0-27.0); Calcium 8.5 mg/dL (8.7-10.3); Carbon Dioxide 16.4 mmol/L (21.6-31.8); Chloride 108 mmol/L (96-109); Glucose 100 mg/dL (70-110); Potassium 3.7 mmol/L (3.5-5.5); Sodium 143 mmol/L (135-145)
[2023-04-12] MEDS: POTASSIUM CHLORIDE ER 20 MEQ TAB.ER PO SCH ×2 (09:19→21:04)
[2023-04-12] MEDS: SODIUM BICARBONATE TAB 650 MG TAB PO SCH ×3 (09:19→21:04)
[2023-04-12] MEDS: PIPERACILLIN-TAZOBACTAM 3.375 GM in SODIUM CHLORIDE 0.9% 100 ML IVPB SCH ×2 (09:20→21:03)
[2023-04-12] MEDS: POTAS-SOD-PHOS 278-164-250 MG 1 EACH PACKET PO SCH ×3 (09:24→21:04)
[2023-04-12] MEDS: FOLIC ACID-VIT B COMPLEX-VIT C 1 CAP PO SCH (09:24)
[2023-04-12] MEDS: ursodioL 300 MG CAP PO SCH ×2 (09:24→21:03)
[2023-04-12] MEDS: HEPARIN SODIUM,PORCINE/PF 5,000 UNIT/0.5 ML SYRINGE SQ SCH ×2 (09:26→17:14)
[2023-04-12] MEDS: DIPHENOX-ATROP 2.5-0.025 MG 1 EACH TAB PO SCH ×2 (09:27→21:05)
[2023-04-12] MEDS: diphenhydrAMINE 50 MG/ML 1 ML VIAL IVP PRN ×2 (09:30→21:11)
[2023-04-12 10:06] LABS: Glucose,Whole Blood 70 mg/dL (70-110)
[2023-04-12 12:32] LABS: Glucose,Whole Blood 103 mg/dL (70-110)
--- NOTE | 2023-04-12 13:09 | P.PN ---
Subjective Patient is seen for follow-up for end-stage renal disease. Maintained on hemodialysis on a Tuesday schedule. Currently she has a right IJ permacath. Right Port-A-Cath for outpatient TPN was discontinued on 04/09/2023. Catheter tip culture is growing gram-negative bacilli and blood cultures on admission on 04/08/2003 are growing Klebsiella pneumonia Patient has right arm AV fistula which has not been successfully used yet. No significant complaints today. Seen on hemodialysis. Using one needle in AV fistula today. Objective - Vital Signs Vital signs: Vital Signs Temp 98.3 F 04/12/23 12:10 Pulse 75 04/12/23 12:10 Resp 16 04/12/23 12:10 BP 111/70 04/12/23 12:10 Pulse Ox 100 04/12/23 12:10 FiO2 Intake & Output 04/11/23 04/12/23 04/12/23 18:59 06:59 18:59 Intake Total 1100 1100 Balance 1100 1100 Weight 35.38 kg Intake: Intake, IV Titration 1100 1100 Amount Dextrose 10% in Water 1, 1000 1000 000 ml @ 100 mls/hr IV . [id number] CORRY with Sodium Chloride 4Meq/ml Vial 77 meq Rx#:[id number] Piperacillin-Tazobactam 3 100 100 .375 gm In Sodium Chloride 0.9% 100 ml @ 25 mls/hr IVPB Q12HR CORRY Rx #:[id number] Other: Voiding Method Toilet Toilet # Bowel Movements 7 6 - Exam Awake, comfortable, no acute distress Right IJ permacath currently dressed Examination lower extremity shows no edema [employer] exam grossly intact - Labs CBC & Chem 7: 04/12/23 05:43 04/12/23 05:43 Labs: Abnormal Lab Results - Last 24 Hours (Table) 04/11/23 04/11/23 04/12/23 Range/Units 06:21 18:55 00:05 RBC (4.10-5.20) X 10*6/uL Hgb (12.0-15.0) d/dL Hct (37.2-46.3) % MCV (80.0-97.0) FL MCH (27.0-32.0) pg MCHC (32.0-37.0) d/dL RDW (11.5-14.5) % Plt Count (140-440) X 10*3/uL Lymphocytes # (0.90-5.00) X 10*3/uL Eosinophils # (0.04-0.35) X 10*3/uL Potassium 3.3 L (3.5-5.5) mmol/L Carbon Dioxide 18.6 L (21.6-31.8) mmol/L Anion Gap 19.40 H (4.00-12.00) mmol/L BUN 8.4 L (9.0-27.0) mg/dL Creatinine 5.1 H (0.6-1.5) mg/dL Est GFR (CKD-EPI) 10 L (>=60) BUN/Creatinine Ratio 1.65 L (12.00-20.00) Ratio Glucose 166 H (70-110) mg/dL POC Glucose (mg/dL) 69 L 68 L (70-110) mg/dL Calcium 8.6 L (8.7-10.3) mg/dL 04/12/23 04/12/23 Range/Units 05:43 05:43 RBC 3.13 L (4.10-5.20) X 10*6/uL Hgb 10.2 L (12.0-15.0) d/dL Hct 33.8 L (37.2-46.3) % MCV 108.0 H (80.0-97.0) FL MCH 32.6 H (27.0-32.0) pg MCHC 30.2 L (32.0-37.0) d/dL RDW 15.9 H (11.5-14.5) % Plt Count 110 L (140-440) X 10*3/uL Lymphocytes # 0.77 L (0.90-5.00) X 10*3/uL Eosinophils # 0.57 H (0.04-0.35) X 10*3/uL Potassium (3.5-5.5) mmol/L Carbon Dioxide 16.4 L (21.6-31.8) mmol/L Anion Gap 18.60 H (4.00-12.00) mmol/L BUN 8.1 L (9.0-27.0) mg/dL Creatinine 6.5 H (0.6-1.5) mg/dL Est GFR (CKD-EPI) 7 L (>=60) BUN/Creatinine Ratio 1.25 L (12.00-20.00) Ratio Glucose (70-110) mg/dL POC Glucose (mg/dL) (70-110) mg/dL Calcium 8.5 L (8.7-10.3) mg/dL Microbiology - Last 24 Hours (Table) 04/11/23 06:21 Blood Culture - Preliminary Blood 04/09/23 11:30 Catheter Tip Culture - Preliminary Catheter Tip Gram Neg Bacilli 04/08/23 18:27 Blood Culture - Preliminary Blood 04/08/23 18:27 Blood Culture Gram Stain - Final Blood Blood Culture - Final Klebsiella pneumoniae Assessment and Plan Assessment: 1. Gram-negative bacteremia with blood culture growing Klebsiella pneumonia. Source is most likely the Choi catheter which is now discontinued. Repeat blood cultures are pending. Catheter tip is also growing gram-negative bacilli. Patient continues to have right IJ permacath. Blood cultures to be drawn today with hemodialysis. 2. End-stage renal disease maintained on Tuesday schedule currently dialyzing via right IJ permacath. AV fistula in the right upper arm has not been successfully used yet. 3. CK D mineral bone disorder 4. Short bowel syndrome and maintained on TPN as outpatient. 5. Anemia of chronic disease Plan: Hemodialysis today repeat blood cultures with hemodialysis today Continue antibiotics as per ID
--- NOTE | 2023-04-12 13:25 | P.PN ---
Subjective Progress Note Date: 04/11/23 Principal diagnosis: Klebsiella bacteremia and line related infection Patient is a 52-year-old female with past medical history significant for hypertension end-stage renal disease on hemodialysis through the right IJ permacatheter patient also have a history of short gut syndrome with multiple catheters for TPN and history of line sepsis patient did have a Groshong catheter was placed about 2 years ago patient presented to the hospital for not feeling well, patient has been diagnosed with the Groshong infection and did have removal of the catheter by surgery on 04/09/2023 blood culture positive for gram-negative. On today's evaluation that is 04/11/2023, the patient denies having any fever or any chills, patient is feeling weak but is breathing comfortably on room air no chest pain shortness of breath or cough no abdominal pain or vomiting Patient did have white count of 4.10, creatinine of 5.1 potassium is 3.3 blood cultures with Klebsiella catheter tip gram-negative bacilli Objective - Vital Signs Vital signs: Vital Signs Temp 98.0 F 04/11/23 07:56 Pulse 59 L 04/11/23 07:56 Resp 15 04/11/23 07:56 BP 102/45 04/11/23 07:56 Pulse Ox 100 04/11/23 07:56 FiO2 Intake & Output 04/10/23 04/11/23 04/11/23 18:59 06:59 18:59 Intake Total 1300 1900 Balance 1300 1900 Intake: Intake, IV Titration 1300 1300 Amount Dextrose 10% in Water 1, 1200 000 ml @ 100 mls/hr IV . [id number] CORRY with Sodium Chloride 4Meq/ml Vial 77 meq Rx#:[id number] Dextrose 5%-0.45% NaCl 1, 1200 000 ml @ 100 mls/hr IV . Q10H CORRY Rx#:[id number] Piperacillin-Tazobactam 3 100 100 .375 gm In Sodium Chloride 0.9% 100 ml @ 25 mls/hr IVPB Q12HR CORRY Rx #:[id number] Oral 600 Other: Voiding Method Toilet # Voids 0 # Bowel Movements 8 4 - Exam GENERAL DESCRIPTION: A middle-age female lying in bed in no distress RESPIRATORY SYSTEM: Unlabored breathing , decreased breath sounds at bases HEART: S1 S2 regular rate and rhythm , ABDOMEN: Soft , no tenderness EXTREMITIES: No edema feet - Labs CBC & Chem 7: 04/12/23 05:43 04/12/23 05:43 Labs: Abnormal Lab Results - Last 24 Hours (Table) 04/10/23 04/10/23 04/10/23 Range/Units 07:11 07:11 16:12 WBC (4.50-10.00) X 10*3/uL RBC 3.66 L (4.10-5.20) X 10*6/uL Hgb 11.7 L (12.0-15.0) d/dL Hct (37.2-46.3) % MCV 107.4 H (80.0-97.0) FL MCH (27.0-32.0) pg MCHC 29.8 L (32.0-37.0) d/dL RDW 16.7 H (11.5-14.5) % Plt Count 85 L (140-440) X 10*3/uL Lymphocytes # 0.30 L (0.90-5.00) X 10*3/uL Anion Gap 15.80 H (4.00-12.00) mmol/L BUN 7.4 L (9.0-27.0) mg/dL Creatinine 3.8 H (0.6-1.5) mg/dL Est GFR (CKD-EPI) 14 L (>=60) BUN/Creatinine Ratio 1.95 L (12.00-20.00) Ratio POC Glucose (mg/dL) 57 L (70-110) mg/dL 04/10/23 04/10/23 04/10/23 Range/Units 17:16 18:23 20:22 WBC (4.50-10.00) X 10*3/uL RBC (4.10-5.20) X 10*6/uL Hgb (12.0-15.0) d/dL Hct (37.2-46.3) % MCV (80.0-97.0) FL MCH (27.0-32.0) pg MCHC (32.0-37.0) d/dL RDW (11.5-14.5) % Plt Count (140-440) X 10*3/uL Lymphocytes # (0.90-5.00) X 10*3/uL Anion Gap (4.00-12.00) mmol/L BUN (9.0-27.0) mg/dL Creatinine (0.6-1.5) mg/dL Est GFR (CKD-EPI) (>=60) BUN/Creatinine Ratio (12.00-20.00) Ratio POC Glucose (mg/dL) 59 L 63 L 125 H (70-110) mg/dL 04/11/23 04/11/23 04/11/23 Range/Units 02:01 05:45 06:21 WBC 4.10 L (4.50-10.00) X 10*3/uL RBC 3.43 L (4.10-5.20) X 10*6/uL Hgb 11.0 L (12.0-15.0) d/dL Hct 36.5 L (37.2-46.3) % MCV 106.4 H (80.0-97.0) FL MCH 32.1 H (27.0-32.0) pg MCHC 30.1 L (32.0-37.0) d/dL RDW 16.1 H (11.5-14.5) % Plt Count 85 L (140-440) X 10*3/uL Lymphocytes # 0.34 L (0.90-5.00) X 10*3/uL Anion Gap (4.00-12.00) mmol/L BUN (9.0-27.0) mg/dL Creatinine (0.6-1.5) mg/dL Est GFR (CKD-EPI) (>=60) BUN/Creatinine Ratio (12.00-20.00) Ratio POC Glucose (mg/dL) 112 H 136 H (70-110) mg/dL 04/11/23 Range/Units 10:01 WBC (4.50-10.00) X 10*3/uL RBC (4.10-5.20) X 10*6/uL Hgb (12.0-15.0) d/dL Hct (37.2-46.3) % MCV (80.0-97.0) FL MCH (27.0-32.0) pg MCHC (32.0-37.0) d/dL RDW (11.5-14.5) % Plt Count (140-440) X 10*3/uL Lymphocytes # (0.90-5.00) X 10*3/uL Anion Gap (4.00-12.00) mmol/L BUN (9.0-27.0) mg/dL Creatinine (0.6-1.5) mg/dL Est GFR (CKD-EPI) (>=60) BUN/Creatinine Ratio (12.00-20.00) Ratio POC Glucose (mg/dL) 69 L (70-110) mg/dL Microbiology - Last 24 Hours (Table) 04/09/23 11:30 Catheter Tip Culture - Preliminary Catheter Tip Gram Neg Bacilli 04/08/23 18:27 Blood Culture - Preliminary Blood 04/08/23 18:27 Blood Culture Gram Stain - Preliminary Blood Blood Culture - Preliminary Gram Neg Bacilli Assessment and Plan (1) Infection associated with central venous catheter Current Visit: Yes Status: Acute Code(s): T80.219A - UNSP INFECTION DUE TO CENTRAL VENOUS CATHETER, INIT ENCNTR SNOMED Code(s): 760295008 (2) Bacteremia Current Visit: No Status: Acute Code(s): R78.81 - BACTEREMIA SNOMED Code(s): 0557770 (3) Allergy to multiple antibiotics Current Visit: Yes Status: Acute Code(s): Z88.1 - ALLERGY STATUS TO OTHER ANTIBIOTIC AGENTS SNOMED Code(s): 194827044 Plan: 1patient with a gram-negative bacteremia with a source possible Groshong catheter with the patient was using for TPN and the patient did have symptoms every time she was using the TPN possibly related to Groshong catheter which has been removed catheter tip has been sent however the patient also have a right IJ permacatheter and if bacteremic secondary seeding or infection of the pulm catheter not entirely excluded patient did have a right upper arm AV fistula with no evidence of any cellulitis at that site 2patient with multiple antibiotic allergies that would limit the number of antibiotics safe to use 3-blood cultures has been repeated document clearance of bacteremia and blood culture will be obtained from the right IJ permacatheter hemodialysis today discussed with the patient RN 4continue with the Yvette while waiting for the sensitivities to be finalized Dictation was produced using [employer] dictation software. please excuse any grammatical, word or spelling errors. Time with Patient: Less than 30
--- NOTE | 2023-04-12 13:27 | P.PN ---
Subjective Progress Note Date: 04/12/23 Principal diagnosis: Klebsiella bacteremia and line related infection Patient is a 52-year-old female with past medical history significant for hypertension end-stage renal disease on hemodialysis through the right IJ permacatheter patient also have a history of short gut syndrome with multiple catheters for TPN and history of line sepsis patient did have a Groshong catheter was placed about 2 years ago patient presented to the hospital for not feeling well, patient has been diagnosed with the Groshong infection and did have removal of the catheter by surgery on 04/09/2023 blood culture positive for gram-negative. On today's evaluation that is 04/12/2023, the patient remains to be afebrile, patient is breathing comfortably on room air, the patient denies chest pain shortness of breath or cough no abdominal pain or vomiting Patient did have white count of 6.22, creatinine of 6.5 potassium is 3.7 blood cultures with Klebsiella catheter tip gram-negative bacilli Objective - Vital Signs Vital signs: Vital Signs Temp 98.3 F 04/12/23 12:10 Pulse 75 04/12/23 12:10 Resp 16 04/12/23 12:10 BP 111/70 04/12/23 12:10 Pulse Ox 100 04/12/23 12:10 FiO2 Intake & Output 04/11/23 04/12/23 04/12/23 18:59 06:59 18:59 Intake Total 1100 1100 Balance 1100 1100 Weight 35.38 kg Intake: Intake, IV Titration 1100 1100 Amount Dextrose 10% in Water 1, 1000 1000 000 ml @ 100 mls/hr IV . [id number] CORRY with Sodium Chloride 4Meq/ml Vial 77 meq Rx#:[id number] Piperacillin-Tazobactam 3 100 100 .375 gm In Sodium Chloride 0.9% 100 ml @ 25 mls/hr IVPB Q12HR CORRY Rx #:[id number] Other: Voiding Method Toilet Toilet # Bowel Movements 7 6 - Exam GENERAL DESCRIPTION: A middle-age female lying in bed in no distress RESPIRATORY SYSTEM: Unlabored breathing , decreased breath sounds at bases HEART: S1 S2 regular rate and rhythm , ABDOMEN: Soft , no tenderness EXTREMITIES: No edema feet - Labs CBC & Chem 7: 04/12/23 05:43 04/12/23 05:43 Labs: Abnormal Lab Results - Last 24 Hours (Table) 04/11/23 04/11/23 04/12/23 Range/Units 06:21 18:55 00:05 RBC (4.10-5.20) X 10*6/uL Hgb (12.0-15.0) d/dL Hct (37.2-46.3) % MCV (80.0-97.0) FL MCH (27.0-32.0) pg MCHC (32.0-37.0) d/dL RDW (11.5-14.5) % Plt Count (140-440) X 10*3/uL Lymphocytes # (0.90-5.00) X 10*3/uL Eosinophils # (0.04-0.35) X 10*3/uL Potassium 3.3 L (3.5-5.5) mmol/L Carbon Dioxide 18.6 L (21.6-31.8) mmol/L Anion Gap 19.40 H (4.00-12.00) mmol/L BUN 8.4 L (9.0-27.0) mg/dL Creatinine 5.1 H (0.6-1.5) mg/dL Est GFR (CKD-EPI) 10 L (>=60) BUN/Creatinine Ratio 1.65 L (12.00-20.00) Ratio Glucose 166 H (70-110) mg/dL POC Glucose (mg/dL) 69 L 68 L (70-110) mg/dL Calcium 8.6 L (8.7-10.3) mg/dL 04/12/23 04/12/23 Range/Units 05:43 05:43 RBC 3.13 L (4.10-5.20) X 10*6/uL Hgb 10.2 L (12.0-15.0) d/dL Hct 33.8 L (37.2-46.3) % MCV 108.0 H (80.0-97.0) FL MCH 32.6 H (27.0-32.0) pg MCHC 30.2 L (32.0-37.0) d/dL RDW 15.9 H (11.5-14.5) % Plt Count 110 L (140-440) X 10*3/uL Lymphocytes # 0.77 L (0.90-5.00) X 10*3/uL Eosinophils # 0.57 H (0.04-0.35) X 10*3/uL Potassium (3.5-5.5) mmol/L Carbon Dioxide 16.4 L (21.6-31.8) mmol/L Anion Gap 18.60 H (4.00-12.00) mmol/L BUN 8.1 L (9.0-27.0) mg/dL Creatinine 6.5 H (0.6-1.5) mg/dL Est GFR (CKD-EPI) 7 L (>=60) BUN/Creatinine Ratio 1.25 L (12.00-20.00) Ratio Glucose (70-110) mg/dL POC Glucose (mg/dL) (70-110) mg/dL Calcium 8.5 L (8.7-10.3) mg/dL Microbiology - Last 24 Hours (Table) 04/11/23 06:21 Blood Culture - Preliminary Blood 04/09/23 11:30 Catheter Tip Culture - Preliminary Catheter Tip Gram Neg Bacilli 04/08/23 18:27 Blood Culture - Preliminary Blood 04/08/23 18:27 Blood Culture Gram Stain - Final Blood Blood Culture - Final Klebsiella pneumoniae Assessment and Plan (1) Infection associated with central venous catheter Current Visit: Yes Status: Acute Code(s): T80.219A - UNSP INFECTION DUE TO CENTRAL VENOUS CATHETER, INIT ENCNTR SNOMED Code(s): 272697786 (2) Bacteremia Current Visit: No Status: Acute Code(s): R78.81 - BACTEREMIA SNOMED Code(s): 9615443 (3) Allergy to multiple antibiotics Current Visit: Yes Status: Acute Code(s): Z88.1 - ALLERGY STATUS TO OTHER ANTIBIOTIC AGENTS SNOMED Code(s): 366971025 Plan: 1patient with a gram-negative bacteremia with a source possible Groshong cath eter with the patient was using for TPN and the patient did have symptoms every time she was using the TPN possibly related to Groshong catheter which has been removed catheter tip has been sent however the patient also have a right IJ permacatheter and if bacteremic secondary seeding or infection of the pulm catheter not entirely excluded patient did have a right upper arm AV fistula with no evidence of any cellulitis at that site 2patient with multiple antibiotic allergies that would limit the number of antibiotics safe to use 3-blood cultures has been repeated 04/11/2023 to document clearance of bacteremia and blood culture will be obtained from the right IJ permacatheter hemodialysis on 04/11/2023 and results will be followed 4patient to continue with the Zosyn, patient will be able to get a new port for IV access once her blood cultures are negative at 72 hours Dictation was produced using [employer] dictation software. please excuse any grammatical, word or spelling errors. Time with Patient: Less than 30
[2023-04-12 14:30] LABS: Glucose,Whole Blood 84 mg/dL (70-110)
--- NOTE | 2023-04-12 15:52 | P.PN ---
Subjective Progress Note Date: 04/12/23 Patient is a 52-year-old female with history of short bowel syndrome, end stage renal disease, hypertension, and sigmoid volvulus who presented with suspicion for an infected Groshong catheter. On arrival to the ER her vital signs were within normal limits, laboratory analysis was remarkable for hemoglobin 10.6, platelet 92, BUN 23, and creatinine 5.18. She was started on Unasyn and blood cultures were obtained. Surgery was consulted and she had her Groshong catheter removed on 04/09/23. Blood culture came back with Klebsiella pneumonia and catheter tip was cultured. She was also seen by dialysis and continued on her hemodialysis. Patient seen and examined at bedside. Denies any chest pain, shortness of breath, nausea, vomiting. Doing well overall. She states that her TPN line typically gets infected about every one year however this one lasted 2 years. Vital signs reviewed General: nontoxic, no distress, appears at stated age Cardiovascular: S1S2 reg, no murmur, positive posterior tibial pulse bilateral, Lungs: CTA bilateral, no rhonchi, no rales , no accessory muscle use Ext: no gross muscle atrophy, no edema b/l lower extremities, no contractures Neuro: CN II-XI grossly intact, no focal neuro deficits Psych: Alert, oriented, appropriate affect Assessment/Plan: Klebsiella pneumonia bacteremia due to infected Groshong catheter -infected Groshong Catheter has been removed. IJ hemodialysis catheter remains in place. -Tagged white blood cell scan shows no additional uptake -Infectious disease note reviewed-continue to await final cultures. New IV access once blood cultures negative 72 hours -Continue with Zosyn 3.375 g IV piggyback every 12 hours Short-bowel syndrome Hypoglycemia - uses chronic TPN - Currently on dextrose at 100 mls/hr - monitor BS ESRD on hemodialysis through right permacath -Nephrology recommendations reviewed: -Continue with sodium bicarb 1300 mg 3 times daily, potassium 20 mEq twice daily -Plan is for hemodialysis today Chronic: Anemia, chronic Thrombocytopenia Hypokalemia, resolved Chronic pain syndrome Imaging: Tagged white blood cell scan-no abnormal uptake within the right upper chest just staying infected [id number], normal white blood cell scan Data Review: Vitals reviewed temperature 97.8, pulse 60, respirations 16, blood pressure 110/59, O2 sat 98% on room air T max in the Last 24 hours 99 Labs reviewed and remarkable for hemoglobin 10.2, platelets 110, BUN 8.1, creat inine 7 DVT prophylaxis: Heparin SC Anticipated discharge date: Pending Clinical Course Anticipated discharge place: Pending Clinical Course This dictation was prepared using [email or web address] voice recognition software. Though every attempt is made to correct errors during dictation some may still exist. Objective - Vital Signs Vital signs: Vital Signs Temp 98.3 F 04/12/23 12:10 Pulse 75 04/12/23 12:10 Resp 16 04/12/23 12:10 BP 111/70 04/12/23 12:10 Pulse Ox 100 04/12/23 12:10 FiO2 Intake & Output 04/11/23 04/12/23 04/12/23 18:59 06:59 18:59 Intake Total 1100 1100 Balance 1100 1100 Weight 35.38 kg Intake: Intake, IV Titration 1100 1100 Amount Dextrose 10% in Water 1, 1000 1000 000 ml @ 100 mls/hr IV . [id number] CORRY with Sodium Chloride 4Meq/ml Vial 77 meq Rx#:[id number] Piperacillin-Tazobactam 3 100 100 .375 gm In Sodium Chloride 0.9% 100 ml @ 25 mls/hr IVPB Q12HR CORRY Rx #:[id number] Other: Voiding Method Toilet Toilet # Bowel Movements 7 6 - Labs CBC & Chem 7: 04/12/23 05:43 04/12/23 05:43 Labs: Abnormal Lab Results - Last 24 Hours (Table) 04/11/23 04/12/23 04/12/23 Range/Units 18:55 00:05 05:43 RBC 3.13 L (4.10-5.20) X 10*6/uL Hgb 10.2 L (12.0-15.0) d/dL Hct 33.8 L (37.2-46.3) % MCV 108.0 H (80.0-97.0) FL MCH 32.6 H (27.0-32.0) pg MCHC 30.2 L (32.0-37.0) d/dL RDW 15.9 H (11.5-14.5) % Plt Count 110 L (140-440) X 10*3/uL Lymphocytes # 0.77 L (0.90-5.00) X 10*3/uL Eosinophils # 0.57 H (0.04-0.35) X 10*3/uL Carbon Dioxide (21.6-31.8) mmol/L Anion Gap (4.00-12.00) mmol/L BUN (9.0-27.0) mg/dL Creatinine (0.6-1.5) mg/dL Est GFR (CKD-EPI) (>=60) BUN/Creatinine Ratio (12.00-20.00) Ratio POC Glucose (mg/dL) 69 L 68 L (70-110) mg/dL Calcium (8.7-10.3) mg/dL 04/12/23 Range/Units 05:43 RBC (4.10-5.20) X 10*6/uL Hgb (12.0-15.0) d/dL Hct (37.2-46.3) % MCV (80.0-97.0) FL MCH (27.0-32.0) pg MCHC (32.0-37.0) d/dL RDW (11.5-14.5) % Plt Count (140-440) X 10*3/uL Lymphocytes # (0.90-5.00) X 10*3/uL Eosinophils # (0.04-0.35) X 10*3/uL Carbon Dioxide 16.4 L (21.6-31.8) mmol/L Anion Gap 18.60 H (4.00-12.00) mmol/L BUN 8.1 L (9.0-27.0) mg/dL Creatinine 6.5 H (0.6-1.5) mg/dL Est GFR (CKD-EPI) 7 L (>=60) BUN/Creatinine Ratio 1.25 L (12.00-20.00) Ratio POC Glucose (mg/dL) (70-110) mg/dL Calcium 8.5 L (8.7-10.3) mg/dL Microbiology - Last 24 Hours (Table) 04/11/23 06:21 Blood Culture - Preliminary Blood 04/09/23 11:30 Catheter Tip Culture - Preliminary Catheter Tip Gram Neg Bacilli 04/08/23 18:27 Blood Culture - Preliminary Blood 04/08/23 18:27 Blood Culture Gram Stain - Final Blood Blood Culture - Final Klebsiella pneumoniae
[2023-04-12 16:26] LABS: Glucose,Whole Blood 84 mg/dL (70-110)
[2023-04-12 17:47] LABS: Glucose,Whole Blood 72 mg/dL (70-110)
[2023-04-12 20:01] LABS: Glucose,Whole Blood 104 mg/dL (70-110)
[2023-04-12 22:19] LABS: Glucose,Whole Blood 57 mg/dL (70-110)
[2023-04-12 22:46] LABS: Glucose,Whole Blood 49 mg/dL (70-110)
[2023-04-12] MEDS ORDERED: DEXTROSE 50% SYRINGE 50 ML IVP ONE (22:50)
[2023-04-12] MEDS ORDERED: DEXTROSE 50% SYRINGE 50 ML IVP STA (22:52)
[2023-04-12 23:33] LABS: Glucose,Whole Blood 167 mg/dL (70-110)
[2023-04-13] LABS: Glucose,Whole Blood 133 mg/dL (70-110)
[2023-04-13] MEDS: HYDROmorphone 1 MG/ML 1 ML SYRINGE IVP PRN ×3 (00:44→15:10)
[2023-04-13] MEDS: HEPARIN SODIUM,PORCINE/PF 5,000 UNIT/0.5 ML SYRINGE SQ SCH ×4 (01:52→21:04)
[2023-04-13 02:00] LABS: Glucose,Whole Blood 101 mg/dL (70-110)
[2023-04-13] MEDS: diphenhydrAMINE 50 MG/ML 1 ML VIAL IVP PRN ×3 (02:23→20:55)
[2023-04-13 04:03] LABS: Glucose,Whole Blood 137 mg/dL (70-110)
[2023-04-13 06:03] LABS: Glucose,Whole Blood 83 mg/dL (70-110)
[2023-04-13 07:49] LABS: Glucose,Whole Blood 84 mg/dL (70-110)
[2023-04-13] MEDS: DIPHENOX-ATROP 2.5-0.025 MG 1 EACH TAB PO SCH ×2 (08:27→20:53)
[2023-04-13] MEDS: POTASSIUM CHLORIDE ER 20 MEQ TAB.ER PO SCH ×2 (08:59→20:53)
[2023-04-13] MEDS: SODIUM BICARBONATE TAB 650 MG TAB PO SCH ×3 (08:59→20:59)
[2023-04-13] MEDS: PIPERACILLIN-TAZOBACTAM 3.375 GM in SODIUM CHLORIDE 0.9% 100 ML IVPB SCH ×2 (08:59→20:55)
[2023-04-13] MEDS: ursodioL 300 MG CAP PO SCH ×2 (08:59→20:52)
[2023-04-13] MEDS: POTAS-SOD-PHOS 278-164-250 MG 1 EACH PACKET PO SCH ×3 (08:59→20:55)
[2023-04-13] MEDS: FOLIC ACID-VIT B COMPLEX-VIT C 1 CAP PO SCH (08:59)
[2023-04-13] MEDS ORDERED: CALCIUM CARBONATE 500 MG CHEWABLE PO PRN (09:09)
[2023-04-13 10:01] LABS: Glucose,Whole Blood 73 mg/dL (70-110)
[2023-04-13] MEDS: DEXTROSE 10% IN WATER 1,000 ML with SODIUM CHLORIDE 4MEQ/ML VIAL 77 MEQ IV SCH ×2 (10:04→18:48)
[2023-04-13 12:04] LABS: Glucose,Whole Blood 74 mg/dL (70-110)
--- NOTE | 2023-04-13 13:42 | P.GSCN ---
History of Present Illness Consult date: 04/13/23 Reason for Consult: Right upper extremity malfunctioning fistula Requesting physician: Génesis Bagley History of present illness: Pleasant 52-year-old female who presented to the emergency department overall not feeling well with fever, body aches and chills. Patient had a Choi catheter in for TPN due to short bowel syndrome. Patient had positive blood cultures thought that likely Choi catheter SOURCE. She also has end-stage renal disease on hemodialysis and apparently yesterday was getting dialysis thr ough her right upper extremity fistula, also to get dialysis from her right IJ permacath however following dialysis on her right upper extremity no longer had palpable thrill or audible bruit. Patient states that she had some discomfort after dialysis. Patient is known to vascular surgeon Dr. Berg who has placed both of her fistulas. She states she's had multiple work on her right fistula and next week Tuesday was scheduled to have left one removed. She she currently denies any pain in her right upper extremity, no drainage or redness noted. Vascular surgery was consulted for malfunctioning fistula. She denies any shortness of breath or chest pain, states tunnel catheter was working fine yesterday. Review of Systems A 14 point review systems was completed all pertinent positives and negatives as stated in the HPI. 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 HAS PORT FOR TPN, pneumothorax, hemothorax. ANEMIA History of Any Multi-Drug Resistant Organisms: None Reported Past Surgical History: Appendectomy, Bowel Resection, Cholecystectomy, Tubal Ligation Additional Past Surgical History / Comment(s): intestinal transplant and removal, chest tube placement. CHOI REPLACEMENT. back sx Past Anesthesia/Blood Transfusion Reactions: No Reported Reaction Past Psychological History: No Psychological Hx Reported Smoking Status: Never smoker Past Alcohol Use History: None Reported Past Drug Use History: None Reported - Past Family History Mother Family Medical History: Hypertension Father Family Medical History: Congestive Heart Failure (CHF), Coronary Artery Disease (CAD), Diabetes Mellitus, Hypertension Additional Family Medical History / Comment(s): . Medications and Allergies Home Medications Medication Instructions Recorded Confirmed Type Sodium Bicarbonate Tab 1,300 mg PO TID 09/06/18 04/08/23 History Acetaminophen Tab [Tylenol] 650 mg PO Q6HR PRN tab 12/02/18 04/08/23 Rx Copper Supplement 1 tab PO DAILY 04/08/23 04/08/23 History Diphenox-Atrop 2.5-0.025 mg 1 tab PO BID 04/08/23 04/08/23 History [Lomotil] Ergocalciferol (Vitamin D2) 1,250 mcg PO DAILY 04/08/23 04/08/23 History [Drisdol (50,000 Iu)] Loperamide [Imodium] 2 mg PO BID PRN 04/08/23 04/08/23 History Ondansetron Odt [Zofran Odt] 4 mg PO Q8HR PRN 04/08/23 04/08/23 History Rhvro-Lcn-Lkvx 278-164-250 mg 1 packet PO TID 04/08/23 04/08/23 History [Neutra-Phos Packet] Potassium Chloride ER [K-Dur 20] 20 meq PO BID 04/08/23 04/08/23 History Vit B Complx C/Folic Acid/Zinc 1 tab PO DAILY 04/08/23 04/08/23 History [Renaplex Tablet] fentaNYL 25MCG/HR PATCH [Duragesic 25 mcg TRANSDERM Q72H 04/08/23 04/08/23 History 25MCG/HR] ursodioL [Ursodiol] 300 mg PO BID 04/08/23 04/08/23 History Allergies Allergy/AdvReac Type Severity Reaction Status Date / Time ceftriaxone [From Rocephin] Allergy Intermediate Itching Verified 04/08/23 19:44 acetate salt Allergy Unknown Verified 04/08/23 19:44 [From Hyperlyte CR] ciprofloxacin [From Cipro] Allergy Anaphylaxis Verified 04/08/23 19:44 ciprofloxacin HCl Allergy Anaphylaxis Verified 04/08/23 19:44 [From Cipro] fat emulsions Allergy Rash/Hives Verified 04/09/23 11:11 [From Liposyn II] Sulfa (Sulfonamide Allergy Anaphylaxis Verified 04/08/23 19:44 Antibiotics) fexofenadine [From Sofia] AdvReac Migraine Verified 04/08/23 19:44 vancomycin AdvReac Rash/Hives Verified 04/08/23 19:44 Surgical - Exam Vital Signs Temp Pulse Resp BP Pulse Ox 98.7 F 67 20 110/68 99 04/08/23 15:23 04/08/23 15:23 04/08/23 15:23 04/08/23 15:23 04/08/23 15:23 General appearance: The patient is alert, oriented, appears in no acute distress. HET: Head is normocephalic and atraumatic. Pupils are equal and reactive. Neck: Supple. Right IJ permacath. Heart: Regular. Lungs: Equal expansion, normal respiratory effort. Abdomen: Soft, nontender, nondistended. Extremities: Normal skin color and turgor. Right upper extremity with AV fistula with non-palpable thrill and no audible bruit. No redness or drainage. Nontender to palpation. Neurological: No focal deficits. Strength and sensation are grossly intact. Results - Labs 04/12/23 05:43 04/12/23 05:43 Abnormal Lab Results - Last 24 Hours (Table) 04/12/23 04/12/23 04/12/23 Range/Units 22:18 22:43 23:29 POC Glucose (mg/dL) 57 L 49 L 167 H (70-110) mg/dL 04/12/23 04/13/23 Range/Units 23:58 04:01 POC Glucose (mg/dL) 133 H 137 H (70-110) mg/dL Microbiology - Last 24 Hours (Table) 04/11/23 13:49 Blood Culture - Preliminary Blood 04/11/23 06:21 Blood Culture - Preliminary Blood 04/09/23 11:30 Catheter Tip Culture - Preliminary Catheter Tip Gram Neg Bacilli Assessment and Plan Assessment: 1. Malfunctioning right upper extremity fistula 2. End-stage renal disease on hemodialysis 3. Bacteremia 4. Nonfunctioning left AV fistula Plan: No plans and any vascular surgical intervention. Recommend patient follow up with her vascular surgeon as soon as possible Continue use of permacath for hemodialysis. Thank you for this consultation, we will sign off at this time. The impression and plan of care has been dictated as directed. Dr. Hardy I performed a history and examination of this patient, discussed the same with the dictator. I agree with the dictator's note ,documented as a scribe. Any additional findings or plans will be noted.
--- NOTE | 2023-04-13 13:53 | P.PN ---
Subjective Patient is seen for follow-up for end-stage renal disease. Maintained on hemodialysis on a Tuesday schedule. Currently she has a right IJ permacath. Right Port-A-Cath for outpatient TPN was discontinued on 04/09/2023. Catheter tip culture is growing gram-negative bacilli and blood cultures on admission on 04/08/2003 are growing Klebsiella pneumonia Patient has right arm AV fistula which has not been successfully used yet. Status post hemodialysis yesterday. One needle was used in the AV fistula and patient noticed no bruit or thrill at about 3 AM this morning. Vascular surgery has been consulted. Repeat Blood cultures remained negative Objective - Vital Signs Vital signs: Vital Signs Temp 98.1 F 04/13/23 12:05 Pulse 70 04/13/23 12:05 Resp 16 04/13/23 12:05 BP 127/82 04/13/23 12:05 Pulse Ox 98 04/13/23 12:05 FiO2 Intake & Output 04/12/23 04/13/23 04/13/23 18:59 06:59 18:59 Intake Total 880 Balance 880 Intake: Oral 880 Other: Voiding Method Toilet Toilet # Voids 1 3 - Exam Awake, comfortable, no acute distress Right IJ permacath currently dressed Examination lower extremity shows no edema [employer] MACHINE LOADER exam grossly intact - Labs CBC & Chem 7: 04/12/23 05:43 04/12/23 05:43 Labs: Abnormal Lab Results - Last 24 Hours (Table) 04/12/23 04/12/23 04/12/23 Range/Units 22:18 22:43 23:29 POC Glucose (mg/dL) 57 L 49 L 167 H (70-110) mg/dL 04/12/23 04/13/23 Range/Units 23:58 04:01 POC Glucose (mg/dL) 133 H 137 H (70-110) mg/dL Microbiology - Last 24 Hours (Table) 04/11/23 06:21 Blood Culture - Preliminary Blood 04/09/23 11:30 Catheter Tip Culture - Preliminary Catheter Tip Klebsiella pneumoniae 04/11/23 13:49 Blood Culture - Preliminary Blood Assessment and Plan Assessment: 1. Gram-negative bacteremia with blood culture growing Klebsiella pneumonia. Source is most likely the Choi catheter which is now discontinued. Repeat blood cultures are pending. Catheter tip is also growing gram-negative bacilli. Patient continues to have right IJ permacath. Repeat blood cultures negative thus far 2. End-stage renal disease maintained on Tuesday schedule currently dialyzing via right IJ permacath. AV fistula in the right upper arm has not been successfully used yet. 3. CK D mineral bone disorder 4. Short bowel syndrome and maintained on TPN as outpatient. 5. Anemia of chronic disease 6. Hematoma at right arm AV fistula Plan: Hemodialysis in a.m. Follow-up on blood cultures Consult vascular surgery Continue antibiotics as per ID
[2023-04-13 14:00] LABS: Glucose,Whole Blood 85 mg/dL (70-110)
--- NOTE | 2023-04-13 15:10 | P.PN ---
Subjective Progress Note Date: 04/13/23 (delayed charting seen at 0845) Patient is a 52-year-old female with history of short bowel syndrome, end stage renal disease, hypertension, and sigmoid volvulus who presented with suspicion for an infected Groshong catheter. On arrival to the ER her vital signs were within normal limits, laboratory analysis was remarkable for hemoglobin 10.6, platelet 92, BUN 23, and creatinine 5.18. She was started on Unasyn and blood cultures were obtained. Surgery was consulted and she had her Groshong catheter removed on 04/09/23. Blood culture came back with Klebsiella pneumonia and catheter tip was cultured. She was also seen by dialysis and continued on her hemodialysis. Tagged white blood cell scan showed no abnormal uptake within the right upper chest just staying infected [id number], normal white blood cell scan Patient seen and examined at bedside. She is very concerned because her right AV fistula stopped having a palpable thrill after dialysis yesterday. She denies any pain in the arm. She has chronic numbness of that arm which is unchanged. She denies any nausea, vomiting, shortness of breath. They have been having to stop her dextrose infusion which is on Zosyn and her blood sugar dropped last night. Discussed between myself, patient, and nursing. We'll obtain second IV, will also contact the pharmacy to see if we 10 have a glucose gel present at the bedside for patient. Vital signs reviewed General: nontoxic, no distress, appears at stated age Cardiovascular: S1S2 reg, no murmur, positive posterior tibial pulse bilateral, Lungs: CTA bilateral, no rhonchi, no rales , no accessory muscle use Right AV fistula no thrill, no bruit Ext: no gross muscle atrophy, no edema b/l lower extremities, no contractures Neuro: CN II-XI grossly intact, no focal neuro deficits Psych: Alert, oriented, appropriate affect Assessment/Plan: Klebsiella pneumonia bacteremia due to infected Groshong catheter -infected Groshong Catheter has been removed. IJ hemodialysis catheter remains in place. -Tagged white blood cell scan shows no additional uptake - Await further ID recs. New Central access once blood cultures negative 72 hours -Continue with Zosyn 3.375 g IV piggyback every 12 hours Short-bowel syndrome Hypoglycemia - uses chronic TPN - Currently on dextrose at 100 mls/hr - monitor BS AV fistula malfunction -Case discussed with Aleksey vascular surgery CANNERY WORKER. Recommend outpatient intervention with patient's known vascular surgeon. ESRD on hemodialysis through right permacath -Nephrology note reviewed: Hemodialysis in a.m. -Continue with sodium bicarb 1300 mg 3 times daily, potassium 20 mEq twice daily -Plan is for hemodialysis today Chronic: Anemia, chronic Thrombocytopenia Hypokalemia, resolved Chronic pain syndrome Imaging: None new Data Review: Blood cultures from peripheral and HD cath from 04/11/23-negative for 24 hours Blood sugars reviewed and low of 49 on 04/12/23. Vitals reviewed and temperature 97.4, pulse 68, respiratory rate 14, blood pressure 120/72, O2 sat 100% on room air DVT prophylaxis: Heparin SC Anticipated discharge date: Pending Clinical Course Anticipated discharge place: Pending Clinical Course This dictation was prepared using [facility] voice recognition software. Though every attempt is made to correct errors during dictation some may still exist. Objective - Vital Signs Vital signs: Vital Signs Temp 98.1 F 04/13/23 12:05 Pulse 70 04/13/23 12:05 Resp 16 04/13/23 12:05 BP 127/82 04/13/23 12:05 Pulse Ox 98 04/13/23 12:05 FiO2 Intake & Output 04/12/23 04/13/23 04/13/23 18:59 06:59 18:59 Intake Total 880 Balance 880 Intake: Oral 880 Other: Voiding Method Toilet Toilet # Voids 1 3 - Labs CBC & Chem 7: 04/12/23 05:43 04/12/23 05:43 Labs: Abnormal Lab Results - Last 24 Hours (Table) 04/12/23 04/12/23 04/12/23 Range/Units 22:18 22:43 23:29 POC Glucose (mg/dL) 57 L 49 L 167 H (70-110) mg/dL 04/12/23 04/13/23 Range/Units 23:58 04:01 POC Glucose (mg/dL) 133 H 137 H (70-110) mg/dL Microbiology - Last 24 Hours (Table) 04/11/23 06:21 Blood Culture - Preliminary Blood 04/09/23 11:30 Catheter Tip Culture - Preliminary Catheter Tip Klebsiella pneumoniae 04/11/23 13:49 Blood Culture - Preliminary Blood
[2023-04-13 16:00] LABS: Glucose,Whole Blood 89 mg/dL (70-110)
[2023-04-13 17:44] LABS: Glucose,Whole Blood 66 mg/dL (70-110)
[2023-04-13 18:09] LABS: Glucose,Whole Blood 64 mg/dL (70-110)
[2023-04-13 18:37] LABS: Glucose,Whole Blood 49 mg/dL (70-110)
[2023-04-13 18:46] LABS: Glucose,Whole Blood 63 mg/dL (70-110)
[2023-04-13 19:11] LABS: Glucose,Whole Blood 77 mg/dL (70-110)
[2023-04-13 20:04] LABS: Glucose,Whole Blood 106 mg/dL (70-110)
[2023-04-13 22:12] LABS: Glucose,Whole Blood 103 mg/dL (70-110)
[2023-04-13 23:57] LABS: Glucose,Whole Blood 82 mg/dL (70-110)
[2023-04-14 02:15] LABS: Glucose,Whole Blood 96 mg/dL (70-110)
[2023-04-14 03:59] LABS: Glucose,Whole Blood 96 mg/dL (70-110)
[2023-04-14 05:58] LABS: Glucose,Whole Blood 94 mg/dL (70-110)
[2023-04-14] MEDS: DEXTROSE 10% IN WATER 1,000 ML with SODIUM CHLORIDE 4MEQ/ML VIAL 77 MEQ IV SCH ×3 (06:34→17:20)
[2023-04-14 07:51] LABS: Glucose,Whole Blood 100 mg/dL (70-110)
--- NOTE | 2023-04-14 09:13 | P.PN ---
Subjective Progress Note Date: 04/13/23 Principal diagnosis: Klebsiella bacteremia and line related infection Patient is a 52-year-old female with past medical history significant for hypertension end-stage renal disease on hemodialysis through the right IJ permacatheter patient also have a history of short gut syndrome with multiple catheters for TPN and history of line sepsis patient did have a Groshong catheter was placed about 2 years ago patient presented to the hospital for not feeling well, patient has been diagnosed with the Groshong infection and did have removal of the catheter by surgery on 04/09/2023 blood culture positive for gram-negative. On today's evaluation that is 04/13/2023, the patient continues to be afebrile, patient is breathing comfortably on room air, the patient denies chest pain shortness of breath or cough , did have mild nausea but no vomiting mild abdominal pain no diarrhea patient did have a nonfunctioning right upper arm fistula for which vascular surgery has been consulted No labs were drawn today blood cultures with Klebsiella catheter tip also grew Klebsiella, blood cultures 04/11/2023 as well as 04/12/2023 so far negative Objective - Vital Signs Vital signs: Vital Signs Temp 98.1 F 04/13/23 12:05 Pulse 70 04/13/23 12:05 Resp 16 04/13/23 12:05 BP 127/82 04/13/23 12:05 Pulse Ox 98 04/13/23 12:05 FiO2 Intake & Output 04/12/23 04/13/23 04/13/23 18:59 06:59 18:59 Intake Total 880 Balance 880 Intake: Oral 880 Other: Voiding Method Toilet Toilet # Voids 1 3 - Exam GENERAL DESCRIPTION: A middle-age female lying in bed in no distress RESPIRATORY SYSTEM: Unlabored breathing , decreased breath sounds at bases HEART: S1 S2 regular rate and rhythm , ABDOMEN: Soft , no tenderness EXTREMITIES: No edema feet - Labs CBC & Chem 7: 04/12/23 05:43 04/12/23 05:43 Labs: Abnormal Lab Results - Last 24 Hours (Table) 04/12/23 04/12/23 04/12/23 Range/Units 22:18 22:43 23:29 POC Glucose (mg/dL) 57 L 49 L 167 H (70-110) mg/dL 04/12/23 04/13/23 Range/Units 23:58 04:01 POC Glucose (mg/dL) 133 H 137 H (70-110) mg/dL Microbiology - Last 24 Hours (Table) 04/11/23 06:21 Blood Culture - Preliminary Blood 04/09/23 11:30 Catheter Tip Culture - Preliminary Catheter Tip Klebsiella pneumoniae 04/11/23 13:49 Blood Culture - Preliminary Blood Assessment and Plan (1) Infection associated with central venous catheter Current Visit: Yes Status: Acute Code(s): T80.219A - UNSP INFECTION DUE TO CENTRAL VENOUS CATHETER, INIT ENCNTR SNOMED Code(s): 320226802 (2) Bacteremia Current Visit: No Status: Acute Code(s): R78.81 - BACTEREMIA SNOMED Code(s): 2273317 (3) Allergy to multiple antibiotics Current Visit: Yes Status: Acute Code(s): Z88.1 - ALLERGY STATUS TO OTHER ANTIBIOTIC AGENTS SNOMED Code(s): 748655929 Plan: 1patient with a gram-negative bacteremia with a source possible Groshong catheter with the patient was using for TPN and the patient did have symptoms every time she was using the TPN possibly related to Groshong catheter which has been removed catheter tip has been sent however the patient also have a right IJ permacatheter and if bacteremic secondary seeding or infection of the pulm catheter not entirely excluded patient did have a right upper arm AV fistula with no evidence of any cellulitis at that site 2patient with multiple antibiotic allergies that would limit the number of antibiotics safe to use 3-blood cultures has been repeated 04/11/2023 to document clearance of bacteremia and blood culture will be obtained from the right IJ permacatheter hemodialysis on 04/11/2023 and are negative so far 4patient to continue with the Zosyn, patient will be able to get a new port for IV access , and the blood culture drawn on 04/11/2023 remains to be negative by 04/14/2023 if needed, however it will be safe to place any IV access later such as 04/15/2023 Dictation was produced using [employer] dictation software. please excuse any grammatical, word or spelling errors. Time with Patient: Less than 30
[2023-04-14] MEDS: HEPARIN SODIUM,PORCINE/PF 5,000 UNIT/0.5 ML SYRINGE SQ SCH (09:38)
[2023-04-14] MEDS: FOLIC ACID-VIT B COMPLEX-VIT C 1 CAP PO SCH (10:14)
[2023-04-14] MEDS: DIPHENOX-ATROP 2.5-0.025 MG 1 EACH TAB PO SCH ×3 (10:14→21:04)
[2023-04-14] MEDS: POTASSIUM CHLORIDE ER 20 MEQ TAB.ER PO SCH ×2 (10:14→21:27)
[2023-04-14] MEDS: POTAS-SOD-PHOS 278-164-250 MG 1 EACH PACKET PO SCH ×4 (10:14→21:27)
[2023-04-14] MEDS: SODIUM BICARBONATE TAB 650 MG TAB PO SCH ×3 (10:14→21:26)
[2023-04-14] MEDS: ursodioL 300 MG CAP PO SCH ×2 (10:22→21:26)
[2023-04-14 10:49] LABS: Glucose,Whole Blood 95 mg/dL (70-110)
[2023-04-14 12:02] LABS: Glucose,Whole Blood 110 mg/dL (70-110)
[2023-04-14] MEDS: PIPERACILLIN-TAZOBACTAM 3.375 GM in SODIUM CHLORIDE 0.9% 100 ML IVPB SCH (12:13)
[2023-04-14] MEDS: diphenhydrAMINE 50 MG/ML 1 ML VIAL IVP PRN (12:19)
[2023-04-14] MEDS ORDERED: LIDOCAINE 1% INJ 10MG/ML (5 ML VIAL-PF) SQ ONE (13:47)
--- NOTE | 2023-04-14 14:17 | P.PN ---
Subjective Patient is seen for follow-up for end-stage renal disease. Maintained on hemodialysis on a Tuesday schedule. Currently she has a right IJ permacath. Right Port-A-Cath for outpatient TPN was discontinued on 04/09/2023. Catheter tip culture is growing gram-negative bacilli and blood cultures on admission on 04/08/2003 are growing Klebsiella pneumonia Patient has right arm AV fistula which was used 2 days ago and appears to have had a hematoma. Patient will follow-up with her primary vascular surgeon as outpatient. Dr. Berg Repeat Blood cultures remained negative Objective - Vital Signs Vital signs: Vital Signs Temp 98.5 F 04/14/23 07:11 Pulse 68 04/14/23 07:11 Resp 17 04/14/23 07:11 BP 158/71 04/14/23 07:11 Pulse Ox 97 04/14/23 07:11 FiO2 Intake & Output 04/13/23 04/14/23 04/14/23 18:59 06:59 18:59 Intake Total 240 Output Total 0 Balance 240 0 Weight 35.38 kg Intake: Oral 240 Output: Urine 0 Other: Voiding Method Toilet Toilet Toilet # Voids 2 1 0 - Exam Awake, comfortable, no acute distress Right IJ permacath currently dressed Examination lower extremity shows no edema [employer] exam grossly intact - Labs CBC & Chem 7: 04/12/23 05:43 04/12/23 05:43 Labs: Abnormal Lab Results - Last 24 Hours (Table) 04/13/23 04/13/23 04/13/23 Range/Units 17:43 18:08 18:26 POC Glucose (mg/dL) 66 L 64 L 49 L (70-110) mg/dL 04/13/23 Range/Units 18:44 POC Glucose (mg/dL) 63 L (70-110) mg/dL Microbiology - Last 24 Hours (Table) 04/09/23 11:30 Catheter Tip Culture - Final Catheter Tip Klebsiella pneumoniae Burkholderia cepacia 04/11/23 06:21 Blood Culture - Preliminary Blood 04/08/23 18:27 Blood Culture - Final Blood 04/11/23 13:49 Blood Culture - Preliminary Blood 04/12/23 12:00 Blood Culture - Preliminary Blood Assessment and Plan Assessment: 1. Gram-negative bacteremia with blood culture growing Klebsiella pneumonia. Source is most likely the Choi catheter which is now discontinued. Repeat blood cultures are pending. Catheter tip is also growing gram-negative bacilli. Patient continues to have right IJ permacath. Repeat blood cultures negative thus far 2. End-stage renal disease maintained on Tuesday schedule currently dialyzing via right IJ permacath. AV fistula in the right upper arm has not been successfully used yet. 3. CK D mineral bone disorder 4. Short bowel syndrome and maintained on TPN as outpatient. 5. Anemia of chronic disease 6. Hematoma at right arm AV fistula Plan: Antibiotics as per ID. Patient will follow-up with her primary vascular surgeon post discharge. Continue hemodialysis via right IJ PermCath. Repeat blood cultures are all negative.
[2023-04-14 14:22] LABS: Glucose,Whole Blood 73 mg/dL (70-110)
--- NOTE | 2023-04-14 14:26 | IR ---
PICC LINE PLACEMENT: HISTORY: TPN therapy PROCEDURE: Ultrasound and fluoroscopic guidance of PICC line placement. COMPLICATIONS: None ANESTHESIA: 1. 1% Lidocaine locally. FINDINGS/TECHNIQUE: The procedure was explained to the patient. The risks, complications, benefits and alternatives were discussed and any questions were answered. Informed consent was obtained. The patient was placed supine on the fluoroscopic table and prepped and draped in the usual sterile fash ion. Utilizing a 21 gauge needle and sonographic and fluoroscopic guidance, access in the left brac hial vein was achieved and there is placement of a 0.018 guidewire. The vein is patent. A 5-Fr she ath was placed over the guidewire. The guidewire and dilator were removed and a 5-F. Double lumen PI CC line was placed through the sheath with the tip at the level of the SVC. The sheath was removed, the catheter was flushed and sutured into position. The patient was stable throughout the procedure and remained stable upon discharge from the Department of Radiology. The vein puncture was patent under ultrasound. A flores scale image was obtained to document patency of the vein punctured. All elements of the maximal barrier technique were utilized. FLUOROSCOPY TIME: 0.0936 IMPRESSION: Successful PICC double lumen line placement under ultrasound and fluoroscopic guidance.
[2023-04-14] MEDS: HYDROmorphone 1 MG/ML 1 ML SYRINGE IVP PRN ×2 (14:33→21:36)
--- NOTE | 2023-04-14 15:21 | P.PN ---
Subjective Progress Note Date: 04/14/23 Patient is a 52-year-old female with history of short bowel syndrome, end stage renal disease, hypertension, and sigmoid volvulus who presented with suspicion for an infected Groshong catheter. On arrival to the ER her vital signs were within normal limits, laboratory analysis was remarkable for hemoglobin 10.6, platelet 92, BUN 23, and creatinine 5.18. She was started on Unasyn and blood cultures were obtained. Surgery was consulted and she had her Groshong catheter removed on 04/09/23. Blood culture came back with Klebsiella pneumonia and catheter tip was cultured. She was also seen by dialysis and continued on her hemodialysis. Tagged white blood cell scan showed no abnormal uptake within the right upper chest just staying infected [id number], normal white blood cell scan. PICC line replaced. will be discharged on ertapenem x 10 days. Patient seen and examined at bedside. No new complaints. Vital signs reviewed General: nontoxic, no distress, appears at stated age Cardiovascular: S1S2 reg, no murmur, positive posterior tibial pulse bilateral, Lungs: CTA bilateral, no rhonchi, no rales , no accessory muscle use Right AV fistula no thrill, no bruit Ext: no gross muscle atrophy, no edema b/l lower extremities, no contractures Neuro: CN II-XI grossly intact, no focal neuro deficits Psych: Alert, oriented, appropriate affect Assessment/Plan: Klebsiella pneumonia bacteremia due to infected Groshong catheter -infected Groshong Catheter has been removed. IJ hemodialysis catheter remains in place. -Tagged white blood cell scan shows no additional uptake - Discussed with ID, pending PICC placement -Continue with Zosyn 3.375 g IV piggyback every 12 hours -will be discharged on ertapenem x 10 days Short-bowel syndrome Hypoglycemia - uses chronic TPN - Currently on dextrose at 100 mls/hr - monitor BS AV fistula malfunction -Recommend outpatient intervention with patient's known vascular surgeon. ESRD on hemodialysis through right permacath -Nephrology note reviewed: HD done today -Continue with sodium bicarb 1300 mg 3 times daily, potassium 20 mEq twice daily Chronic: Anemia, chronic Thrombocytopenia Hypokalemia, resolved Chronic pain syndrome Imaging: None new Data Review: Blood cultures from peripheral and HD cath from 04/11/23-negative for 24 hours Blood sugars range between 73-110 DVT prophylaxis: Heparin SC Anticipated discharge date: tomorrow Anticipated discharge place: home with home care Objective - Vital Signs Vital signs: Vital Signs Temp 98.5 F 04/14/23 14:45 Pulse 75 04/14/23 14:45 Resp 14 04/14/23 14:45 BP 133/78 04/14/23 14:45 Pulse Ox 100 04/14/23 14:45 FiO2 Intake & Output 04/13/23 04/14/23 04/14/23 18:59 06:59 18:59 Intake Total 240 Output Total 0 Balance 240 0 Weight 35.38 kg Intake: Oral 240 Output: Urine 0 Other: Voiding Method Toilet Toilet Toilet # Voids 2 1 1 - Labs CBC & Chem 7: 04/12/23 05:43 04/12/23 05:43 Labs: Abnormal Lab Results - Last 24 Hours (Table) 04/13/23 04/13/23 04/13/23 Range/Units 17:43 18:08 18:26 POC Glucose (mg/dL) 66 L 64 L 49 L (70-110) mg/dL 04/13/23 Range/Units 18:44 POC Glucose (mg/dL) 63 L (70-110) mg/dL Microbiology - Last 24 Hours (Table) 04/09/23 11:30 Catheter Tip Culture - Final Catheter Tip Klebsiella pneumoniae Burkholderia cepacia 04/11/23 06:21 Blood Culture - Preliminary Blood 04/08/23 18:27 Blood Culture - Final Blood 04/11/23 13:49 Blood Culture - Preliminary Blood 04/12/23 12:00 Blood Culture - Preliminary Blood
--- NOTE | 2023-04-14 15:33 | P.PN ---
Subjective Progress Note Date: 04/14/23 Principal diagnosis: Klebsiella bacteremia and line related infection Patient is a 52-year-old female with past medical history significant for hypertension end-stage renal disease on hemodialysis through the right IJ permacatheter patient also have a history of short gut syndrome with multiple catheters for TPN and history of line sepsis patient did have a Groshong catheter was placed about 2 years ago patient presented to the hospital for not feeling well, patient has been diagnosed with the Groshong infection and did have removal of the catheter by surgery on 04/09/2023 blood culture positive for gram-negative. On today's evaluation that is 04/14/2023, the patient continues to be afebrile, patient is breathing comfortably on room air, the patient denies chest pain shortness of breath or cough , the patient did have mild nausea but no vomiting mild abdominal pain no diarrhea patient undergoing dialysis through the permacatheter and do not have any rigors or chills No labs were drawn today blood cultures with Klebsiella catheter tip also grew Klebsiella as well as Burkholderia , blood cultures 04/11/2023 as well as 04/12/2023 so far negative Objective - Vital Signs Vital signs: Vital Signs Temp 98.5 F 04/14/23 07:11 Pulse 68 04/14/23 07:11 Resp 17 04/14/23 07:11 BP 158/71 04/14/23 07:11 Pulse Ox 97 04/14/23 07:11 FiO2 Intake & Output 04/13/23 04/14/23 04/14/23 18:59 06:59 18:59 Intake Total 240 Output Total 0 Balance 240 0 Weight 35.38 kg Intake: Oral 240 Output: Urine 0 Other: Voiding Method Toilet Toilet Toilet # Voids 2 1 0 - Exam GENERAL DESCRIPTION: A middle-age female lying in bed in no distress RESPIRATORY SYSTEM: Unlabored breathing , decreased breath sounds at bases HEART: S1 S2 regular rate and rhythm , ABDOMEN: Soft , no tenderness EXTREMITIES: No edema feet - Labs CBC & Chem 7: 04/12/23 05:43 04/12/23 05:43 Labs: Abnormal Lab Results - Last 24 Hours (Table) 04/13/23 04/13/23 04/13/23 Range/Units 17:43 18:08 18:26 POC Glucose (mg/dL) 66 L 64 L 49 L (70-110) mg/dL 04/13/23 Range/Units 18:44 POC Glucose (mg/dL) 63 L (70-110) mg/dL Microbiology - Last 24 Hours (Table) 04/11/23 06:21 Blood Culture - Preliminary Blood 04/09/23 11:30 Catheter Tip Culture - Preliminary Catheter Tip Klebsiella pneumoniae 04/08/23 18:27 Blood Culture - Final Blood 04/11/23 13:49 Blood Culture - Preliminary Blood 04/12/23 12:00 Blood Culture - Preliminary Blood Assessment and Plan (1) Infection associated with central venous catheter Current Visit: Yes Status: Acute Code(s): T80.219A - UNSP INFECTION DUE TO CENTRAL VENOUS CATHETER, INIT ENCNTR SNOMED Code(s): 473175472 (2) Bacteremia Current Visit: No Status: Acute Code(s): R78.81 - BACTEREMIA SNOMED Code(s): 0529656 (3) Allergy to multiple antibiotics Current Visit: Yes Status: Acute Code(s): Z88.1 - ALLERGY STATUS TO OTHER ANTIBIOTIC AGENTS SNOMED Code(s): 302625540 Plan: 1patient with a gram-negative bacteremia with a source possible Groshong catheter with the patient was using for TPN and the patient did have symptoms every time she was using the TPN possibly related to Groshong catheter which has been removed catheter tip has been sent however the patient also have a right IJ permacatheter and if bacteremic secondary seeding or infection of the pulm catheter not entirely excluded patient did have a right upper arm AV fistula with no evidence of any cellulitis at that site 2patient with multiple antibiotic allergies that would limit the number of antibiotics safe to use 3-blood cultures has been repeated 04/11/2023 to document clearance of bacteremia and blood culture will be obtained from the right IJ permacatheter hemodialysis on 04/11/2023 and are negative so far 4patient should be able to get her PICC line today as a blood culture has been negative with the update on the catheter tip culture antibiotic will be switched over to merrem 500 mg BID, that'll be continued outpatient setting 10 days discussed with the admitting team Dictation was produced using [employer] dictation software. please excuse any grammatical, word or spelling errors. Time with Patient: Less than 30
[2023-04-14] MEDS ORDERED: ERTAPENEM 0.5 GM in SODIUM CHLORIDE 0.9% 50 ML IVPB SCH (16:00)
[2023-04-14] MEDS ORDERED: HEPARIN SODIUM,PORCINE/PF 5,000 UNIT/0.5 ML SYRINGE SQ SCH (16:00)
[2023-04-14 16:08] LABS: Glucose,Whole Blood 94 mg/dL (70-110)
[2023-04-14] MEDS: MEROPENEM 500 MG in SODIUM CHLORIDE 0.9% 100 ML IVPB SCH (16:39)
[2023-04-14] MEDS: HEPARIN SODIUM,PORCINE 5,000 UNIT/ML 1 ML VIAL SQ SCH ×2 (16:40→23:16)
[2023-04-14 17:58] LABS: Glucose,Whole Blood 75 mg/dL (70-110)
[2023-04-14 20:09] LABS: Glucose,Whole Blood 92 mg/dL (70-110)
[2023-04-14 22:04] LABS: Glucose,Whole Blood 101 mg/dL (70-110)
[2023-04-14 23:57] LABS: Glucose,Whole Blood 94 mg/dL (70-110)
[2023-04-15] MEDS: diphenhydrAMINE 50 MG/ML 1 ML VIAL IVP PRN ×2 (01:04→15:00)
[2023-04-15] MEDS: HYDROmorphone 1 MG/ML 1 ML SYRINGE IVP PRN ×3 (01:41→13:53)
[2023-04-15 02:24] LABS: Glucose,Whole Blood 95 mg/dL (70-110)
[2023-04-15] MEDS: DEXTROSE 10% IN WATER 1,000 ML with SODIUM CHLORIDE 4MEQ/ML VIAL 77 MEQ IV SCH (02:47)
[2023-04-15 03:58] LABS: Glucose,Whole Blood 75 mg/dL (70-110)
[2023-04-15 05:48] LABS: Glucose,Whole Blood 77 mg/dL (70-110)
[2023-04-15 07:36] LABS: Glucose,Whole Blood 94 mg/dL (70-110)
[2023-04-15] MEDS: HEPARIN SODIUM,PORCINE 5,000 UNIT/ML 1 ML VIAL SQ SCH ×2 (08:08→16:24)
[2023-04-15] MEDS: FOLIC ACID-VIT B COMPLEX-VIT C 1 CAP PO SCH (08:09)
[2023-04-15] MEDS: SODIUM BICARBONATE TAB 650 MG TAB PO SCH ×2 (08:09→17:58)
[2023-04-15] MEDS: POTASSIUM CHLORIDE ER 20 MEQ TAB.ER PO SCH (08:09)
[2023-04-15] MEDS: POTAS-SOD-PHOS 278-164-250 MG 1 EACH PACKET PO SCH ×2 (08:10→17:59)
[2023-04-15] MEDS: ursodioL 300 MG CAP PO SCH (08:10)
[2023-04-15] MEDS: DIPHENOX-ATROP 2.5-0.025 MG 1 EACH TAB PO SCH (08:13)
[2023-04-15 10:12] LABS: Glucose,Whole Blood 93 mg/dL (70-110)
[2023-04-15 11:50] LABS: Glucose,Whole Blood 92 mg/dL (70-110)
--- NOTE | 2023-04-15 12:31 | P.DS ---
Providers Date of admission: 04/08/23 21:38 Expected date of discharge: 04/15/23 Attending physician: Mary Mcginnis MD Consults: 04/08/23 20:22 Consult Physician Urgent Consulting Provider: Dipesh Alex Consult Reason/Comments: central cathether infection Do you want consulting provider notified?: Already Contacted 04/09/23 02:13 Consult Physician Routine Consulting Provider: Opal Chun Consult Reason/Comments: ESRD Do you want consulting provider notified?: Yes, Notify in am 04/09/23 19:31 Consult Physician Urgent Consulting Provider: Molly Hoyos Consult Reason/Comments: Positive blood culture for klub pneumoniae Do you want consulting provider notified?: Yes Primary care physician: Pradeep Davis [facility] Course: Discharge Diagnosis: Klebsiella pneumonia bacteremia due to infected Groshong catheter Short-bowel syndrome on TPN Hypoglycemia AV fistula malfunction ESRD on hemodialysis through right permacath Anemia, chronic Thrombocytopenia Hypokalemia Chronic pain syndrome Hospital Course: Patient is a 52-year-old female with history of short bowel syndrome, end stage renal disease, hypertension, and sigmoid volvulus who presented with suspicion for an infected Groshong catheter. On arrival to the ER her vital signs were within normal limits, laboratory analysis was remarkable for hemoglobin 10.6, platelet 92, BUN 23, and creatinine 5.18. She was started on Unasyn and blood cultures were obtained. ID was consulted. Surgery was consulted and she had her Groshong catheter removed on 04/09/23. Blood culture came back with Klebsiella pneumonia and catheter tip was cultured. She was also seen by nephrology and continued on her hemodialysis. Tagged white blood cell scan showed no abnormal uptake within the right upper chest just staying infected [id number], normal white blood cell scan. PICC line replaced. will be discharged on ertapenem for short course. Patient seen and examined at bedside. Vital signs reviewed and stable. General: nontoxic, no distress, appears at stated age Cardiovascular: S1S2 reg, no murmur, positive posterior tibial pulse bilateral, Lungs: CTA bilateral, no rhonchi, no rales , no accessory muscle use Right AV fistula no thrill, no bruit Ext: no gross muscle atrophy, no edema b/l lower extremities, no contractures Neuro: CN II-XI grossly intact, no focal neuro deficits Psych: Alert, oriented, appropriate affect A total of 36 minutes of time were spent preparing this complex discharge summary. Patient was discharged on 04/15/23 at 11:56. Patient Condition at Discharge: Stable Plan - Discharge Summary Discharge Rx Participant: No New Discharge Prescriptions: New Meropenem [Merrem] 0.5 gm IVPB DAILY #12 each Continue Sodium Bicarbonate Tab 1,300 mg PO TID Acetaminophen Tab [Tylenol] 650 mg PO Q6HR PRN tab PRN Reason: Fever and/ or Mild Pain Ondansetron Odt [Zofran ODT] 4 mg PO Q8HR PRN PRN Reason: Nausea And Vomiting ursodioL [Ursodiol] 300 mg PO BID Vit B Complx C/Folic Acid/Zinc [Renaplex Tablet] 1 tab PO DAILY Loperamide [Imodium] 2 mg PO BID PRN PRN Reason: Diarrhea Ergocalciferol (Vitamin D2) [Drisdol (50,000 Iu)] 1,250 mcg PO DAILY Diphenox-Atrop 2.5-0.025 mg [Lomotil] 1 tab PO BID Potassium Chloride ER [K-Dur 20] 20 meq PO BID Bvcav-Cer-Kour 278-164-250 mg [Neutra-Phos Packet] 1 packet PO TID fentaNYL 25MCG/HR PATCH [Duragesic 25MCG/HR] 25 mcg TRANSDERM Q72H Copper Supplement 1 tab PO DAILY Discharge Medication List Sodium Bicarbonate Tab 1,300 mg PO TID 09/06/18 [History] Acetaminophen Tab [Tylenol] 650 mg PO Q6HR PRN tab 12/02/18 [Rx] Copper Supplement 1 tab PO DAILY 04/08/23 [History] Diphenox-Atrop 2.5-0.025 mg [Lomotil] 1 tab PO BID 04/08/23 [History] Ergocalciferol (Vitamin D2) [Drisdol (50,000 Iu)] 1,250 mcg PO DAILY 04/08/23 [H istory] Loperamide [Imodium] 2 mg PO BID PRN 04/08/23 [History] Ondansetron Odt [Zofran ODT] 4 mg PO Q8HR PRN 04/08/23 [History] Arpcc-Exv-Srna 278-164-250 mg [Neutra-Phos Packet] 1 packet PO TID 04/08/23 [History] Potassium Chloride ER [K-Dur 20] 20 meq PO BID 04/08/23 [History] Vit B Complx C/Folic Acid/Zinc [Renaplex Tablet] 1 tab PO DAILY 04/08/23 [History] fentaNYL 25MCG/HR PATCH [Duragesic 25MCG/HR] 25 mcg TRANSDERM Q72H 04/08/23 [History] ursodioL [Ursodiol] 300 mg PO BID 04/08/23 [History] Meropenem [Merrem] 0.5 gm IVPB DAILY #12 each 04/15/23 [Rx] Follow up Appointment(s)/Referral(s): Danny Davis MD [Primary Care Provider] - 1-2 days Patient Instructions/Handouts: Bacteremia (DC) Activity/Diet/Wound Care/Special Instructions: Please see your vascular surgeon, upfitter, and also PCP. Discharge Disposition: HOME WITH HOME HEALTH SERVICES
[2023-04-15 13:15] VITALS: BP 151/79; PULSE 55; RESP 16; TEMP 98.3
[2023-04-15 13:58] LABS: Glucose,Whole Blood 76 mg/dL (70-110)
[2023-04-15] MEDS: MEROPENEM 500 MG in SODIUM CHLORIDE 0.9% 100 ML IVPB SCH (15:00)
[2023-04-15 16:02] LABS: Glucose,Whole Blood 72 mg/dL (70-110)
== END 2023-04-15 18:19 | disposition home health service (06) | DRG 314 ==
LOC: EC 14:53 → 5NMEDONC 21:38
PROVIDERS: ADMIT Internal Medicine; ATTEND Internal Medicine
PROC: 5A1D70Z Performance of Urinary Filtration, Intermittent, Less than 6 Hours Per Day (ICD-10-PCS; 2023-04-08)
PROC: 03PYX3Z Removal of Infusion Device from Upper Artery, External Approach (ICD-10-PCS; 2023-04-09)
PROC: 02HV33Z Insertion of Infusion Device into Superior Vena Cava, Percutaneous Approach (ICD-10-PCS; principal; 2023-04-14 15:55)
DX: T80.212A Local infection due to central venous catheter, initial encounter (principal); K56.2 Volvulus; N18.6 End stage renal disease; T82.510A Breakdown (mechanical) of surgically created arteriovenous fistula, initial encounter; I12.0 Hypertensive chronic kidney disease with stage 5 chronic kidney disease or end stage renal disease; K91.2 Postsurgical malabsorption, not elsewhere classified; D69.6 Thrombocytopenia, unspecified; D63.1 Anemia in chronic kidney disease; T80.219A Unspecified infection due to central venous catheter, initial encounter; E11.22 Type 2 diabetes mellitus with diabetic chronic kidney disease; E11.649 Type 2 diabetes mellitus with hypoglycemia without coma; Y71.2 Prosthetic and other implants, materials and accessory cardiovascular devices associated with adverse incidents; Y84.8 Other medical procedures as the cause of abnormal reaction of the patient, or of later complication, without mention of misadventure at the time of the procedure; G89.4 Chronic pain syndrome; E87.6 Hypokalemia; B96.89 Other specified bacterial agents as the cause of diseases classified elsewhere; B96.1 Klebsiella pneumoniae [K. pneumoniae] as the cause of diseases classified elsewhere; Z82.49 Family history of ischemic heart disease and other diseases of the circulatory system; Z83.3 Family history of diabetes mellitus; Z99.2 Dependence on renal dialysis; Z88.8 Allergy status to other drugs, medicaments and biological substances; Z88.2 Allergy status to sulfonamides; Z88.1 Allergy status to other antibiotic agents
CPT/HCPCS: 36415; 36573; 78306; 80048; 80053; 83605; 85025; 86706; 87040; 87070; 87077; 87186; 87340; 90935; 96365; 96366; 96375; 99285

== ENCOUNTER → 2023-04-22 | Outpatient (CLI) | payer MEDICARE, OTHER ==
[2023-04-22 16:31] LABS: Potassium 4.7 mmol/L (3.5-5.5)
== END | disposition home or self-care (01) ==
LOC: LABWHC1 10:35
PROVIDERS: ATTEND Internal Medicine Gastroenterology
DX: E44.0 Moderate protein-calorie malnutrition (principal); E86.0 Dehydration; T82.7XXA Infection and inflammatory reaction due to other cardiac and vascular devices, implants and grafts, initial encounter; Y82.9 Unspecified medical devices associated with adverse incidents
CPT/HCPCS: 36415; 82180; 82306; 82379; 82525; 82607; 82746; 84132; 84255; 84446; 84590; 84630

== ENCOUNTER → 2023-05-09 | Outpatient (CLI) | payer MEDICARE, OTHER ==
[2023-05-09 15:16] LABS: ALT 18 U/L (4-34); AST 27 U/L (14-36); African American GFR (CKD) 7 (>60 ml/min/1.73 sqM); Albumin 3.5 g/dL (3.5-5.0); Anion Gap 23 mmol/L; Blood Urea Nitrogen 71 mg/dL (7-17); C Reactive Protein 5.2 mg/dL (<1.0); Calcium 8.9 mg/dL (8.4-10.2); Carbon Dioxide 33 mmol/L (22-30); Chloride 82 mmol/L (98-107); Globulin 3.6 g/dL; Glucose 86 mg/dL (74-99); Magnesium 1.7 mg/dL (1.6-2.3); Non-African American GFR(CKD) 6 (>60 ml/min/1.73 sqM); Phosphorus 4.4 mg/dL (2.5-4.5); Sodium 138 mmol/L (137-145); Total Bilirubin 1.3 mg/dL (0.2-1.3); Total Protein 7.1 g/dL (6.3-8.2)
[2023-05-09 15:52] LABS: Alkaline Phosphatase 689 U/L (38-126)
[2023-05-09 16:21] LABS: Ionized Calcium 4.3 mg/dL (4.5-5.3)
[2023-05-09 19:51] LABS: Prealbumin 31.1 mg/dL (18.0-42.0)
[2023-05-09 20:49] LABS: % Iron Saturation 8.61 (12.00-45.00); Iron 18 UG/DL (50-170); Total Iron Binding Capacity 209 UG/DL (228-460)
[2023-05-09 20:55] LABS: Basophils # (A) 0.05 X 10*3/uL (0.00-0.10); Basophils % (A) 0.3 %; Eosinophils # (A) 0.64 X 10*3/uL (0.04-0.35); HCT 39.3 % (37.2-46.3); HGB 12.2 d/dL (12.0-15.0); Lymphocytes # (A) 0.94 X 10*3/uL (0.90-5.00); Lymphocytes % (A) 5.9 %; MCV 99.7 FL (80.0-97.0); Mean Platelet Volume 10.9 FL (9.5-12.2); Monocytes # (A) 0.88 X 10*3/uL (0.20-1.00); Monocytes % (A) 5.5 %; NRBC Per 100 WBC 0 X 10*3/uL (0.00-0.01); Neutrophils # (A) 13.34 X 10*3/uL (1.80-7.70); Neutrophils % (A) 83.9 %; Platelet Count 214 X 10*3/uL (140-440); RBC 3.94 X 10*6/uL (4.10-5.20); RDW 16.1 % (11.5-14.5); WBC 15.92 X 10*3/uL (4.50-10.00)
[2023-05-09 21:06] LABS: INR 0.96 sec (0.93-1.11); Prothrombin Time 10.9 sec (9.9-11.9)
== END | disposition home or self-care (01) ==
LOC: LABWHC1 13:43
PROVIDERS: ATTEND Internal Medicine Gastroenterology
DX: K90.89 Other intestinal malabsorption (principal); E86.0 Dehydration; T82.7XXA Infection and inflammatory reaction due to other cardiac and vascular devices, implants and grafts, initial encounter; Y82.9 Unspecified medical devices associated with adverse incidents
CPT/HCPCS: 36415; 80053; 82330; 82525; 82728; 83540; 83550; 83735; 84100; 84134; 84466; 84478; 85025; 85610; 86140